=== PATIENT | female | born 1945 | race Caucasian/White ===

== ENCOUNTER 2020-01-16 15:31 | Outpatient (CLI) | payer MEDICARE, OTHER, SELFPAY ==
--- NOTE | ~2020-01-16 | CT_ITS ---
EXAMINATION: CT lung screening DATE: 01/16/2020 16:01 INDICATION: Personal history of tobacco dependence, current smoker with 30 pack year history TECHNIQUE: Computed tomography (CT) of the chest was performed without intravenous contrast. The dose -length product (DLP) was 85.81 mGy-cm. Automated exposure control and iterative reconstruction techn [employer] were employed. COMPARISON: 02/22/2019 FINDINGS: There is mild emphysema. There is a stable 2 mm nodule of the right upper lobe. No new or s uspicious pulmonary nodule is identified. The lungs are free of acute opacities. There is no pleural effusion or pneumothorax. Calcified pulmonary nodules and calcified mediastinal lymph nodes are consi stent with old granulomatous disease. Multinodular goiter of the thyroid is again noted. The heart si ze is normal. Punctate calcifications in an otherwise normal spleen likely represent healed granuloma tous disease. There is mild thoracic spondylosis. IMPRESSION: 1. Lung-RADS category 2: Benign appearance or behavior. Continue annual screening with noncontrast lo w-dose chest CT in 12 months. Reviewed, dictated and finalized at location A. IMPRESSION: 1. Lung-RADS category 2: Benign appearance or behavior. Continue annual screeni ng with noncontrast low-dose chest CT in 12 months.
== END 2020-01-16 15:32 | disposition home or self-care (01) ==
LOC: ANHIMG 15:40
PROVIDERS: PCP Internal Medicine; Visit Provider Nurse Practitioner Family
DX: Z12.2 Encounter for screening for malignant neoplasm of respiratory organs (principal); Z87.891 Personal history of nicotine dependence
CPT/HCPCS: G0297

== ENCOUNTER 2020-05-12 02:23 | Outpatient (CLI) | payer MEDICARE, OTHER, SELFPAY ==
[2020-05-12 19:46] LABS: SARS-CoV-2 RNA PCR Negative
== END 2020-05-12 02:24 | disposition home or self-care (01) ==
LOC: ANHCOVIDDT 02:24
PROVIDERS: PCP Internal Medicine; Visit Provider Internal Medicine Gastroenterology
DX: Z01.812 Encounter for preprocedural laboratory examination (principal); Z20.828 Contact with and (suspected) exposure to other viral communicable diseases
CPT/HCPCS: 87635; C9803; U0003

== ENCOUNTER 2020-05-15 04:44 | Day surgery (SDC) | payer MEDICARE, OTHER, SELFPAY ==
[2020-05-08 14:33] VITALS: BMI 30.3
[2020-05-15 10:07] VITALS: BP 149/73; PULSE 99; RESP 18; TEMP 36.7; O2SAT 92
[2020-05-15] MEDS: LACTATED RINGERS 1,000 ML 150 ML IV CONT (10:18)
--- NOTE | 2020-05-15 10:28 | WPDANESEPPF ---
Anes - Initial Pre Proc Eval Procedure: Operation Date: 05/15/20 11:00 Proposed Procedures p Colonoscopy - Tay Marmolejo MD Date/Time: 05/15/20 10:28 Surgeon: Tay Marmolejo MD Pre Op Diagnosis: Change In Bowel Habits Patient Data Age: 74 Gender: F Height: 5 ft Weight: 68.1 kg Last Vital Signs Temp 36.7 C 05/15/20 10:07 Pulse 99 05/15/20 10:07 Resp 18 05/15/20 10:07 BP 149/73 H 05/15/20 10:07 Pulse Ox 92 05/15/20 10:07 Allergies Allergy/AdvReac Type Severity Reaction Status Date / Time diphenhydramine Allergy Unknown Itching Verified 05/15/20 10:06 Home Medications Medication Instructions Recorded Confirmed Type aspirin 81 mg tablet,delayed 81 mg PO DAILY 06/05/19 05/15/20 History release cetirizine 5 mg-pseudoephedrine ER 1 tablet PO Q12H 06/05/19 05/15/20 History 120 mg tablet,extended release,12hr omega-3 fatty acids 1,000 mg 1,000 mg PO DAILY 06/05/19 05/15/20 History capsule budesonide-formoterol HFA 160 2 puff INHALATION Q12H #10.2 gm 06/07/19 05/15/20 Rx mcg-4.5 mcg/actuation aerosol inhaler losartan 50 mg tablet 50 mg PO DAILY #90 tablet 03/29/20 05/15/20 Rx albuterol sulfate 90 mcg/actuation 1 inh INHALATION Q4-6H PRN #8.5 gm 05/04/20 05/15/20 Rx aerosol inhaler Adults Multivitamin 1 tab-cap PO DAILY 05/08/20 05/15/20 History alprazolam 0.5 mg tablet 0.5 mg PO BID PRN #60 tablet 05/14/20 05/15/20 Rx Patient hx anesthesia problems: none Family hx anesthesia problems: none PMFSH Past Medical History Medical History Chronic respiratory failure, unspecified whether with hypoxia or hypercapnia COPD exacerbation Essential (primary) hypertension Nicotine dependence, other tobacco product, uncomplicated Thyroid nodule Wheezing Family History Family History Father Cerebrovascular accident Malignant neoplasm of prostate Patient's father is Sibling Diabetes mellitus Family history of malignant neoplasm of male breast Family history of malignant neoplasm of breast in first degree relative Mother Acute myocardial infarction Diabetes mellitus Other Family history of cardiovascular disease Social History Social History Smoking packs per day: 0.5 Smoking cigarettes per day: 10.0 Years smoked: 50 Smoking pack-years: 25.00 Smoking status: Current every day smoker Tobacco type: cigarettes Second hand tobacco smoke exposure: No Smoking end date: 06/26/16 Alcohol intake: never Substance use: unknown Living arrangements: with family Spiritual care concerns: No Anes - Eval Final PreProcedure Day of Procedure 05/15/20 10:28 Patient weight: overweight Heart: regular rate and rhythm Lungs: decreased breath sounds Airway: Mallampati scale class II Neurological: alert and oriented Last oral intake: >/= 8 hours ASA classification: III Emergent: no Anesthetic plan: proceed Anesthesia type and monitoring: general GIVS and standard monitoring Informed Consent: The patient's anesthetic plan and its attendant risks and benefits were discussed with the patient/family/POA. Questions were solicited and answers provided to the satisfaction of the patient/family/POA.
--- NOTE | 2020-05-15 10:42 | WPDGICN ---
Assessment and Plan Assessment and plan (1) Encounter for diagnostic colonoscopy due to change in bowel habits: Code(s): R19.4 - Change in bowel habit Status: Acute Assessment and Plan: colonoscopy will assess change in bowel habits as well as abdominal pain. Suggest MiraLax to be taken daily if necessary. Further recommendations will be given after colonoscopy. (2) Anxiety disorder, unspecified: Code(s): F41.9 - Anxiety disorder, unspecified Status: Acute GI Consult Note Consult date/time: 05/15/20 10:42 HPI: Mya Landry is a 74 year old female Seen in evaluation at the request of XIMENA Francis. Patient reports change in bowel habits with constipation. She has not taken any specific medications. In the past she has tried do Koul Fay but this causes cramps. She denies any bleeding or weight loss. Family history is noncontributory. She apparently has never had a colonoscopy. For this reason colonoscopy advised for screening as well to evaluate her pain. Review of Systems Review of Systems: All systems reviewed & are unremarkable except as noted in HPI and below PMFSH Past Medical History Medical History (Updated 05/15/20 @ 10:43 by Tay Marmolejo MD) Chronic respiratory failure, unspecified whether with hypoxia or hypercapnia COPD exacerbation Essential (primary) hypertension Nicotine dependence, other tobacco product, uncomplicated Thyroid nodule Wheezing Family History Family History Father Cerebrovascular accident Malignant neoplasm of prostate Patient's father is Sibling Diabetes mellitus Family history of malignant neoplasm of male breast Family history of malignant neoplasm of breast in first degree relative Mother Acute myocardial infarction Diabetes mellitus Other Family history of cardiovascular disease Social History Social History Smoking packs per day: 0.5 Smoking cigarettes per day: 10.0 Years smoked: 50 Smoking pack-years: 25.00 Smoking status: Current every day smoker Tobacco type: cigarettes Second hand tobacco smoke exposure: No Smoking end date: 06/26/16 Alcohol intake: never Substance use: unknown Living arrangements: with family Spiritual care concerns: No Meds Home Medications and Allergies Home Medications Medication Instructions Recorded Confirmed Type aspirin 81 mg tablet,delayed 81 mg PO DAILY 06/05/19 05/15/20 History release cetirizine 5 mg-pseudoephedrine ER 1 tablet PO Q12H 06/05/19 05/15/20 History 120 mg tablet,extended release,12hr omega-3 fatty acids 1,000 mg 1,000 mg PO DAILY 06/05/19 05/15/20 History capsule budesonide-formoterol HFA 160 2 puff INHALATION Q12H #10.2 gm 06/07/19 05/15/20 Rx mcg-4.5 mcg/actuation aerosol inhaler losartan 50 mg tablet 50 mg PO DAILY #90 tablet 03/29/20 05/15/20 Rx albuterol sulfate 90 mcg/actuation 1 inh INHALATION Q4-6H PRN #8.5 gm 05/04/20 05/15/20 Rx aerosol inhaler Adults Multivitamin 1 tab-cap PO DAILY 05/08/20 05/15/20 History alprazolam 0.5 mg tablet 0.5 mg PO BID PRN #60 tablet 05/14/20 05/15/20 Rx Allergies Allergy/AdvReac Type Severity Reaction Status Date / Time diphenhydramine Allergy Unknown Itching Verified 05/15/20 10:06 Vital Signs Vital Signs - 24 hr 05/15/20 10:07 Temperature 98.0 F Pulse Rate 99 Respiratory Rate 18 Blood Pressure 149/73 H Pulse Oximetry 92 Exam Narrative: Exam Narrative: Physical exam reveals patient to be alert. Vital signs stable. HEENT exam unremarkable. Lungs are clear to auscultation and percussion. Heart is without murmur or extra sounds. Abdominal exam bowel sounds are present soft nontender with no organomegaly. Digital external rectal exam normal per
[2020-05-15 11:06] VITALS: BP 112/51; PULSE 96; RESP 20; O2SAT 97
[2020-05-15 11:16] VITALS: BP 113/60; PULSE 92; RESP 18; O2SAT 98
[2020-05-15 11:26] VITALS: BP 126/77; PULSE 89; RESP 26; O2SAT 98
== END 2020-05-15 11:44 | disposition home or self-care (01) ==
PROVIDERS: PCP Internal Medicine; Visit Provider Internal Medicine Gastroenterology
PROC: 0DJD8ZZ Inspection of Lower Intestinal Tract, Via Natural or Artificial Opening Endoscopic (ICD-10-PCS; CPT 45378; principal; 2020-05-15 11:00)
DX: Z12.11 Encounter for screening for malignant neoplasm of colon (principal); K59.00 Constipation, unspecified; K64.8 Other hemorrhoids; K57.30 Diverticulosis of large intestine without perforation or abscess without bleeding; F41.9 Anxiety disorder, unspecified; J96.10 Chronic respiratory failure, unspecified whether with hypoxia or hypercapnia; J44.9 Chronic obstructive pulmonary disease, unspecified; I10 Essential (primary) hypertension; F17.210 Nicotine dependence, cigarettes, uncomplicated
CPT/HCPCS: G0121; J2704; J7120

== ENCOUNTER 2020-07-07 09:37 | Emergency (ER) | payer MEDICARE, OTHER, SELFPAY ==
[2020-07-07] VITALS (51 sets, daily range): BP systolic 106–206; BP diastolic 50–101; PULSE 65–89; RESP 14–20; TEMP 36.2; O2SAT 79–100
--- NOTE | ~2020-07-07 | XR_ITS ---
EXAMINATION: XR chest 1V portable INDICATION: Hypoxia TECHNIQUE: Portable AP chest at 1250 hours COMPARISON: 03/18/2016 FINDINGS: The lungs are free of acute opacities. There is no pleural effusion or pneumothorax. Calcif ied pulmonary nodules and calcified hilar lymph nodes are consistent with old granulomatous disease. IMPRESSION: 1. No acute cardiopulmonary abnormality. Reviewed, dictated and finalized at location A. ICE NURSE
--- NOTE | ~2020-07-07 | CT_ITS ---
EXAMINATION: CT abdomen pelvis wo con DATE: 07/07/2020 10:47 INDICATION: Left flank pain. TECHNIQUE: Computed tomography (CT) of the abdomen and pelvis was performed without intravenous contr ast. Automated exposure control and iterative reconstruction technique were employed. The dose-length product was 367.72 mGy-cm. COMPARISON: CT abdomen and pelvis 11/20/2015 FINDINGS: The visualized portions of the lung bases since or mild atelectasis. No pleural effusion. T he heart size is normal. No pericardial effusion. There is a small sliding hiatal hernia. Calcificati ons in the liver and spleen are consistent with old granulomatous disease. The gallbladder, pancreas, adrenal glands, and right kidney are normal. There are 6 mm and 5 mm stones in left kidney. There is mild left hydronephrosis and hydroureter. There is diverticulosis of the colon without evidence of d iverticulitis. There are no dilated loops of bowel. The appendix is not visualized. There are no path ologically enlarged lymph nodes. There is no free intraperitoneal fluid. There is moderate lumbar spo ndylosis. IMPRESSION: 1. Mild left hydronephrosis and hydroureter, which may be from a recently passed stone. 2. Nonobstructing left kidney stones. Reviewed, dictated and finalized at location A. UCTION ASSEMBLY OPERATOR IMPRESSION: 1. Mild left hydronephrosis and hydroureter, which may be from a recently passe d stone. 2. Nonobstructing left kidney stones.
[2020-07-07 09:59] LABS: Basophils Percent Auto 0.3 % (0.2-1.2); Eosinophils Absolute Auto 0.1 K/mm3 (0-0.3); Eosinophils Percent Auto 0.4 % (0-4.4); Hematocrit 45.5 % (37.0-47.0); Immature Granulocyte Absolute 0.03 K/mm3 (0.00-0.031); Immature Granulocyte Percent A 0.3 % (0-0.5); Lymphocytes Percent Auto 10.5 % (18.3-44.2); Mean Corpuscular Hemoglobin 31.8 pg (26-34); Mean Corpuscular Volume 96.4 fl (80-100); Mean Platelet Volume 10.6 fl (7.4-10.4); Monocytes Absolute Auto 0.6 K/mm3 (0.1-0.6); Monocytes Percent Auto 5.3 % (2.6-8.5); Neutrophils Absolute Auto 9.6 K/mm3 (1.3-6.7); Neutrophils Percent Auto 83.2 % (45.5-73.1); Platelet Count Result 350 k/mm3 (150-375); Red Blood Count 4.72 M/mm3 (4.2-5.4); Red Cell Distribution Width 12.9 % (11.5-14.5); White Blood Count 11.5 K/mm3 (4.5-10.0)
[2020-07-07] MEDS: HYDROmorphone HCL INJ (*CRX) 1 MG/ML SYR 0.5 MG IV PUSH (10:16)
[2020-07-07] MEDS: ONDANSETRON INJ 4 MG/2 ML VIAL IV PUSH (10:17)
--- NOTE | 2020-07-07 10:24 | ED.GENADULT ---
HPI - General Adult General Chief complaint: Back Pain/Injury Stated complaint: Abd & Back pain Time Seen by Provider: 07/07/20 09:47 Source: patient Mode of arrival: ambulatory Limitations: no limitations History of Present Illness HPI narrative: Patient presents with chief complaint of left sided back pain that began today at 6am that is sharp and crampy and accompanied by nausea and radiation into her left groin. She denies history of kidney stones or injury to her back. She states she has not noted blood in her urine but states she feels her urine volume may be decreased.She denies fever, chills, diarrhea, SOB, chest pain, cough abnormal from baseline or any other symptoms. Related Data Home Medications Medication Instructions Recorded Confirmed aspirin 81 mg tablet,delayed 81 mg PO DAILY 06/05/19 06/15/20 release cetirizine 5 mg-pseudoephedrine ER 1 tablet PO Q12H 06/05/19 06/15/20 120 mg tablet,extended release,12hr omega-3 fatty acids 1,000 mg 1,000 mg PO DAILY 06/05/19 06/15/20 capsule Adults Multivitamin 1 tab-cap PO DAILY 05/08/20 06/15/20 Allergies Allergy/AdvReac Type Severity Reaction Status Date / Time diphenhydramine Allergy Unknown Itching Verified 07/07/20 09:46 Review of Systems Review of Systems: Narrative: CONSTITUTIONAL: Denies fever, chills, or sweats. EYES: Denies visual changes, redness, or discharge. ENT: Denies rhinorrhea, congestion, sore throat, or otalgia. CARDIOVASCULAR: Denies chest pain, palpitations, or edema. RESPIRATORY: Denies cough or dyspnea. GASTROINTESTINAL: Reports nausea denies abdominal pain,vomiting, or diarrhea. GENITOURINARY: Reports feeling decreased urine output denies dysuria or hematuria. SKIN: Denies rash or itching. MUSCULOSKELETAL: Reports left-sided back pain, denies joint pain, or myalgia. NEUROLOGIC: Denies headache, numbness, dizziness, or weakness. PSYCHIATRIC: Denies anxiety or depression. [facility] Past Medical History Medical History (Updated 07/07/20 @ 17:26 by Anshu Harden PA-C) Chronic respiratory failure, unspecified whether with hypoxia or hypercapnia COPD exacerbation Essential (primary) hypertension Nicotine dependence, other tobacco product, uncomplicated Thyroid nodule Wheezing Family History Family History Father Cerebrovascular accident Malignant neoplasm of prostate Patient's father is Sibling Diabetes mellitus Family history of malignant neoplasm of male breast Family history of malignant neoplasm of breast in first degree relative Mother Acute myocardial infarction Diabetes mellitus Other Family history of cardiovascular disease Social History Social History Smoking packs per day: 0.5 Smoking cigarettes per day: 10.0 Years smoked: 50 Smoking pack-years: 25.00 Smoking status: Current every day smoker Tobacco type: cigarettes Second hand tobacco smoke exposure: No Smoking end date: 06/26/16 Alcohol intake: never Substance use: unknown Spiritual care concerns: No Exam Narrative: Exam Narrative: GENERAL: Well-appearing, well-nourished, appears uncomfortable HEAD: Normocephalic, atraumatic. EYES: PERRLA and EOMI. NECK: Supple. No adenopathy or masses. CHEST: Clear to auscultation. No respiratory distress. No wheezes rales or rhonchi HEART: Regular rate and rhythm. No murmur heard. Normal peripheral pulses. ABDOMEN: Left CVA tenderness. Soft, nontender, nondistended, normal active bowel sounds. BACK: Left CVA tenderness. No vertebral point tenderness. EXTREMITIES: Normal range of motion. No edema. SKIN: Warm, dry, no rash. NEURO: No focal deficits. Alert and oriented x3. PSYCH: Normal mood and affect. Course Course Emergency Course: Patient CT doesn't show acute stone or other concerning etiology. Patient renal function okay, giving Toradol as patient still has sig
[2020-07-07 10:27] LABS: Alanine Aminotransferase 31 U/L (4-35); Albumin Level 4.4 g/dL (3.5-5.1); Alkaline Phosphatase 127 U/L (38-126); Anion Gap 5 mmol/L (8-16); Aspartate Amino Transferase 36 U/L (14-36); Bilirubin,Total 0.7 mg/dL (0.2-1.3); Blood Urea Nitrogen 14 mg/dL (7-17); Calcium 9.2 mg/dL (8.4-10.2); Carbon Dioxide 28 mmol/L (22-30); Chloride 99 mmol/L (98-107); Estimated CRCL calculation 63 ml/min; Estimated Glomerular Filt Rate > 60; Glucose 128 mg/dL (65-105); Potassium 4.7 mmol/L (3.4-5.0); Sodium 132 mmol/L (137-145)
[2020-07-07] MEDS: ALBUTEROL SULFATE NEB 2.5 MG/0.5 ML INH 5 MG INHALATION (11:15)
[2020-07-07] MEDS: IPRATROPIUM BR 0.02% INH SOLN 0.5 MG/2.5 ML VIAL INHALATION (11:15)
[2020-07-07] MEDS: KETOROLAC 15 MG/ML VIAL (*BKC) IV PUSH (11:23)
--- NOTE | 2020-07-07 12:02 | PC.NURSE ---
1202 - Patient reports pain level of 0/10 at this time after administration of ordered Toradol IVP.
[2020-07-07] MEDS: methylPREDNISolone SOD SUCC 125 MG VIAL IV PUSH (13:27)
[2020-07-08 18:18] LABS: SARS-CoV-2 RNA PCR Negative
== END 2020-07-07 16:54 | disposition home or self-care (01) ==
PROVIDERS: Physician Assistant; Emergency Provider Emergency Medicine; PCP Internal Medicine
DX: J44.1 Chronic obstructive pulmonary disease with (acute) exacerbation (principal); J96.11 Chronic respiratory failure with hypoxia; R10.32 Left lower quadrant pain; Z20.822 Contact with and (suspected) exposure to COVID-19; I10 Essential (primary) hypertension; E04.1 Nontoxic single thyroid nodule; Z79.82 Long term (current) use of aspirin; F17.210 Nicotine dependence, cigarettes, uncomplicated; N13.2 Hydronephrosis with renal and ureteral calculous obstruction
CPT/HCPCS: 36415; 71045; 74176; 80053; 85025; 94640; 96374; 96375; 99284; C9803; J1170; J1885; J2405; J2930; U0003; U0005

== ENCOUNTER 2020-10-30 06:36 | Outpatient (CLI) | payer MEDICARE, OTHER, SELFPAY ==
--- NOTE | 2020-10-30 06:42 | ECHO_ITS ---
Patient Info Name: Mya Landry Age: 75 years : 1945 Gender: Female Ht: 60 in Wt: 145 lbs BSA: 1.69 m2 HR: 79 bpm BP: 160 / 79 mmHg Heart Rhythm: Sinus Rhythm Exam Date: 10/30/2020 7:02 AM Exam Location: [facility] Pulmonary Patient Status: Outpatient Admit Date: 10/30/2020 Staff Ordering Physician: Alex Francis PA-C Chief Procurement Officer: Shelly Ashford RDCS Attending Provider: Alex Francis PA-C Referring Physician: Penny VARNER; Exam Type: CA echo doppler color flow Study Info Indications R60.0 - Localized edema Complete two-dimensional, color flow and Doppler transthoracic echocardiogram is performed. Summary 1. Complete two-dimensional, color flow and Doppler transthoracic echocardiogram is performed. 2. Left ventricular chamber dimension is normal. 3. Left ventricular systolic function is normal, estimated at >70%. 4. There is mildly increased left ventricular wall thickness. 5. The left ventricular diastolic function is grade I diastolic dysfunction. 6. E/e' 26 is significantly elevated. 7. Left atrial chamber dimension is mildly enlarged. 8. The mitral valve has severely calcified posterior leaflets and mildly calcified annulus. 9. There is trace tricuspid valve regurgitation. 10. No pulmonary hypertension, estimated pulmonary arterial systolic pressure is 29 mmHg. Left Ventricle E/e' 26 is significantly elevated. Left ventricular chamber dimension is normal. Left ventricular systolic function is normal, estimated at >70%. There is mildly increased left ventricular wall thickness. The left ventricular diastolic function is grade I diastolic dysfunction. Right Ventricle Right ventricular chamber dimension is normal. Right ventricular systolic function is normal. Left Atria Left atrial chamber dimension is mildly enlarged. Right Atria Right atrial chamber dimension is normal. Aortic Valve The aortic valve is trileaflet. There is no aortic valve stenosis. There is no aortic valve regurgitation. Pulmonic Valve There is no pulmonic regurgitation. Mitral Valve The mitral valve has severely calcified posterior leaflets and mildly calcified annulus. There is no mitral valve stenosis. There is no mitral valve regurgitation. Tricuspid Valve There is trace tricuspid valve regurgitation. No pulmonary hypertension, estimated pulmonary arterial systolic pressure is 29 mmHg. Pericardium/Pleural There is no pericardial effusion. Inferior Vena Cava Normal inferior vena cava with >50% collapse upon inspiration consistent with normal right atrial pressure, 5 mmHg. Aorta The aortic root size at the sinus of Valsalva is normal. Left Ventricular Outflow Tract Name Value Normal LVOT 2D LVOT Diameter 1.8 cm LVOT Doppler LVOT Peak Gradient 7 mmHg LVOT Mean Gradient 3 mmHg LVOT VTI 32 cm LVOT VTI/AV VTI Ratio 0.8 LVOT Stroke Volume 76 ml LVOT CO 5.1 l/min LVOT CI
== END 2020-10-30 06:37 | disposition home or self-care (01) ==
PROVIDERS: PCP Internal Medicine; Visit Provider Physician Assistant
DX: R60.0 Localized edema (principal); R06.02 Shortness of breath; R93.1 Abnormal findings on diagnostic imaging of heart and coronary circulation
CPT/HCPCS: 93306

== ENCOUNTER 2020-12-30 15:54 | Outpatient (CLI) | payer MEDICARE, OTHER, SELFPAY ==
--- NOTE | ~2020-12-30 | CT_ITS ---
EXAMINATION: CT lung screening DATE: 12/30/2020 16:08 INDICATION: Personal history of tobacco dependence TECHNIQUE: Computed tomography (CT) of the chest was performed without intravenous contrast. The dose -length product was 78.49 mGy-cm. Automated exposure control and iterative reconstruction technique w ere employed. COMPARISON: CT dated 01/16/2020 FINDINGS: Heterogeneous appearance to the thyroid gland with coarse calcifications, without significa nt change, likely reflecting multinodular goiter. Stable mildly prominent mediastinal lymph nodes, li paula reactive. There are calcified mediastinal lymph nodes and splenic granulomas, consistent with ch ronic granulomatous disease. Heart size normal. No significant pleural or pericardial effusion. No pn eumothorax. There is emphysema. No endobronchial lesions. Stable 2 mm right upper lobe nodule. There are a few additional scattered pulmonary nodules measuring 2 mm or less. There are a few scattered ca lcified pulmonary nodules, also consistent with chronic granulomatous disease. Mild thoracic spondylo sis. There is chronic lingular atelectasis/scarring. IMPRESSION: 1. Lung-RADS category 2: Benign appearance or behavior. Continue annual screening with noncontrast lo w-dose chest CT in 12 months. Reviewed, dictated and finalized at location A. IMPRESSION: 1. Lung-RADS category 2: Benign appearance or behavior. Continue annual screeni ng with noncontrast low-dose chest CT in 12 months.
== END 2020-12-30 15:55 | disposition home or self-care (01) ==
LOC: ANHIMG 15:55
PROVIDERS: PCP Internal Medicine; Visit Provider Nurse Practitioner Family
DX: Z12.2 Encounter for screening for malignant neoplasm of respiratory organs (principal); Z87.891 Personal history of nicotine dependence
CPT/HCPCS: 71271

== ENCOUNTER 2021-10-13 12:57 | Inpatient (IN) | payer MEDICARE, OTHER, SELFPAY ==
[2021-10-13] VITALS (28 sets, daily range): BP systolic 100–171; BP diastolic 54–156; PULSE 70–127; RESP 15–33; TEMP 36.3–38; O2SAT 79–100; BMI 23.4
--- NOTE | ~2021-10-13 | XR_ITS ---
EXAMINATION: XR chest 1V portable DATE: 10/17/2021 05:38 INDICATION: COPD . Pneumonia. TECHNIQUE: frontal view of the chest was obtained. COMPARISON: Chest radiograph dated 10/13/2021 FINDINGS: There are few scattered bilateral calcified pulmonary nodules along with calcified hilar and mediasti nal lymph nodes consistent with old granulomatous disease. Decrease in the mild opacities in the bila teral lower lung zones. No new airspace opacities, pleural effusion or pneumothorax. The cardiomedias tinal silhouette is normal. Right rotator cuff arthropathy. IMPRESSION: 1. Decrease in now minimal opacities in bilateral lower lung zones consistent with improving atelecta sis or pneumonia. Reviewed, dictated and finalized at location A. IMPRESSION: 1. Decrease in now minimal opacities in bilateral lower lung zones consistent w ith improving atelectasis or pneumonia.
--- NOTE | ~2021-10-13 | XR_ITS ---
EXAMINATION: XR chest 2V EXAM DATE: 10/13/2021 13:26 INDICATION: cough fever HX COPD. TECHNIQUE: Frontal and lateral projections of the chest obtained and reviewed. Comparison is made to prior examination from 07/07/2020, 03/18/2016. FINDINGS: Scattered ill-defined bibasilar airspace disease, could be developing bronchopneumonia with out confluent consolidation. Follow-up can be obtained if symptoms persist. There is no pneumothorax suspected. There are no pleural effusions. Cardiomediastinal silhouette is normal. There are bony deg enerative changes. IMPRESSION: Ill-defined bibasilar opacities could indicate developing bronchopneumonia. Reviewed, dictated and finalized at location A. IMPRESSION: Ill-defined bibasilar opacities could indicate developing bronchopn eumonia.
--- NOTE | 2021-10-13 13:11 | ECG_ITS ---
Measurements Intervals [place] Rate: 103 P: 78 NH: 123 QRS: 86 QRSD: 93 T: 50 QT: 313 QTc: 410 Interpretive Statements SINUS TACHYCARDIA WITH OCCASIONAL SUPRAVENTRICULAR PREMATURE COMPLEXES BASELINE ARTIFACT BORDERLINE ECG NO PREVIOUS ECG AVAILABLE FOR COMPARISON Electronically Signed On 10-13-2021 18:10:58 CDT by Demetrius Villafana M.D.
--- NOTE | 2021-10-13 13:18 | ED.SOB ---
HPI - SOB/Dyspnea General Chief Complaint: Shortness of Breath/Dyspnea Stated Complaint: sob Time Seen by Provider: 10/13/21 13:07 Source: patient Mode of arrival: ambulatory Limitations: no limitations History of Present Illness HPI Narrative: 75 years old -[place] female came from home complaining of increased shortness of breath, productive cough of yellow sputum, cold feeling and nausea. History of COPD on chronic 2 L oxygen, history of hypertension, on baby aspirin once a day. Patient denies any chest pain. Related Data Home Medications Medication Instructions Recorded Confirmed aspirin 81 mg tablet,delayed 81 mg PO DAILY 06/05/19 10/11/21 release cetirizine 5 mg-pseudoephedrine ER 1 tablet PO Q12H 06/05/19 10/11/21 120 mg tablet,extended release,12hr omega-3 fatty acids 1,000 mg 1,000 mg PO DAILY 06/05/19 10/11/21 capsule Adults Multivitamin 1 tab-cap PO DAILY 05/08/20 10/11/21 Allergies Allergy/AdvReac Type Severity Reaction Status Date / Time diphenhydramine Allergy Unknown Itching Verified 10/13/21 13:10 Review of Systems Review of Systems: CONSTITUTIONAL: Denies fever, chills, or sweats. EYES: Denies visual changes, redness, or discharge. ENT: Denies rhinorrhea, congestion, sore throat, or otalgia. CARDIOVASCULAR: Denies chest pain, palpitations, or edema. RESPIRATORY: Denies cough or dyspnea. GASTROINTESTINAL: Denies abdominal pain, nausea, vomiting, or diarrhea. GENITOURINARY: Denies dysuria or hematuria. SKIN: Denies rash or itching. MUSCULOSKELETAL: Denies back pain, joint pain, or myalgia. NEUROLOGIC: Denies headache, numbness, or weakness. PSYCHIATRIC: Denies anxiety or depression. [facility] Past Medical History Medical History Chronic respiratory failure, unspecified whether with hypoxia or hypercapnia COPD exacerbation Essential (primary) hypertension History of calculus of gallbladder Nicotine dependence, other tobacco product, uncomplicated Thyroid nodule Wheezing Family History Family History Father Cerebrovascular accident Malignant neoplasm of prostate Patient's father is Sibling Diabetes mellitus Family history of malignant neoplasm of male breast Family history of malignant neoplasm of breast in first degree relative Mother Acute myocardial infarction Diabetes mellitus Other Family history of cardiovascular disease Social History Social History Social History: At least a 50 pack year smoking history. Smoking packs per day: 0.25 Smoking cigarettes per day: 5.0 Smoking status: Current every day smoker Tobacco type: cigarettes Second hand tobacco smoke exposure: No Alcohol intake: never Substance use: unknown Spiritual care concerns: No Exam Narrative: General appearance: Well-developed, well-nourished Skin: Normal color Head: Normocephalic, nontraumatic Eyes: Clear conjunctiva ENT: Oropharynx normal, ears normal, nose normal Neck: Supple, nontender Chest and respiratory: Marked diminishment of air entry bilaterally, few fine wheezing Heart: Regular rate/rhythm Abdomen: Soft, nontender, no organomegaly, quiet bowel sounds Vascular: Normal peripheral pulses, normal capillary refill. Musculoskeletal: Normal range of motion, nontender back Neurologic: Alert and oriented ?3, SOCIAL INSURANCE ADMINISTRATOR is normal as tested, no gross motor deficit Course Course Emergency Course: Stable Vital Signs Vital signs: Vital Signs Temperature 38.0 C H 10/13/21 13:02 Pulse Rate 113 H 10/13/21 13:02 Respiratory Rate
[2021-10-13 13:21] LABS: Basophils Absolute Auto 0.1 K/mm3 (0.0-0.1); Basophils Percent Auto 0.3 % (0.2-1.2); Eosinophils Absolute Auto 0.1 K/mm3 (0-0.3); Eosinophils Percent Auto 0.4 % (0-4.4); Hematocrit 47.9 % (37.0-47.0); Hemoglobin 15.3 g/dL (12.0-15.0); Immature Granulocyte Absolute 0.26 K/mm3 (0.00-0.031); Lymphocytes Absolute Auto 2.08 K/mm3 (0.9-3.2); Lymphocytes Percent Auto 7.7 % (18.3-44.2); Mean Corpuscular HGB Conc 31.9 g/dl (32-36); Mean Corpuscular Hemoglobin 31.8 pg (26-34); Mean Corpuscular Volume 99.6 fl (80-100); Mean Platelet Volume 10.6 fl (7.4-10.4); Monocytes Absolute Auto 2.8 K/mm3 (0.1-0.6); Monocytes Percent Auto 10.2 % (2.6-8.5); Neutrophils Absolute Auto 21.8 K/mm3 (1.3-6.7); Neutrophils Percent Auto 80.4 % (45.5-73.1); Platelet Count Result 314 k/mm3 (150-375); Red Blood Count 4.81 M/mm3 (4.2-5.4); Red Cell Distribution Width 13.5 % (11.5-14.5); White Blood Count 27.1 K/mm3 (4.5-10.0)
[2021-10-13 13:30] LABS: Alanine Aminotransferase 40 U/L (4-35); Albumin Level 4.3 g/dL (3.5-5.1); Alkaline Phosphatase 158 U/L (38-126); Anion Gap 7 mmol/L (8-16); Aspartate Amino Transferase 58 U/L (14-36); Bilirubin,Total 1.4 mg/dL (0.2-1.3); Blood Urea Nitrogen 14 mg/dL (7-17); Calcium 9.5 mg/dL (8.4-10.2); Carbon Dioxide 29 mmol/L (22-30); Chloride 98 mmol/L (98-107); Estimated CRCL calculation 68 ml/min; Estimated Glomerular Filt Rate > 60; Glucose 128 mg/dL (65-110); Potassium 4.2 mmol/L (3.4-5.0); Sodium 134 mmol/L (137-145)
[2021-10-13 13:31] LABS: Lactic Acid Reflex 1.4 mmol/L (0.7-2.1)
[2021-10-13] MEDS: ACETAMINOPHEN 325 MG TABLET 650 MG PO ×2 (13:57→19:22)
[2021-10-13] MEDS: ALBUTEROL SULFATE NEB 2.5 MG/0.5 ML INH 5 MG INHALATION ×2 (14:37→19:32)
[2021-10-13] MEDS: IPRATROPIUM BR 0.02% INH SOLN 0.5 MG/2.5 ML VIAL INHALATION ×2 (14:37→19:32)
--- NOTE | 2021-10-13 15:30 | PM.IMHP ---
H&P: HPI History of Present Illness Date/Time: 10/13/21 15:30 Chief Complaint: Cough and shortness of breath. Narrative: This is a 75-year-old female smoker with chronic respiratory failure on oxygen though on a Trilogy unit at nighttime, COPD, and hypertension who presented to the emergency department from home for evaluation of cough and shortness of breath. She had a routine appointment with her primary care provider on Monday and was feeling in her usual state of health at that time. Monday morning she awoke with a headache and cough productive of yellow sputum and she has felt increasingly short of breath since that time. Her appetite has also been poor with nausea and decreased oral intake. She has tried her p.r.n. nebulizers at home but is not gotten much relief and thus she came in today for evaluation. On arrival to triage her temperature was 100.4? an SpO2 was 79% although she presented without her home oxygen. Chest x-ray showed ill-defined bibasilar opacities suspicious for developing bronchopneumonia and she is being admitted in this setting. She tested negative for COVID and influenza A and B. Currently she is resting comfortably and she has no other complaints except as detailed above. She denies sick contacts, dysphagia, concerns for aspiration, sinus congestion, sore throat, vomiting, and diarrhea. Review of Systems Review of Systems: Twelve systems were reviewed and are negative except for as per HPI. [facility] Past Medical History Medical History (Updated 10/13/21 @ 21:58 by Sherri London PA-C) Chronic respiratory failure, unspecified whether with hypoxia or hypercapnia On home oxygen. Uses Trilogy unit at nighttime. Essential (primary) hypertension Kidney stones Multinodular goiter Nicotine dependence, other tobacco product, uncomplicated Seasonal allergies Tobacco dependence Surgical History Surgical History (Updated 10/13/21 @ 21:48 by Sherri London PA-C) History of colonoscopy with polypectomy History of hysterectomy for benign disease Status post excision of lipoma Right posterior neck. Family History Family History Father Cerebrovascular accident Malignant neoplasm of prostate Patient's father is Sibling Diabetes mellitus Family history of malignant neoplasm of male breast Family history of malignant neoplasm of breast in first degree relative Mother Acute myocardial infarction Diabetes mellitus Other Family history of cardiovascular disease Social History Social History (Updated 10/13/21 @ 21:50 by Sherri London PA-C) Social History: . Lives in her own home in [place]. Long-time smoker, at least a 50 pack-year smoking history. No alcohol or illicit substance abuse. Surrogate decision maker: Jake (son) or Francia (daughter) Marianela. Code status: Full code. Spiritual care concerns: No Meds Home Medications and Allergies Home Medications Medication Instructions Recorded Confirmed Type aspirin 81 mg tablet,delayed 81 mg PO DAILY 06/05/19 10/13/21 History release cetirizine 5 mg-pseudoephedrine ER 1 tablet PO Q12H 06/05/19 10/13/21 History 120 mg tablet,extended release,12hr omega-3 fatty acids 1,000 mg 1,000 mg PO DAILY 06/05/19 10/13/21 History capsule Adults Multivitamin 1 tab-cap PO DAILY 05/08/20 10/13/21 History budesonide-formoterol HFA 160 2 puff INHALATION Q12H #10.2 gm 10/02/20 10/13/21 Rx mcg-4.5 mcg/actuation aerosol inhaler albuterol sulfate 90 mcg/actuation 1 inh INHALATION Q4-6H PRN #8.5 gm 08/23/21 10/13/21 Rx aerosol inhaler alprazolam 0.5 mg tablet 0.5 mg PO BID PRN #60 tablet 09/15/21 10/13/21 Rx losartan 50 mg tablet 50 mg PO DAILY #90 tablet 09/19/21 10/13/21 Rx hydrocodone 5 mg-acetaminophen 325 1 tablet PO Q6H PRN #40 tablet 10/11/21 10/13/21 Rx mg tablet clotrimazole-betamethasone 1 applic TOPICAL PRN 10/13/21 10/13/21 History m
--- NOTE | 2021-10-13 15:41 | ADMGEN ---
This patient, Mya Landry, was admitted to Medical Room 241-. Patient/family oriented to hospital policies and general routines including ID bracelet, bed and alarms, visiting hours, pain management, procedures, bathroom and other care routines, personal items, smoking policy, room service/diet, and visiting hours. Information on how to activate the Rapid Response Team has been discussed. Patient/Family are encouraged to report perceived risks to care and to ask questions if they do not understand what they are told or what they should do.
[2021-10-13 15:42] LABS: Influenza A QL RT-PCR Negative (Negative); Influenza B QL RT-PCR Negative (Negative); SARS-CoV-2 RNA PCR Negative
[2021-10-13] MEDS: methylPREDNISolone SOD SUCC 125 MG VIAL 80 MG IV PUSH (19:55)
[2021-10-14] VITALS (17 sets, daily range): BP systolic 105–135; BP diastolic 50–72; PULSE 63–100; RESP 14–25; TEMP 36.1–37.1; O2SAT 90–98
[2021-10-14] MEDS: ALBUTEROL SULFATE NEB 2.5 MG/0.5 ML INH 5 MG INHALATION ×4 (02:00→20:38)
[2021-10-14] MEDS: IPRATROPIUM BR 0.02% INH SOLN 0.5 MG/2.5 ML VIAL INHALATION ×4 (02:23→20:39)
[2021-10-14 05:34] LABS: Hematocrit 43.4 % (37.0-47.0); Hemoglobin 13.6 g/dL (12.0-15.0); Mean Corpuscular HGB Conc 31.3 g/dl (32-36); Mean Corpuscular Hemoglobin 31.6 pg (26-34); Mean Corpuscular Volume 100.7 fl (80-100); Mean Platelet Volume 10.8 fl (7.4-10.4); Platelet Count Result 254 k/mm3 (150-375); Red Blood Count 4.31 M/mm3 (4.2-5.4); Red Cell Distribution Width 13.3 % (11.5-14.5); White Blood Count 20.2 K/mm3 (4.5-10.0)
[2021-10-14 05:53] LABS: Alanine Aminotransferase 43 U/L (4-35); Albumin Level 3.7 g/dL (3.5-5.1); Alkaline Phosphatase 140 U/L (38-126); Anion Gap 7 mmol/L (8-16); Aspartate Amino Transferase 47 U/L (14-36); Bilirubin,Total 0.6 mg/dL (0.2-1.3); Blood Urea Nitrogen 18 mg/dL (7-17); Calcium 8.8 mg/dL (8.4-10.2); Carbon Dioxide 29 mmol/L (22-30); Chloride 97 mmol/L (98-107); Estimated CRCL calculation 59 ml/min; Estimated Glomerular Filt Rate > 60; Glucose 198 mg/dL (65-110); Magnesium 2.2 mg/dL (1.6-2.3); Potassium 4.5 mmol/L (3.4-5.0); Sodium 133 mmol/L (137-145)
[2021-10-14 06:33] LABS: Hepatitis B Surface Antigen Negative (Negative)
[2021-10-14 06:39] LABS: HAV RESULT Negative (Negative); Hepatitis B Core IgM Result Negative (Negative)
[2021-10-14 06:50] LABS: Hepatitis C Virus Antibody Negative (Negative)
[2021-10-14] MEDS: LORATADINE 5 MG TABLET PO ×2 (08:27→20:15)
[2021-10-14] MEDS: ENOXAPARIN 40 MG/0.4 ML SYRINGE SUB-Q (08:27)
[2021-10-14] MEDS: LOSARTAN POTASSIUM 50 MG TABLET PO (08:27)
[2021-10-14] MEDS: MULTIVITAMINS THERAPEUTIC TAB (*BKC) 1 TABLET PO (08:28)
[2021-10-14] MEDS: ASPIRIN 81 MG ENTERIC TABLET PO (08:28)
[2021-10-14] MEDS: OMEGA 3 POLYUNSAT FATTY ACIDS 1 GM CAP PO (08:28)
[2021-10-14] MEDS: ALPRAZolam (*CRX) 0.5 MG TABLET PO (08:33)
[2021-10-14] MEDS: PSEUDOEPHEDRINE HCL 30 MG TABLET 120 MG PO ×2 (08:34→20:15)
[2021-10-14] MEDS: FLUTICASONE/SALMETEROL 115-21 MCG INHALER 1 PUFF 2 PUFF INHALATION ×2 (09:07→20:40)
--- NOTE | 2021-10-14 10:11 | PCCCNOTE ---
On 10/14/21, the student, [Jess Muñoz ], provided care and completed [facility] documentation on this patient. I have reviewed the student's documentation and agree with the findings.
--- NOTE | 2021-10-14 10:23 | PM.IMPN ---
Progress Note: A&P Assessment and Plan (1) Sepsis: Code(s): A41.9 - Sepsis, unspecified organism Status: Acute Assessment and Plan: -Supported by fever, tachycardia, tachypnea, and leukocytosis on arrival in the setting of pneumonia. -Bilirubin also elevated. -Lactic acid level is within normal limits. -Blood and sputum cultures are pending. -continue IV abx -vital signs improving (2) Community acquired pneumonia: Code(s): J18.9 - Pneumonia, unspecified organism Status: Acute Assessment and Plan: -She has been started on azithromycin and ceftriaxone. -Send sputum for culture. -Check Legionella and strep pneumonia antigens. (3) Chronic respiratory failure, unspecified whether with hypoxia or hypercapnia: Code(s): J96.10 - Chronic respiratory failure, unspecified whether with hypoxia or hypercapnia Status: Acute Assessment and Plan: -Currently at baseline oxygen requirement. -Patient may use trilogy unit from home if she brought it with her. If not we will order BiPAP for her to use at nighttime and with naps while hospitalized. (4) COPD exacerbation: Code(s): J44.1 - Chronic obstructive pulmonary disease with (acute) exacerbation Status: Acute Assessment and Plan: -She has significant wheezing on exam though given concomitant pneumonia I am hesitant to start her on scheduled steroids. -Gave one time dose of Solu-Medrol with some mild improvement -Continue home inhalers -Nebs q4hr prn (5) Transaminitis: Code(s): R74.01 - Elevation of levels of liver transaminase levels Status: Acute Assessment and Plan: -May be related to underlying infection and sepsis. -Abdominal exam is benign. -hepatitis panel negative -Repeat CMP tomorrow (6) Tobacco dependence: Code(s): F17.200 - Nicotine dependence, unspecified, uncomplicated Status: Acute Assessment and Plan: -Patient states she has not smoked in the last 3 days. -We discussed how imperative it is for her to quit smoking though I am not certain she is motivated 100%. -She declines the need for nicotine patch at this time. (7) Essential (primary) hypertension: Code(s): I10 - Essential (primary) hypertension Status: Acute Assessment and Plan: -Blood pressures were reviewed and they are reasonable. -Continue antihypertensives and monitor. Subjective Date/time seen: 10/14/21 10:23 Interval history: 75-year-old female smoker with chronic respiratory failure on oxygen though on a Trilogy unit at nighttime, COPD, and hypertension, admitted for COPD exacerbation and pneumonia. Pt states overall she is feeling a little better, however she continues to have persistent wheezing and cough. No cp but it is uncomfortable when she coughs. No fevers. No leg pain or swelling. Review of Systems Review of Systems: All systems reviewed & are unremarkable except as noted in HPI and below Exam Narrative: General: Well-developed elderly female sitting up in bed. Weight: 68 kg. BMI: 23.5. HEENT: Wearing glasses. PERRL, EOMI. Sclerae anicteric. Oral mucosa moist. Neck: Supple. Respiratory: Respirations are nonlabored. Lung sounds are significantly diminished throughout with increased expiratory phase and diffuse wheezing and occasional bibasilar crackles. Cardiovascular: Regular rate and rhythm with S1-S2. Gastrointestinal: Abdomen is soft, nontender, and nondistended with positive bowel sounds. Skin: Warm and dry. No rash or lesions on limited exam. Extremities: No edema. Radial and pedal pulses intact. Neurological: Alert. Cranial nerves 2-12 are grossly intact. No gross focal deficits to casual conversation. Psychiatric: Pleasant and cooperative. Appropriate mood. Objective Data Vital Signs Vital Signs: Vital Signs - 24 hr 10/13/21 13:02 10/13/21 13:16 10/13/21 13:1
[2021-10-14 13:52] LABS: Glucose Point of Care 270 mg/dl (65-105)
[2021-10-14 16:12] LABS: Glucose Point of Care 257 mg/dl (65-105)
[2021-10-14] MEDS: INSULIN ASPART (*BKC) 100 UNITS/ML SUB-Q (17:01)
[2021-10-14] MEDS: ACETAMINOPHEN 325 MG TABLET 650 MG PO (20:16)
[2021-10-14 21:52] LABS: Glucose Point of Care 126 mg/dl (65-105)
--- NOTE | 2021-10-14 22:31 | PCRCNOTE ---
Pt requested to be off NIV and back on 2L NC. Pt uses a Trilogy at home and states that our machine is not comfortable and makes too much noise. Pt was advised to have someone bring her home machine in as soon as possible so that she may continue to use it at night. Nurse was asked to encourage this as well.
[2021-10-15] VITALS (19 sets, daily range): BP systolic 100–123; BP diastolic 51–70; PULSE 53–99; RESP 14–26; TEMP 36–37.7; O2SAT 90–100
[2021-10-15] MEDS: IPRATROPIUM BR 0.02% INH SOLN 0.5 MG/2.5 ML VIAL INHALATION ×4 (02:22→20:18)
[2021-10-15] MEDS: ALBUTEROL SULFATE NEB 2.5 MG/0.5 ML INH 5 MG INHALATION ×4 (02:22→20:18)
[2021-10-15 05:50] LABS: Basophils Percent Auto 0.3 % (0.2-1.2); Eosinophils Absolute Auto 0.1 K/mm3 (0-0.3); Eosinophils Percent Auto 0.7 % (0-4.4); Hematocrit 39.9 % (37.0-47.0); Hemoglobin 13.1 g/dL (12.0-15.0); Immature Granulocyte Absolute 0.06 K/mm3 (0.00-0.031); Immature Granulocyte Percent A 0.5 % (0-0.5); Lymphocytes Absolute Auto 1.24 K/mm3 (0.9-3.2); Lymphocytes Percent Auto 10.8 % (18.3-44.2); Mean Corpuscular HGB Conc 32.8 g/dl (32-36); Mean Corpuscular Hemoglobin 31.7 pg (26-34); Mean Corpuscular Volume 96.6 fl (80-100); Mean Platelet Volume 10.5 fl (7.4-10.4); Monocytes Percent Auto 8.3 % (2.6-8.5); Neutrophils Absolute Auto 9.1 K/mm3 (1.3-6.7); Neutrophils Percent Auto 79.4 % (45.5-73.1); Platelet Count Result 274 k/mm3 (150-375); Red Blood Count 4.13 M/mm3 (4.2-5.4); Red Cell Distribution Width 13.2 % (11.5-14.5); White Blood Count 11.5 K/mm3 (4.5-10.0)
[2021-10-15 06:05] LABS: Alanine Aminotransferase 38 U/L (4-35); Albumin Level 3.5 g/dL (3.5-5.1); Alkaline Phosphatase 119 U/L (38-126); Anion Gap 5 mmol/L (8-16); Aspartate Amino Transferase 42 U/L (14-36); Bilirubin,Total 0.4 mg/dL (0.2-1.3); Blood Urea Nitrogen 19 mg/dL (7-17); Calcium 8.6 mg/dL (8.4-10.2); Carbon Dioxide 28 mmol/L (22-30); Chloride 97 mmol/L (98-107); Estimated CRCL calculation 80 ml/min; Estimated Glomerular Filt Rate > 60; Glucose 135 mg/dL (65-110); Sodium 130 mmol/L (137-145)
[2021-10-15] MEDS: ACETAMINOPHEN 325 MG TABLET 650 MG PO ×2 (06:19→20:47)
[2021-10-15 07:30] LABS: Glucose Point of Care 146 mg/dl (65-105)
[2021-10-15] MEDS: FLUTICASONE/SALMETEROL 115-21 MCG INHALER 1 PUFF 2 PUFF INHALATION ×2 (08:02→20:18)
[2021-10-15] MEDS: ENOXAPARIN 40 MG/0.4 ML SYRINGE SUB-Q (08:09)
[2021-10-15] MEDS: LOSARTAN POTASSIUM 50 MG TABLET PO (08:10)
[2021-10-15] MEDS: OMEGA 3 POLYUNSAT FATTY ACIDS 1 GM CAP PO (08:10)
[2021-10-15] MEDS: ASPIRIN 81 MG ENTERIC TABLET PO (08:10)
[2021-10-15] MEDS: MULTIVITAMINS THERAPEUTIC TAB (*BKC) 1 TABLET PO (08:10)
[2021-10-15] MEDS: LORATADINE 5 MG TABLET PO (08:13)
--- NOTE | 2021-10-15 09:02 | PM.IMPN ---
Progress Note: A&P Assessment and Plan (1) Sepsis: Code(s): A41.9 - Sepsis, unspecified organism Status: Acute Assessment and Plan: -Supported by fever, tachycardia, tachypnea, and leukocytosis on arrival in the setting of pneumonia. -Bilirubin also elevated. -Lactic acid level is within normal limits. -Blood and sputum cultures are pending. Initial sputum culture was contaminated so a repeat was ordered. -continue IV abx -vital signs improving (2) Community acquired pneumonia: Code(s): J18.9 - Pneumonia, unspecified organism Status: Acute Assessment and Plan: -She has been started on azithromycin and ceftriaxone. -Send sputum for culture. -Check Legionella and strep pneumonia antigens. (3) Chronic respiratory failure, unspecified whether with hypoxia or hypercapnia: Code(s): J96.10 - Chronic respiratory failure, unspecified whether with hypoxia or hypercapnia Status: Acute Assessment and Plan: -Currently at baseline oxygen requirement. -Patient may use trilogy unit from home if she brought it with her. If not we will order BiPAP for her to use at nighttime and with naps while hospitalized. (4) COPD exacerbation: Code(s): J44.1 - Chronic obstructive pulmonary disease with (acute) exacerbation Status: Acute Assessment and Plan: -She has significant wheezing on exam though given concomitant pneumonia I am hesitant to start her on scheduled steroids. -Gave one time dose of Solu-Medrol with some mild improvement, however we did see a spike in her blood sugar -Continue home inhalers -Nebs q4hr prn (5) Transaminitis: Code(s): R74.01 - Elevation of levels of liver transaminase levels Status: Acute Assessment and Plan: -May be related to underlying infection and sepsis. -Abdominal exam is benign. -hepatitis panel negative -Improving -Repeat CMP tomorrow (6) Tobacco dependence: Code(s): F17.200 - Nicotine dependence, unspecified, uncomplicated Status: Acute Assessment and Plan: -Patient states she has not smoked in the last 3 days. -We discussed how imperative it is for her to quit smoking though I am not certain she is motivated 100%. -She declines the need for nicotine patch at this time. (7) Essential (primary) hypertension: Code(s): I10 - Essential (primary) hypertension Status: Acute Assessment and Plan: -Blood pressures were reviewed and they are reasonable. -Continue antihypertensives and monitor. (8) Hyperglycemia: Code(s): R73.9 - Hyperglycemia, unspecified Status: Acute Assessment and Plan: -no prior hx of DM -BS yesterday was up to 193, could be secondary to one time dose of steroid -she was given 3 units of insulin based on low dose sliding scale -will continue to monitor, check hgb A1c Additional Plan *pt no longer taking her home [place] so this was stopped and I started her on cough syrup with codeine for her persistent cough Subjective Date/time seen: 10/15/21 09:02 Interval history: 75-year-old female smoker with chronic respiratory failure on oxygen though on a Trilogy unit at nighttime, COPD, and hypertension, admitted for COPD exacerbation and pneumonia. Pt is feeling not so great today. Didn't sleep well last night, never got the cough syrup that was ordered. Continues to have productive cough with yellow sputum. SOB with exertion. Still on the 2L home which is her home oxygen setting. Review of Systems Review of Systems: All systems reviewed & are unremarkable except as noted in HPI and below Exam Narrative: General: Well-developed elderly female sitting up in bed. Weight: 68 kg. BMI: 23.5. HEENT: Wearing glasses. PERRL, EOMI. Sclerae anicteric. Oral mucosa moist. Neck: Supple. Respiratory: Respirations are nonlabored. Lung sounds are significantly diminished througho
[2021-10-15] MEDS: LORATADINE/PSEUDOEPHEDRINE (*CRX) 10/240 MG TABLET ER 24 HR 1 TAB PO (09:09)
[2021-10-15] MEDS: guaiFENesin/CODEINE (*CRX) 200/20 MG 10 ML SYRUP PO ×2 (09:22→20:48)
[2021-10-15 11:32] LABS: Glucose Point of Care 155 mg/dl (65-105)
--- NOTE | 2021-10-15 12:48 | PCCCNOTE ---
On 10/15/21, the student, [Jess Muñoz], provided care and completed [facility] documentation on this patient. I have reviewed the student's documentation and agree with the findings.
[2021-10-15 16:09] LABS: Glucose Point of Care 153 mg/dl (65-105)
[2021-10-16] VITALS (15 sets, daily range): BP systolic 120–130; BP diastolic 57–70; PULSE 87–105; RESP 18–25; TEMP 36.2–36.8; O2SAT 90–98
[2021-10-16] MEDS: IPRATROPIUM BR 0.02% INH SOLN 0.5 MG/2.5 ML VIAL INHALATION ×4 (02:06→19:12)
[2021-10-16] MEDS: ALBUTEROL SULFATE NEB 2.5 MG/0.5 ML INH 5 MG INHALATION ×4 (02:06→19:11)
[2021-10-16] MEDS: guaiFENesin/CODEINE (*CRX) 200/20 MG 10 ML SYRUP PO ×3 (02:08→15:21)
[2021-10-16 06:25] LABS: Basophils Percent Auto 0.2 % (0.2-1.2); Eosinophils Absolute Auto 0.1 K/mm3 (0-0.3); Hemoglobin 12.7 g/dL (12.0-15.0); Immature Granulocyte Absolute 0.04 K/mm3 (0.00-0.031); Immature Granulocyte Percent A 0.5 % (0-0.5); Lymphocytes Absolute Auto 1.47 K/mm3 (0.9-3.2); Lymphocytes Percent Auto 17.8 % (18.3-44.2); Mean Corpuscular HGB Conc 32.6 g/dl (32-36); Mean Corpuscular Hemoglobin 31.7 pg (26-34); Mean Corpuscular Volume 97.3 fl (80-100); Mean Platelet Volume 9.9 fl (7.4-10.4); Monocytes Absolute Auto 0.9 K/mm3 (0.1-0.6); Monocytes Percent Auto 11.2 % (2.6-8.5); Neutrophils Absolute Auto 5.7 K/mm3 (1.3-6.7); Neutrophils Percent Auto 69.3 % (45.5-73.1); Platelet Count Result 322 k/mm3 (150-375); Red Blood Count 4.01 M/mm3 (4.2-5.4); Red Cell Distribution Width 13.2 % (11.5-14.5); White Blood Count 8.3 K/mm3 (4.5-10.0)
[2021-10-16 06:39] LABS: Hemoglobin A1C 5.5 % (<5.7)
[2021-10-16 07:29] LABS: Glucose Point of Care 108 mg/dl (65-105)
[2021-10-16 07:48] LABS: Alanine Aminotransferase 34 U/L (4-35); Albumin Level 3.5 g/dL (3.5-5.1); Alkaline Phosphatase 107 U/L (38-126); Anion Gap 0 mmol/L (8-16); Aspartate Amino Transferase 44 U/L (14-36); Bilirubin,Total 0.8 mg/dL (0.2-1.3); Blood Urea Nitrogen 18 mg/dL (7-17); Calcium 8.5 mg/dL (8.4-10.2); Carbon Dioxide 35 mmol/L (22-30); Chloride 95 mmol/L (98-107); Estimated CRCL calculation 68 ml/min; Estimated Glomerular Filt Rate > 60; Glucose 118 mg/dL (65-110); Potassium 4.8 mmol/L (3.4-5.0); Sodium 130 mmol/L (137-145)
[2021-10-16] MEDS: FLUTICASONE/SALMETEROL 115-21 MCG INHALER 1 PUFF 2 PUFF INHALATION ×2 (08:07→19:12)
[2021-10-16] MEDS: ENOXAPARIN 40 MG/0.4 ML SYRINGE SUB-Q (08:16)
[2021-10-16] MEDS: ASPIRIN 81 MG ENTERIC TABLET PO (08:16)
[2021-10-16] MEDS: OMEGA 3 POLYUNSAT FATTY ACIDS 1 GM CAP PO (08:17)
[2021-10-16] MEDS: MULTIVITAMINS THERAPEUTIC TAB (*BKC) 1 TABLET PO (08:17)
[2021-10-16] MEDS: LOSARTAN POTASSIUM 50 MG TABLET PO (08:17)
[2021-10-16] MEDS: LORATADINE/PSEUDOEPHEDRINE (*CRX) 10/240 MG TABLET ER 24 HR 1 TAB PO (08:26)
[2021-10-16] MEDS: ALPRAZolam (*CRX) 0.5 MG TABLET PO (08:30)
--- NOTE | 2021-10-16 10:00 | PM.IMPN ---
Progress Note: A&P Assessment and Plan (1) Sepsis: Code(s): A41.9 - Sepsis, unspecified organism Status: Acute Assessment and Plan: -Supported by fever, tachycardia, tachypnea, and leukocytosis on arrival in the setting of pneumonia. -Bilirubin also elevated. -Lactic acid level is within normal limits. -Blood cultures NGTD -Initial Sputum culture not performed due to oropharyngeal contamination -Repeat sputum culture order, not collected -IV abx- Azithromycin and Rocephin -vital signs improving (2) Community acquired pneumonia: Code(s): J18.9 - Pneumonia, unspecified organism Status: Acute Assessment and Plan: -She has been started on azithromycin and ceftriaxone. -Repeat sputum for culture ordered -Chest xray Ill-defined bibasilar opacities could indicate developing bronchopneumonia. -Check Legionella and strep pneumonia antigens- still pending -WBC trending down at 8.3 (3) Chronic respiratory failure, unspecified whether with hypoxia or hypercapnia: Code(s): J96.10 - Chronic respiratory failure, unspecified whether with hypoxia or hypercapnia Status: Acute Assessment and Plan: -Currently at baseline oxygen requirement of 2L -Currently using home trilogy -Trend SPO2 -titrate oxygen to maintain saturation >90% (4) COPD exacerbation: Code(s): J44.1 - Chronic obstructive pulmonary disease with (acute) exacerbation Status: Acute Assessment and Plan: -Reports increased sputum, shortness of breath, and wheezes -Chest xray: Ill-defined bibasilar opacities could indicate developing bronchopneumonia. -IV antibiotics started -Start steroids at 40mg PO daily x 5 days -Home inhalers continued, Advair -Nebs on board -Repeat chest xray in the am (5) Transaminitis: Code(s): R74.01 - Elevation of levels of liver transaminase levels Status: Acute Assessment and Plan: -AST/ALT 44/34 -May be related to underlying infection and sepsis. -Abdominal exam is benign -hepatitis panel negative -Improving -Repeat CMP tomorrow (6) Tobacco dependence: Code(s): F17.200 - Nicotine dependence, unspecified, uncomplicated Status: Acute Assessment and Plan: -Patient states she has not smoked in the last 3 days. -Discussed how imperative it is for her to quit smoking, motivation does not seem to be present -She declines the need for nicotine patch at this time. (7) Essential (primary) hypertension: Code(s): I10 - Essential (primary) hypertension Status: Acute Assessment and Plan: -Current BP is 120/60 -Blood pressures were reviewed and they are reasonable. -Continue antihypertensives losartan 50mg PO daily -Trend BP -Adjust therapy as indicated (8) Hyperglycemia: Code(s): R73.9 - Hyperglycemia, unspecified Status: Acute Assessment and Plan: -no prior hx of DM -BS yesterday was up to 193, could be secondary to one time dose of steroid -she was given 3 units of insulin based on low dose sliding scale -will continue to monitor -hgb A1c 5.5 Time Spent With Patient Time with patient: Greater than 35 minutes Subjective Date/time seen: 10/16/21 1000 Interval history: Date/Time: 10/13/21 15:30 Narrative: This is a 75-year-old female smoker with chronic respiratory failure on oxygen though on a Trilogy unit at nighttime, COPD, and hypertension who presented to the emergency department from home for evaluation of cough and shortness of breath. She had a routine appointment with her primary care provider on Monday and was feeling in her usual state of health at that time. Monday morning she awoke with a headache and cough productive of yellow sputum and she has felt increasingly short of breath since that time. Her appetite has also been poor with nausea and decreased oral intake. She has tried her p.r.n. nebulizers at home but is not
[2021-10-16 10:45] LABS: Creatinine Urine 112.8 mg/dL; Urea Random Urine 862 MG/DL
[2021-10-16 10:48] LABS: NT Pro B Type Natriuretic Pept 112 pg/mL (5-100)
[2021-10-16 11:10] LABS: Sodium Urine Random 12 meq/L
[2021-10-16 11:39] LABS: Glucose Point of Care 126 mg/dl (65-105)
[2021-10-16] MEDS: predniSONE 20 MG TABLET 40 MG PO (12:06)
[2021-10-16 16:27] LABS: Glucose Point of Care 162 mg/dl (65-105)
[2021-10-16 20:26] LABS: Glucose Point of Care 222 mg/dl (65-105)
[2021-10-16 21:07] LABS: Pneumococcal Antigen Urine Not Detected (Not Detected)
[2021-10-17] VITALS (7 sets, daily range): BP systolic 116–127; BP diastolic 49–61; PULSE 67–91; RESP 16–24; TEMP 36.5–37; O2SAT 90–100
--- NOTE | 2021-10-17 02:38 | PCRCNOTE ---
Patient requests not to be waken up for 0200 nebulizer treatment
[2021-10-17 06:27] LABS: Basophils Percent Auto 0.3 % (0.2-1.2); Eosinophils Percent Auto 0.4 % (0-4.4); Hematocrit 40.5 % (37.0-47.0); Hemoglobin 12.5 g/dL (12.0-15.0); Immature Granulocyte Absolute 0.06 K/mm3 (0.00-0.031); Immature Granulocyte Percent A 0.8 % (0-0.5); Lymphocytes Absolute Auto 1.17 K/mm3 (0.9-3.2); Mean Corpuscular HGB Conc 30.9 g/dl (32-36); Mean Corpuscular Volume 100.5 fl (80-100); Mean Platelet Volume 10.3 fl (7.4-10.4); Monocytes Absolute Auto 0.9 K/mm3 (0.1-0.6); Monocytes Percent Auto 11.8 % (2.6-8.5); Neutrophils Absolute Auto 5.6 K/mm3 (1.3-6.7); Neutrophils Percent Auto 71.7 % (45.5-73.1); Platelet Count Result 323 k/mm3 (150-375); Red Blood Count 4.03 M/mm3 (4.2-5.4); Red Cell Distribution Width 12.8 % (11.5-14.5); White Blood Count 7.8 K/mm3 (4.5-10.0)
[2021-10-17 06:36] LABS: Alanine Aminotransferase 30 U/L (4-35); Albumin Level 3.3 g/dL (3.5-5.1); Alkaline Phosphatase 93 U/L (38-126); Anion Gap 2 mmol/L (8-16); Aspartate Amino Transferase 32 U/L (14-36); Bilirubin,Total 0.4 mg/dL (0.2-1.3); Blood Urea Nitrogen 18 mg/dL (7-17); Calcium 8.5 mg/dL (8.4-10.2); Carbon Dioxide 31 mmol/L (22-30); Chloride 98 mmol/L (98-107); Estimated CRCL calculation 97 ml/min; Estimated Glomerular Filt Rate > 60; Glucose 123 mg/dL (65-110); Magnesium 2.2 mg/dL (1.6-2.3); Potassium 4.3 mmol/L (3.4-5.0); Sodium 131 mmol/L (137-145)
[2021-10-17 07:44] LABS: Glucose Point of Care 132 mg/dl (65-105)
--- NOTE | 2021-10-17 08:00 | PM.DS ---
DS: Admitting Diagnosis Discharge Date 10/17/21 0800 Admitting Diagnosis COPD/pneumonia DS: Discharge Diagnosis Discharge Diagnosis (1) Sepsis: Code(s): A41.9 - Sepsis, unspecified organism Status: Acute Assessment and Plan: -Supported by fever, tachycardia, tachypnea, and leukocytosis on arrival in the setting of pneumonia. -Bilirubin also elevated. -Lactic acid level is within normal limits. -Blood cultures NGTD -Initial Sputum culture not performed due to oropharyngeal contamination -Repeat sputum culture order, not collected -IV abx- Azithromycin and Rocephin -vital signs improving (2) Community acquired pneumonia: Code(s): J18.9 - Pneumonia, unspecified organism Status: Acute Assessment and Plan: -She has been started on azithromycin and ceftriaxone. -Repeat sputum for culture ordered -Chest xray Ill-defined bibasilar opacities could indicate developing bronchopneumonia. -Check Legionella and strep pneumonia antigens- still pending -WBC trending down at 8.3 (3) Chronic respiratory failure, unspecified whether with hypoxia or hypercapnia: Code(s): J96.10 - Chronic respiratory failure, unspecified whether with hypoxia or hypercapnia Status: Acute Assessment and Plan: -Currently at baseline oxygen requirement of 2L -Currently using home trilogy -Trend SPO2 -titrate oxygen to maintain saturation >90% (4) COPD exacerbation: Code(s): J44.1 - Chronic obstructive pulmonary disease with (acute) exacerbation Status: Acute Assessment and Plan: -Reports increased sputum, shortness of breath, and wheezes -Chest xray: Ill-defined bibasilar opacities could indicate developing bronchopneumonia. -IV antibiotics started -Start steroids at 40mg PO daily x 5 days -Home inhalers continued, Advair -Nebs on board -Repeat chest xray in the am (5) Transaminitis: Code(s): R74.01 - Elevation of levels of liver transaminase levels Status: Acute Assessment and Plan: -AST/ALT 44/34 -May be related to underlying infection and sepsis. -Abdominal exam is benign -hepatitis panel negative -Improving -Repeat CMP tomorrow (6) Tobacco dependence: Code(s): F17.200 - Nicotine dependence, unspecified, uncomplicated Status: Acute Assessment and Plan: -Patient states she has not smoked in the last 3 days. -Discussed how imperative it is for her to quit smoking, motivation does not seem to be present -She declines the need for nicotine patch at this time. (7) Essential (primary) hypertension: Code(s): I10 - Essential (primary) hypertension Status: Acute Assessment and Plan: -Current BP is 120/60 -Blood pressures were reviewed and they are reasonable. -Continue antihypertensives losartan 50mg PO daily -Trend BP -Adjust therapy as indicated (8) Hyperglycemia: Code(s): R73.9 - Hyperglycemia, unspecified Status: Acute Assessment and Plan: -no prior hx of DM -BS yesterday was up to 193, could be secondary to one time dose of steroid -she was given 3 units of insulin based on low dose sliding scale -will continue to monitor -hgb A1c 5.5 DS: Summary Hospital Course Hospital Course: Patient is a 75-year-old female with a past medical history of chronic respiratory failure on 2 L of oxygen and trilogy at night, COPD, hypertension who presented to the emergency room for evaluation of persistent cough and shortness of breath. Patient had an appoint with her primary care provider and was feeling normal. Patient then started to feel increasingly weak and short of breath and was instructed by her primary care provider to go to the emergency room. Upon arrival to the emergency room patient had a SpO2 of 79% and her chest x-ray showed bibasilar opacities suspicious for pneumonia. Patient was started on IV azithromycin and ceftriaxone. Sputum
[2021-10-17] MEDS: OMEGA 3 POLYUNSAT FATTY ACIDS 1 GM CAP PO (08:14)
[2021-10-17] MEDS: ASPIRIN 81 MG ENTERIC TABLET PO (08:14)
[2021-10-17] MEDS: MULTIVITAMINS THERAPEUTIC TAB (*BKC) 1 TABLET PO (08:14)
[2021-10-17] MEDS: LOSARTAN POTASSIUM 50 MG TABLET PO (08:14)
[2021-10-17] MEDS: ENOXAPARIN 40 MG/0.4 ML SYRINGE SUB-Q (08:15)
[2021-10-17] MEDS: predniSONE 20 MG TABLET 40 MG PO (08:15)
[2021-10-17] MEDS: IPRATROPIUM BR 0.02% INH SOLN 0.5 MG/2.5 ML VIAL INHALATION (08:19)
[2021-10-17] MEDS: ALPRAZolam (*CRX) 0.5 MG TABLET PO (08:19)
[2021-10-17] MEDS: ALBUTEROL SULFATE NEB 2.5 MG/0.5 ML INH 5 MG INHALATION (08:19)
[2021-10-17] MEDS: FLUTICASONE/SALMETEROL 115-21 MCG INHALER 1 PUFF 2 PUFF INHALATION (08:19)
[2021-10-17] MEDS: LORATADINE/PSEUDOEPHEDRINE (*CRX) 10/240 MG TABLET ER 24 HR 1 TAB PO (08:19)
[2021-10-17] MEDS: levoFLOXacin 750 MG TABLET PO (10:12)
[2021-10-17 11:22] LABS: Glucose Point of Care 153 mg/dl (65-105)
[2021-10-18 00:48] LABS: Legionella pneumophila Ag Ur Not Detected (Not Detected)
--- NOTE | 2021-10-19 09:04 | PC.NURSE ---
Sputum cx- growing normal oropharangeal melina. Urine legionella is negative.
[2021-10-20 11:31] LABS: Osmolality, Urine 468 mOsm/kg (50-1200)
== END 2021-10-17 13:10 | disposition home or self-care (01) | DRG 871 ==
LOC: ANHED 14:34 → ANH2MED 15:53
PROVIDERS: Physician Assistant; Admitting Provider Internal Medicine; Emergency Provider Emergency Medicine; PCP Internal Medicine; Visit Provider Nurse Practitioner
DX: A41.9 Sepsis, unspecified organism (principal); J18.9 Pneumonia, unspecified organism; J96.10 Chronic respiratory failure, unspecified whether with hypoxia or hypercapnia; J44.1 Chronic obstructive pulmonary disease with (acute) exacerbation; J44.0 Chronic obstructive pulmonary disease with (acute) lower respiratory infection; R74.01 Elevation of levels of liver transaminase levels; F17.200 Nicotine dependence, unspecified, uncomplicated; I10 Essential (primary) hypertension; Z20.822 Contact with and (suspected) exposure to COVID-19; R73.9 Hyperglycemia, unspecified; Z99.81 Dependence on supplemental oxygen; R00.0 Tachycardia, unspecified; Z83.3 Family history of diabetes mellitus; Z82.49 Family history of ischemic heart disease and other diseases of the circulatory system; Z80.3 Family history of malignant neoplasm of breast; Z79.82 Long term (current) use of aspirin; Z79.51 Long term (current) use of inhaled steroids
CPT/HCPCS: 36415; 71045; 71046; 80053; 80074; 82570; 82948; 83036; 83605; 83735; 83880; 83935; 84300; 84540; 85025; 85027; 87040; 87070; 87205; 87449; 87502; 87899; 93005; 94640; 94660; 96365; 96367; 96372; 96375; 99285; A9270; C9803; G0378; J0456; J0696; J1650; J1815; J2930; J7512; U0003; U0005

== ENCOUNTER 2022-01-03 08:06 | Outpatient (CLI) | payer MEDICARE, OTHER, SELFPAY ==
--- NOTE | ~2022-01-03 | CT_ITS ---
EXAMINATION: CT lung screening DATE: 01/03/2022 08:23 INDICATION: Current smoker. Personal history of tobacco dependence. TECHNIQUE: Computed tomography (CT) of the chest was performed without intravenous contrast. The dose -length product was 94.20 mGy-cm. Automated exposure control and iterative reconstruction technique w ere employed. COMPARISON: CT dated 12/30/2020 FINDINGS: There is a new perifissural 1.3 cm nodule in the lingula, image 71. Heart size normal. Ther e is mild mediastinal lymphadenopathy. Precarinal lymph node measures 9 mm short axis. There is ather osclerosis of the aorta and coronary arteries. There are calcified granulomas in the spleen. No signi ficant pleural or pericardial effusion. There is a calcified granuloma in the lingula. There is emphy sema. Mild thoracic spondylosis. 2 mm right upper lobe nodule stable. There no endobronchial lesions. There is a 6 mm pleural-based right lower lobe nodule, image 90. IMPRESSION: 1. Lung Rads category 4B: Recommend follow-up 1 month interval low dose CT chest or PET/CT scan. Give n the size and location of the nodules there are not amenable to percutaneous biopsy. Reviewed, dictated and finalized at location A. IMPRESSION: 1. Lung Rads category 4B: Recommend follow-up 1 month interval low dose CT ches t or PET/CT scan. Given the size and location of the nodules there are not amen able to percutaneous biopsy.
== END 2022-01-03 08:07 | disposition home or self-care (01) ==
PROVIDERS: PCP Internal Medicine; Visit Provider Physician Assistant
DX: Z12.2 Encounter for screening for malignant neoplasm of respiratory organs (principal); Z87.891 Personal history of nicotine dependence; R91.8 Other nonspecific abnormal finding of lung field
CPT/HCPCS: 71271

== ENCOUNTER 2022-01-07 04:53 | Observation (INO) | payer MEDICARE, OTHER, SELFPAY ==
[2022-01-07] VITALS (19 sets, daily range): BP systolic 116–158; BP diastolic 58–99; PULSE 69–92; RESP 12–26; TEMP 36.2–36.9; O2SAT 91–100; BMI 30.9
--- NOTE | ~2022-01-07 | NM_ITS ---
EXAMINATION: NM GI bleeding DATE: 01/07/2022 11:01 INDICATION: Blood in stool. TECHNIQUE: 22.1 mCi Tc 99m in vitro labeled red cells was administered intravenously. Scintigraphic images of the abdomen were obtained for one hour. COMPARISON: CT abdomen and pelvis 07/07/2020 FINDINGS: No pattern of abnormal activity is seen in the abdomen or pelvis to suggest gastrointestina l hemorrhage. IMPRESSION: 1. No evidence of active gastrointestinal hemorrhage. Reviewed, dictated and finalized at location A.
[2022-01-07 05:28] LABS: Basophils Percent Auto 0.6 % (0.2-1.2); Eosinophils Absolute Auto 0.5 K/mm3 (0-0.3); Eosinophils Percent Auto 7.4 % (0-4.4); Hematocrit 42.2 % (37.0-47.0); Hemoglobin 13.1 g/dL (12.0-15.0); Immature Granulocyte Absolute 0.02 K/mm3 (0.00-0.031); Immature Granulocyte Percent A 0.3 % (0-0.5); Lymphocytes Absolute Auto 1.31 K/mm3 (0.9-3.2); Lymphocytes Percent Auto 19.7 % (18.3-44.2); Mean Corpuscular Hemoglobin 30.5 pg (26-34); Mean Corpuscular Volume 98.1 fl (80-100); Mean Platelet Volume 9.9 fl (7.4-10.4); Monocytes Absolute Auto 0.6 K/mm3 (0.1-0.6); Monocytes Percent Auto 8.6 % (2.6-8.5); Neutrophils Absolute Auto 4.2 K/mm3 (1.3-6.7); Neutrophils Percent Auto 63.4 % (45.5-73.1); Platelet Count Result 276 k/mm3 (150-375); Red Cell Distribution Width 13.2 % (11.5-14.5); White Blood Count 6.6 K/mm3 (4.5-10.0)
--- NOTE | 2022-01-07 05:32 | ED.GIBLEED ---
HPI - GI Bleed General Chief complaint: GI Bleed Stated complaint: rectal bleeding Time Seen by Provider: 01/07/22 05:03 History of Present Illness HPI Narrative: Patient is a 76-year-old female who presents ER with rectal bleeding. Began yesterday morning when she woke up. She had 1 episode of bright red blood that passed by itself without stool. She is having no pain in her abdomen. She has had no recent constipation or straining. She has history of hemorrhoids in the past but has not noticed 1. She is not on any blood thinners. She woke up this morning and was again bleeding from her rectum and has had this occur couple times. Its bright red. Again it is painless. She has had no epigastric discomfort no heartburn. No dizziness or loss of consciousness. No history of diverticulosis that she is aware of. She has not had a colonoscopy recently. I have found a colonoscopy report from 2016 that showed that patient did have some internal hemorrhoids as well as extensive moderate size diverticula of the colon. Related Data Home Medications Medication Instructions Recorded Confirmed aspirin 81 mg tablet,delayed 81 mg PO DAILY 06/05/19 11/03/21 release cetirizine 5 mg-pseudoephedrine ER 1 tablet PO Q12H 06/05/19 11/03/21 120 mg tablet,extended release,12hr (Zyrtec-D) omega-3 fatty acids 1,000 mg 1,000 mg PO DAILY 06/05/19 11/03/21 capsule (Fish Oil Concentrate) clotrimazole-betamethasone 1 1 applic topical PRN 10/13/21 11/03/21 %-0.05 % topical cream meclizine 25 mg tablet 25 mg PO PRN PRN dizziness 10/13/21 11/03/21 Allergies Allergy/AdvReac Type Severity Reaction Status Date / Time diphenhydramine Allergy Unknown Itching Verified 11/03/21 13:02 Review of Systems Review of Systems: All systems reviewed & are unremarkable except as noted in HPI and below Cardiovascular: Cardiovascular: Denies chest pain and Denies rapid heart rate Respiratory: Respiratory: Denies cough and Denies dyspnea Gastrointestinal: Gastrointestinal: Denies abdominal pain, Denies constipation, Denies heartburn, Denies diarrhea, Denies nausea and Denies vomiting Comments: Rectal bleeding Genitourinary: Genitourinary: Denies nocturia and Denies dysuria PMFSH Past Medical History Medical History (Updated 01/07/22 @ 06:23 by Arthur Marquez MD) Chronic respiratory failure, unspecified whether with hypoxia or hypercapnia On home oxygen. Uses Trilogy unit at nighttime. Essential (primary) hypertension Kidney stones Multinodular goiter Nicotine dependence, other tobacco product, uncomplicated Pulmonary nodule Seasonal allergies Tobacco dependence Surgical History Surgical History History of colonoscopy with polypectomy History of hysterectomy for benign disease Status post excision of lipoma Right posterior neck. Family History Family History Father Cerebrovascular accident Malignant neoplasm of prostate Patient's father is Sibling Diabetes mellitus Family history of malignant neoplasm of male breast Family history of malignant neoplasm of breast in first degree relative Mother Acute myocardial infarction Diabetes mellitus Other Family history of cardiovascular disease Social History Social History Social History: . Lives in her own home in [place]. Long-time smoker, at least a 50 pack-year smoking history. No alcohol or illicit substance abuse. Surrogate decision maker: Jake (son) or Francia (daughter) Marianela. Code status: Full code. Smoking packs per day: 0.5 Smoking cigarettes per day: 10.0 Years smoked: 55 Smoking pack-years: 27.50 Smoking status: Former smoker Smoking end date: 10/19/21 Spiritual care concerns: No Exam Narrative: GENERAL: Well-appearing, well-nourished,
[2022-01-07 05:37] LABS: Alanine Aminotransferase 26 U/L (6-35); Albumin Level 3.9 g/dL (3.5-5.1); Alkaline Phosphatase 107 U/L (38-126); Anion Gap 1 mmol/L (8-16); Aspartate Amino Transferase 31 U/L (14-36); Bilirubin,Total 0.7 mg/dL (0.2-1.3); Blood Urea Nitrogen 15 mg/dL (7-17); Calcium 9.1 mg/dL (8.4-10.2); Carbon Dioxide 31 mmol/L (22-30); Chloride 105 mmol/L (98-107); Estimated CRCL calculation 59 ml/min; Estimated Glomerular Filt Rate > 60; Glucose 129 mg/dL (65-110); Potassium 4.5 mmol/L (3.4-5.0); Sodium 137 mmol/L (137-145)
[2022-01-07 05:38] LABS: Prothrombin Time 12.5 Seconds (11.1-14.7)
[2022-01-07 05:39] LABS: Partial Thromboplastin Time 35.4 SECONDS (22.3-36.8)
--- NOTE | 2022-01-07 09:19 | ADMGEN ---
This patient, Mya Landry, was admitted to [facility] Surg Room 326-01 at 0910. Patient/family oriented to hospital policies and general routines including ID bracelet, bed and alarms, visiting hours, pain management, procedures, bathroom and other care routines, personal items, smoking policy, room service/diet, and visiting hours. Information on how to activate the Rapid Response Team has been discussed. Patient/Family are encouraged to report perceived risks to care and to ask questions if they do not understand what they are told or what they should do.
--- NOTE | 2022-01-07 11:45 | PM.IMHP ---
H&P: HPI History of Present Illness Date/Time: 01/07/22 1145 Chief Complaint: GI bleed Narrative: patient is a 76 female with past history of COPD, chronic respiratory failure O2, hypertension, kidney stones, tobacco dependence who presented to the ED with complaints rectal bleeding. Patient stated that yesterday morning when she got up she had 1 episode of bright red blood that past without stool. She stated that it quit and then she went about her day and it think anything of it. She stated that this morning at 4:00 a.m. she was in bed and felt like something was coming out. So she got up and went to the bathroom and she was full of blood and stated that it was a lot of blood. This is when she decided to come to the ED. She denies any other symptoms such as abdominal pain, constipation, straining. Patient also denies any chest pain, shortness of breath, nausea, vomiting, constipation, weakness, headaches, dizziness, visual changes, hearing changes, dizziness. Patient does not appear to be on any blood thinners. H&H is currently 13.1/42.2. GI has been consulted. Colonoscopy from 04/2020 only had hemorrhoids. Patient is being admitted to the hospitalist service under observation Review of Systems Review of Systems: All systems reviewed & are unremarkable except as noted in HPI and below PMFSH Past Medical History Medical History Chronic low back pain Chronic respiratory failure, unspecified whether with hypoxia or hypercapnia On home oxygen. Uses Trilogy unit at nighttime. Community acquired pneumonia COPD (chronic obstructive pulmonary disease) Essential (primary) hypertension Kidney stones Multinodular goiter Nicotine dependence, other tobacco product, uncomplicated Pulmonary nodule Seasonal allergies Sepsis Transaminitis Surgical History Surgical History History of colonoscopy with polypectomy History of hysterectomy for benign disease Status post excision of lipoma Right posterior neck. Family History Family History Father Cerebrovascular accident Malignant neoplasm of prostate Patient's father is Sibling Diabetes mellitus Family history of malignant neoplasm of male breast Family history of malignant neoplasm of breast in first degree relative Mother Acute myocardial infarction Diabetes mellitus Other Family history of cardiovascular disease Social History Social History Social History: . Lives in her own home in [place]. Long-time smoker, at least a 50 pack-year smoking history. No alcohol or illicit substance abuse. Surrogate decision maker: Jake (son) or Francia (daughter) Marianela. Code status: Full code. Smoking packs per day: 0.5 Smoking cigarettes per day: 10.0 Years smoked: 57 Smoking pack-years: 28.50 Smoking status: Former smoker Tobacco type: cigarettes Second hand tobacco smoke exposure: No Alcohol intake: never Substance use: never Living arrangements: alone Occupation/Education: retired Gender identity (if verbalized by the patient): Female Sexual Orientation (if Verbalized by the Patient): Straight or Heterosexual Spiritual care concerns: No Agree to blood products: Yes Meds Home Medications and Allergies Home Medications Medication Instructions Recorded Confirmed Type aspirin 81 mg tablet,delayed 81 mg PO DAILY 06/05/19 01/07/22 History release cetirizine 5 mg-pseudoephedrine ER 1 tablet PO Q12H 06/05/19 01/07/22 History 120 mg tablet,extended release,12hr (Zyrtec-D) omega-3 fatty acids 1,000 mg 1,000 mg PO DAILY 06/05/19 01/07/22 History capsule (Fish Oil Concentrate) budesonide-formoterol HFA 160 2 puff inhalation Q12H #10.2 grams 10/02/20 01/07/22 Rx mcg-4.5 mcg
[2022-01-07 12:48] LABS: Hematocrit 37.6 % (37.0-47.0); Hemoglobin 11.7 g/dL (12.0-15.0)
[2022-01-07] MEDS: IPRATROPIUM BR 0.02% INH SOLN 0.5 MG/2.5 ML VIAL INHALATION (14:07)
--- NOTE | 2022-01-07 14:07 | WPDGICN ---
Assessment and Plan Assessment and plan (1) Acute lower GI bleeding: Code(s): K92.2 - Gastrointestinal hemorrhage, unspecified Status: Acute Assessment and Plan: Patient with acute lower GI bleeding appears to have begun last evening. She has had only a mild decline in her hemoglobin currently 11.7 compared to baseline 13. Colonoscopy within the last 2 years revealed diverticulosis and internal hemorrhoids suggesting these are the most likely etiologies for blood loss. Plan is for colonoscopy after preparation. Continue to monitor hemoglobin transfuse if necessary. Further recommendations will be given after endoscopy. GI Consult Note Consult date/time: 01/07/22 14:07 Reason for consult: Lower GI bleeding HPI: Mya Landry is a 76 year old female I am asked to see for blood in her stool by the emergency room. Patient reports that she was in usual state of health till yesterday Michael she began to have bright red blood per rectum. This subsequently stopped for most of yesterday. She had recurrent lower GI bleeding that began at 4:00 a.m. this morning and persisted until she went to the emergency room. Patient denies any abdominal pain. Her bowel habits have been normal. Colonoscopy performed 2 years ago revealed diverticulosis and internal hemorrhoids. Patient was admitted for further evaluation and therapy. Family history is noncontributory. Nuclear medicine bleeding scan performed in the emergency room after presentation revealed no evidence of active bleeding at that time. Review of Systems Review of Systems: Review of systems noncontributory. [facility] Past Medical History Medical History Chronic low back pain Chronic respiratory failure, unspecified whether with hypoxia or hypercapnia On home oxygen. Uses Trilogy unit at nighttime. Community acquired pneumonia COPD (chronic obstructive pulmonary disease) Essential (primary) hypertension Kidney stones Multinodular goiter Nicotine dependence, other tobacco product, uncomplicated Pulmonary nodule Seasonal allergies Sepsis Transaminitis Surgical History Surgical History History of colonoscopy with polypectomy History of hysterectomy for benign disease Status post excision of lipoma Right posterior neck. Family History Family History Father Cerebrovascular accident Malignant neoplasm of prostate Patient's father is Sibling Diabetes mellitus Family history of malignant neoplasm of male breast Family history of malignant neoplasm of breast in first degree relative Mother Acute myocardial infarction Diabetes mellitus Other Family history of cardiovascular disease Social History Social History Social History: . Lives in her own home in [place]. Long-time smoker, at least a 50 pack-year smoking history. No alcohol or illicit substance abuse. Surrogate decision maker: Jake (son) or Francia (daughter) Marianela. Code status: Full code. Smoking packs per day: 0.5 Smoking cigarettes per day: 10.0 Years smoked: 57 Smoking pack-years: 28.50 Smoking status: Former smoker Tobacco type: cigarettes Second hand tobacco smoke exposure: No Alcohol intake: never Substance use: never Living arrangements: alone Occupation/Education: retired Gender identity (if verbalized by the patient): Female Sexual Orientation (if Verbalized by the Patient): Straight or Heterosexual Spiritual care concerns: No Agree to blood products: Yes Meds Home Medications and Allergies Home Medications Medication Instructions Recorded Confirmed Type aspirin 81 mg tablet,delayed 81 mg PO DAILY 06/05/19 01/07/22 History release cetirizine 5 mg-pseudoephedrine ER 1 tablet PO
[2022-01-07] MEDS: PEG (High)/E-LYTE SOLN 4,000 ML BTL 4000 ML PO (14:28)
[2022-01-07 18:32] LABS: Hematocrit 38.6 % (37.0-47.0)
[2022-01-07] MEDS: FLUTICASONE/SALMETEROL 115-21 MCG INHALER 1 PUFF 2 PUFF INHALATION (19:57)
[2022-01-08 01:08] LABS: Hematocrit 33.3 % (37.0-47.0); Hemoglobin 10.6 g/dL (12.0-15.0)
--- NOTE | 2022-01-08 05:25 | PC.NURSE ---
Pt had 500 ml of GoLytely before midnight, states I can't drink anymore, it makes me feel sick Pt had multiple liquid bloody stools, no food particles, nor formed stool noticed.
[2022-01-08 05:31] VITALS: BP 134/67; PULSE 72; RESP 18; TEMP 36; O2SAT 100
--- NOTE | 2022-01-08 07:13 | PC.NURSE ---
Pt is off the floor for colonoscopy. No acute distress noted.
[2022-01-08] MEDS: LACTATED RINGERS 1,000 ML 150 ML IV CONT (07:20)
[2022-01-08 07:21] VITALS: BP 159/60; PULSE 71; RESP 16; TEMP 36.3; BMI 30.9
--- NOTE | 2022-01-08 07:24 | WPDANESEPPF ---
Anes - Initial Pre Proc Eval Procedure: Operation Date: 01/08/22 07:30 Proposed Procedures p Colonoscopy - Tay Marmolejo MD Date/Time: 01/08/22 07:24 Surgeon: Erlin Pascual MD Pre Op Diagnosis: GI bleeding Patient Data Age: 76 Gender: F Height: 1.52 m Weight: 72 kg Last Vital Signs Temp 36.0 C L 01/08/22 05:31 Pulse 72 01/08/22 05:31 Resp 18 01/08/22 05:31 BP 134/67 01/08/22 05:31 Pulse Ox 100 01/08/22 05:31 O2 Del Method Nasal Cannula 01/07/22 20:06 O2 Flow Rate 4 01/07/22 20:06 Allergies Allergy/AdvReac Type Severity Reaction Status Date / Time diphenhydramine Allergy Unknown Itching Verified 01/07/22 11:04 Home Medications Medication Instructions Recorded Confirmed Type aspirin 81 mg tablet,delayed 81 mg PO DAILY 06/05/19 01/07/22 History release cetirizine 5 mg-pseudoephedrine ER 1 tablet PO Q12H 06/05/19 01/07/22 History 120 mg tablet,extended release,12hr (Zyrtec-D) omega-3 fatty acids 1,000 mg 1,000 mg PO DAILY 06/05/19 01/07/22 History capsule (Fish Oil Concentrate) budesonide-formoterol HFA 160 2 puff inhalation Q12H #10.2 grams 10/02/20 01/07/22 Rx mcg-4.5 mcg/actuation aerosol inhaler (Symbicort) losartan 50 mg tablet 50 mg PO DAILY #90 tabs 09/19/21 01/07/22 Rx clotrimazole-betamethasone 1 1 applic topical PRN 10/13/21 01/07/22 History %-0.05 % topical cream meclizine 25 mg tablet 25 mg PO PRN PRN dizziness 10/13/21 01/07/22 History albuterol sulfate 2.5 mg/0.5 mL 5 mg inhalation Q6HRT PRN 10/17/21 01/07/22 Rx solution for nebulization shortness of breath or wheezing #30 ea albuterol sulfate 90 mcg/actuation 1 - 2 inh inhalation Q4-6H PRN 11/03/21 01/07/22 Rx aerosol inhaler (ProAir HFA) shortness of breath or wheezing #8.5 grams alprazolam 0.5 mg tablet 0.5 mg PO BID PRN anxiety #60 tabs 01/03/22 01/07/22 Rx hydrocodone 5 mg-acetaminophen 325 1 tablet PO Q6H PRN Moderate Pain 01/07/22 01/07/22 History mg tablet (Scale Score 5-6) Laboratory Tests 01/07/22 01/07/22 01/08/22 12:44 18:25 00:50 Hgb 11.7 g/dL L g/dL 12.0 g/dL g/dL 10.6 g/dL L g/dL (12.0-15.0) (12.0-15.0) (12.0-15.0) Hct 37.6 % % 38.6 % % 33.3 % L % (37.0-47.0) (37.0-47.0) (37.0-47.0) Patient hx anesthesia problems: none Family hx anesthesia problems: none Results Review: All pre-operative results and documents have been reviewed as part of the pre-operative evaluation. [facility] Past Medical History Medical History Chronic low back pain Chronic respiratory failure, unspecified whether with hypoxia or hypercapnia On home oxygen. Uses Trilogy unit at nighttime. Community acquired pneumonia COPD (chronic obstructive pulmonary disease) Essential (primary) hypertension Kidney stones Multinodular goiter Nicotine dependence, other tobacco product, uncomplicated Pulmonary nodule Seasonal allergies Sepsis Transaminitis Surgical History Surgical History History of colonoscopy with polypectomy History of hysterectomy for benign disease Status post excision of lipoma Right posterior neck. Family History Family History Father Cerebrovascular accident Malignant neoplasm of prostate Patient's father is Sibling Diabetes mellitus Family history of malignant neoplasm of male breast Family history of malignant neoplasm of breast in first degree relative Mother Acute myocardial infarction Diabetes mellitus Other Family history of cardiovascular disease Social History Social History Social History: . Lives in her own home in [place]. Long-time smoker, at least a 50 pack-year smoking history. No alcohol or illicit substance abuse. Surrogate decision maker: Nuno
[2022-01-08 07:28] LABS: Basophils Percent Auto 0.4 % (0.2-1.2); Eosinophils Absolute Auto 0.4 K/mm3 (0-0.3); Eosinophils Percent Auto 5.3 % (0-4.4); Hematocrit 34.2 % (37.0-47.0); Hemoglobin 10.6 g/dL (12.0-15.0); Immature Granulocyte Absolute 0.03 K/mm3 (0.00-0.031); Immature Granulocyte Percent A 0.4 % (0-0.5); Lymphocytes Absolute Auto 1.37 K/mm3 (0.9-3.2); Lymphocytes Percent Auto 18.1 % (18.3-44.2); Mean Corpuscular Hemoglobin 31.3 pg (26-34); Mean Corpuscular Volume 100.9 fl (80-100); Mean Platelet Volume 10.3 fl (7.4-10.4); Monocytes Absolute Auto 0.7 K/mm3 (0.1-0.6); Monocytes Percent Auto 8.7 % (2.6-8.5); Neutrophils Absolute Auto 5.1 K/mm3 (1.3-6.7); Neutrophils Percent Auto 67.1 % (45.5-73.1); Platelet Count Result 269 k/mm3 (150-375); Red Blood Count 3.39 M/mm3 (4.2-5.4); Red Cell Distribution Width 13.2 % (11.5-14.5); White Blood Count 7.6 K/mm3 (4.5-10.0)
[2022-01-08 07:46] LABS: Alanine Aminotransferase 21 U/L (6-35); Albumin Level 3.3 g/dL (3.5-5.1); Alkaline Phosphatase 79 U/L (38-126); Anion Gap 2 mmol/L (8-16); Aspartate Amino Transferase 25 U/L (14-36); Bilirubin,Total 0.7 mg/dL (0.2-1.3); Blood Urea Nitrogen 12 mg/dL (7-17); Calcium 8.2 mg/dL (8.4-10.2); Carbon Dioxide 33 mmol/L (22-30); Chloride 101 mmol/L (98-107); Estimated CRCL calculation 61 ml/min; Estimated Glomerular Filt Rate > 60; Glucose 115 mg/dL (65-110); Magnesium 1.8 mg/dL (1.6-2.3); Potassium 4.2 mmol/L (3.4-5.0); Sodium 136 mmol/L (137-145)
[2022-01-08 08:05] VITALS: BP 99/40; PULSE 65; RESP 18; TEMP 36.2; O2SAT 100
[2022-01-08 08:15] VITALS: BP 111/37; PULSE 61; RESP 24; O2SAT 100
[2022-01-08 08:25] VITALS: BP 111/37; PULSE 63; RESP 21; O2SAT 100
[2022-01-08 10:00] VITALS: O2SAT 100
[2022-01-08] MEDS: LOSARTAN POTASSIUM 50 MG TABLET PO (10:00)
[2022-01-08] MEDS: ALPRAZolam (*CRX) 0.5 MG TABLET PO (10:00)
--- NOTE | 2022-01-08 10:15 | P.DS_ITS ---
DS: Admitting Diagnosis Discharge Date 01/08/22 1015 Admitting Diagnosis GI BLEED DS: Discharge Diagnosis Discharge Diagnosis (1) Acute GI bleeding: Code(s): K92.2 - Gastrointestinal hemorrhage, unspecified Status: Acute Assessment and Plan: * Reports Bright red blood x 1 episode * Trend H/H Q6H * Current H/H 10.6/34.2 * Tag red blood scan showed no GI bleeding * Appears to be stable at this time * Transfuse as indicated * GI consulted * Colonoscopy found hemmorroids, diverticulosis without bleeding * Clear liquid diet, advance diet as tolerated to regular with high fiber (2) Chronic respiratory failure, unspecified whether with hypoxia or hypercapnia: Code(s): J96.10 - Chronic respiratory failure, unspecified whether with hypoxia or hypercapnia Status: Acute Assessment and Plan: * On O2 at home at 2L at night and prn * Trilogy at night * Continue home trilogy per home settings * Trend SPO2 * Supplemental oxygen, wean to maintain saturation >90% * Follows with [facility] * No acute issues at this time (3) Chronic obstructive pulmonary disease: Code(s): J44.9 - Chronic obstructive pulmonary disease, unspecified Status: Acute Assessment and Plan: * Continue home inhalers * Neb treatments * Continue Symbicort * Continue Tessalon pearls from home * No acute exacerbation * Trend Respiratory status * Appears ti have completed a course of prednisone early November (4) Essential (primary) hypertension: Code(s): I10 - Essential (primary) hypertension Status: Acute Assessment and Plan: * BP 111/37 * Continue losartan 50mg PO Daily * Trend BP * Adjust therapy as indicated (5) Pulmonary nodule: Code(s): R91.1 - Solitary pulmonary nodule Status: Acute Assessment and Plan: * Appears to be followed by pulm * Last CT shows a new 1.3cm nodule in the lingula and enlarged lymph nodes * Will need to follow up outpatient * Looks like she will need a follow up CT in one month or pet scan * PET scan scheduled on 01/18/22 (6) Anxiety disorder, unspecified: Code(s): F41.9 - Anxiety disorder, unspecified Status: Acute Assessment and Plan: * Continue home Xanax 0.5 PO BID PRN * Trend mood * Adjust as indicated (7) Tobacco dependence: Code(s): F17.200 - Nicotine dependence, unspecified, uncomplicated Status: Acute Assessment and Plan: * Appears she quit smoking on 10/19/21 * Assess tobacco needs DS: Summary Hospital Course Hospital Course: patient is a 76 female with past history of COPD, chronic respiratory failure O2, hypertension, kidney stones, tobacco dependence who presented to the ED with complaints rectal bleeding.? Patient stated that she got out of bed and it was bright red blood coming out. She stated that it happened the day before that as well. H/H was stable upon admission, and GI has been consulted. Colonoscopy was performed and showed no bleeding at this time. Diet advanced as tolerated. Patient is stable per DC as labs and vital signs are stable. Status at Discharge Functional status at discharge: independent ambulation Overall status at discharge: patient is progressing back to baseline Time Spent with Patient Time attestation: Total time spent providing and/or coordina
--- NOTE | 2022-01-08 10:15 | PM.DS ---
DS: Admitting Diagnosis Discharge Date 01/08/22 1015 Admitting Diagnosis GI BLEED DS: Discharge Diagnosis Discharge Diagnosis (1) Acute GI bleeding: Code(s): K92.2 - Gastrointestinal hemorrhage, unspecified Status: Acute Assessment and Plan: Reports Bright red blood x 1 episode Trend H/H Q6H Current H/H 10.6/34.2 Tag red blood scan showed no GI bleeding Appears to be stable at this time Transfuse as indicated GI consulted Colonoscopy found hemmorroids, diverticulosis without bleeding Clear liquid diet, advance diet as tolerated to regular with high fiber (2) Chronic respiratory failure, unspecified whether with hypoxia or hypercapnia: Code(s): J96.10 - Chronic respiratory failure, unspecified whether with hypoxia or hypercapnia Status: Acute Assessment and Plan: On O2 at home at 2L at night and prn Trilogy at night Continue home trilogy per home settings Trend SPO2 Supplemental oxygen, wean to maintain saturation >90% Follows with [facility] No acute issues at this time (3) Chronic obstructive pulmonary disease: Code(s): J44.9 - Chronic obstructive pulmonary disease, unspecified Status: Acute Assessment and Plan: Continue home inhalers Neb treatments Continue Symbicort Continue Tessalon pearls from home No acute exacerbation Trend Respiratory status Appears ti have completed a course of prednisone early November (4) Essential (primary) hypertension: Code(s): I10 - Essential (primary) hypertension Status: Acute Assessment and Plan: BP 111/37 Continue losartan 50mg PO Daily Trend BP Adjust therapy as indicated (5) Pulmonary nodule: Code(s): R91.1 - Solitary pulmonary nodule Status: Acute Assessment and Plan: Appears to be followed by pulm Last CT shows a new 1.3cm nodule in the lingula and enlarged lymph nodes Will need to follow up outpatient Looks like she will need a follow up CT in one month or pet scan PET scan scheduled on 01/18/22 (6) Anxiety disorder, unspecified: Code(s): F41.9 - Anxiety disorder, unspecified Status: Acute Assessment and Plan: Continue home Xanax 0.5 PO BID PRN Trend mood Adjust as indicated (7) Tobacco dependence: Code(s): F17.200 - Nicotine dependence, unspecified, uncomplicated Status: Acute Assessment and Plan: Appears she quit smoking on 10/19/21 Assess tobacco needs DS: Summary Hospital Course Hospital Course: patient is a 76 female with past history of COPD, chronic respiratory failure O2, hypertension, kidney stones, tobacco dependence who presented to the ED with complaints rectal bleeding.? Patient stated that she got out of bed and it was bright red blood coming out. She stated that it happened the day before that as well. H/H was stable upon admission, and GI has been consulted. Colonoscopy was performed and showed no bleeding at this time. Diet advanced as tolerated. Patient is stable per DC as labs and vital signs are stable. Status at Discharge Functional status at discharge: independent ambulation Overall status at discharge: patient is progressing back to baseline Time Spent with Patient Time attestation: Total time spent providing and/or coordinating discharge services: 38 minutes Time spent: Greater than 30 minutes Specific discharge activities: Diagnostic testing, chart review, developing a treatment plan, education, care coordination documentation, physical exam, result review Exam Const: General: cooperative, healthy appearing, no acute distress, well developed, alert and awake Nutritional Appearance: well nourished Orientation/consciousness: oriented to person, oriented to place, oriented to time and patient oriented x3 Limitations: no limitations HENMT: Head: normal to inspection Ears: h
== END 2022-01-08 13:50 | disposition home or self-care (01) ==
LOC: ANHED 06:23 → ANH3MEDSUR 13:11
PROVIDERS: Internal Medicine Gastroenterology; Admitting Provider Internal Medicine; Emergency Provider Emergency Medicine; PCP Internal Medicine; Visit Provider Nurse Practitioner
PROC: 0DJD8ZZ Inspection of Lower Intestinal Tract, Via Natural or Artificial Opening Endoscopic (ICD-10-PCS; CPT 45378; principal; 2022-01-08 07:30)
DX: K92.2 Gastrointestinal hemorrhage, unspecified (principal); J96.10 Chronic respiratory failure, unspecified whether with hypoxia or hypercapnia; J44.9 Chronic obstructive pulmonary disease, unspecified; K64.9 Unspecified hemorrhoids; I10 Essential (primary) hypertension; R91.1 Solitary pulmonary nodule; K64.8 Other hemorrhoids; F41.9 Anxiety disorder, unspecified; Z99.81 Dependence on supplemental oxygen; Z80.9 Family history of malignant neoplasm, unspecified; Z80.8 Family history of malignant neoplasm of other organs or systems; Z87.442 Personal history of urinary calculi; Z90.710 Acquired absence of both cervix and uterus; Z87.891 Personal history of nicotine dependence; Z79.82 Long term (current) use of aspirin; Z79.899 Other long term (current) drug therapy; Z79.891 Long term (current) use of opiate analgesic
CPT/HCPCS: 45378; 36415; 78278; 80053; 83735; 85014; 85018; 85025; 85610; 85730; 86850; 86900; 86901; 94640; 99285; A9270; A9560; G0378; J2370; J2704; J7120

== ENCOUNTER 2022-01-18 08:42 | Outpatient (CLI) | payer MEDICARE, OTHER, SELFPAY ==
--- NOTE | ~2022-01-18 | PE_ITS ---
EXAMINATION: PET skull to mid thigh DATE: 01/18/2022 10:56 INDICATION: Pulmonary nodule TECHNIQUE: Blood glucose level was 118 mg/dL. 11.882 mCi of 18-fluorodeoxyglucose (18-FDG) was admini stered i.v. Low dose computed tomography (CT) images were acquired from the base of the brain to the proximal thighs for attenuation correction and anatomic localization. Positron emission tomography (P ET) images were acquired in the same distribution beginning 55 minutes after injection. The dose-tatianna th product (DLP) was 663.43 mGy-cm. COMPARISON: 01/03/2022, 12/30/2020, 01/16/2020 FINDINGS: Head/neck: No abnormal FDG uptake is identified. FDG activity in the oral cavity without suspicious C T correlate is likely physiologic. There are no pathologically enlarged cervical lymph nodes. Chest: No abnormal FDG uptake is identified. There is an approximately 10 mm lingular nodule correspo nding to the abnormality described on recent chest CT without abnormal FDG uptake, consistent with at electasis. In addition, a nodule questioned in the posterior medial right lung base also does not dem onstrate abnormal FDG uptake. There is mild emphysema. No pleural effusion or pneumothorax. No pathol ogically enlarged thoracic lymph nodes are identified. The heart size is normal. Calcified coronary a rtery atherosclerosis is noted. Abdomen/pelvis/proximal thighs: No abnormal FDG uptake is identified. Physiologic FDG activity is pre sent in the bowel and urinary tract. Punctate calcifications in otherwise normal appearing liver and spleen likely represent healed granulomatous disease. The pancreas, gallbladder, and adrenal glands a re normal. There is a 1.2 cm nonobstructing stone of the left kidney. No pathologically enlarged abdo reji or pelvic lymph nodes are identified. There is no free intraperitoneal gas or evidence of bowel obstruction. Colonic diverticulosis is present without evidence of diverticulitis. There is a fat-co ntaining right inguinal hernia. Musculoskeletal: No abnormal FDG uptake is identified. There is mild cervical and lumbar spondylosis. IMPRESSION: 1. Lingular nodule without associated FDG uptake, consistent with atelectasis. 2. Nonobstructing left nephrolithiasis. Reviewed, dictated and finalized at location B.
[2022-01-18 09:23] LABS: Glucose Point of Care 118 mg/dl (65-105)
== END 2022-01-18 08:43 | disposition home or self-care (01) ==
PROVIDERS: PCP Internal Medicine; Visit Provider Physician Assistant
DX: R91.1 Solitary pulmonary nodule (principal); R91.8 Other nonspecific abnormal finding of lung field; N20.0 Calculus of kidney
CPT/HCPCS: 78815; A9552

== ENCOUNTER 2022-04-21 09:59 | Outpatient (CLI) | payer MEDICARE, OTHER, SELFPAY ==
--- NOTE | ~2022-04-21 | CT_ITS ---
EXAMINATION: CT diagnostic chest wo con DATE: 04/21/2022 10:25 INDICATION: Pulmonary nodules TECHNIQUE: Computed tomography (CT) of the chest was performed without intravenous contrast. Automate d exposure control and iterative reconstruction technique were employed. Exam dose: 211.85 mGy-cm to echo exam DLP. COMPARISON: 01/03/2022 CT lung screening examinations 01/18/2022 PET/CT scan FINDINGS: Stable 2 mm right upper lobe nodule. Diminished prominence of the opacity in the lower aspe ct of the lingula since 01/03/2022. Stable or diminished prominence of focal pleural pulmonary opacities in the posteromedial right lung base. Moderate moderate emphysematous changes of the lungs. No pulmonary infiltrate or consolidation or sig nificant new or developing mass lesion. Normal heart size. No hilar or mediastinal mass lesion or lymphadenopathy. Calcified is spinal and left hilar nodes cons istent with old granulomatous disease.. There is thoracic aortic and great vessel calcification. No thoracic aortic aneurysm. No adrenal mass lesion. Multiple splenic and hepatic calcified granulomas. No suspicious osteolytic or osteoblastic lesions. IMPRESSION: No suspicious lung mass or significant new or developing lung mass since 01/03/2022 Emphysema Reviewed, dictated and finalized at Location [facility]. Reviewed, dictated and finalized at location A.
== END 2022-04-21 10:00 | disposition home or self-care (01) ==
PROVIDERS: PCP Internal Medicine; Visit Provider Physician Assistant
DX: R91.1 Solitary pulmonary nodule (principal); J43.9 Emphysema, unspecified
CPT/HCPCS: 71250

== ENCOUNTER 2022-05-22 10:21 | Inpatient (IN) | payer MEDICARE, OTHER, SELFPAY ==
[2022-05-22] VITALS (21 sets, daily range): BP systolic 102–134; BP diastolic 60–85; PULSE 74–100; RESP 17–24; TEMP 35.7–36.7; O2SAT 95–100; BMI 32.5
--- NOTE | ~2022-05-22 | XR_ITS ---
XR chest 2V DATE: 05/22/2022 10:52 INDICATION: Chest pain TECHNIQUE: PA and lateral views COMPARISON: 04/21/2019 CT chest 10/17/2021 portable AP chest FINDINGS: Moderate bilateral hyperinflation. There is old pulmonary granulomatous disease. Borderline heart size. There is pulmonary vascular redistribution which may indicate mild pulmonary venous hype rtension. No pulmonary infiltrate or consolidation, pleural effusion or pulmonary vascular congestion or pneumothorax is detected. Osteopenia. Rotator cuff atrophy, especially on the right. IMPRESSION: Moderate hyperinflation Borderline heart size Pulmonary vascular redistribution, which may indicate mild pulmonary venous hypertension Osteopenia Rotator cuff atrophy, especially on the right Reviewed, dictated and finalized at location A. CIPAL LIBRARIAN IMPRESSION: Moderate hyperinflation Borderline heart size Pulmonary vascular redistribution, which may indicate mild pulmonary venous hyp ertension Osteopenia Rotator cuff atrophy, especially on the right
--- NOTE | 2022-05-22 10:23 | ECG_ITS ---
Measurements Intervals [place] Rate: 99 P: 71 DC: 140 QRS: 235 QRSD: 92 T: 57 QT: 338 QTc: 435 Interpretive Statements SINUS RHYTHM WITH SINUS ARRHYTHMIA BORDERLINE R WAVE PROGRESSION, ANTERIOR LEADS SUBTLE ANTEROLATERAL ST ELEVATION- CONSIDER ACUTE INFARCT SUBTLE HIGH LATERAL ELEVATION- CONSIDER ACUTE INFARCT BASELINE ARTIFACT- I, II, III, AVR, AVL, AVF, V4 ABNORMAL ECG COMPARED TO ECG 05/22/2022 10:27:38 SINUS RHYTHM NOW PRESENT SINUS ARRHYTHMIA NOW PRESENT Electronically Signed On 05-22-2022 16:20:13 PLANT CYTOLOGIST by Wayne Campbell D.O.
--- NOTE | 2022-05-22 10:40 | ED.CHESTPAIN ---
HPI - Chest Pain General Chief Complaint: Chest Pain Stated Complaint: chest pain Time Seen by Provider: 05/22/22 10:40 History of Present Illness HPI narrative: Patient is a 77-year-old female who presents ER with chest pain. Began last night. She was having an episode of feeling hot and having shortness of breath. Family reports this has been happening to her for quite a while and is related to her need for oxygen related to her COPD that she does not wear. Patient also had nausea last night with the functioning that is typical for her. Occurs with exertion at times. After patient had this hot/flushed episode however she then developed chest pain. It radiates around the left side of her chest. Its worse with a deep breath. Associated with coughing. Patient has no history of coronary disease. She denies exertional chest discomfort at this time. The pain is 5/10 and that is causing her distress causing her to be tearful. She did not come in last night because she felt like she might be a burden to her family but opted to seek care today. She was found no alleviating factors. Related Data Home Medications Medication Instructions Recorded Confirmed aspirin 81 mg tablet,delayed 81 mg PO DAILY 06/05/19 05/22/22 release cetirizine 5 mg-pseudoephedrine ER 1 tablet PO DAILY 06/05/19 05/22/22 120 mg tablet,extended release,12hr (Zyrtec-D) meclizine 25 mg tablet 25 mg PO PRN PRN dizziness 10/13/21 05/22/22 omega-3 fatty acids-fish oil 300 1 cap PO DAILY 05/22/22 05/22/22 mg-1,000 mg capsule Allergies Allergy/AdvReac Type Severity Reaction Status Date / Time diphenhydramine Allergy Unknown Itching Verified 05/22/22 15:42 Review of Systems Review of Systems: All systems reviewed & are unremarkable except as noted in HPI and below Constitutional: Constitutional: Denies chills, Denies fatigue and Denies fever(s) ENT: Denies nasal congestion and Denies sore throat Cardiovascular: Cardiovascular: Reports chest pain, Denies rapid heart rate and Reports radiating jaw, neck or arm pain Respiratory: Respiratory: Denies cough, Reports dyspnea and Denies wheezing Gastrointestinal: Gastrointestinal: Denies abdominal pain, Reports nausea and Denies vomiting Musculoskeletal: Musculoskeletal: Denies back pain and Denies myalgias Neurologic: Denies syncope, Denies focal weakness and Denies numbness [facility] Past Medical History Medical History (Updated 05/22/22 @ 18:47 by Arthur Marquez MD) Acute GI bleeding Acute lower GI bleeding Chronic low back pain Chronic respiratory failure, unspecified whether with hypoxia or hypercapnia On home oxygen. Uses Trilogy unit at nighttime. Community acquired pneumonia COPD (chronic obstructive pulmonary disease) Depression Diverticulitis Essential (primary) hypertension Kidney stones Multinodular goiter Nicotine dependence, other tobacco product, uncomplicated Pulmonary nodule Seasonal allergies Sepsis Transaminitis Surgical History Surgical History (Updated 05/22/22 @ 14:31 by Danna Macias NP) History of appendectomy History of colonoscopy with polypectomy History of hysterectomy for benign disease History of removal of pigmented skin lesion Nose skin cancer Status post excision of lipoma Right posterior neck. Family History Family History Father Cerebrovascular accident Malignant neoplasm of prostate Patient's father is Sibling Diabetes mellitus Family history of malignant neoplasm of male breast Family history of malignant neoplasm of breast in first degree relative Mother Acute myocardial infarction Diabetes mellitus Other Family history of cardiovascular disease Social History Social History (Updated 05/22/22 @ 14:32 by Danna Macias NP) Social History: . Lives in her own home in [place]. Former Long-time smoker, at least a 50 pack-year smoking hi
[2022-05-22 10:57] LABS: Basophils Percent Auto 0.3 % (0.2-1.2); Eosinophils Absolute Auto 0.2 K/mm3 (0-0.3); Eosinophils Percent Auto 1.8 % (0-4.4); Hematocrit 42.2 % (37.0-47.0); Immature Granulocyte Absolute 0.06 K/mm3 (0.00-0.031); Immature Granulocyte Percent A 0.5 % (0-0.5); Lymphocytes Absolute Auto 1.36 K/mm3 (0.9-3.2); Lymphocytes Percent Auto 11.9 % (18.3-44.2); Mean Corpuscular HGB Conc 30.8 g/dl (32-36); Mean Corpuscular Hemoglobin 28.8 pg (26-34); Mean Corpuscular Volume 93.6 fl (80-100); Monocytes Absolute Auto 0.8 K/mm3 (0.1-0.6); Monocytes Percent Auto 6.7 % (2.6-8.5); Neutrophils Percent Auto 78.8 % (45.5-73.1); Platelet Count Result 381 k/mm3 (150-375); Red Blood Count 4.51 M/mm3 (4.2-5.4); Red Cell Distribution Width 15.9 % (11.5-14.5); White Blood Count 11.4 K/mm3 (4.5-10.0)
--- NOTE | 2022-05-22 11:02 | PC.NURSE ---
1st SL nitro tab given at 1102, pain rated a 5/10 EDP at bedside gave VORB for 2nd tab at appropriate time
[2022-05-22] MEDS: NITROGLYCERIN SL 0.4 MG TABLET SUBLINGUAL (11:05)
[2022-05-22 11:09] LABS: Prothrombin Time 12.7 Seconds (11.1-14.7)
[2022-05-22 11:10] LABS: Partial Thromboplastin Time 32.7 SECONDS (22.3-36.8); Potassium 4.1 mmol/L (3.4-5.0)
[2022-05-22 11:11] LABS: Alanine Aminotransferase 30 U/L (6-35); Albumin Level 4.2 g/dL (3.5-5.1); Alkaline Phosphatase 116 U/L (38-126); Anion Gap 11 mmol/L (8-16); Aspartate Amino Transferase 47 U/L (14-36); Bilirubin,Total 0.7 mg/dL (0.2-1.3); Blood Urea Nitrogen 14 mg/dL (7-17); Carbon Dioxide 25 mmol/L (22-30); Chloride 99 mmol/L (98-107); Estimated CRCL calculation 59 ml/min; Estimated Glomerular Filt Rate > 60; Glucose 234 mg/dL (65-110); Lipase 46 U/L (23-300); Sodium 135 mmol/L (137-145)
--- NOTE | 2022-05-22 11:21 | ECG_ITS ---
Measurements Intervals [place] Rate: 100 P: 70 GA: 139 QRS: 214 QRSD: 94 T: 49 QT: 347 QTc: 449 Interpretive Statements SINUS TACHYCARDIA BORDERLINE R WAVE PROGRESSION, ANTERIOR LEADS SUBTLE ANTEROLATERAL ST ELEVATION- CONSIDER ACUTE INFARCT SUBTLE HIGH LATERAL ST ELEVATION- CONSIDER ACUTE INFARCT BASELINE ARTIFACT- I, II AVR ABNORMAL ECG COMPARED TO ECG 05/22/2022 10:56:57 SINUS TACHYCARDIA NOW PRESENT Electronically Signed On 05-22-2022 16:21:54 FLAP CURER by Wayne Campbell D.O.
[2022-05-22] MEDS: MORPHINE SULFATE (*CRX) 2 MG/ML INJ IV PUSH (11:23)
--- NOTE | 2022-05-22 11:27 | ECG_ITS ---
Measurements Intervals [place] Rate: 101 P: 74 MA: 136 QRS: 218 QRSD: 90 T: 43 QT: 339 QTc: 441 Interpretive Statements SINUS TACHYCARDIA BORDERLINE R WAVE PROGRESSION, ANTERIOR LEADS SUBTLE ANTEROLATERAL ST ELEVATION- CONSIDER ACUTE INFARCT SUBTLE HIGH LATERAL ST ELEVATION- CONSIDER ACUTE INFARCT ABNORMAL ECG COMPARED TO ECG 10/13/2021 13:08:54 MYOCARDIAL INFARCT FINDING NOW PRESENT Electronically Signed On 05-22-2022 16:17:46 LAPPING MACHINE OPERATOR by Wayne Campbell D.O.
[2022-05-22] MEDS: HEPARIN SODIUM 5,000 UNITS/ML VIAL 3500 UNITS IV PUSH (11:34)
[2022-05-22] MEDS: HEPARIN SOD/D5W 100 UNITS/ML 25,000 UNITS/250 ML BAG 7 UNITS IV CONT (11:35)
--- NOTE | 2022-05-22 11:46 | PC.NURSE ---
[employer] Dr Ortiz at bedside at this time.
[2022-05-22] MEDS: ASPIRIN 81 MG CHEWABLE TABLET 324 MG PO (11:49)
[2022-05-22] MEDS: CLOPIDOGREL BISULFATE 300 MG TABLET 600 MG PO (11:49)
[2022-05-22 12:03] LABS: INR 1.1; Prothrombin Time 13.4 Seconds (11.1-14.7)
[2022-05-22] MEDS: NITROGLYCERIN OINTMENT 1 INCH DOSE 0.5 INCH TRANSDERM (12:13)
--- NOTE | 2022-05-22 12:13 | PM.CNCAR ---
Assessment and Plan Assessment and plan (1) NSTEMI (non-ST elevated myocardial infarction): Code(s): I21.4 - Non-ST elevation (NSTEMI) myocardial infarction Status: Acute Plan Continue with Heparin drip. Loaded with ASA 324mg and Plavix 600mg in the ED. Continue with ASA 81mg QD and Plavix 75mg QD. Will start high-intensity statin. Will start beta-diane. Recommend NTG paste. Continue to trend troponins until peak. Echo ordered. Will plan for cardiac cath 05/23. Patient to be NPO at midnight. History of Present Illness History of Present Illness Consult date/time: 05/22/22 12:13 Requesting physician: Arthur Marquez MD Consult reason: chest pain Reason For Visit: chest pain Narrative: We are being consulted for chest pain. This is a 77-year-old female with a history of COPD and hypertension who presented with chest pain. Had anterior chest pain that began yesterday evening when driving in the car, and persisted overnight and this morning. Pain radiated to her back. [place] hot and short of breath when it initially started. Given NTG in the ED which improved chest pain. EKGs obtained which show sinus rhythm with old high lateral infarct, however no STEMI. Repeat EKG the same. Initial troponin elevated at 2.920. CXR without acute findings. At the time of my evaluation, patient reports 3/10 chest pain. Is hemodynamically stable. No shortness of breath, palpitations, lightheadedness/dizziness. Review of Systems Review of Systems: 12-point ROS obtained. Negative, unless stated in HPI. [facility] Past Medical History Medical History Chronic low back pain Chronic respiratory failure, unspecified whether with hypoxia or hypercapnia On home oxygen. Uses Trilogy unit at nighttime. Community acquired pneumonia COPD (chronic obstructive pulmonary disease) Essential (primary) hypertension Kidney stones Multinodular goiter Nicotine dependence, other tobacco product, uncomplicated Pulmonary nodule Seasonal allergies Sepsis Transaminitis Surgical History Surgical History History of colonoscopy with polypectomy History of hysterectomy for benign disease Status post excision of lipoma Right posterior neck. Family History Family History Father Cerebrovascular accident Malignant neoplasm of prostate Patient's father is Sibling Diabetes mellitus Family history of malignant neoplasm of male breast Family history of malignant neoplasm of breast in first degree relative Mother Acute myocardial infarction Diabetes mellitus Other Family history of cardiovascular disease Social History Social History Social History: . Lives in her own home in [place]. Long-time smoker, at least a 50 pack-year smoking history. No alcohol or illicit substance abuse. Surrogate decision maker: Jake (son) or Francia (daughter) Marianela. Code status: Full code. Smoking packs per day: 0.5 Smoking cigarettes per day: 10.0 Years smoked: 57 Smoking pack-years: 28.50 Smoking status: Former smoker Tobacco type: cigarettes Second hand tobacco smoke exposure: No Alcohol intake: never Substance use: never Lack of Transportation: No Lack of Food: Never True Current Housing: Decline to Answer Concerned About Future Housing: No Difficulty Paying Gas/Electric Bills: No Difficulty Paying for Meds: No Currently Unemployed: No Education: Grade School Difficulty w/ Childcare or Family Care: No Gender identity (if verbalized by the patient): Female Sexual Orientation (if Verbalized by the Patient): Straight or Heterosexual Spiritual care concerns: No Agree to blood products: Yes Meds Home Medications and Allergies Home Medications Medication Instructions Recorded Con
--- NOTE | 2022-05-22 12:20 | PM.IMHP ---
H&P: HPI History of Present Illness Date/Time: 05/22/22 12:20 Chief Complaint: Chest pain Narrative: This is a 77-year-old female patient who does have a history of COPD. She does have oxygen at home but mostly wears it at night. She also wears it p.r.n.. The patient was driving in her car last night when she developed some chest pain and shortness of breath. The patient pulled her car over and put her oxygen on and stated that she felt well enough to drive home. The patient continued to have chest pain all through the night. She stated that she still was feeling short of breath through the night. Her chest pain was to the left chest and radiated to her back and somewhat to her neck and left shoulder. She felt somewhat nauseated but did not vomit. She has had no previous history of any coronary artery disease or had a cardiac catheterization in the past. Patient stated that her chest pain was worse when she took deep breath. She did not want to call the ambulance in the [facility] night toe harm her neighbors and she did not want to bother her son during the night. She was given aspirin, Plavix Toprol and Lipitor in the emergency room she was also started on a heparin drip as well and given morphine for the discomfort. Her baseline troponin was 2.920 and the 3 hour troponin was 3.270. Nitro paste was applied as well. In the patient stated that her chest pain is starting to fade. Cardiology has seen the patient and discussed cardiac catheterization in the a.m. she stated that she is an anxious person will probably need something for her anxiety prior to the proceed. Oxygen was applied at 2 L per nasal cannula. Chest x-ray was read as moderate hyperinflation, borderline heart size, pulmonary vascular redistribution, which may indicate mild pulmonary versus hypertension. Osteopenia. Rotator cuff atrophy, specially on the right. Her blood glucose was 234. The patient was negative for influenza A/B and COVID. The patient is being admitted to observation status on the date of service of 05/22/2022. Review of Systems Review of Systems: See HPI All systems reviewed & are unremarkable except as noted in HPI and below Constitutional: Constitutional: Reports as per HPI and Reports no additional constitutional complaints Eyes: Eyes: Reports as per HPI and Reports no additional eye complaints ENT: Reports system reviewed and no additional complaints, except as documented and Reports Normal hearing present Cardiovascular: Cardiovascular: Reports no additional cardiovascular complaints Respiratory: Respiratory: Reports no additional respiratory complaints and Reports no additional respiratory complaints Gastrointestinal: Gastrointestinal: Reports as per HPI and Reports no additional gastrointestinal complaints Musculoskeletal: Musculoskeletal: Reports no additional musculoskeletal complaints Integumentary/Breasts: Skin/Breast: Reports system reviewed and no additional complaints, except as docu and Reports as per HPI Neurologic: Reports system reviewed and no additional complaints, except as documented, Reports as per HPI and Reports Normal hearing present Psychiatric: Psychiatric: Reports no additional psychiatric complaints and Reports as per HPI Endocrine: Endocrine: Reports no additional endocrine complaints Hematologic/Lymphatic: Hematologic/Lymphatic: Reports no additional hematologic/lymphatic complaints Allergic/Immunologic: Allergic/Immunologic: Reports no additional allergic/immunologic complaints [facility] Past Medical History Medical History (Updated 05/22/22 @ 15:58 by Danna Macias NP) Acute GI bleeding Acute lower GI bleeding Chronic low back pain Chronic respiratory failure, unspecified whether with hypoxia or hypercapnia On home oxygen. Uses Trilogy unit at nighttime. Community acquired pneumonia COPD (chronic obstructive pulmonary disease) Depression Diverticulitis Essential (primary) hypertension Kidney stones M
[2022-05-22 12:21] LABS: Influenza A QL RT-PCR Negative (Negative); Influenza B QL RT-PCR Negative (Negative); SARS-CoV-2 RNA PCR Negative
[2022-05-22] MEDS: METOPROLOL SUCCINATE EXT REL 25 MG TABCR PO (12:25)
[2022-05-22] MEDS: ATORVASTATIN 40 MG TABLET 80 MG PO (12:25)
[2022-05-22 13:20] LABS: Partial Thromboplastin Time > 200.0 SECONDS (22.3-36.8)
--- NOTE | 2022-05-22 14:20 | PC.NURSE ---
called dietary and ordered lunch tray for pt at this time
--- NOTE | 2022-05-22 15:26 | ADMGEN ---
This patient, Mya Landry, was admitted to IMU Room 214-01. Patient/family oriented to hospital policies and general routines including ID bracelet, bed and alarms, visiting hours, pain management, procedures, bathroom and other care routines, personal items, smoking policy, room service/diet, and visiting hours. Information on how to activate the Rapid Response Team has been discussed. Patient/Family are encouraged to report perceived risks to care and to ask questions if they do not understand what they are told or what they should do.
[2022-05-22 18:44] LABS: Partial Thromboplastin Time 123.3 SECONDS (22.3-36.8)
[2022-05-22] MEDS: HYDROcodone/acetaminophen (*CRX) 5-325 MG TABLET 1 TAB PO (20:55)
[2022-05-22] MEDS: ALBUTEROL SULFATE NEB 2.5 MG/0.5 ML INH 5 MG INHALATION (21:17)
[2022-05-23] VITALS (36 sets, daily range): BP systolic 92–128; BP diastolic 47–67; PULSE 67–104; RESP 16–28; TEMP 35.8–36.8; O2SAT 92–100
--- NOTE | 2022-05-23 | ECHO_ITS ---
Patient Info Name: Mya Landry Age: 77 years : 10/25/1944 Gender: Female Ht: 60 in Wt: 154 lbs BSA: 1.75 m2 HR: 96 bpm BP: 108 / 58 mmHg Heart Rhythm: Sinus Rhythm Technical Quality: Fair Exam Date: 05/23/2022 12:34 PM Exam Location: [facility] Card Pulmonary Patient Status: Inpatient Admit Date: 05/22/2022 Staff Ordering Physician: Sanket Ortiz MD (pantera/gin) Fire Equipment Inspector Helper: Allison Tracy RDCS Attending Provider: Juliano Mcintyre MD Referring Physician: Angel RAMESH; Exam Type: CA echo doppler color flow Study Info Indications - nstemi Complete two-dimensional, color flow and Doppler transthoracic echocardiogram is performed. Summary 1. Complete two-dimensional, color flow and Doppler transthoracic echocardiogram is performed. 2. Left ventricular systolic function is mildly reduced, estimated at 40-45%. 3. Regional wall motion abnormalities consistent with either an LAD infarction or Takotsubo cardiomyopathy. 4. The left ventricular diastolic function is grade I diastolic dysfunction. 5. Right ventricular systolic function is normal. 6. No significant valvular disease. Left Ventricle Regional wall motion abnormalities consistent with either an LAD infarction or Takotsubo cardiomyopathy. Left ventricular chamber dimension is normal. Left ventricular systolic function is mildly reduced, estimated at 40-45%. There is no increased left ventricular wall thickness. The left ventricular diastolic function is grade I diastolic dysfunction. Right Ventricle Right ventricular chamber dimension is normal. Right ventricular systolic function is normal. Left Atria Left atrial chamber dimension is normal. Right Atria Right atrial chamber dimension is normal. Atrial Septum Intact interatrial septum visualized by color flow imaging. Aortic Valve The aortic valve is not well visualized. There is no aortic valve stenosis. There is no aortic valve regurgitation. Pulmonic Valve The pulmonic valve is not well visualized. Mitral Valve There is no mitral valve stenosis. There is no mitral valve regurgitation. There is mild mitral valve calcification. Tricuspid Valve There is no significant tricuspid valve stenosis. There is trace tricuspid valve regurgitation. Pericardium/Pleural There is no pericardial effusion. Inferior Vena Cava Normal inferior vena cava with >50% collapse upon inspiration consistent with normal right atrial pressure. Aorta The aortic root size at the sinus of Valsalva is normal. Left Ventricular Outflow Tract Name Value Normal LVOT 2D LVOT Diameter 2.0 cm LVOT Doppler LVOT Peak Gradient 8 mmHg LVOT Mean Gradient 4 mmHg LVOT VTI 27 cm LVOT VTI/AV VTI Ratio 0.8 LVOT Stroke Volume 81 ml LVOT CO 6.9 l/min LVOT CI 3.9 l/min/m2 Pulmonic Valve Name
[2022-05-23] MEDS: MORPHINE SULFATE (*CRX) 4 MG/ML INJ IV PUSH ×2 (00:26→07:45)
[2022-05-23 01:32] LABS: Basophils Absolute Auto 0.1 K/mm3 (0.0-0.1); Basophils Percent Auto 0.4 % (0.2-1.2); Eosinophils Absolute Auto 0.4 K/mm3 (0-0.3); Eosinophils Percent Auto 2.8 % (0-4.4); Hematocrit 37.4 % (37.0-47.0); Hemoglobin 11.9 g/dL (12.0-15.0); Immature Granulocyte Absolute 0.05 K/mm3 (0.00-0.031); Immature Granulocyte Percent A 0.4 % (0-0.5); Lymphocytes Absolute Auto 1.73 K/mm3 (0.9-3.2); Lymphocytes Percent Auto 13.4 % (18.3-44.2); Mean Corpuscular HGB Conc 31.8 g/dl (32-36); Mean Corpuscular Volume 91.2 fl (80-100); Mean Platelet Volume 10.4 fl (7.4-10.4); Monocytes Absolute Auto 1.3 K/mm3 (0.1-0.6); Monocytes Percent Auto 9.7 % (2.6-8.5); Neutrophils Absolute Auto 9.5 K/mm3 (1.3-6.7); Neutrophils Percent Auto 73.3 % (45.5-73.1); Platelet Count Result 331 k/mm3 (150-375); White Blood Count 12.9 K/mm3 (4.5-10.0)
[2022-05-23 01:38] LABS: Partial Thromboplastin Time 55.3 SECONDS (22.3-36.8)
[2022-05-23 02:12] LABS: Alanine Aminotransferase 28 U/L (6-35); Albumin Level 3.7 g/dL (3.5-5.1); Alkaline Phosphatase 118 U/L (38-126); Anion Gap 6 mmol/L (8-16); Aspartate Amino Transferase 48 U/L (14-36); Bilirubin,Total 0.8 mg/dL (0.2-1.3); Blood Urea Nitrogen 19 mg/dL (7-17); Carbon Dioxide 27 mmol/L (22-30); Chloride 101 mmol/L (98-107); Estimated CRCL calculation 54 ml/min; Estimated Glomerular Filt Rate > 60; Glucose 148 mg/dL (65-110); Potassium 3.8 mmol/L (3.4-5.0); Sodium 134 mmol/L (137-145)
[2022-05-23] MEDS: HEPARIN SODIUM 5,000 UNITS/ML VIAL 2000 UNITS IV PUSH (02:22)
[2022-05-23 02:29] LABS: Magnesium 1.6 mg/dL (1.6-2.3)
--- NOTE | 2022-05-23 02:35 | PC.NURSE ---
Called for update on PTT draw at 0100 that was due at 0000. infectious waste technician was sending sample down now. PTT draw resulted around 0145 and heparin drip titrated according to protocol.
[2022-05-23 03:09] LABS: Thyroid Stimulating Hormone Reflex 0.666 uIU/mL (0.465-4.68)
[2022-05-23 05:43] LABS: Magnesium 1.7 mg/dL (1.6-2.3)
[2022-05-23] MEDS: ONDANSETRON INJ 4 MG/2 ML VIAL IV PUSH ×3 (08:14→16:47)
[2022-05-23] MEDS: CLOPIDOGREL BISULFATE 75 MG TABLET PO (08:17)
[2022-05-23] MEDS: OMEGA 3 POLYUNSAT FATTY ACIDS 1 GM CAP PO (08:17)
[2022-05-23] MEDS: ASPIRIN 81 MG ENTERIC TABLET PO (08:17)
[2022-05-23] MEDS: ATORVASTATIN 40 MG TABLET 80 MG PO (08:17)
[2022-05-23] MEDS: LOSARTAN POTASSIUM 50 MG TABLET PO (08:17)
[2022-05-23] MEDS: METOPROLOL SUCCINATE EXT REL 25 MG TABCR PO (08:17)
--- NOTE | 2022-05-23 09:33 | WPDMODSED ---
Moderate Sedation Note-Pt Data Patient Data Diagnosis: NSTEMI Present Complaint: Chest pain, NSTEMI Procedure to be performed/Plan: Coronary angiography, C Allergies Allergy/AdvReac Type Severity Reaction Status Date / Time diphenhydramine Allergy Unknown Itching Verified 05/22/22 15:42 Home Medications Medication Instructions Recorded Confirmed Type aspirin 81 mg tablet,delayed 81 mg PO DAILY 06/05/19 05/22/22 History release cetirizine 5 mg-pseudoephedrine ER 1 tablet PO DAILY 06/05/19 05/22/22 History 120 mg tablet,extended release,12hr (Zyrtec-D) meclizine 25 mg tablet 25 mg PO PRN PRN dizziness 10/13/21 05/22/22 History albuterol sulfate 2.5 mg/0.5 mL 5 mg inhalation Q6HRT PRN 10/17/21 05/22/22 Rx solution for nebulization shortness of breath or wheezing #30 ea hydrocodone 5 mg-acetaminophen 325 1 tablet PO Q6H PRN pain #40 tabs 03/01/22 05/22/22 Rx mg tablet losartan 50 mg tablet 50 mg PO DAILY #90 tabs 03/30/22 05/22/22 Rx alprazolam 0.5 mg tablet 0.5 mg PO BID PRN anxiety #60 tabs 05/20/22 05/22/22 Rx omega-3 fatty acids-fish oil 300 1 cap PO DAILY 05/22/22 05/22/22 History mg-1,000 mg capsule Current Medications: Active Medications Acetaminophen (Acetaminophen 325 Mg Tablet) 650 mg PO Q4H PRN PRN Reason: Mild Pain (1-3) or Fever Hydrocodone Bitart/Acetaminophen (Hydrocodone/Acetaminophen (*Crx) 5-325 Mg Tablet) 1 tab PO Q4H PRN PRN Reason: Pain Rated 4-6 Last Admin: 05/22/22 20:55 Dose: 1 tab Albuterol (Albuterol Sulfate Neb 2.5 Mg/0.5 Ml Inh) 5 mg INHALATION Q6HRT PRN PRN Reason: shortness of breath or wheezing Last Admin: 05/22/22 21:17 Dose: 5 mg Alprazolam (Alprazolam (*Crx) 0.5 Mg Tablet) 0.5 mg PO BID PRN PRN Reason: anxiety Aspirin (Aspirin 81 Mg Enteric Tablet) 81 mg PO [facility] Last Admin: 05/23/22 08:17 Dose: 81 mg Atorvastatin Calcium (Atorvastatin 40 Mg Tablet) 80 mg PO DAILY [facility] Last Admin: 05/23/22 08:17 Dose: 80 mg Clopidogrel Bisulfate (Clopidogrel Bisulfate 75 Mg Tablet) 75 mg PO [facility] Last Admin: 05/23/22 08:17 Dose: 75 mg Fish Oil ([place] 3 Polyunsat Fatty Acids 1 Gm Cap) 1 gm PO DAILY [facility] Last Admin: 05/23/22 08:17 Dose: 1 gm Heparin Sodium (Porcine) (Heparin Sodium 5,000 Units/Ml Vial) 4,000 units IV PUSH PRN PRN PRN Reason: aPTT less than 55 seconds Heparin Sodium (Porcine) (Heparin Sodium 5,000 Units/Ml Vial) 2,000 units IV PUSH PRN PRN PRN Reason: aPTT 55 - 70 seconds Last Admin: 05/23/22 02:22 Dose: 2,000 units Heparin Sodium/Dextrose (Heparin Sodium/D5w 100 Units/Ml) 25,000 units in 250 mls @ 7 mls/hr IV CONT .Q24H [facility]; Protocol Last Titration: 05/23/22 02:25 Dose: 700 units/hr, 7 mls/hr Sodium Chloride (Normal Saline Iv) 1,000 mls @ 125 mls/hr IV CONT .Q8H ONE Stop: 05/23/22 17:30 Losartan Potassium (Losartan Potassium 50 Mg Tablet) 50 mg PO DAILY [facility] Last Admin: 05/23/22 08:17 Dose: 50 mg Meclizine HCl (Meclizine Hcl 25 Mg Tablet) 25 mg PO PRN PRN PRN Reason: dizziness Metoprolol Succinate (Metoprolol Succinate Ext Rel 25 Mg Tabcr) 25 mg PO [facility] Last Admin: 05/23/22 08:17 Dose: 25 mg Morphine Sulfate (Morphine Sulfate (*Crx) 4 Mg/Ml Inj) 4 mg IV PUSH Q2H PRN PRN Reason: Pain Rated 7-10 Last Admin: 05/23/22 07:45 Dose: 4 mg Ondansetron HCl (Ondansetron Inj 4 Mg/2 Ml Vial) 4 mg IV PUSH Q4H PRN PRN Reason: Nausea Last Admin: 05/23/22 08:14 Dose: 4 mg Perflutren Lipid Microsphere (Perflutren Lipid Microspheres 1.5 Ml Vial Diluted To 10 Ml Total Volume) 0 ml IV PUSH ONCE PRN; Protocol PRN Reason: adequate visualization Stop: 05/24/22 12:19 Sedation/Anesthesia: No previous sedation/anesthesia problems (including family history). [facility] Past Medical History Medical History Acute GI bleeding Acute lower GI bleeding Chronic low back pain Chronic respiratory failure, unspecified whether with hypoxia or hypercapnia On
--- NOTE | 2022-05-23 09:36 | WPDCARDPROC ---
Cardiac Cath Procedure Note Date of procedure:: 05/23/22 Performing physician:: CATHETERIZATION LABORATORY REPORT Procedure Date: 05/23/2022 Acupuncture Physician: Sanket Ortiz M.D., [facility]? Referring Physician: Sanket Ortiz M.D. ? Anesthesia: Versed and Fentanyl were ordered and given in my presence at 08:50, procedure ended at 09:15. Supervision of nurse monitored moderate sedation with Versed and Fentanyl was provided for 25 minutes. Total of Versed 2mg and Fentanyl 25mcg were administered by the Admitting Counselor RN Haleigh Franco. Pre-op Diagnosis: NSTEMI Post-op Diagnosis: Non-obstructive coronary artery disease Left ventricular end-diastolic pressure of 19mmHg Left ventricular angiogram shows moderately reduced LVEF, wall motion is consistent with Takotsubo Cardiomyopathy. Procedure(s): Left heart catheterization with coronary angiography Left ventricular angiogram Access Site: Right radial artery Brief History and Clinical Indications: Patient is a 77-year-old female who presented with angina and was found to have an NSTEMI; therefore, patient referred for cardiac catheterization. All risks, benefits and alternatives to left heart catheterization with or without percutaneous coronary intervention was discussed at length with the patient. Risk of complications including but not limited to bleeding, infection, arrhythmia, stroke, worsening kidney function, blood loss, groin hematoma, limb loss, emergency coronary artery bypass grafting, and even were discussed with the patient and all questions were answered. The patient understood and wished to proceed. Time out called, patient name, date of , medical record number, allergies, procedure performed, identify Acupuncture Physician, patient and staff member concurred with accurate data, procedure carried on. Findings: LEFT HEART CATHETERIZATION FINDINGS: 1. Left main: Large caliber vessel. The left main coronary artery is widely patent without any significant obstructive disease. 2. Left anterior descending: Large caliber vessel. The LAD and the diagonal branches have mild luminal irregularities without any significant obstructive angiographic disease. 3. Left circumflex: Large caliber vessel. The left circumflex has mild 20% disease in its mid portion, rest of the left circumflex has mild luminal irregularities. OM-1 vessel is a large caliber vessel with moderate 50-60% ostial stenosis. Rest of the vessel has mild luminal irregularities. The OM-2 vessel is a large caliber vessel with mild luminal irregularities. 4. Right coronary artery: Large caliber vessel. The RCA has mild luminal irregularities without any significant obstructive angiographic disease. The RCA is the dominant vessel. 5. Left ventricle: A. End-diastolic pressure 19mmHg. B. LV gram: Left ventricular angiogram shows moderately reduced LVEF, wall motion is consistent with Takotsubo Cardiomyopathy. C. No significant gradient across aortic valve on catheter pullback. Description of Procedure: Informed consent signed and placed in the chart. Patient transferred to concrete plant laborer room. Prepped and draped in usual sterile fashion. 2% lidocaine injected subcutaneously in right wrist area. 22-gauge venipuncture catheter used to access the right radial artery with the Seldinger technique. 6-FR slender sheath placed in right radial artery. Nitroglycerine and Verapamil were given intraarterial through the sheath. Versacore wire advanced under fluoroscopy 5F Tig 4 diagnostic catheter engaged Left Main Coronary Artery. 5F Tig 4 diagnostic catheter engaged Right Coronary Artery Multiple orthogonal angiogram obtained and reviewed 5F Pigtail diagnostic catheter crossed aortic valve to obtain LVEDP, LV angiogram obtained. Hemostasis was achieved by application of TR band. ? Assessment: Non-obstructive coronary artery disease Left ventricular end-diastolic pressure of 19mmHg Left ventricular angiogram shows moderately reduce
--- NOTE | 2022-05-23 09:38 | SUR.PHASEII ---
Pt resting comfortably in bed, pt sleeping, awakens easily to verbal and converses appropriately. Denies pain, shortness of breath or other complaints. 2LNC, VSS, NAD noted, TR band in place, side rails up x 2, call light within reach.
--- NOTE | 2022-05-23 09:51 | PM.PNCARD ---
Progress Note: A&P Assessment and Plan (1) ACS (acute coronary syndrome): Code(s): I24.9 - Acute ischemic heart disease, unspecified Status: Acute (2) NSTEMI (non-ST elevated myocardial infarction): Code(s): I21.4 - Non-ST elevation (NSTEMI) myocardial infarction Status: Acute (3) Takotsubo cardiomyopathy: Code(s): I51.81 - Takotsubo syndrome Status: Acute Plan Cardiac cath done this AM which showed nonobstructive coronary artery disease. LVEDP 19mmHg. LV angiogram shows reduced LVEF and wall motion is consistent with Takotsubo cardiomyopathy. Unclear etiology for Takotsubo as patient denies any recent stressors or illnesses. Will stop Heparin drip and Plavix. Increase Metoprolol as tolerated. Will stop Losartan and start Entresto. TTE is pending, will follow on the results. Subjective Date/time seen: 05/23/22 09:51 Interval history: Reason for visit: NSTEMI HPI: This is a 77-year-old female with a history of COPD and hypertension who presented with chest pain. Had anterior chest pain that began yesterday evening when driving in the car, and persisted overnight and this morning. Pain radiated to her back. Advance hot and short of breath when it initially started. Given NTG in the ED which improved chest pain. EKGs obtained which show sinus rhythm with old high lateral infarct, however no STEMI. Repeat EKG the same. Initial troponin elevated at 2.920. CXR without acute findings. At the time of my evaluation, patient reports 3/10 chest pain. Is hemodynamically stable. No shortness of breath, palpitations, lightheadedness/dizziness. Date of service 05/23/2022: No acute events overnight. Patient with intermittent chest pain overnight. Having some nausea this morning. [facility] planned for this AM. Review of Systems Review of Systems: 8-point ROS obtained. Negative, unless stated in HPI. Exam Const: General: comfortable and no acute distress HENMT: Mouth: Yes moist mucous membranes Eyes: General: appearance normal, both eyes and all related structures Sclera: sclerae normal Neck: Neck: supple Resp: Effort & Inspection: normal respiratory effort Auscultation: clear to auscultation bilaterally Cardio: Rate: regular rate Rhythm: regular rhythm Heart sounds: no murmurs GI: GI Palp: Yes Soft to palpation and No Tenderness to palpation present (GI) Skin: General skin exam: normal color Neuro: Speech: normal speech Motor exam (neuro): 5/5 motor strength present throughout Extrem: General: normal to inspection Psych: Mental Status: mental status grossly normal Affect: normal affect Objective Data Vital Signs Vital Signs: Vital Signs - 24 hr 05/22/22 10:56 05/22/22 10:57 05/22/22 11:04 Temperature 36.7 C Pulse Rate 100 94 Pulse Rate [Right Radial] Respiratory Rate 23 H Blood Pressure 128/67 Pulse Oximetry 99 98 Oxygen Delivery Nasal Cannula Nasal Cannula Oxygen Flow Rate 2 2 05/22/22 11:07 05/22/22 11:23 05/22/22 11:44 Temperature Pulse Rate 99 97 Pulse Rate [Right Radial] Respiratory Rate 17 17 Blood Pressure 102/67 112/67 114/70 Pulse Oximetry 98 100 Oxygen Delivery Oxygen Flow Rate 05/22/22 12:14 05/22/22 12:25 05/22/22 13:08 Temperature Pulse Rate 91 93 84 Pulse Rate [Right Radial] Respiratory Rate 20 20 Blood Pressure 134/74 120/75 Pulse Oximetry 100 100 Oxygen Delivery Oxygen Flow Rate 05/22/22 14:12 05/22/22 14:51 05/22/22 15:44 Temperature Pulse Rate 78 82 Pulse Rate [Right Radial] Respiratory Rate 22 H 23 H Blood Pressure 131/81 128/85 Pulse Oximetry 100 95 97 Oxygen Delivery Nasal Cannula Oxygen Flow Rate 2 05/22/22 15:47 05/22/22 16:00 05/22/22 18:00 Temperature 35.7 C L Pulse Rate 81 79 75 Pulse Rate [Right Radial] Respiratory Rate 18 Blood Pressure 102/62 Pulse Oximetry 97 Oxygen Delivery Oxygen Flow Rate 05/22/22 16:00 05/22/22 19:48 05/22
--- NOTE | 2022-05-23 09:53 | ECG_ITS ---
Measurements Intervals [place] Rate: 85 P: 76 ME: 144 QRS: 269 QRSD: 90 T: 129 QT: 384 QTc: 457 Interpretive Statements SINUS RHYTHM ANTEROLATERAL ST ELEVATION- PROBABLY RECENT INJURY HIGH LATERAL ST ELEVATION- PROBABY RECENT INJURY BASELINE ARTIFACT- I, II, AVR, AVL, V2-V3, V5-V6 ABNORMAL ECG COMPARED TO ECG 05/22/2022 11:24:24 SINUS RHYTHM NOW PRESENT Electronically Signed On 05-23-2022 17:46:51 [employer]TRASOUND TECHNOLOGIST SONOGRAPHER by Wayne Campbell D.O.
--- NOTE | 2022-05-23 10:32 | SUR.PHASEII ---
Pt reports nausea after taking a sip of clear soda. Given cold compresses for forehead and back of neck, reports nausea decreasing. Son at bedside, VSS, NAD noted, continue to monitor.
--- NOTE | 2022-05-23 11:09 | SUR.PHASEII ---
Pt vomited small amount, cold compress to back of neck and forehead. Report called to Nikki CORREA, awaiting Dr. Ortiz to talk to pt's son before transfer to room
[2022-05-23] MEDS: SODIUM CHLORIDE 0.9% IV 1,000 ML 125 ML IV CONT (12:00)
--- NOTE | 2022-05-23 17:54 | PM.IMPN ---
Progress Note: A&P Assessment and Plan (1) NSTEMI (non-ST elevated myocardial infarction): Code(s): I21.4 - Non-ST elevation (NSTEMI) myocardial infarction Status: Acute Assessment and Plan: - baseline troponin 2.920 and 3 hour is 3.270. -the patient had a nitro patch and morphine in the emergency room. -cardiology has been consulted and the plan was for cardiac catheterization in the a.m.. -an echo has been ordered -continue with aspirin, Plavix Lipitor, morphine and metoprolol -she is currently on a heparin drip. 05/23/2022 interval history: 77 y/o with history of COPD, chronic respiratory failure on home oxygen presented with chest pain and SOB, was found to have NSTEMI and seen by hard rock miner blasting and had cardiac cath, did not show any ACS and has Takotsubo cardiomyopathy, patient has just returned from the cath, she stats worries lot about her son and grand children, patient remains clinically stable, has no complaints and patient will be seen by hard rock miner blasting and further recommendation to follow. remains clinically stable will discharge tomorrow. (2) Essential (primary) hypertension: Code(s): I10 - Essential (primary) hypertension Status: Acute Assessment and Plan: Patient has had multiple medications in the emergency room. Her blood pressure is soft at this time. Hold blood pressure medicine if a map is less than 65. (3) Chronic respiratory failure, unspecified whether with hypoxia or hypercapnia: Code(s): J96.10 - Chronic respiratory failure, unspecified whether with hypoxia or hypercapnia Status: Acute Assessment and Plan: -patient wears p.r.n. oxygen at home and then wears a trelogy at night (4) Anxiety disorder, unspecified: Code(s): F41.9 - Anxiety disorder, unspecified Status: Acute Assessment and Plan: -the patient takes alprazolam at home (5) Chronic obstructive pulmonary disease: Code(s): J44.9 - Chronic obstructive pulmonary disease, unspecified Status: Acute Assessment and Plan: -continue with inhalers (6) Chronic pain: Code(s): G89.29 - Other chronic pain Status: Acute Assessment and Plan: -the patient takes [place] at home. Hold if her map is less than 65. (7) Pulmonary nodule: Code(s): R91.1 - Solitary pulmonary nodule Status: Acute Assessment and Plan: This is being monitored outpatient with CT scans. Subjective Date/time seen: 05/23/22 17:54 Chief Complaint: Chest pain HPI-Narrative: This is a 77-year-old female patient who does have a history of COPD.? She does have oxygen at home but mostly wears it at night.? She also wears it p.r.n..? The patient was driving in her car last night when she developed some chest pain and shortness of breath.? The patient pulled her car over and put her oxygen on and stated that she felt well enough to drive home.? The patient continued to have chest pain all through the night.? She stated that she still was feeling short of breath through the night.? Her chest pain was to the left chest and radiated to her back and somewhat to her neck and left shoulder.? She felt somewhat nauseated but did not vomit.? She has had no previous history of any coronary artery disease or had a cardiac catheterization in the past.? Patient stated that her chest pain was worse when she took deep breath.? She did not want to call the ambulance in the [facility] night toe harm her neighbors and she did not want to bother her son during the night.? She was given aspirin, Plavix Toprol and Lipitor in the emergency room she was also started on a heparin drip as well and given morphine for the discomfort.? Her baseline troponin was 2.920 and the 3 hour troponin was 3.270.? Nitro paste was applied as well.? In the patient stated that her chest pain is starting to fade.? Cardiology has seen the patient and discussed cardiac catheterization in the a.m. she stated that she is an anxious person kayla
[2022-05-23] MEDS: SACUBITRIL/VALSARTAN 24-26 MG TABLET 1 TAB PO (20:41)
[2022-05-23] MEDS: ALPRAZolam (*CRX) 0.5 MG TABLET PO (20:43)
[2022-05-23] MEDS: HYDROcodone/acetaminophen (*CRX) 5-325 MG TABLET 1 TAB PO (20:45)
--- NOTE | 2022-05-23 20:49 | PC.NURSE ---
Maintenance in to check trilogy machine. Says ok to use from their standpoint.
[2022-05-23] MEDS: ALBUTEROL SULFATE NEB 2.5 MG/3 ML INH 5 MG (21:25)
[2022-05-24] VITALS (8 sets, daily range): BP systolic 102–127; BP diastolic 43–63; PULSE 65–104; RESP 12–22; TEMP 36.4–36.6; O2SAT 97–99
[2022-05-24] MEDS: ATORVASTATIN 40 MG TABLET 80 MG PO (08:58)
[2022-05-24] MEDS: SACUBITRIL/VALSARTAN 24-26 MG TABLET 1 TAB PO (08:59)
[2022-05-24] MEDS: METOPROLOL SUCCINATE EXT REL 50 MG TABCR PO (08:59)
[2022-05-24] MEDS: OMEGA 3 POLYUNSAT FATTY ACIDS 1 GM CAP PO (08:59)
[2022-05-24] MEDS: ASPIRIN 81 MG ENTERIC TABLET PO (08:59)
--- NOTE | 2022-05-24 09:23 | PM.PNCARD ---
Progress Note: A&P Assessment and Plan (1) ACS (acute coronary syndrome): Code(s): I24.9 - Acute ischemic heart disease, unspecified Status: Acute (2) NSTEMI (non-ST elevated myocardial infarction): Code(s): I21.4 - Non-ST elevation (NSTEMI) myocardial infarction Status: Acute (3) Takotsubo cardiomyopathy: Code(s): I51.81 - Takotsubo syndrome Status: Acute Plan Cardiac cath done 05/24/2022 which showed nonobstructive coronary artery disease. LVEDP 19mmHg. LV angiogram shows reduced LVEF and wall motion is consistent with Takotsubo cardiomyopathy. Unclear etiology for Takotsubo as patient denies any recent stressors or illnesses. Continue ASA and statin. Continue Toprol 50mg QD. Continue Entresto 24/26mg BID TTE is pending, will follow on the results. Patient to follow-up with us in clinic after discharge. Subjective Date/time seen: 05/24/22 09:23 Interval history: Reason for visit: NSTEMI, Takotsubo cardiomyopathy HPI: This is a 77-year-old female with a history of COPD and hypertension who presented with chest pain. Had anterior chest pain that began yesterday evening when driving in the car, and persisted overnight and this morning. Pain radiated to her back. [employer] hot and short of breath when it initially started. Given NTG in the ED which improved chest pain. EKGs obtained which show sinus rhythm with old high lateral infarct, however no STEMI. Repeat EKG the same. Initial troponin elevated at 2.920. CXR without acute findings. At the time of my evaluation, patient reports 3/10 chest pain. Is hemodynamically stable. No shortness of breath, palpitations, lightheadedness/dizziness. Date of service 05/23/2022: No acute events overnight. Patient with intermittent chest pain overnight. Having some nausea this morning. [facility] planned for this AM. Date of service 05/24/2022: No acute events overnight. Tolerating Entresto. Patient feels much better this AM. No longer having nausea. No chest pain or shortness of breath. Eating and drinking without issue. Review of Systems Review of Systems: 8-point ROS obtained. Negative, unless stated in HPI. Exam Const: General: comfortable and no acute distress HENMT: Mouth: Yes moist mucous membranes Eyes: General: appearance normal, both eyes and all related structures Sclera: sclerae normal Neck: Neck: supple Resp: Effort & Inspection: normal respiratory effort Auscultation: clear to auscultation bilaterally Cardio: Rate: regular rate Rhythm: regular rhythm Heart sounds: no murmurs GI: GI Palp: Yes Soft to palpation and No Tenderness to palpation present (GI) Skin: General skin exam: normal color Neuro: Speech: normal speech Motor exam (neuro): 5/5 motor strength present throughout Extrem: General: normal to inspection Psych: Mental Status: mental status grossly normal Affect: normal affect Objective Data Vital Signs Vital Signs: Vital Signs - 24 hr 05/23/22 09:30 05/23/22 09:30 05/23/22 09:45 Temperature 36.3 C L Pulse Rate 87 86 Pulse Rate [Right Radial] 87 Respiratory Rate 20 20 Blood Pressure 120/58 L 107/59 L Pulse Oximetry 94 94 Oxygen Delivery Nasal Cannula Nasal Cannula Oxygen Flow Rate 2 2 05/23/22 09:48 05/23/22 10:00 05/23/22 10:03 Temperature Pulse Rate 87 Pulse Rate [Right Radial] 86 85 Respiratory Rate 18 Blood Pressure 107/59 L Pulse Oximetry 94 Oxygen Delivery Nasal Cannula Oxygen Flow Rate 2 05/23/22 10:15 05/23/22 10:15 05/23/22 10:29 Temperature Pulse Rate 83 84 Pulse Rate [Right Radial] 83 Respiratory Rate 22 H 16 Blood Pressure 103/60 99/58 L Pulse Oximetry 95 95 Oxygen Delivery Nasal Cannula Nasal Cannula Oxygen Flow Rate 2 2 05/23/22 10:29 05/23/22 10:45 05/23/22 10:45 Temperature Pulse Rate 81 Pulse Rate [Right Radial] 84 83 Respiratory Rate 18 Blood Pressure 108/54 L Pulse Oximetry 95 Oxygen Delivery Nasal Cannula
--- NOTE | 2022-05-24 13:15 | PM.DS ---
DS: Admitting Diagnosis Discharge Date 05/24/22 Admitting Diagnosis chest pain DS: Discharge Diagnosis Discharge Diagnosis (1) Takotsubo cardiomyopathy: Code(s): I51.81 - Takotsubo syndrome Status: Acute DS: Summary Hospital Course Hospital Course: patient was admitted with chest pain. Cardiology was consulted. Patient underwent cardiac catheterization. Cardiac cath done 05/24/2022 which showed nonobstructive coronary artery disease. LVEDP 19mmHg. LV angiogram shows reduced LVEF and wall motion is consistent with Takotsubo cardiomyopathy. Continue ASA and statin. Continue Toprol 50mg QD. Continue Entresto 24/26mg BID. echo done: ?1. Complete two-dimensional, color flow and Doppler transthoracic echocardiogram is performed. ? 2. Left ventricular systolic function is mildly reduced, estimated at 40-45%. ? 3. Regional wall motion abnormalities consistent with either an LAD infarction or Takotsubo cardiomyopathy. ? 4. The left ventricular diastolic function is grade I diastolic dysfunction. ? 5. Right ventricular systolic function is normal. ? 6. No significant valvular disease. patient is clinically stable and is being discharged home. Time Spent with Patient Time attestation: Total time spent providing and/or coordinating discharge services: Discharge Plan Discharge Consulting providers: Sanket Ortiz Discharging Clinician: Pieter Chavarria Anticipated Discharge Date/Time: 05/24/22 13:13 Patient Disposition: Home, Self-Care Activity: may shower Diet: heart healthy Patient Instructions: Antibiotic Form, Heparin (By injection), Chest Pain (DC), Pain Management (DC), Heart Catheterization (DC), High Troponin Levels (GEN) Stand Alone Forms: General Discharge Information Follow-up/Referrals: John Sexton DO [Primary Care Provider] - Sanket Ortiz MD [Physician] - Discharge Medications: New Entresto 24-26 mg Tablet 1 tab PO Q12HR Qty: 60 0RF metoprolol succinate 50 mg Tablet Extended Release 24 Hr 50 mg PO QAM Qty: 30 0RF Continued aspirin 81 mg tablet,delayed release (DR/EC) 81 mg PO DAILY cetirizine-pseudoephedrine [Zyrtec-D] 5-120 mg tablet extended release 12 hr 1 tablet PO DAILY meclizine 25 mg tablet 25 mg PO PRN PRN (Reason: dizziness) albuterol sulfate 2.5 mg/0.5 mL Solution For Nebulization 5 mg inhalation Q6HRT PRN (Reason: shortness of breath or wheezing) Qty: 30 0RF omega-3 fatty acids-fish oil 300-1,000 mg Capsule 1 cap PO DAILY hydrocodone-acetaminophen 5-325 mg tablet 1 tablet PO Q6H PRN (Reason: pain) Qty: 40 0RF alprazolam 0.5 mg tablet 0.5 mg PO BID PRN (Reason: anxiety) Qty: 60 0RF Rx Instructions: must last 30 days- Discontinued losartan 50 mg tablet 50 mg PO DAILY Qty: 90 1RF Date of admission: 05/22/22 15:00 Primary Care Provider: John Sexton Admitting Provider: Juliano Mcintyre Attending physician on admission: Pieter Chavarria Condition: Serious
[2022-05-24] MEDS: HYDROcodone/acetaminophen (*CRX) 5-325 MG TABLET 1 TAB PO (14:39)
== END 2022-05-24 15:15 | disposition home or self-care (01) | DRG 287 ==
LOC: ANHED 11:27 → ANHIMU 15:00
PROVIDERS: Internal Medicine; Nurse Practitioner; Admitting Provider Internal Medicine; Emergency Provider Emergency Medicine; PCP Internal Medicine; Visit Provider Hospitalist
PROC: 4A023N7 Measurement of Cardiac Sampling and Pressure, Left Heart, Percutaneous Approach (ICD-10-PCS; CPT 93452; principal; 2022-05-23 08:30)
DX: I51.81 Takotsubo syndrome (principal); J96.10 Chronic respiratory failure, unspecified whether with hypoxia or hypercapnia; I25.10 Atherosclerotic heart disease of native coronary artery without angina pectoris; J44.9 Chronic obstructive pulmonary disease, unspecified; R91.1 Solitary pulmonary nodule; Z20.822 Contact with and (suspected) exposure to COVID-19; G89.29 Other chronic pain; F41.9 Anxiety disorder, unspecified; Z79.82 Long term (current) use of aspirin; Z99.81 Dependence on supplemental oxygen; Z90.49 Acquired absence of other specified parts of digestive tract; Z90.710 Acquired absence of both cervix and uterus; Z85.828 Personal history of other malignant neoplasm of skin; Z87.891 Personal history of nicotine dependence; E66.9 Obesity, unspecified; Z68.32 Body mass index [BMI] 32.0-32.9, adult
CPT/HCPCS: 36415; 71046; 80053; 83690; 83735; 84443; 84484; 85025; 85610; 85730; 87636; 93005; 93306; 93458; 94640; 94660; 96365; 96366; 96375; 99285; A9270; C1769; C1887; C1894; G0378; J1644; J2250; J2270; J2405; J3010; J7030; J7040

== ENCOUNTER 2022-09-08 09:45 | Outpatient (RCR) | payer MEDICARE, OTHER, SELFPAY ==
[2022-08-05 15:18] VITALS: PULSE 71
== END 2022-10-03 10:19 | disposition home or self-care (01) ==
LOC: ANHCPREHAB 09:45
PROVIDERS: PCP Internal Medicine; Visit Provider Internal Medicine
DX: I25.2 Old myocardial infarction (principal)
CPT/HCPCS: 93798

== ENCOUNTER 2022-10-07 09:33 | Outpatient (CLI) | payer MEDICARE, OTHER, SELFPAY ==
[2022-10-07 09:50] VITALS: PULSE 65; O2SAT 83
[2022-10-07 09:55] VITALS: PULSE 66; O2SAT 86
[2022-10-07 10:00] VITALS: PULSE 64; O2SAT 91
[2022-10-07 10:05] VITALS: PULSE 85; O2SAT 88
[2022-10-07 10:10] VITALS: PULSE 86; O2SAT 91
[2022-10-07 10:25] VITALS: PULSE 65; O2SAT 91
--- NOTE | 2022-10-07 10:27 | HOMEO2EVAL ---
Evaluation was performed at [facility] Home Oxygen Evaluation RC: Home Oxygen (O2) Evaluation Start: 10/07/22 10:23 Freq: Status: Active Protocol: RPE Activity Type Activity Date Activity User E-sign Co-sign Detail Recorded Client Recorded Date Recorded By Document 10/07/22 09:50 DJO [email or web address] 10/07/22 10:27 DJO Document 10/07/22 09:55 [email or web address] [email or web address] 10/07/22 10:27 DJO Document 10/07/22 10:00 [email or web address] [email or web address] 10/07/22 10:27 DJO Document 10/07/22 10:05 [email or web address] [email or web address] 10/07/22 10:27 DJO Document 10/07/22 10:10 [email or web address] [email or web address] 10/07/22 10:27 DJO Document 10/07/22 10:25 [email or web address] [email or web address] 10/07/22 10:27 DJO 10/07/22 10/07/22 10/07/22 09:50 09:55 10:00 Home O2 Evaluation [Oxygen] -Test Phase Resting Resting Resting -Oxygen Delivery Room Air Nasal Cannula Nasal Cannula -Oxygen Flow Rate (L/min) 1 2 [Pulse Oximetry] -Pulse Oximetry (90-100 %) 83 L 86 L 91 [Pulse Rate] -Pulse Rate (60-100 beats/min) 65 66 64 [Evaluation] -Activity Tolerance [Exercise] -Ambulation Distance (feet) -Ambulation Distance (meters) [Charges] -Treatment Charges O2 Evaluation - Outpatient 10/07/22 10/07/22 10/07/22 10:05 10:10 10:25 Home O2 Evaluation [Oxygen] -Test Phase Exercise Exercise Resting -Oxygen Delivery Nasal Cannula Nasal Cannula Nasal Cannula -Oxygen Flow Rate (L/min) 2 3 2 [Pulse Oximetry] -Pulse Oximetry (90-100 %) 88 L 91 91 [Pulse Rate] -Pulse Rate (60-100 beats/min) 85 86 65 [Evaluation] -Activity Tolerance Good [Exercise] -Ambulation Distance (feet) 400 -Ambulation Distance (meters) 121.91 [Charges] -Treatment Charges
--- NOTE | 2022-10-09 11:38 | WPDPFTINT ---
PFT Procedure Performed PFT Procedure Performed Spirometry with Pre/Post Bronchodilator Plethysmography (Lung Vol) Diffusing Cap (DLCO) Flow Vol Loop PFT Interpretation DOS: 10/07/2012 REQUESTING: Katie Arora PA-c REASON FOR TESTING: COPD PULMONARY FUNCTION TESTS Results are reliable and reproducible. Spirometry: pre bronchodilator FEV1 0.49 L, 28% predicted extremely low. Pre bronchodilator FVC 1.38 L, 62%, moderately decreased. FEV1/ FVC ratio 35%, extremely low consistent with airflow obstruction. After bronchodilator, there is a 17% increase in FEV1, 0.57 L, less than 200 mL. After bronchodilator there is a 27% increase in the FVC, 1.76 L, greater than 200 mL. This is a significant response. Lung volumes: Total lung capacity 5.59 L, 130%, mild hyperinflation. Residual volume 4.07 L, 199%, severe air trapping. RV/TLC 73%, severe air trapping. Airway resistance 8.60plB03/L/sec, 434% predicted. Diffusion: DLCO is 5.2, 29%, severely reduced. DLCO/VA is 3.27, 74%, normal. Flow volume loop: Severe coving of the expiratory limb consistent with airflow obstruction IMPRESSION: This study shows severe obstructive ventilatory impairment with good response to bronchodilator, mild hyperinflation, severe air trapping, severe diffusion impairment which corrects for alveolar volume. Compared to prior study on 02/20/2018 there has been a greater than anticipated decline in the FEV1, previously was 0.66 L, 41% and now is 28% predicted. Total lung capacity has increased, 4.59 L previously now 5.59 L, 115% compared to 130%. Same air trapping. Worsening diffusion impairment, previously DLCO was 55% and now is 29%. There was no acute bronchodilator response. Gale Linton MD
== END 2022-10-07 09:34 | disposition home or self-care (01) ==
LOC: ANHPFT 09:34
PROVIDERS: PCP Internal Medicine; Visit Provider Physician Assistant
DX: J44.9 Chronic obstructive pulmonary disease, unspecified (principal); J96.10 Chronic respiratory failure, unspecified whether with hypoxia or hypercapnia; R94.2 Abnormal results of pulmonary function studies
CPT/HCPCS: 94060; 94618; 94726; 94729

== ENCOUNTER 2022-12-08 10:19 | Emergency (ER) | payer MEDICARE, OTHER, SELFPAY ==
[2022-12-08] VITALS (9 sets, daily range): BP systolic 143–172; BP diastolic 58–86; PULSE 58–68; RESP 18; TEMP 36.7; O2SAT 89–100
--- NOTE | ~2022-12-08 | US_ITS ---
EXAMINATION: US venous doppler [facility] DATE: 12/08/2022 12:33 INDICATION: Left calf pain. TECHNIQUE: Grayscale ultrasound images without and with compression and Doppler ultrasound images of the left lower extremity veins were obtained. COMPARISON: None. FINDINGS: The visualized portions of left common femoral vein, profunda (deep) femoral vein, femoral vein, popl iteal vein, peroneal veins, posterior tibial veins, and greater saphenous vein outflow are patent. IMPRESSION: 1. No deep venous thrombosis. Reviewed, dictated and finalized at location A.
--- NOTE | 2022-12-08 13:21 | ED.EXTPRO ---
HPI - Extremity Problem General Chief complaint: Extremity Problem,Nontraumatic Stated complaint: Left leg pain Time Seen by Provider: 12/08/22 11:02 Source: patient Mode of arrival: ambulatory Limitations: no limitations History of Present Illness HPI Narrative: Patient is a 77-year-old female who presents to the ED with report of left posterior leg pain. Patient reports the pain has been intermittent for the last 3 days. She reports pain to her left posterior lateral thigh, extending down behind her left knee. She is able to ambulate but has some pain with this. No other significant aggravating factors. She has been taking Tylenol for the pain without much relief. She denies any recent injury. Denies hip or back pain. Denies any swelling of her lower extremities. Denies any chest pain or shortness of breath. Denies numbness or tingling. Denies weakness. Denies redness, wounds. Patient does chronically wear 2.5 L nasal cannula. She has not had to increase her oxygen recently. Denies history of blood clots. She is not on any blood thinners. Related Data Home Medications Medication Instructions Recorded Confirmed aspirin 81 mg tablet,delayed 81 mg PO DAILY 06/05/19 11/23/22 release cetirizine 5 mg-pseudoephedrine ER 1 tablet PO DAILY 06/05/19 11/23/22 120 mg tablet,extended release,12hr (Zyrtec-D) meclizine 25 mg tablet 25 mg PO PRN PRN dizziness 10/13/21 11/23/22 omega-3 fatty acids-fish oil 300 1 cap PO DAILY 05/22/22 11/23/22 mg-1,000 mg capsule Allergies Allergy/AdvReac Type Severity Reaction Status Date / Time diphenhydramine Allergy Unknown Itching Verified 12/08/22 10:20 Review of Systems Review of Systems: CONSTITUTIONAL: Denies fever, chills, or sweats. CARDIOVASCULAR: Denies chest pain, palpitations, or edema. RESPIRATORY: See HPI. MUSCULOSKELETAL: See HPI. NEUROLOGIC: Denies tingling, numbness, or weakness. All systems reviewed & are unremarkable except as noted in HPI and below PMFSH Past Medical History Medical History Acute GI bleeding Acute lower GI bleeding Chronic low back pain Chronic respiratory failure, unspecified whether with hypoxia or hypercapnia On home oxygen. Uses Trilogy unit at nighttime. Community acquired pneumonia COPD (chronic obstructive pulmonary disease) Depression Diverticulitis Essential (primary) hypertension Kidney stones Multinodular goiter Nicotine dependence, other tobacco product, uncomplicated Pulmonary nodule Seasonal allergies Sepsis Transaminitis Surgical History Surgical History History of appendectomy History of colonoscopy with polypectomy History of hysterectomy for benign disease History of removal of pigmented skin lesion Nose skin cancer Status post excision of lipoma Right posterior neck. Family History Family History Father Malignant neoplasm of prostate Patient's father is Cerebrovascular accident Sibling Family history of malignant neoplasm of male breast Diabetes mellitus Family history of malignant neoplasm of breast in first degree relative Pulmonary disease Mother Diabetes mellitus Acute myocardial infarction Other Family history of cardiovascular disease Social History Social History Social History: . Lives in her own home in [place]. Former Long-time smoker, at least a 50 pack-year smoking history. No alcohol or illicit substance abuse. Surrogate decision maker: Jake (son) or Francia (daughter n law) Marianela. 2 sons Code status: Full code. Smoking packs per day: 0.5 Smoking cigarettes per day: 10.0 Years smoked: 52 Smoking pack-years: 26.00 Smoking status: Former smoker Tobacco type: cigarettes Second hand tobacco smoke
[2022-12-08] MEDS: ACETAMINOPHEN 500 MG TABLET 1000 MG PO (13:42)
== END 2022-12-08 14:15 | disposition home or self-care (01) ==
PROVIDERS: Emergency Provider Physician Assistant; PCP Internal Medicine
DX: M79.652 Pain in left thigh (principal); J96.10 Chronic respiratory failure, unspecified whether with hypoxia or hypercapnia; J44.9 Chronic obstructive pulmonary disease, unspecified; I10 Essential (primary) hypertension; F32.A Depression, unspecified; Z99.81 Dependence on supplemental oxygen; Z85.828 Personal history of other malignant neoplasm of skin; Z87.442 Personal history of urinary calculi; Z87.891 Personal history of nicotine dependence; Z90.710 Acquired absence of both cervix and uterus; Z79.82 Long term (current) use of aspirin
CPT/HCPCS: 93971; 99284; A9270

== ENCOUNTER 2023-04-06 13:36 | Outpatient (CLI) | payer MEDICARE, OTHER, SELFPAY ==
--- NOTE | ~2023-04-06 | CT_ITS ---
EXAMINATION: CT diagnostic chest wo con DATE: 04/06/2023 13:54 INDICATION: Solitary pulmonary nodule TECHNIQUE: Computed tomography (CT) of the chest was performed without intravenous contrast. The dose -length product (DLP) was 109.72 mGy-cm. Automated exposure control and iterative reconstruction tech LOOKCAST were employed. COMPARISON: 04/21/2022 FINDINGS: There is moderate emphysema. A stable 2 mm nodule is present in the right upper lobe. There is mild atelectasis in the lingula and right middle lobe. Calcified pulmonary nodules and calcified left hilar and mediastinal lymph nodes are consistent with old granulomatous disease. No pathological ly enlarged thoracic lymph nodes are identified. The heart size is normal. Calcified coronary artery atherosclerosis is noted. Punctate calcifications in an otherwise normal spleen likely represent heal ed granulomatous disease. There is mild thoracic spondylosis. IMPRESSION: 1. Moderate emphysema. 2. Old granulomatous disease. Reviewed, dictated and finalized at location L.
== END 2023-04-06 13:37 | disposition home or self-care (01) ==
PROVIDERS: PCP Internal Medicine; Visit Provider Physician Assistant
DX: R91.1 Solitary pulmonary nodule (principal); J43.9 Emphysema, unspecified
CPT/HCPCS: 71250

== ENCOUNTER 2023-06-16 11:47 | Observation (INO) | payer MEDICARE, OTHER, SELFPAY ==
[2023-06-16] VITALS (19 sets, daily range): BP systolic 140–188; BP diastolic 51–102; PULSE 52–68; RESP 15–25; TEMP 36.4–37.2; O2SAT 93–100; BMI 36.7
--- NOTE | ~2023-06-16 | XR_ITS ---
EXAMINATION: XR chest 1V portable INDICATION: Chest pain TECHNIQUE: Portable AP chest at 1214 hours COMPARISON: 05/22/2022 FINDINGS: There are minimal airspace opacities of the right lung base. No pleural effusion or pneumot horax. Calcified pulmonary nodules and calcified bilateral hilar and mediastinal lymph nodes are cons istent with old granulomatous disease. The heart size is normal. IMPRESSION: 1. Minimal right basilar airspace opacity, consistent with atelectasis versus pneumonia. Reviewed, dictated and finalized at location B. [employer] ASSOCIATE IMPRESSION: 1. Minimal right basilar airspace opacity, consistent with atelectasis versus p neumonia.
--- NOTE | ~2023-06-16 | CT_ITS ---
EXAMINATION: CTA chest PE protocol DATE: 06/16/2023 13:54 INDICATION: Chest pain TECHNIQUE: Computed tomography angiography (CTA) of the chest was performed with 100 mL Omnipaque-350 intravenous contrast timed to evaluate the pulmonary arteries. Coronal maximum intensity projection 3D-reconstructions were created by the technologist. The dose-length product (DLP) was 449.56 mGy-cm. Automated exposure control and iterative reconstruction technique were employed. COMPARISON: 04/06/2023 FINDINGS: The pulmonary arteries are well-opacified. No pulmonary embolism is identified. There is mo derate emphysema. Mild dependent atelectasis is noted. There is also mild atelectasis of the lingula. No pleural effusion or pneumothorax. No pathologically enlarged thoracic lymph nodes are identified. The heart size is normal. Calcified pulmonary nodules and calcified left hilar and mediastinal lymph nodes are consistent with old granulomatous disease. Punctate calcifications in otherwise normal teresa earing liver and spleen likely represent healed granulomatous disease. There is mild thoracic spondyl osis. IMPRESSION: 1. No pulmonary embolism or acute cardiopulmonary abnormality. 2. Moderate emphysema. Reviewed, dictated and finalized at location B. [employer]ESS TRADES WORKER
--- NOTE | 2023-06-16 11:49 | ECG_ITS ---
Measurements Intervals [place] Rate: 61 P: 65 ME: 145 QRS: 58 QRSD: 90 T: 61 QT: 383 QTc: 387 Interpretive Statements SINUS RHYTHM NONSPECIFIC T-WAVE ABNORMALITY ABNORMAL ECG COMPARED TO ECG 05/23/2022 15:27:51 CHANGES OF ANTERIOR ISCHEMIA/INJURY ARE RESOLVED Electronically Signed On 06-16-2023 15:19:27 [place] JUDGE by Sanjay Gama M.D.
[2023-06-16 12:01] LABS: Basophils Percent Auto 0.2 % (0.2-1.2); Eosinophils Absolute Auto 0.1 K/mm3 (0-0.3); Eosinophils Percent Auto 1.4 % (0-4.4); Hematocrit 40.8 % (37.0-47.0); Hemoglobin 12.4 g/dL (12.0-15.0); Immature Granulocyte Absolute 0.03 K/mm3 (0.00-0.031); Immature Granulocyte Percent A 0.3 % (0-0.5); Lymphocytes Absolute Auto 1.15 K/mm3 (0.9-3.2); Lymphocytes Percent Auto 12.1 % (18.3-44.2); Mean Corpuscular HGB Conc 30.4 g/dl (32-36); Mean Corpuscular Volume 98.6 fl (80-100); Mean Platelet Volume 10.3 fl (7.4-10.4); Monocytes Absolute Auto 0.7 K/mm3 (0.1-0.6); Monocytes Percent Auto 7.5 % (2.6-8.5); Neutrophils Absolute Auto 7.5 K/mm3 (1.3-6.7); Neutrophils Percent Auto 78.5 % (45.5-73.1); Platelet Count Result 295 k/mm3 (150-375); Red Blood Count 4.14 M/mm3 (4.2-5.4); Red Cell Distribution Width 13.1 % (11.5-14.5); White Blood Count 9.5 K/mm3 (4.5-10.0)
[2023-06-16 12:11] LABS: INR 0.9; Prothrombin Time 12.8 Seconds (11.1-14.7)
[2023-06-16 12:12] LABS: Alanine Aminotransferase 24 U/L (6-35); Albumin Level 4.1 g/dL (3.5-5.1); Alkaline Phosphatase 118 U/L (38-126); Anion Gap 6 mmol/L (8-16); Aspartate Amino Transferase 42 U/L (14-36); Bilirubin,Total 0.6 mg/dL (0.2-1.3); Blood Urea Nitrogen 16 mg/dL (7-17); Carbon Dioxide 31 mmol/L (22-30); Chloride 103 mmol/L (98-107); Estimated CRCL calculation 75 ml/min; Estimated Glomerular Filt Rate > 60; Glucose 104 mg/dL (65-110); Lipase 109 U/L (23-300); Partial Thromboplastin Time 33.6 SECONDS (22.3-36.8); Potassium 4.3 mmol/L (3.4-5.0); Sodium 140 mmol/L (137-145)
--- NOTE | 2023-06-16 12:16 | ED.CHESTPAIN ---
HPI - Chest Pain General Chief Complaint: Chest Pain Stated Complaint: cp Time Seen by Provider: 06/16/23 12:13 Source: patient, family and EMS Limitations: no limitations History of Present Illness HPI narrative: 77 years old female came to the ED with her family because of sudden onset of sharp stabbing pain left chest below left breast 03/05, denies aggravating or relieving factors, currently 0/10. History of hypertension COPD nasal cannula 3 L oxygen, baby aspirin once a day, her mother sister and brother had history of coronary artery disease. Patient does not smoke or drink or use drugs Related Data Home Medications Medication Instructions Recorded Confirmed aspirin 81 mg tablet,delayed 81 mg PO DAILY 06/05/19 03/16/23 release cetirizine 5 mg-pseudoephedrine ER 1 tablet PO DAILY 06/05/19 03/16/23 120 mg tablet,extended release,12hr (Zyrtec-D) meclizine 25 mg tablet 25 mg PO PRN PRN dizziness 10/13/21 03/16/23 omega-3 fatty acids-fish oil 300 1 cap PO DAILY 05/22/22 03/16/23 mg-1,000 mg capsule Allergies Allergy/AdvReac Type Severity Reaction Status Date / Time diphenhydramine Allergy Unknown Itching Verified 03/16/23 13:43 Review of Systems Review of Systems: All systems reviewed & are unremarkable except as noted in HPI and below PMFSH Past Medical History Medical History Acute GI bleeding Acute lower GI bleeding Chronic low back pain Chronic respiratory failure, unspecified whether with hypoxia or hypercapnia On home oxygen. Uses Trilogy unit at nighttime. Community acquired pneumonia COPD (chronic obstructive pulmonary disease) Depression Diverticulitis Essential (primary) hypertension Kidney stones Multinodular goiter Nicotine dependence, other tobacco product, uncomplicated Pulmonary nodule Seasonal allergies Sepsis Transaminitis Surgical History Surgical History History of appendectomy History of colonoscopy with polypectomy History of hysterectomy for benign disease History of removal of pigmented skin lesion Nose skin cancer Status post excision of lipoma Right posterior neck. Family History Family History Father Malignant neoplasm of prostate Patient's father is Cerebrovascular accident Sibling Family history of malignant neoplasm of male breast Diabetes mellitus Family history of malignant neoplasm of breast in first degree relative Pulmonary disease Mother Diabetes mellitus Acute myocardial infarction Other Family history of cardiovascular disease Social History Social History Social History: . Lives in her own home in [place]. Former Long-time smoker, at least a 50 pack-year smoking history. No alcohol or illicit substance abuse. Surrogate decision maker: Jake (son) or Francia (daughter n law) Marianela. 2 sons Code status: Full code. Smoking packs per day: 0.5 Smoking cigarettes per day: 10.0 Years smoked: 52 Smoking pack-years: 26.00 Smoking status: Former smoker Tobacco type: cigarettes Second hand tobacco smoke exposure: No Alcohol intake: never Substance use: never Lack of Transportation: No Lack of Food: Never True Current Housing: I Have Housing Concerned About Future Housing: No Difficulty Paying Gas/Electric Bills: No Difficulty Paying for Meds: No Currently Unemployed: No Education: Grade School Difficulty w/ Childcare or Family Care: No Living arrangements: alone Occupation/Education: retired Gender identity (if verbalized by the patient): Female Sexual Orientation (if Verbalized by the Patient): Straight or Heterosexual Spiritual care concerns: No Agree to blood products: Yes Exam Narrative: General appearance: Well-developed, wel
[2023-06-16 12:24] LABS: Troponin I < 0.012 ng/mL (0.000-0.034)
--- NOTE | 2023-06-16 14:50 | ECG_ITS ---
Measurements Intervals [place] Rate: 36 P: 66 ID: 140 QRS: 60 QRSD: 94 T: 59 QT: 403 QTc: 316 Interpretive Statements SINUS BRADYCARDIA NONSPECIFIC T-WAVE ABNORMALITY ABNORMAL ECG COMPARED TO ECG 06/16/2023 11:56:48 NO SIGNIFICANT DIFFERENCE Electronically Signed On 06-16-2023 15:30:39 NURSE ORTHOPEDIC by Sanjay Gama M.D.
[2023-06-16 15:16] LABS: Troponin I < 0.012 ng/mL (0.000-0.034)
--- NOTE | 2023-06-16 18:47 | ADMGEN ---
This patient, Mya Landry, was admitted to IMU Room 231-01. Patient/family oriented to hospital policies and general routines including ID bracelet, bed and alarms, visiting hours, pain management, procedures, bathroom and other care routines, personal items, smoking policy, room service/diet, and visiting hours. Information on how to activate the Rapid Response Team has been discussed. Patient/Family are encouraged to report perceived risks to care and to ask questions if they do not understand what they are told or what they should do.
[2023-06-16 18:54] LABS: Troponin I < 0.012 ng/mL (0.000-0.034)
--- NOTE | 2023-06-16 19:59 | PM.IMHP ---
H&P: HPI History of Present Illness Date/Time: 06/16/23 19:59 Chief Complaint: Chest Pain Narrative: 77 y/o F presents here with chest pain with PMH of CAD, takotsubo cardiomyopathy, NSTEMI, COPD, chronic respiratory failure requiring home O2 and trilogy unit at night, and HTN. Patient presented here after experiencing acute onset of left-sided chest pain around 11:30 AM. Patient was sitting when chest pain occurred. Experienced associated weakness primarily in her lower extremities and nausea. Pain was described as sharp, radiating into her left shoulder, and constant. No alleviating or aggravating factors identified by patient. Denies any associated diaphoresis, vomiting, shortness of breath. No recent illnesses, vomiting, or diarrhea. While awaiting EMS, was instructed to take for 81 ASA. Had not taken any medications for the pain before this. Patient reports the aspirin did not resolve her chest pain. After EMS arrival, chest pain spontaneously resolved. Episode had lasted 30-45 minutes. ED workup revealed unremarkable labs, troponin negative x3, CTA of chest showed no PE or acute cardiopulmonary abnormality, CXR showed minimal right basilar opacity (atelectasis v pna), normal WBC. EKG showed nonspecific T-wave abnormality and when compared to prior changes of anterior ischemia/injury are now resolved. Review of Systems Review of Systems: All systems reviewed & are unremarkable except as noted in HPI and below PMFSH Past Medical History Medical History Acute GI bleeding Acute lower GI bleeding Chronic low back pain Chronic respiratory failure, unspecified whether with hypoxia or hypercapnia On home oxygen. Uses Trilogy unit at nighttime. Community acquired pneumonia COPD (chronic obstructive pulmonary disease) Depression Diverticulitis Essential (primary) hypertension Kidney stones Multinodular goiter Nicotine dependence, other tobacco product, uncomplicated Pulmonary nodule Seasonal allergies Sepsis Transaminitis Surgical History Surgical History History of appendectomy History of colonoscopy with polypectomy History of hysterectomy for benign disease History of removal of pigmented skin lesion Nose skin cancer Status post excision of lipoma Right posterior neck. Family History Family History Father Malignant neoplasm of prostate Patient's father is Cerebrovascular accident Sibling Family history of malignant neoplasm of male breast Diabetes mellitus Family history of malignant neoplasm of breast in first degree relative Pulmonary disease Mother Diabetes mellitus Acute myocardial infarction Other Family history of cardiovascular disease Social History Social History Social History: . Lives in her own home in [place]. Former Long-time smoker, at least a 50 pack-year smoking history. No alcohol or illicit substance abuse. Surrogate decision maker: Jake (son) or Francia (daughter n law) Marianela. 2 sons Code status: Full code. Smoking packs per day: 0.5 Smoking cigarettes per day: 10.0 Years smoked: 52 Smoking pack-years: 26.00 Smoking status: Former smoker Second hand tobacco smoke exposure: No Alcohol intake: never Substance use: never Do You Feel Safe in your Home?: Yes Lack of Transportation: No Lack of Food: Never True Current Housing: I Have Housing Concerned About Future Housing: No Difficulty Paying Gas/Electric Bills: No Difficulty Paying for Meds: No Currently Unemployed: No Education: Grade School Difficulty w/ Childcare or Family Care: No Living arrangements: alone Occupation/Education: retired Gender identity (if verbalized by the patient): Female Sexual Orientation (if Verbalized
[2023-06-17] VITALS (12 sets, daily range): BP systolic 164–184; BP diastolic 61–70; PULSE 50–58; RESP 16–24; TEMP 36.2–36.6; O2SAT 94–100
[2023-06-17 05:02] LABS: Hematocrit 36.6 % (37.0-47.0); Hemoglobin 11.3 g/dL (12.0-15.0); Mean Corpuscular HGB Conc 30.9 g/dl (32-36); Mean Corpuscular Hemoglobin 30.3 pg (26-34); Mean Corpuscular Volume 98.1 fl (80-100); Mean Platelet Volume 10.3 fl (7.4-10.4); Platelet Count Result 250 k/mm3 (150-375); Red Blood Count 3.73 M/mm3 (4.2-5.4); Red Cell Distribution Width 12.9 % (11.5-14.5); White Blood Count 7.1 K/mm3 (4.5-10.0)
[2023-06-17 05:29] LABS: Alanine Aminotransferase 20 U/L (6-35); Albumin Level 3.5 g/dL (3.5-5.1); Alkaline Phosphatase 101 U/L (38-126); Anion Gap 4 mmol/L (8-16); Aspartate Amino Transferase 29 U/L (14-36); Bilirubin,Total 0.7 mg/dL (0.2-1.3); Blood Urea Nitrogen 14 mg/dL (7-17); Calcium 8.8 mg/dL (8.4-10.2); Carbon Dioxide 34 mmol/L (22-30); Chloride 100 mmol/L (98-107); Cholesterol 202 mg/dL (0-200); Estimated CRCL calculation 66 ml/min; Estimated Glomerular Filt Rate > 60; Glucose 114 mg/dL (65-110); HDL Direct 63 mg/dL; Potassium 4.4 mmol/L (3.4-5.0); Sodium 138 mmol/L (137-145); Triglycerides 76 mg/dL (<150)
[2023-06-17 05:39] LABS: LDL Cholesterol Direct 103 mg/dL
[2023-06-17] MEDS: FLUTICASONE/UMECLIDIN/VILANTER 100-62.5-25 MCG ELLIPTA 1 PUFF INHALATION (08:42)
[2023-06-17] MEDS: ASPIRIN 81 MG ENTERIC TABLET PO (09:16)
[2023-06-17] MEDS: METOPROLOL SUCCINATE EXT REL 50 MG TABCR PO (09:17)
[2023-06-17] MEDS: OMEGA 3 POLYUNSAT FATTY ACIDS 1 GM CAP PO (09:17)
[2023-06-17] MEDS: ALPRAZolam (*CRX) 0.5 MG TABLET PO (09:23)
--- NOTE | 2023-06-17 10:30 | PM.CNCAR ---
Assessment and Plan Assessment and plan (1) Chest pain: Code(s): R07.9 - Chest pain, unspecified Status: Acute Assessment and Plan: Patient was admitted with sharp pleuritic chest pain. Troponins and EKG are unremarkable. No rub to suggest pericarditis. The CP appears noncardiac. Nothing to suggest pleurisy or pneumonia. Perhaps musculoskeletal or GI. (Looks like she had a large gas bubble in her left colon on review of her CT and CXR.) The pain has resolved. --okay for discharge from my point of view. (2) History of cardiomyopathy: Code(s): Z86.79 - Personal history of other diseases of the circulatory system Status: Acute Assessment and Plan: History of takotsubo cardiomyopathy in April 2022 with normalization of left ventricular function. --follow-up with Dr. Ortiz as scheduled (3) Essential (primary) hypertension: Code(s): I10 - Essential (primary) hypertension Status: Acute Assessment and Plan: Blood pressure was a little elevated when she saw Dr. Ortiz in the office, and is certainly elevated here. Mildly bradycardic on metoprolol, but asymptomatic. --add amlodipine 2.5 mg daily History of Present Illness History of Present Illness Consult date/time: 06/17/23 10:30 Reason For Visit: Chest Pain Narrative: Mya Landry is a 77-year-old female whom we are asked to see at the request of Dr. Tolbert for advice and opinion regarding her chest pain in consultation. She has a history of takotsubo cardiomyopathy in April 2022, and COPD on intermittent home O2 as well as hypertension. She has been followed by Dr. Ortiz in our group for her history of non-STEMI in 2021. Cardiac catheterization showed nonobstructive coronary disease in left ventricular function was consistent with a takotsubo cardiomyopathy, EF 40-45%.. She has been doing well as an outpatient was last seen in February,. Her echo in July 2022 showed normalization of LV function with ejection fraction of 72%, LVH, diastolic dysfunction. Ms. Landry has been in her normal state of health and felt good yesterday morning, made a pie, and was anticipating her son's arrival. While sitting at the kitchen table she had sudden onset of intense sharp discomfort under the left breast. This was pleuritic and aggravated by movement. There is some associated nausea and leg weakness. No shortness of breath or diaphoresis. She came to the emergency room, but at that point the discomfort had dissipated (lasted about 45 min) and she has been doing well with no further problems. Troponins: Negative x3 Cholesterol 202 with an LDL of 103 06/16/2023 EKG at 11:56 a.m.: NSR, nonspecific T-wave changes 06/16/2022 EKG at 2:55 p.m.: NSR, nonspecific T-wave changes Both EKGs personally reviewed Chest x-ray:Minimal right basilar airspace opacity, consistent with atelectasis versus pneumonia. Chest CTA: No PE or acute cardiopulmonary abnormality, moderate COPD. Personally revvied both Review of Systems Constitutional: Constitutional: Denies fever(s) Eyes: Eyes: Reports no additional eye complaints ENT: Denies nasal congestion and Denies nasal discharge Cardiovascular: Cardiovascular: Reports chest pain, Denies pedal edema, Denies lightheadedness and Denies dyspnea Respiratory: Respiratory: Denies chest congestion, Denies cough and Reports dyspnea on exertion Comments: Some chronic WALLS related to her COPD, on intermittent home O2 also uses CPAP. Gastrointestinal: Gastrointestinal: Denies abdominal pain and Reports hematochezia Comments: Patient has a history of rectal bleeding thought to be secondary to hemorrhoids and diverticular bleeding. Genitourinary: Genitourinary: Reports vaginal discharge Comments: Patient states that she thinks she has had some vaginal bleeding as well as rectal bleeding. History of hysterectomy. Painless. Recommended follow-up with her primary care
[2023-06-17] MEDS: amLODIPine BESYLATE 2.5 MG TABLET PO (12:32)
--- NOTE | 2023-06-17 15:39 | PM.DS ---
DS: Admitting Diagnosis Discharge Date 06/17/2023: Admitting Diagnosis Chest pain Uncontrolled hypertension DS: Discharge Diagnosis Discharge Diagnosis (1) History of cardiomyopathy: Code(s): Z86.79 - Personal history of other diseases of the circulatory system Status: Acute (2) Chest pain: Code(s): R07.9 - Chest pain, unspecified Status: Acute (3) Takotsubo cardiomyopathy: Code(s): I51.81 - Takotsubo syndrome Status: Acute (4) Depression: Code(s): F32.A - Depression, unspecified Status: Acute (5) Chronic pain: Code(s): G89.29 - Other chronic pain Status: Acute (6) Tobacco dependence: Code(s): F17.200 - Nicotine dependence, unspecified, uncomplicated Status: Acute (7) Chronic respiratory failure, unspecified whether with hypoxia or hypercapnia: Qualifiers: Respiratory failure complication: unspecified whether with hypoxia or hypercapnia Qualified Code(s): J96.10 - Chronic respiratory failure, unspecified whether with hypoxia or hypercapnia Code(s): J96.10 - Chronic respiratory failure, unspecified whether with hypoxia or hypercapnia Status: Acute (8) Anxiety disorder, unspecified: Code(s): F41.9 - Anxiety disorder, unspecified Status: Acute (9) Chronic obstructive pulmonary disease: Qualifiers: COPD type: unspecified COPD Qualified Code(s): J44.9 - Chronic obstructive pulmonary disease, unspecified Code(s): J44.9 - Chronic obstructive pulmonary disease, unspecified Status: Acute (10) Uncontrolled hypertension: Code(s): I10 - Essential (primary) hypertension Status: Acute DS: Summary Hospital Course Reason for hospitalization: Patient admitted with chest pain and uncontrolled hypertension. Hospital Course: H&P: HPI History of Present Illness Date/Time: 06/16/23? 19:59 Chief Complaint: Chest Pain Narrative: 77 y/o F presents here with chest pain with PMH of CAD, takotsubo cardiomyopathy, NSTEMI, COPD, chronic respiratory failure requiring home O2 and trilogy unit at night, and HTN. Patient presented here after experiencing acute onset of left-sided chest pain around 11:30 AM.? Patient was sitting when chest pain occurred.? Experienced associated weakness primarily in her lower extremities and nausea.? Pain was described as sharp, radiating into her left shoulder, and constant.? No alleviating or aggravating factors identified by patient.? Denies any associated diaphoresis, vomiting, shortness of breath.? No recent illnesses, vomiting, or diarrhea.? While awaiting EMS, was instructed to take for 81 ASA.? Had not taken any medications for the pain before this.? Patient reports the aspirin did not resolve her chest pain.? After EMS arrival, chest pain spontaneously resolved.? Episode had lasted 30-45 minutes.? ED workup revealed unremarkable labs, troponin negative x3, CTA of chest showed no PE or acute cardiopulmonary abnormality, CXR showed minimal right basilar opacity (atelectasis v pna), normal WBC. EKG showed nonspecific T-wave abnormality and when compared to prior changes of anterior ischemia/injury are now resolved. HOSPITAL COURSE ... Date of Admission - 06/17/2023: Patient is feeling better today. Her chest pain has resolved. Her cardiac enzymes are negative x3. Cardiology evaluated patient and added amlodipine 2.5 mg daily for better control of blood pressure. She is cleared by Cardiology for discharge with instructions to monitor her BP closely and follow-up with PCP and Cardiology closely as an outpatient. I will prescribe per sublingual nitroglycerin pills to be taken as needed for chest pain and call PCP/Cardiology for follow-up. Dependence on nicotine from cigarettes: Tobacco abuse counseling: Patient smokes cigarettes on a chronic basis. Strictly advised patient to cut down on or quit smoking. Nicotine patch ordered. ~5 minutes spent on tobacco cess
== END 2023-06-17 17:00 | disposition home or self-care (01) ==
LOC: ANHED 14:59 → ANHIMU 16:02
PROVIDERS: Student in an Organized Health Care Education/Training Program; Admitting Provider Hospitalist; Emergency Provider Emergency Medicine; PCP Internal Medicine; Visit Provider Family Medicine
DX: R07.9 Chest pain, unspecified (principal); I51.81 Takotsubo syndrome; I10 Essential (primary) hypertension; J44.9 Chronic obstructive pulmonary disease, unspecified; G89.29 Other chronic pain; M54.50 Low back pain, unspecified; R42 Dizziness and giddiness; J96.10 Chronic respiratory failure, unspecified whether with hypoxia or hypercapnia; Z99.81 Dependence on supplemental oxygen; I25.2 Old myocardial infarction; F32.A Depression, unspecified; R94.31 Abnormal electrocardiogram [ECG] [EKG]; I25.10 Atherosclerotic heart disease of native coronary artery without angina pectoris; J43.9 Emphysema, unspecified; J30.2 Other seasonal allergic rhinitis; Z87.891 Personal history of nicotine dependence; Z86.79 Personal history of other diseases of the circulatory system; Z79.82 Long term (current) use of aspirin; Z79.51 Long term (current) use of inhaled steroids; Z79.899 Other long term (current) drug therapy; Z82.49 Family history of ischemic heart disease and other diseases of the circulatory system
CPT/HCPCS: 36415; 71045; 71275; 80053; 80061; 83690; 84484; 85025; 85027; 85610; 85730; 93005; 99285; A9270; G0378; Q9967

== ENCOUNTER 2023-11-21 14:26 | Outpatient (CLI) | payer MEDICARE, OTHER, SELFPAY ==
[2023-11-21 14:45] VITALS: PULSE 72; O2SAT 87
[2023-11-21 14:46] VITALS: O2SAT 87; O2SAT 92
[2023-11-21 14:48] VITALS: PULSE 99; O2SAT 87
[2023-11-21 14:49] VITALS: O2SAT 90
[2023-11-21 15:00] VITALS: PULSE 80; O2SAT 92
--- NOTE | 2023-11-21 15:19 | HOMEO2EVAL ---
Evaluation was performed at [facility] Home Oxygen Evaluation RC: Home Oxygen (O2) Evaluation Start: 11/21/23 15:15 Freq: Status: Active Protocol: RPE Activity Type Activity Date Activity User E-sign Co-sign Detail Recorded Client Recorded Date Recorded By Document 11/21/23 14:45 BHARATH [email or web address] 11/21/23 15:16 BHARATH Document 11/21/23 14:46 BHARATH [email or web address] 11/21/23 15:19 BHARATH Document 11/21/23 14:46 BHARATH [email or web address] 11/21/23 15:19 BHARATH Document 11/21/23 14:48 BHARATH [email or web address] 11/21/23 15:19 BHARATH Document 11/21/23 14:49 BHARATH [email or web address] 11/21/23 15:19 BHARATH Document 11/21/23 15:00 BHARATH [email or web address] 11/21/23 15:19 BHARATH 11/21/23 11/21/23 11/21/23 14:45 14:46 14:46 Home O2 Evaluation [Oxygen] -Test Phase Resting Resting Resting -Oxygen Delivery Room Air Nasal Cannula Nasal Cannula -Oxygen Flow Rate (L/min) 1 2 [Pulse Oximetry] -Pulse Oximetry (90-100 %) 87 L 87 L 92 [Pulse Rate] -Pulse Rate (60-100 beats/min) 72 [Exercise] -Ambulation Distance (feet) -Ambulation Distance (meters) [Comments] -Home Oxygen Evaluation Comments [Charges] -Evaluation Charges O2 Evaluation by Pulmonary 11/21/23 11/21/23 11/21/23 14:48 14:49 15:00 Home O2 Evaluation [Oxygen] -Test Phase Exercise Exercise Resting -Oxygen Delivery Nasal Cannula Nasal Cannula Nasal Cannula -Oxygen Flow Rate (L/min) 2 3 2 [Pulse Oximetry] -Pulse Oximetry (90-100 %) 87 L 90 92 [Pulse Rate] -Pulse Rate (60-100 beats/min) 99 80 [Exercise] -Ambulation Distance (feet) 300 -Ambulation Distance (meters) 91.43 [Comments] -Home Oxygen Evaluation Comments PATIENT REQUIRES 2 L HOME O2 RESTING AND 3 L WITH EXERTION [Charges] -Evaluation Charges
--- NOTE | 2023-11-21 15:20 | PCRCNOTE ---
FAXED HOME O2 EVAL TO OFFICE. PT HAD JUST COMPLETED FULL PFT WITH [facility] AT [facility] 1 WEEK AGO, October. REQUESTED THAT SHE DOESNT REPEAT IT IS VERY DIFFICULT TEST FOR HER TO DO. I REVIEWED THE FULL PFT REPORT, SHE HAS A COPY WITH HER WHICH INCLUDES GRAPHS. I ASKED HER TO BE SURE TO BRING IN THAT REPORT TO HER FOLLOW UP APPT WITH OUR PULMONARY OFFICE FOR LAURYN TO REVIEW.
== END 2023-11-21 14:27 | disposition home or self-care (01) ==
LOC: ANHPFT 14:28
PROVIDERS: PCP Internal Medicine; Visit Provider Physician Assistant
DX: J96.10 Chronic respiratory failure, unspecified whether with hypoxia or hypercapnia (principal); J44.9 Chronic obstructive pulmonary disease, unspecified
CPT/HCPCS: 94618

== ENCOUNTER 2023-12-18 12:30 | Outpatient (RCR) | payer MEDICARE, OTHER, SELFPAY | END 2023-12-27 12:49 | disposition home or self-care (01) | LOC: ANHCPREHAB 12:30 | PROVIDERS: PCP Internal Medicine; Visit Provider Internal Medicine Critical Care Medicine | DX: J44.9 Chronic obstructive pulmonary disease, unspecified (principal) | CPT/HCPCS: 94625 ==

== ENCOUNTER 2024-07-08 15:27 | Emergency (ER) | payer MEDICARE, OTHER, SELFPAY ==
--- NOTE | ~2024-07-08 | CT_ITS ---
EXAMINATION: CTA chest PE protocol DATE: 07/08/2024 21:22 PARADI OPERATOR INDICATION: Shortness of breath with elevated d-dimer TECHNIQUE: Computed tomographic angiography (CTA) of the chest was performed with 100 mL Omnipaque-35 0 intravenous contrast. The dose-length product was 528.29 mGy-cm. Maximum intensity projection 3D-re constructions of the aorta and other arteries were constructed by the technologist on a separate work station. COMPARISON: 06/16/2023. FINDINGS: No filling defects within the main or proximal pulmonary arteries. Multiple calcified lymph nodes within the mediastinum, suggesting prior granulomatous disease. The thoracic aorta is nonaneurysmal. Trace atelectasis within the lingula. The lungs are otherwise clear. The heart is of normal size, without pericardial effusion. Within the upper abdomen: Punctate calcifications identified within the splenic parenchyma, suggesting prior granulomatous dise ase. Punctate calcifications identified within the hepatic parenchyma, suggesting prior granulomatous dise ase. The gallbladder is only minimally distended, and otherwise unremarkable. IMPRESSION: No pulmonary embolus. No aortic dissection Findings suggesting prior granulomatous disease. Trace lingular atelectasis. The lungs are otherwise clear. Reviewed, dictated and finalized at location A. DI OPERATOR
--- NOTE | ~2024-07-08 | XR_ITS ---
CHEST RADIOGRAPH, PA AND LATERAL CLINICAL HISTORY: CP . COMPARISON: 06/16/2023 TECHNIQUE: PA and lateral views of the chest. FINDINGS Redemonstration of multiple calcified lymph nodes within the mediastinum, consistent with prior granu lomatous disease. The remainder of the cardiomediastinal silhouette is otherwise unremarkable. The lungs are clear. IMPRESSION: No focal infiltrate or effusion. Reviewed, dictated and finalized at location A. RESSIVE DIE MAKER
--- NOTE | 2024-07-08 15:28 | ECG_ITS ---
Test Date: 2024-07-08 15:44:46 Measurements Intervals [place] Rate: 67 P: 63 PA: 147 QRS: 47 QRSD: 89 T: 57 QT: 368 QTc: 390 Interpretive Statements SINUS RHYTHM No previous ECG available for comparison Electronically Signed On 07-08-2024 21:45:50 [employer] CONTAINER STRAIGHTENER by Kristine Leon M.D.
--- NOTE | 2024-07-08 15:40 | ED.CHESTPAIN ---
HPI - Chest Pain General Chief Complaint: Chest Pain <LEVAR Boles Last Filed: 07/08/24 15:56> Stated Complaint: CP <LEVAR Boles Last Filed: 07/08/24 15:56> Time Seen by Provider: 07/08/24 15:40 <LEVAR Boles Last Filed: 07/08/24 15:56> Focused HPI: Patient is a 78 y/o female, with PMH of HTN, COPD, cardiomyopathy (broken heart syndrome 3 years ago), chronic hypoxic resp failure on 3L NC, who presents to the ED with c/o CP. Patient reports over the last 3 nights, she has been having episodes of midsternal chest pain. Pain radiates through to her right scapular region /upper back. Occurred mostly at night. Worse with deep breathing and with exertion. She has been feeling increasingly short of breath. Denies fevers, cough, congestion, BLE pain or swelling GENERAL: Elderly but well-appearing, well-nourished, and in no acute distress. HEAD: Normocephalic, atraumatic. CHEST: Clear to auscultation. ?No respiratory distress. HEART: Regular rate and rhythm.? MSK: No chest wall tenderness to palpation. No peripheral edema. NEURO: ?Alert and oriented x3. Patient screened in triage and initial orders placed.? ?Additional care and disposition to be based upon?diagnostic testing and treatment. <LEVAR Boles Last Filed: 07/08/24 15:56> Focused HPI: Patient is a 78 y/o female, with PMH of HTN, COPD, cardiomyopathy (broken heart syndrome 3 years ago), chronic hypoxic resp failure on 3L NC, who presents to the ED with c/o CP. Patient reports over the last 3 nights, she has been having episodes of midsternal chest pain. Pain radiates through to her right scapular region /upper back. Occurred mostly at night. Worse with deep breathing and with exertion. She has been feeling increasingly short of breath. Denies fevers, cough, congestion, BLE pain or swelling GENERAL: Elderly but well-appearing, well-nourished, and in no acute distress. HEAD: Normocephalic, atraumatic. CHEST: Clear to auscultation. ?No respiratory distress. HEART: Regular rate and rhythm.? MSK: No chest wall tenderness to palpation. No peripheral edema. NEURO: ?Alert and oriented x3. Patient screened in triage and initial orders placed.? ?Additional care and disposition to be based upon?diagnostic testing and treatment. Agree with triage assessment. Patient states that symptoms have been ongoing for approximately 1 week. Patient currently denies any active chest pain. <Forest Cage MD - Last Filed: 07/08/24 22:36> Source: patient <Carmen Betancur PA-C - Last Filed: 07/08/24 15:56> Mode of arrival: ambulatory <Carmen Betancur PA-C - Last Filed: 07/08/24 15:56> Limitations: no limitations <LEVAR Boles Last Filed: 07/08/24 15:56> Related Data Home Medications: Home Medications ?Medication ?Instructions ?Recorded ?Confirmed ?Last Taken ?Type aspirin 81 mg tablet,delayed 81 mg PO DAILY 06/05/19 03/26/24 05/22/22 History release cetirizine 5 mg-pseudoephedrine ER 1 tablet PO DAILY 06/05/19 03/26/24 05/22/22 History 120 mg tablet,extended release,12hr (Zyrtec-D) omega-3 fatty acids-fish oil 300 1 cap PO DAILY 05/22/22 03/26/24 05/22/22 History mg-1,000 mg capsule <Carmen Betancur PA-C - Last Filed: 07/08/24 15:56> Allergies/Adverse Reactions: Allergies Allergy/AdvReac Type Severity Reaction Status Date / Time diphenhydramine Allergy Unknown Itching Verified 07/08/24 18:25 <Carmen Betancur PA-C - Last Filed: 07/08/24 15:56> Review of Systems Review of Systems: All systems are reviewed and are negative unless stated otherwise in the HPI. <Forest Cage MD - Last Filed: 07/08/24 22:36> PMFSH Past Medical History Medical History: Medical History Uncontrolled hypertension History of cardiomyopathy Depression Diverticulitis Acute lower GI bleeding COPD (chronic obstructive pulmonary disease) Acute GI bleeding Pulmonary nodule Sepsis Transaminitis Community acquired pneumonia Kidney stones Multinodular goiter Seasonal allergies Chronic low back pain Chronic respiratory failure, unspecified whether with hypoxia or hypercapnia On home oxygen. Uses Trilogy unit at nighttime. Essential (primary) hypertension Nicotine dependence, other tobacco product, uncomplicated <Carmen Betancur PA-C - Last Filed: 07/08/24 15:56> Surgical History Surgical History: Surgical History History of removal of pigmented skin lesion Nose skin cancer History of appendectomy History of colonoscopy with polypectomy History of hysterectomy for benign disease Status post excision of lipoma Right posterior neck. <Carmen Betancur PA-C - Last Filed: 07/08/24 15:56> Family History Family History: Family History Father Malignant neoplasm of prostate Patient's father is Cerebrovascular accident Sibling Family history of malignant neoplasm of male breast Diabetes mellitus Family history of malignant neoplasm of breast in first degree relative Pulmonary disease Mother Diabetes mellitus Acute myocardial infarction Other Family history of cardiovascular disease <Carmen Betancur PA-C - Last Filed: 07/08/24 15:56> Social History Social History: Social History Social History: . Lives in her own home in [place]. Former Long-time smoker, at least a 50 pack-year smoking history. No alcohol or illicit substance abuse. Surrogate decision maker: Jake (son) or Francia (daughter n law) Marianela. 2 sons Code status: Full code. Smoking packs per day: 0.5 Smoking cigarettes per day: 10.0 Years smoked: 58 Smoking pack-years: 29.00 Smoking status: Former smoker Tobacco type: cigarettes Second hand tobacco smoke exposure: No Smoking end date: 06/26/21 Additional smoking assessment comments: quit 2 years ago Alcohol intake: never Substance use: never Do You Feel Safe in your Home?: Yes Lack of Transportation: No Lack of Food: Never True Current Housing: I Have Housing Concerned About Future Housing: No Difficulty Paying Gas/Electric Bills: No Difficulty Paying for Meds: No Currently Unemployed: No Education: Grade School Difficulty w/ Childcare or Family Care: No Living arrangements: alone Occupation/Education: retired Gender identity (if verbalized by the patient): Female Sexual Orientation (if Verbalized by the Patient): Straight or Heterosexual Spiritual care concerns: No Agree to blood products: Yes <Carmen Betancur PA-C - Last Filed: 07/08/24 15:56> Exam Narrative: General: Alert, awake, afebrile, in no acute distress. HEENT: PERRL, no rhinorrhea, no post nasal drip, oropharynx clear. Neck: Trachea midline, no JVD, no lymphadenopathy. Cardiovascular: Regular rate and rhythm, no murmurs, rubs or gallops, no peripheral edema. Respiratory: Decreased air movement bilaterally with faint expiratory wheeze, no tachypnea, no respiratory distress. Abdomen: Soft, nontender, nondistended, no rebound, no guarding, no peritoneal signs. Musculoskeletal: No joint swelling or deformity, normal muscle tone. Skin: No rashes or petechia, no signs of infection. Psychiatric: Alert and oriented, normal behavior and judgment for situation. Neurological: Alert and oriented to person, place, and time. Follows all commands. No focal deficits, speech is clear and fluent. <Forest Cage MD - Last Filed: 07/08/24 22:36> Course Vital Signs Vital signs: Vital Signs Temperature 97.6 F 07/08/24 15:50 Pulse Rate 73 07/08/24 15:50 Respiratory Rate 18 07/08/24 15:50 Blood Pressure 145/57 H 07/08/24 15:50 Pulse Oximetry 96 07/08/24 15:50 Oxygen Delivery Nasal Cannula 07/08/24 15:50 Oxygen Flow Rate 3 07/08/24 15:50 Temperature 97.6 F 07/08/24 15:50 Pulse Rate 56 L 07/08/24 20:58 Respiratory Rate 21 H 07/08/24 20:58 Blood Pressure 183/81 H 07/08/24 20:58 Pulse Oximetry 98 07/08/24 20:59 Oxygen Delivery Nasal Cannula 07/08/24 20:59 Oxygen Flow Rate 3 07/08/24 20:59 <Carmen Betancur PA-C - Last Filed: 07/08/24 15:56> Vital Signs Temperature 97.6 F 07/08/24 15:50 Pulse Rate 73 07/08/24 15:50 Respiratory Rate 18 07/08/24 15:50 Blood Pressure 145/57 H 07/08/24 15:50 Pulse Oximetry 96 07/08/24 15:50 Oxygen Delivery Nasal Cannula 07/08/24 15:50 Oxygen Flow Rate 3 07/08/24 15:50 Temperature 97.6 F 07/08/24 15:50 Pulse Rate 56 L 07/08/24 20:58 Respiratory Rate 21 H 07/08/24 20:58 Blood Pressure 183/81 H 07/08/24 20:58 Pulse Oximetry 98 07/08/24 20:59 Oxygen Delivery Nasal Cannula 07/08/24 20:59 Oxygen Flow Rate 3 07/08/24 20:59 <Forest Cage MD - Last Filed: 07/08/24 22:36> MDM - Chest Pain MDM Narrative Medical decision making narrative: MSE by ELISABETH in triage. <Carmen Betancur PA-C - Last Filed: 07/08/24 15:56> MSE by ELISABETH in triage. The patient was evaluated by myself in the emergency department. History is obtained from patient who is an independent historian and physical exam was performed. External medical records were reviewed at this time. IV was established and pertinent tests were ordered. Patient was administered a DuoNeb breathing treatment and 125 mg of IV Solu-Medrol. EKG was obtained which revealed sinus bradycardia rate of 53 beats per Min. No ST changes, T wave inversions or evidence of acute ischemia. EKG was independently interpreted by me and is currently pending official cardiology read. Laboratory results obtained revealing mild D-dimer elevation of 0.86 otherwise unremarkable. Imaging studies obtained included CXR which was independently interpreted by me revealing no acute cardiopulmonary process, which is pending final radiology interpretation. CT angiogram PE protocol was also obtained at this time and bili interpreted by me revealing no evidence of PE. Differential diagnosis considerations include COPD exacerbation, pneumonia, pulmonary emboli, acute coronary syndrome. Comorbidities impacting this visit include history of COPD. I have evaluated and discussed social determinants of health with the patient that could potentially impact subsequent diagnosis and treatment plans. On repeat assessment of the patient, reevaluation revealed that the patient is doing well and is in no acute distress. Patient symptoms have improved since she arrived to our emergency department. Repeat vital signs were all reviewed and noted to be stable. Differential diagnosis and treatment plan were discussed with the patient at bedside. Patient agrees with discussion and after shared medical decision making agrees with discharge. All questions were answered to the patient's satisfaction. Patient will follow up with her PCP in 3-5 days. Patient was informed that she will be sent home on a short course of steroids to take for her COPD exacerbation and she was agreeable with this plan. Patient was provided with strict return precautions and instructed to return to the emergency department if any new or worsening symptoms develop. The patient was discharged in stable condition. <Forest Cage MD - Last Filed: 07/08/24 22:36> Lab Data Result diagrams: 07/08/24 18:19 07/08/24 18:19 <Carmen Betancur PA-C - Last Filed: 07/08/24 15:56> Labs: Lab Results 07/08/24 07/08/24 07/08/24 Range/Units 18:19 18:19 21:23 WBC 10.1 H (4.5-10.0) K/mm3 RBC 3.75 L (4.2-5.4) M/mm3 Hgb 11.5 L (12.0-15.0) g/dL Hct 36.2 L (37.0-47.0) % MCV 96.5 (80-100) fl MCH 30.7 (26-34) pg MCHC 31.8 L (32-36) g/dl RDW 12.8 (11.5-14.5) % Plt Count 293 (150-375) k/mm3 MPV 10.3 (7.4-10.4) fl Immature Gran % (Auto) 0.4 (0-0.5) % Neut % (Auto) 79.8 H (45.5-73.1) % Lymph % (Auto) 11.0 L (18.3-44.2) % [place] % (Auto) 7.5 (2.6-8.5) % Eos % (Auto) 1.0 (0-4.4) % Baso % (Auto) 0.3 (0.2-1.2) % Lymph # (Auto) 1.11 (0.9-3.2) K/mm3 [place] # (Auto) 0.8 H (0.1-0.6) K/mm3 Eos # (Auto) 0.1 (0-0.3) K/mm3 Baso # (Auto) 0.0 (0.0-0.1) K/mm3 Abs Immat Gran (auto) 0.04 H (0.00-0.031) K/mm3 Absolute Neuts (auto) 8.1 H (1.3-6.7) K/mm3 Absolute Nucleated RBC 0.000 (0.0-0.012) K/mm3 Nucleated RBC % 0.0 (0.0-0.2) % PT 13.0 (11.1-14.7) Seconds INR 0.9 APTT 36.9 H (22.3-36.8) Seconds D-Dimer 0.86 H Cancelled (<0.48) ug/mL Sodium 139 (137-145) mmol/L Potassium 4.2 (3.4-5.0) mmol/L Chloride 104 (98-107) mmol/L Carbon Dioxide 33 H (22-30) mmol/L Anion Gap 2 L (4-12) mmol/L BUN 18 H (7-17) mg/dL Creatinine 0.51 L (0.7-1.0) mg/dL Estim Creat Clear Calc 73 ml/min Estimated GFR > 60 (59 - ) Glucose 126 H (65-110) mg/dL Calcium 9.0 (8.4-10.2) mg/dL Total Bilirubin 0.4 (0.2-1.3) mg/dL AST 31 (14-36) U/L ALT 24 (6-35) U/L Alkaline Phosphatase 160 H (38-126) U/L Troponin I < 0.012 < 0.012 (0.000-0.034) ng/mL Total Protein 8.0 (6.3-8.2) g/dL Albumin 4.0 (3.5-5.1) g/dL Lipase 77 (23-300) U/L <Carmen N. Gaudreault, PA-C - Last Filed: 07/08/24 15:56> Lab Results 07/08/24 07/08/24 07/08/24 Range/Units 18:19 18:19 21:23 WBC 10.1 H (4.5-10.0) K/mm3 RBC 3.75 L (4.2-5.4) M/mm3 Hgb 11.5 L (12.0-15.0) g/dL Hct 36.2 L (37.0-47.0) % MCV 96.5 (80-100) fl MCH 30.7 (26-34) pg MCHC 31.8 L (32-36) g/dl RDW 12.8 (11.5-14.5) % Plt Count 293 (150-375) k/mm3 MPV 10.3 (7.4-10.4) fl Immature Gran % (Auto) 0.4 (0-0.5) % Neut % (Auto) 79.8 H (45.5-73.1) % Lymph % (Auto) 11.0 L (18.3-44.2) % [place] % (Auto) 7.5 (2.6-8.5) % Eos % (Auto) 1.0 (0-4.4) % Baso % (Auto) 0.3 (0.2-1.2) % Lymph # (Auto) 1.11 (0.9-3.2) K/mm3 [place] # (Auto) 0.8 H (0.1-0.6) K/mm3 Eos # (Auto) 0.1 (0-0.3) K/mm3 Baso # (Auto) 0.0 (0.0-0.1) K/mm3 Abs Immat Gran (auto) 0.04 H (0.00-0.031) K/mm3 Absolute Neuts (auto) 8.1 H (1.3-6.7) K/mm3 Absolute Nucleated RBC 0.000 (0.0-0.012) K/mm3 Nucleated RBC % 0.0 (0.0-0.2) % PT 13.0 (11.1-14.7) Seconds INR 0.9 APTT 36.9 H (22.3-36.8) Seconds D-Dimer 0.86 H Cancelled (<0.48) ug/mL Sodium 139 (137-145) mmol/L Potassium 4.2 (3.4-5.0) mmol/L Chloride 104 (98-107) mmol/L Carbon Dioxide 33 H (22-30) mmol/L Anion Gap 2 L (4-12) mmol/L BUN 18 H (7-17) mg/dL Creatinine 0.51 L (0.7-1.0) mg/dL Estim Creat Clear Calc 73 ml/min Estimated GFR > 60 (59 - ) Glucose 126 H (65-110) mg/dL Calcium 9.0 (8.4-10.2) mg/dL Total Bilirubin 0.4 (0.2-1.3) mg/dL AST 31 (14-36) U/L ALT 24 (6-35) U/L Alkaline Phosphatase 160 H (38-126) U/L Troponin I < 0.012 < 0.012 (0.000-0.034) ng/mL Total Protein 8.0 (6.3-8.2) g/dL Albumin 4.0 (3.5-5.1) g/dL Lipase 77 (23-300) U/L <Forest Cage MD - Last Filed: 07/08/24 22:36> Discharge Plan Discharge Clinical Impression: Chest pain, COPD exacerbation <Carmen Betancur PA-C - Last Filed: 07/08/24 15:56> Patient Disposition: Home, Self-Care <Carmen Betancur PA-C - Last Filed: 07/08/24 15:56> Condition: Improved <LEVAR Boles Last Filed: 07/08/24 15:56> Instructions: Antibiotic Form, Chest Pain (ED), COPD (Chronic Obstructive Pulmonary Disease) (DC) <Carmen Betancur PA-C - Last Filed: 07/08/24 15:56> Additional Instructions: Please follow-up with your family doctor within the next 3-5 days. Return to the emergency department if any new or worsening symptoms develop. Take the prescribed steroids as instructed for you COPD exacerbation. <Carmen Betancur PA-C - Last Filed: 07/08/24 15:56> Patient Language: Icelandic <Carmen Betancur PA-C - Last Filed: 07/08/24 15:56> Prescriptions: New methylprednisolone [Medrol (Renzo)] 4 mg tablets,dose pack See Rx Instructions .ROUTE .COMPLEX Qty: 21 0RF Rx Instructions: for 6 days No Action aspirin 81 mg tablet,delayed release (DR/EC) 81 mg PO DAILY cetirizine-pseudoephedrine [Zyrtec-D] 5-120 mg tablet extended release 12 hr 1 tablet PO DAILY Breztri Aerosphere 160-9-4.8 mcg/actuation HFA aerosol inhaler 2 inh inhalation BID Qty: 10.7 11RF Rx Instructions: Rinse and spit albuterol sulfate 2.5 mg/0.5 mL Solution For Nebulization 5 mg inhalation Q6HRT PRN (Reason: shortness of breath or wheezing) Qty: 30 0RF omega-3 fatty acids-fish oil 300-1,000 mg Capsule 1 cap PO DAILY nitroglycerin 0.4 mg tablet, sublingual 0.4 mg sublingual Q5M PRN (Reason: chest pain) Qty: 25 0RF Rx Instructions: do not exceed 3 doses per episode metoprolol succinate 50 mg tablet extended release 24 hr 50 mg PO QAM Qty: 90 1RF hydrocodone-acetaminophen 5-325 mg tablet 1 tablet PO BID PRN (Reason: pain) Qty: 40 0RF amlodipine 5 mg tablet 5 mg PO DAILY Qty: 90 2RF albuterol sulfate 90 mcg/actuation HFA aerosol inhaler See Rx Instructions .ROUTE .COMPLEX Qty: 42.5 1RF Dose Instruction: INHALE 1 TO 2 PUFFS BY MOUTH EVERY 4 TO 6 HOURS NEEDED FOR SHORTNESS OF BREATH OR WHEEZING Rx Instructions: INHALE 1 TO 2 PUFFS BY MOUTH EVERY 4 TO 6 HOURS NEEDED FOR SHORTNESS OF BREATH OR WHEEZING meclizine 25 mg tablet 25 mg PO PRN PRN (Reason: dizziness) Qty: 30 0RF alprazolam 0.5 mg tablet 0.5 mg PO BID PRN (Reason: anxiety) Qty: 60 1RF Rx Instructions: must last 30 days- <Carmen Betancur PA-C - Last Filed: 07/08/24 15:56> Follow-up/Referrals: Carlie,John Pretty DO [Primary Care Provider] - 3 Days <Carmen Betancur PA-C - Last Filed: 07/08/24 15:56> Time of Disposition: 22:28 <Carmen Betancur PA-C - Last Filed: 07/08/24 15:56> 22:28 <Forest Cage MD - Last Filed: 07/08/24 22:36>
[2024-07-08 15:50] VITALS: BP 145/57; PULSE 73; RESP 18; TEMP 36.4; O2SAT 96
[2024-07-08] MEDS: ASPIRIN 81 MG CHEWABLE TABLET 324 MG PO (18:17)
[2024-07-08 18:34] LABS: Basophils Percent Auto 0.3 % (0.2-1.2); Eosinophils Absolute Auto 0.1 K/mm3 (0-0.3); Hematocrit 36.2 % (37.0-47.0); Hemoglobin 11.5 g/dL (12.0-15.0); Immature Granulocyte Absolute 0.04 K/mm3 (0.00-0.031); Immature Granulocyte Percent A 0.4 % (0-0.5); Lymphocytes Absolute Auto 1.11 K/mm3 (0.9-3.2); Mean Corpuscular HGB Conc 31.8 g/dl (32-36); Mean Corpuscular Hemoglobin 30.7 pg (26-34); Mean Corpuscular Volume 96.5 fl (80-100); Mean Platelet Volume 10.3 fl (7.4-10.4); Monocytes Absolute Auto 0.8 K/mm3 (0.1-0.6); Monocytes Percent Auto 7.5 % (2.6-8.5); Neutrophils Absolute Auto 8.1 K/mm3 (1.3-6.7); Neutrophils Percent Auto 79.8 % (45.5-73.1); Platelet Count Result 293 k/mm3 (150-375); Red Blood Count 3.75 M/mm3 (4.2-5.4); Red Cell Distribution Width 12.8 % (11.5-14.5); White Blood Count 10.1 K/mm3 (4.5-10.0)
[2024-07-08 18:48] LABS: INR 0.9
[2024-07-08 18:49] LABS: Partial Thromboplastin Time 36.9 Seconds (22.3-36.8)
[2024-07-08 18:51] LABS: Alanine Aminotransferase 24 U/L (6-35); Alkaline Phosphatase 160 U/L (38-126); Anion Gap 2 mmol/L (4-12); Aspartate Amino Transferase 31 U/L (14-36); Bilirubin,Total 0.4 mg/dL (0.2-1.3); Blood Urea Nitrogen 18 mg/dL (7-17); Carbon Dioxide 33 mmol/L (22-30); Chloride 104 mmol/L (98-107); Estimated CRCL calculation 73 ml/min; Estimated Glomerular Filt Rate > 60; Glucose 126 mg/dL (65-110); Lipase 77 U/L (23-300); Potassium 4.2 mmol/L (3.4-5.0); Sodium 139 mmol/L (137-145)
[2024-07-08 18:55] LABS: D Dimer 0.86 ug/mL (<0.48)
[2024-07-08 19:03] LABS: Troponin I < 0.012 ng/mL (0.000-0.034)
--- NOTE | 2024-07-08 19:44 | ECG_ITS ---
Test Date: 2024-07-08 21:34:24 Measurements Intervals [place] Rate: 53 P: 124 ID: [id number] QRS: 89 QRSD: 89 T: 90 QT: 421 QTc: 395 Interpretive Statements ECTOPIC ATRIAL BRADYCARDIA SEPTAL MYOCARDIAL INFARCTION , OF INDETERMINATE AGE [40+ ms Q WAVE IN V1/V2] LATERAL MYOCARDIAL INFARCTION , OF INDETERMINATE AGE [40+ ms Q WAVE AND/OR ST/T ABNORMALITY IN I/aVL/V5/V6] Compared to ECG 07/08/2024 15:44:46 Bradycardia, nonsinus now present Myocardial infarct finding now present Sinus rhythm no longer present Electronically Signed On 07-08-2024 21:36:28 [employer]SE C[employer] by Kristine Leon M.D.
[2024-07-08 20:58] VITALS: BP 183/81; PULSE 56; RESP 21; O2SAT 98
[2024-07-08 20:59] VITALS: O2SAT 98
[2024-07-08 21:57] LABS: Troponin I < 0.012 ng/mL (0.000-0.034)
[2024-07-08 22:34] VITALS: PULSE 53; RESP 14
[2024-07-08] MEDS: IPRATROPIUM 0.5 MG/ALBUTEROL SULFATE 2.5 MG AMPUL.NEB 3 ML INHALATION (22:34)
[2024-07-08 22:54] VITALS: BP 159/59; PULSE 55; RESP 20; TEMP 36.5; O2SAT 100
== END 2024-07-08 22:57 | disposition home or self-care (01) ==
PROVIDERS: Student in an Organized Health Care Education/Training Program; Emergency Provider Emergency Medicine; PCP Internal Medicine
DX: J44.1 Chronic obstructive pulmonary disease with (acute) exacerbation (principal); R07.9 Chest pain, unspecified; I10 Essential (primary) hypertension; J96.10 Chronic respiratory failure, unspecified whether with hypoxia or hypercapnia; Z99.81 Dependence on supplemental oxygen; Z87.891 Personal history of nicotine dependence
CPT/HCPCS: 36415; 71046; 71275; 80053; 83690; 84484; 85025; 85380; 85610; 85730; 93005; 94640; 96374; 99284; A9270; Q9967

== ENCOUNTER 2024-11-05 12:04 | Emergency (ER) | payer MEDICARE, OTHER, SELFPAY ==
[2024-11-05 12:13] VITALS: BP 145/52; PULSE 94; RESP 20; TEMP 36.7; O2SAT 95
--- NOTE | 2024-11-05 12:39 | ED.SKABFB ---
HPI - Skin/Abscess/Foreign Bdy General Chief complaint: Skin/Abscess/Foreign Body Stated complaint: skin irritation Time Seen by Provider: 11/05/24 12:56 Source: patient Mode of arrival: ambulatory Limitations: no limitations History of Present Illness HPI narrative: 79 y/o female with hx DM and COPD presented for c/o rash for 2 weeks. Red round dry spots are reported to the lower legs, umbilicus, buttock, and abdomen. Pt says lesions start small and spread. Pt denies itching, pain, or drainage to the lesions. No treatment. pt has a healthcare applications analyst. Denies lip, tongue, or throat swelling, shortness of breath or wheezing. Denies changes to soap, detergent, lotion, or any other exposures. No one else in the house or any contacts with similar symptoms. Related Data Home Medications ?Medication ?Instructions ?Recorded ?Confirmed ?Last Taken ?Type aspirin 81 mg tablet,delayed 81 mg PO DAILY 06/05/19 09/16/24 05/22/22 History release cetirizine 5 mg-pseudoephedrine ER 1 tablet PO DAILY 06/05/19 09/16/24 05/22/22 History 120 mg tablet,extended release,12hr (Zyrtec-D) omega-3 fatty acids-fish oil 300 1 cap PO DAILY 05/22/22 09/16/24 05/22/22 History mg-1,000 mg capsule Allergies Allergy/AdvReac Type Severity Reaction Status Date / Time diphenhydramine Allergy Unknown Itching Verified 11/05/24 12:34 Review of Systems Review of Systems: CONSTITUTIONAL: Denies body aches, fever, chills, or sweats. EYES: Denies visual changes, redness, or discharge. ENT: Denies rhinorrhea, congestion CARDIOVASCULAR: Denies chest pain, palpitations, or edema. RESPIRATORY: Denies cough or dyspnea. GASTROINTESTINAL: Denies abdominal pain, nausea, vomiting, or diarrhea. SKIN: per HPI MUSCULOSKELETAL: Denies back pain, joint pain, or myalgia. NEUROLOGIC: Denies headache, numbness, tingling, or weakness. [facility] Past Medical History Medical History Uncontrolled hypertension History of cardiomyopathy Depression Diverticulitis Acute lower GI bleeding COPD (chronic obstructive pulmonary disease) Acute GI bleeding Pulmonary nodule Sepsis Transaminitis Community acquired pneumonia Kidney stones Multinodular goiter Seasonal allergies Chronic low back pain Chronic respiratory failure, unspecified whether with hypoxia or hypercapnia On home oxygen. Uses Trilogy unit at nighttime. Essential (primary) hypertension Nicotine dependence, other tobacco product, uncomplicated Surgical History Surgical History History of removal of pigmented skin lesion Nose skin cancer History of appendectomy History of colonoscopy with polypectomy History of hysterectomy for benign disease Status post excision of lipoma Right posterior neck. Family History Family History Father Malignant neoplasm of prostate Patient's father is Cerebrovascular accident Sibling Family history of malignant neoplasm of male breast Diabetes mellitus Family history of malignant neoplasm of breast in first degree relative Pulmonary disease Mother Diabetes mellitus Acute myocardial infarction Other Family history of cardiovascular disease Social History Social History Social History: . Lives in her own home in [place]. Former Long-time smoker, at least a 50 pack-year smoking history. No alcohol or illicit substance abuse. Surrogate decision maker: Jake (son) or Francia (daughter n law) Marianela. 2 sons Code status: Full code. Smoking packs per day: 0.5 Smoking cigarettes per day: 10.0 Years smoked: 58 Smoking pack-years: 29.00 Smoking status: Former smoker Tobacco type: cigarettes Second hand tobacco smoke exposure: No Smoking end date: 06/26/21 Additional smoking assessment comments: quit 2 years ago Alcohol intake: never Substance use: never Do You Feel Safe in your Home?: Yes Lack of Transportation: No Lack of Food: Never True Current Housing: I Have Housing Concerned About Future Housing: No Difficulty Paying Gas/Electric Bills: No Difficulty Paying for Meds: No Currently Unemployed: No Education: Grade School Difficulty w/ Childcare or Family Care: No Living arrangements: alone Occupation/Education: retired Gender identity (if verbalized by the patient): Female Sexual Orientation (if Verbalized by the Patient): Straight or Heterosexual Spiritual care concerns: No Agree to blood products: Yes Comments At time of signature, I have reviewed and agree with nursing past medical, surgical, social and family history unless otherwise noted. Please see nursing chart for further information. There is no relevant family history pertinent to the presenting complaint Exam Narrative: GENERAL: Well-appearing ENT: Mucous membranes moist. Oropharynx without edema, erythema or lesions. NECK: Supple. No lymphadenopathy CHEST: Lung sounds diminished, O2 per NC in place. HEART: Regular rate and rhythm. SKIN: Warm, dry. Scattered erythematous dry scaly patches to lower legs, approx 1cm diameter, lesion to umbilicus approx 2.5cm diameter, and gluteal cleft extending across the proximal aspect bilaterally approx 4cm, irregular. Lesions are nontender, no fluctuance or drainage. NEURO: Alert and oriented x3. Course Course Emergency Course: Patient is aware of diagnosis, understands and agrees to treatment plan. Anticipatory guidance given. Patient agrees to follow-up as directed and is aware of reasons to seek care at the emergency department. Portions of this record may have been created with voice recognition software Level of Care: Express Care Visit Vital Signs Vital signs: Vital Signs Temperature 98.0 F 11/05/24 12:13 Pulse Rate 94 11/05/24 12:13 Respiratory Rate 20 11/05/24 12:13 Blood Pressure 145/52 H 11/05/24 12:13 Pulse Oximetry 95 11/05/24 12:13 Oxygen Delivery Nasal Cannula 11/05/24 12:13 Oxygen Flow Rate 3 11/05/24 12:13 Temperature 98.0 F 11/05/24 12:13 Pulse Rate 94 11/05/24 12:13 Respiratory Rate 20 11/05/24 12:13 Blood Pressure 145/52 H 11/05/24 12:13 Pulse Oximetry 95 11/05/24 12:13 Oxygen Delivery Nasal Cannula 11/05/24 12:13 Oxygen Flow Rate 3 11/05/24 12:13 Reviewed MDM - Skin/Abscess/Foreign Bdy MDM Narrative Medical decision making narrative: Discussed physical exam findings and rx, will send systemic steroid as lesions are widespread. Pt has a healthcare applications analyst, advised to f/u today. Advised supportive measures and signs/symptoms to go to the ER. Pt is appropriate for outpt treatment and f/u. Differential Diagnosis Differential diagnosis: Likely abscess of skin or subcutaneous tissue, viral exanthem, dermatophytosis, urticaria, herpes zoster, cellulitis, eczema, insect bites, impetigo, contact dermatitis and other (lichen planus) Discharge Plan Discharge Clinical Impression: Dermatitis Patient Disposition: Home Condition: Stable Instructions: Antibiotic Form, Acute Rash (ED) Additional Instructions: Wash with gentle soap and water only. Avoid scents, dyes, and perfumed products. Take medication as directed Avoid scratching when possible to prevent worsening of the condition and disruption of the skin that could lead to bacterial infection To relieve itching, place a cool washcloth or some ice over the area that itches, rather than scratching Follow up with healthcare applications analyst, call today to schedule an appointment. ER if rash worsens or you have chest pain, trouble breathing, become hoarse, or start wheezing, develop belly cramps, vomiting or feel dizzy. Patient Language: Mongolian Prescriptions: New prednisone 20 mg tablet 40 mg PO DAILY 5 Days Qty: 10 0RF No Action aspirin 81 mg tablet,delayed release (DR/EC) 81 mg PO DAILY cetirizine-pseudoephedrine [Zyrtec-D] 5-120 mg tablet extended release 12 hr 1 tablet PO DAILY Ohtuvayre 3 mg/2.5 mL suspension for nebulization 2.5 ml inhalation BID Qty: 150 11RF Breztri Aerosphere 160-9-4.8 mcg/actuation HFA aerosol inhaler 2 inh inhalation BID Qty: 10.7 11RF Rx Instructions: Rinse and spit lidocaine 5 % adhesive patch,medicated 1 patch topical DAILY Qty: 15 0RF Rx Instructions: leave on most painful area for up to 12 hrs albuterol sulfate 2.5 mg/0.5 mL Solution For Nebulization 5 mg inhalation Q6HRT PRN (Reason: shortness of breath or wheezing) Qty: 30 0RF omega-3 fatty acids-fish oil 300-1,000 mg Capsule 1 cap PO DAILY meclizine 25 mg tablet 25 mg PO PRN PRN (Reason: dizziness) Qty: 30 0RF albuterol sulfate 90 mcg/actuation HFA aerosol inhaler See Rx Instructions .ROUTE .COMPLEX Qty: 42.5 1RF Dose Instruction: INHALE 1 TO 2 PUFFS BY MOUTH EVERY 4 TO 6 HOURS NEEDED FOR SHORTNESS OF BREATH OR WHEEZING Rx Instructions: INHALE 1 TO 2 PUFFS BY MOUTH EVERY 4 TO 6 HOURS NEEDED FOR SHORTNESS OF BREATH OR WHEEZING metoprolol succinate 50 mg tablet extended release 24 hr 50 mg PO QAM Qty: 90 1RF amlodipine 5 mg tablet 5 mg PO DAILY Qty: 90 2RF benzonatate 200 mg capsule 200 mg PO TID PRN (Reason: cough) Qty: 30 0RF metformin 500 mg tablet 500 mg PO DAILY Qty: 90 2RF Rx Instructions: Take with a meal. atorvastatin [Lipitor] 20 mg tablet 20 mg PO DAILY Qty: 90 2RF alprazolam 0.5 mg tablet 0.5 mg PO BID PRN (Reason: anxiety) Qty: 60 1RF Rx Instructions: must last 30 days- Follow-up/Referrals: Sidney Nesbitt DO [Primary Care Provider] - Time of Disposition: 13:15
== END 2024-11-05 13:20 | disposition home or self-care (01) ==
PROVIDERS: Emergency Provider Nurse Practitioner Family; PCP Internal Medicine
DX: L30.9 Dermatitis, unspecified (principal); I10 Essential (primary) hypertension; J44.9 Chronic obstructive pulmonary disease, unspecified; J96.10 Chronic respiratory failure, unspecified whether with hypoxia or hypercapnia; Z99.81 Dependence on supplemental oxygen; Z85.828 Personal history of other malignant neoplasm of skin; Z87.891 Personal history of nicotine dependence; Z79.82 Long term (current) use of aspirin
CPT/HCPCS: 99213; G0463

== ENCOUNTER 2024-11-19 10:45 | Outpatient (CLI) | payer MEDICARE, OTHER, SELFPAY ==
--- NOTE | ~2024-11-19 | CT_ITS ---
CT Scan of the Chest without Contrast: Clinical Indication: Lung cancer screening, nicotine dependence Technique: Contiguous sections were acquired throughout the chest without intravenous contrast. Dose reduction technique was used on this scan by utilizing automated exposure control and iterative recon struction technique. The dose-length product (DLP) was 103.03 mGy-cm. COMPARISON: 07/08/2024 Findings: There is no evidence of any significant mediastinal, hilar or axillary lymphadenopathy. Calcified med iastinal lymph nodes are present.. There is no evidence of pleural or pericardial effusion. Calcified lingular granuloma present. There is focal atelectatic change or scarring lingula. A few ti ny scattered peripheral pulmonary nodules are present, with overall benign appearance. Images through the upper abdomen reveal no abnormalities. Impression: Lung RADS 2: Benign appearance. 12 month follow-up screening CT advised. Reviewed, dictated and finalized at [facility]. Impression: Lung RADS 2: Benign appearance. 12 month follow-up screening CT advised.
--- OUTSIDE RECORDS SUMMARY | 2024-11-19 10:51 | XMS_ITS | Clinical Summary ---
Author Organization [facility] [place] [address] Address [address] [place] [address] Care Team Providers Care [employer] Principal Name Role Phone John Sexton MD Primary Care Provider [phone] Gale Linton MD Unavailable [phone] Allergies No known active allergies Medications ALPRAZolam (XANAX) 0.5 mg tablet Take by mouth 2 (two) times a day as needed 2 Active albuterol HFA (PROVENTIL HFA,VENTOLIN HFA,PROAIR HFA) 90 mcg/actuation inhaler INHALE 2 PUFFS BY MOUTH EVERY 4 TO 6 HOURS NEEDED FOR SHORTNESS OF BREATH OR WHEEZING 2 Active aspirin 81 mg enteric coated tablet Take 1 tablet (81 mg total) by mouth daily Active omega 1-tqy-eel-fish oil 350 mg-235 mg- 90 mg-597 mg capsule,delayed release(DR/EC) Take by mouth A ctive vitamin B complex capsule Take 1 capsule by mouth daily Active UNABLE TO FIND OTC allergy medication - patient did not give name. Active metoprolol XL (TOPROL-XL) 50 mg extended release tabletIndications: Dilated cardiomyopathy (HCC) TAKE 1 TABLET(50 MG) BY MOUTH EVERY MORNING 90 tablet 4 Active Active Problems Patient Care Coordination No te Formatting of this note migh t be different from the original. This is a 78 year old female presenting to us at the request of ANNEMARIE Randall for an evaluation of COPD. She has a medical history significant for takotsubo cardiomyopathy and hypertension. She is a former smoker who quit in 2021. The patient follows with a local cream buyer and was last seen on 09/20/2023. She finished cardiopulmonary rehab in 2022. She was hospitalized in May of 2023 for chest pains. Workup revealed unremarkable labs. CT of the chest as detailed below. The patient complains of progressive dyspnea on exertion without chest pains. She is maintained on Breztri 2 puffs b.i.d. and albuterol. She uses 2 L of oxygen to bleeding on her trilogy with sleep every night. She has used trilogy since 2016. She underwent an echo on 08/23/2022 that showed an EF of 65-70%, grade 2 diastolic dysfunction. Improvement in LV function since last echo. Her last PFT was performed on 10/07/2022. This study showed severe obstructive ventilatory impairment with good response to bronchodilator, mild hyperinflation, severe air trapping, severe diffusion impairment which corrects for alveolar volume. Her FEV1 was 20% of predicted, TLC 115% and DLCO 29%. She underwent a CTA of the chest on 06/16/2023. The pulmonary arteries are well opacified. No pulmonary embolism identified. There is moderate emphysema. Mild dependent atelectasis is noted. There is also mild atelectasis of the lingula. No pleural effusion or pneumothorax. No pathologically enlarged thoracic lymph nodes are identified. The heart size is normal. Calcified pulmonary nodules and calcified left hilar and mediastinal nodes are consistent with old granulomatous disease. Punctuate calcifications and otherwise normal-appearing liver and spleen likely represent healed granulomatous disease. There is mild thoracic spondylosis. She was interested in having a lung transplant. Her chart was reviewed here. She has not a candidate for a lung transplant due to advanced age, obesity and the fact that the patient is currently on [place]. We will arrange for her to have updated PFTs and a chest CT. She is here for further surgical evaluation and discussion. 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 Gender Identity Not on file Sexual Orientation Not on file Obstetrics History Last Filed Vital Signs Vital Sign Reading Time Taken Comments Blood Pressure 155/83 11/14/2023 9:44 AM CDT Pulse 58 11/14/2023 9:44 AM CDT Temperature 36.4 C (97.6 F) 11/14/2023 9:44 AM CDT Respiratory Rate 17 11/14/2023 9:44 AM CDT Oxygen Saturation 92% 11/14/2023 9:44 AM CDT Inhaled Oxygen Concentration - - Weight 80.4 kg (177 lb 3.2 oz) 11/14/2023 9:44 A M CDT Height 152.4 cm (5') 11/14/2023 9:44 AM CDT Body Mass Index 34.61 11/14/2023 9:44 AM CDT Plan of Treatment Health Maintenance Due Date Last Done Comments Depression Screening 1945 Fall Risk Assessment 1945 Hepatitis C Screening 1945 Osteoporosis Screening-Bone Density Scan 1945 DTaP/Tdap/Td Vaccine (1 - Tdap) 1957 Hepatitis B Screening 1964 Pneumococcal vaccine 65+ (1 of 2 - PCV) 1965 Zoster Vaccine (1 of 2) 1996 Well Visit 65+ 10/26/2011 Covid-19 Vaccine (2 - 2023-2 5 season) 2024 02/25/2021 Influenza Vaccine (Season Ended) 2025 04/27/2022, 04/08/2021, 03/14/2020, Additional history exists Insurance MEDICARE RAILTempered Mind [employer] [place] MEDICARE [employer]ROAD [place] [employer] [place] MEDICARE RAILROAD [employer] [facility] Care Teams [employer] Principal Relationship Specialty Start Date End Date Jhon Sexton MD [address] [place] [address] PCP - General 11/24/14 Gale Linton MD [address] [place] [address] Consulting Physician Critical Care Med 11/14/23
--- OUTSIDE RECORDS SUMMARY | 2024-11-19 10:51 | XMS_ITS ---
Author Organization [facility] [place] [address] Address [address] [place] [address] Care Team Providers Care Wood Mechanist Name Role Phone John Sexton MD Primary Care Provider [phone] Gale Linton MD Unavailable [phone] Transplant Episode Lung Candidate [facility] ([place], [place]) - [facility] Referred on 10/04/2023 Marked as Active on 10/04/2023 Lung CoordinatorMarlee Kent RN Fax: N/A Email: N/A Care Team Name Role Phone Fax Email Marlee Kent RN Lung Coordinator [phone] N/A N/A Marlee Kent RN Pre Coordinator [phone] N/A N/A Iggy Randall NP Referring Physician [phone] N/A Events Pre-Transplant Referred: 10/04/2023
--- OUTSIDE RECORDS SUMMARY | 2024-11-19 10:51 | XMS_ITS | Referral Summary ---
Author Organization [facility] [place] [address] Address [address] [place] [address] Care Team Providers Care Auto Machinist Name Role Phone John Sexton MD Primary Care Provider [phone] Gale Linton MD Unavailable [phone] Allergies No known active allergies Medications ALPRAZolam [...] mg total) by mouth daily Active omega 3-jid-nuo-fish oil 350 mg-235 mg- 90 mg-597 mg [...] 2021. The patient follows with a local superintendent colliery and was last seen on 09/20/2023. She [...] fact that the patient is currently on [place]. 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 Gender Identity Not on file Sexual Orientation Not on file Last Filed Vital Signs Vital Sign Reading [...] 11/14/2023 9:44 AM CDT Plan of Treatment Not on file Insurance MEDICARE [facility]ROAD [facility] MEDICARE RAILROAD [place] [employer] [place] MEDICARE RAILROAD [facility] [place] [id number] Care Teams Auto Machinist Relationship Specialty Start Date End Date John Sexton MD [address] [place] [address] PCP - General 11/24/14 Gale Linton MD [address] [place] [address] Consulting Physician Critical Care Med 11/14/23
== END 2024-11-19 10:46 | disposition home or self-care (01) ==
PROVIDERS: PCP Internal Medicine; Visit Provider Nurse Practitioner Family
DX: Z12.2 Encounter for screening for malignant neoplasm of respiratory organs (principal); Z87.891 Personal history of nicotine dependence
CPT/HCPCS: 71271

== ENCOUNTER 2025-04-25 07:28 | Outpatient (CLI) | payer MEDICARE, OTHER, SELFPAY ==
--- NOTE | ~2025-04-25 | US_ITS ---
US abdomen limited Indication: R79.89 - Other specified abnormal findings of blood chemi... Comparison: None Technique: Jordan-scale and color Doppler images were obtained. Findings: LIVER: Unremarkable, liver contours intact, no lesions. Normal echogenicity. . GALLBLADDER/BILIARY: Multiple probable polyps are noted the largest measuring 1.5 x 1 cm, no cholelithiasis or wall thickening, no pericholecystic fluid. CBD 3.4 mm. [place] sign negative. PANCREAS: Pancreas limited by bowel gas. Right Kidney: Right kidney was not imaged. Impression: Gallbladder polyps Reviewed, dictated and finalized at location P. Impression: Gallbladder polyps
--- OUTSIDE RECORDS SUMMARY | 2025-04-25 07:32 | XMS_ITS | Clinical Summary ---
Author Organization [facility] Address [address] [place] [address] Care Team Providers Care Chief Engineer Research Name Role Phone Unavailable Primary Care Provider Unavailabl e Immunizations Immunization Administration Dates Next Due Covid-19, Mrna, Lnp-s, Pf, 30 Mcg/0.3 Ml Dose (P jovanizer) 02/25/2021 Social History Tobacco Use Types Packs/Day Years Used Date Smoking Tobacco: Never Assessed Comments Unknown Sex and Gender Information Value Date Recorded Sex Assigned at Not on file Legal Sex Female 10:15 AM CDT Gender Identity Not on file Sexual Orientation Not on file Plan of Treatment Health Maintenance Due Date Last Done Comments Hepatitis C Virus (HCV) Screening 1944 TdaP Immunization 1944 Pneumococcal Immunization (5 0+ years) (1 of 1 - PCV) 10/26/1995 Zoster Immunization (1 of 2) 10/26/1995 Respiratory Syncytial Virus (RSV) Immunization (Adult) (1 - 1-dose 75+ series) 2020 Influenza Immunization (#1) 2025 SARS-COV-2 Immunization ( season) 2025 02/25/2021, 09/03/2020, 07/31/2020 Hepatitis B Immunization Aged Out No longer eligible based on patient's age to complete this topic Human Papillomavirus (HPV) Immunization Aged Out No longer eligible b ased on patient's age to complete this topic Meningococcal Immunization (ACWY) Aged Out No longer eligible b ased on patient's age to complete this topic Rotavirus Immunization Aged Out No lo nger eligible based on patient's age to complete this topic
== END 2025-04-25 07:29 | disposition home or self-care (01) ==
LOC: ANHIMG 07:30
PROVIDERS: PCP Internal Medicine; Visit Provider Internal Medicine
DX: R79.89 Other specified abnormal findings of blood chemistry (principal)
CPT/HCPCS: 76705

== ENCOUNTER 2025-06-08 06:57 | Inpatient (IN) | payer MEDICARE, OTHER, SELFPAY ==
[2025-06-08] VITALS (18 sets, daily range): BP systolic 123–187; BP diastolic 53–84; PULSE 60–91; RESP 12–22; TEMP 36.2–36.9; O2SAT 94–100; BMI 30.1
--- NOTE | ~2025-06-08 | US_ITS ---
EXAMINATION: US carotid duplex BI DATE: 06/10/2025 08:49 INDICATION: Cerebral infarction TECHNIQUE: Grayscale, color Doppler, and pulsed Doppler images of the cervical carotid arteries were obtained. The degree of vessel stenosis is placed in one of the following categories: normal, <50%, 50-69%, >=70% but less than near- occlusion, near-occlusion, or total occlusion. Note that percent stenosis relative to normal distal artery lumen diameter is indirectly measured from velocity measurements as described by Akshat, et al. Radiology 2003; 229:340-346. COMPARISON: None. FINDINGS: RIGHT: The right common carotid artery (CCA) peak systolic velocity (PSV) is 102 cm/s. The right internal carotid artery (ICA) PSV is 75 cm/s. The right ICA end- diastolic velocity (EDV) is 24 cm/s. The right ICA/CCA PSV ratio is 0.7. Grayscale and color Doppler images yield an estimate of <50% diameter reduction from plaque in the ICA. The external carotid artery (ECA) PSV is 144 cm/s. There is antegrade flow in the right vertebral artery. LEFT: The left CCA PSV is 108 cm/s. The left ICA PSV is 74 cm/s. The left ICA EDV is 18 cm/s. The left ICA/CCA PSV ratio is 0.9. Grayscale and color Doppler images yield an estimate of <50% diameter reduction from plaque in the ICA. The ECA PSV is 108 cm/s. There is antegrade flow in the left vertebral artery. IMPRESSION: 1. <50% stenosis from minimal plaque in the right internal carotid artery. 2. <50% stenosis from minimal plaque in the left internal carotid artery. Reviewed, dictated and finalized at location A. NT SERVICE SUPERVISOR
--- NOTE | ~2025-06-08 | MR_ITS ---
EXAMINATION: MR brain/brain stem wo/w con COMPARISON: None HISTORY: Vertigo ?brain lesion and stroke TECHNIQUE: Multiplanar multisequence images obtained of the brain without and with intravenous contrast, Prohance 17cc injected IV. FINDINGS: The cerebellar tonsils are in normal location. There is no abnormal signal within the clivus of the cervical spine. Pituitary does not appear enlarged No acute infarct or hemorrhage is identified There are remote bilateral basal ganglial lacunar infarcts with remote right frontal subcortical infarct There are scattered areas of abnormal signal within the subcortical white matter probably representing areas of chronic periventricular ischemic change There is no hydrocephalus or midline shift. Appropriate flow voids are maintained. There are no extra-axial fluid collections. The mastoid air cells, sinuses and orbits appear unremarkable There is no abnormal enhancement identified Nonspecific abnormal signal noted within the subcutaneous tissues anteriorly possibly posttraumatic, correlate clinically. IMPRESSION: No etiology to explain the patient's symptoms. Reviewed, dictated and finalized at location P. LAINT COORDINATOR
--- NOTE | ~2025-06-08 | CT_ITS ---
CT HEAD NON-CONTRAST CT C-SPINE Clinical History: fall Comparison: None Technique: Unenhanced axial images skull base to vertex. Coronal, sagittal reformats. Axial images thoracic inlet to skull base. Sagittal and coronal reformats. CT images acquired with automatic exposure control for dose reduction DLP: 681 mGy-cm Findings: Head: White matter changes, typically chronic microvascular ischemic disease. Sulci, ventricles: Unremarkable. No intracerebral hemorrhage. No evidence acute territorial infarct. No mass effect, midline shift, intra-/extra-axial fluid collection. Partially empty sella. Bony calvarium intact. Visualized paranasal sinuses: Clear. Mastoid air cells: Clear. Left frontal forehead contusion and hematoma. C-spine: No acute fracture. Grade 1 anterolisthesis of C3 on 4. Vertebral bodies normal height and alignment. Moderate degenerative changes. Disc spaces maintained. Prevertebral soft tissues within normal limits. Visualized lung apices: Emphysema. Visualized thyroid: Unremarkable. No enlarged cervical nodes. IMPRESSION: HEAD: 1. No acute intracranial findings. C-SPINE: 1. No acute fracture. Reviewed, dictated and finalized at location R. AZZO WORKER HELPER IMPRESSION: HEAD: 1. No acute intracranial findings. C-SPINE: 1. No acute fracture.
--- NOTE | ~2025-06-08 | XR_ITS ---
EXAMINATION: XR chest 1V portable DATE: 06/14/2025 16:21 INDICATION: Shortness of breath. TECHNIQUE: A single frontal view of the chest was obtained. COMPARISON: Chest x-ray 07/08/2024 FINDINGS: Cardiomegaly. Emphysematous lungs with pulmonary hypertension. Calcified nodes of the mediastinum. Severe arthritis of both shoulders due to chronic rotator cuff tear. IMPRESSION: 1. No acute findings. Other findings as described above. Reviewed, dictated and finalized at location T. ING INSTRUCTOR
--- NOTE | 2025-06-08 06:51 | ECG_ITS ---
Test Date: 2025-06-08 06:59:56 Measurements Intervals [place] Rate: 77 P: 49 MD: 133 QRS: 39 QRSD: 88 T: 41 QT: 368 QTc: 418 Interpretive Statements SINUS RHYTHM EARLY PRECORDIAL R/S TRANSITION BASELINE ARTIFACT- I, II, III, AVR, AVL, AVF, V1-V6 BORDERLINE ECG Compared to ECG 07/08/2024 21:34:24 ECTOPIC ATRIAL BRADYCARDIA NO LONGER PRESENT Electronically Signed On 06-08-2025 09:25:21 BRAND SALES MANAGER by Wayne Campbell D.O.
--- NOTE | 2025-06-08 07:30 | PC.NURSE ---
Pt to CT scan via stretcher at this time.
[2025-06-08] MEDS: SODIUM CHLORIDE 0.9% IV 1,000 ML 150 ML IV CONT (07:49)
--- NOTE | 2025-06-08 08:24 | PC.NURSE ---
c collar removed by EDP following imaging results
[2025-06-08] MEDS: MECLIZINE HCL 25 MG TABLET PO (08:27)
[2025-06-08 08:33] LABS: Hematocrit 35.4 % (37.0-47.0); Hemoglobin 11.0 g/dL (12.0-15.0); Immature Granulocyte Percent A 0.6 % (0-0.5); Lymphocytes Absolute Auto 1.19 K/mm3 (0.9-3.2); Mean Corpuscular HGB Conc 31.1 g/dl (32-36); Mean Corpuscular Hemoglobin 30.4 pg (26-34); Mean Corpuscular Volume 97.8 fl (80-100); Nucleated Red Blood Cells Absolute Auto 0.000 K/mm3 (0.0-0.012); Nucleated Red Blood Cells Perc 0.0 % (0.0-0.2); Platelet Count Result 341 k/mm3 (150-375); Red Blood Count 3.62 M/mm3 (4.2-5.4); White Blood Count 11.4 K/mm3 (4.5-10.0)
[2025-06-08 08:56] LABS: Alanine Aminotransferase 43 U/L (6-35); Albumin Level 4.0 g/dL (3.5-5.1); Alkaline Phosphatase 171 U/L (38-126); Anion Gap 4 mmol/L (4-12); Aspartate Amino Transferase 47 U/L (14-36); Bilirubin,Total 0.7 mg/dL (0.2-1.3); Blood Urea Nitrogen 18 mg/dL (7-17); Calcium 9.2 mg/dL (8.4-10.2); Carbon Dioxide 29 mmol/L (22-30); Chloride 105 mmol/L (98-107); Estimated CRCL calculation 53 ml/min; Estimated Glomerular Filt Rate > 60; Glucose 140 mg/dL (65-110); Potassium 4.3 mmol/L (3.4-5.0); Sodium 138 mmol/L (137-145); Total Protein 7.7 g/dL (6.3-8.2)
--- NOTE | 2025-06-08 10:27 | ED.FALL ---
HPI - Fall General Chief Complaint: Fall Stated Complaint: FALL Source: patient Mode of arrival: EMS Limitations: no limitations History of Present Illness HPI Narrative: 71 with a history of COPD hypertension with blood a complains fall. Patient states that she gets episodes pauses vertigo when she up was spinning lost balance and the face forward. She denies any LOC. Denies chest pain shortness of breath the son who is at bedside states that she been getting these episodes for quite some time. complaint: fall Fall from: standing Fall witnessed: yes, by family Place fall occurred: home Loss of consciousness: none Prolonged down time: no Symptoms prior to fall: dizziness Location of injury: head, face and neck Related Data Home Medications ?Medication ?Instructions ?Recorded ?Confirmed ?Last Taken ?Type aspirin 81 mg tablet,delayed 81 mg PO DAILY 06/05/19 03/24/25 05/22/22 History release cetirizine 5 mg-pseudoephedrine ER 1 tablet PO DAILY 06/05/19 03/24/25 05/22/22 History 120 mg tablet,extended release,12hr (Zyrtec-D) omega-3 fatty acids-fish oil 300 1 cap PO DAILY 05/22/22 03/24/25 05/22/22 History mg-1,000 mg capsule Allergies Allergy/AdvReac Type Severity Reaction Status Date / Time diphenhydramine Allergy Unknown Itching Verified 03/24/25 11:12 Review of Systems Review of Systems: All systems reviewed & are unremarkable except as noted in HPI and below Constitutional: Constitutional: Reports no additional constitutional complaints Eyes: Eyes: Reports no additional eye complaints ENT: Reports system reviewed and no additional complaints, except as documented Cardiovascular: Cardiovascular: Reports no additional cardiovascular complaints Respiratory: Respiratory: Reports no additional respiratory complaints Gastrointestinal: Gastrointestinal: Reports no additional gastrointestinal complaints Musculoskeletal: Musculoskeletal: Reports no additional musculoskeletal complaints Neurologic: Reports as per HPI [facility] Past Medical History Medical History (Updated 06/08/25 @ 10:29 by Desean Valverde MD) Tobacco abuse Tinea pedis of left foot Subcutaneous mass Skin neoplasm Skin lesions Rectal bleeding Other fatigue Osteoporosis without current pathological fracture Localized swelling, mass or lump of neck Hypercalcemia Epidermal inclusion cyst Elevated blood-pressure reading, without diagnosis of hypertension Dietary counseling and surveillance (06/10/15) Current smoker Cramps of lower extremity Colon polyp Body mass index [BMI] 28.0-28.9, adult (09/26/18) Body mass index [BMI] 27.0-27.9, adult (06/06/17) RICHARD positive Uncontrolled hypertension History of cardiomyopathy Depression Diverticulitis Acute lower GI bleeding COPD (chronic obstructive pulmonary disease) Acute GI bleeding Pulmonary nodule Sepsis Transaminitis Community acquired pneumonia Kidney stones Multinodular goiter Seasonal allergies Chronic low back pain Chronic respiratory failure, unspecified whether with hypoxia or hypercapnia On home oxygen. Uses Trilogy unit at nighttime. Essential (primary) hypertension Nicotine dependence, other tobacco product, uncomplicated Surgical History Surgical History History of removal of pigmented skin lesion Nose skin cancer History of appendectomy History of colonoscopy with polypectomy History of hysterectomy for benign disease Status post excision of lipoma Right posterior neck. Family History Family History Father Malignant neoplasm of prostate Patient's father is Cerebrovascular accident Sibling Family history of malignant neoplasm of male breast Diabetes mellitus Family history of malignant neoplasm of breast in first degree relative Pulmonary disease Mother Diabetes mellitus Acute myocardial infarction Other Family history of cardiovascular disease Social History Social History Social History: . Lives in her own home in [place]. Former Long-time smoker, at least a 50 pack-year smoking history. No alcohol or illicit substance abuse. Surrogate decision maker: Jake (son) or Francia (daughter n law) Marianela. 2 sons Code status: Full code. Smoking packs per day: 0.5 Smoking cigarettes per day: 10.0 Years smoked: 58 Smoking pack-years: 29.00 Smoking status: Former smoker Tobacco type: cigarettes Second hand tobacco smoke exposure: No Smoking end date: 06/26/21 Additional smoking assessment comments: quit 2 years ago Alcohol intake: never Substance use: never Lack of Transportation: No Lack of Food: Never True Current Housing: I Have Housing Concerned About Future Housing: No Difficulty Paying Gas/Electric Bills: No Difficulty Paying for Meds: No Currently Unemployed: No Education: Grade School Difficulty w/ Childcare or Family Care: No Living arrangements: alone Occupation/Education: retired Gender identity (if verbalized by the patient): Female Sexual Orientation (if Verbalized by the Patient): Straight or Heterosexual Spiritual care concerns: No Agree to blood products: Yes Exam Narrative: GENERAL: Well-appearing, well-nourished, and in no acute distress. HEAD: Normocephalic, atraumatic. EYES: PERRLA and EOMI. ENT: Nares clear, no rhinorrhea or epistaxis. Mucous membranes moist. a small hematoma on the left side of the forehead NECK: Supple. C collar in place CHEST: Clear to auscultation. No respiratory distress. HEART: Regular rate and rhythm. No murmur heard. Normal peripheral pulses. ABDOMEN: Soft, nontender, nondistended, normal active bowel sounds. EXTREMITIES: Normal range of motion. No edema. SKIN: Warm, dry, no rash. NEURO: No focal deficits. Alert and oriented x3. PSYCH: Normal mood and affect. Course Course Emergency Course: Ct of the head and C spine were obtained , once neg C collar was removed , she continue to be dizzy despite giving hewr fluids and Meclazine , she lives by her self and was uncomfortble going home.Discussed with Hospitalist agreed ro admit Vital Signs Vital signs: Vital Signs Temperature 36.9 C 06/08/25 06:53 Pulse Rate 86 06/08/25 06:53 Respiratory Rate 22 H 06/08/25 06:53 Blood Pressure 187/84 H 06/08/25 06:53 Pulse Oximetry 96 06/08/25 06:53 Oxygen Delivery Nasal Cannula 06/08/25 06:53 Oxygen Flow Rate 3 06/08/25 06:53 Temperature 36.9 C 06/08/25 06:53 Pulse Rate 69 06/08/25 10:22 Respiratory Rate 20 06/08/25 10:22 Blood Pressure 157/61 H 06/08/25 10:22 Pulse Oximetry 100 06/08/25 10:22 Oxygen Delivery Nasal Cannula 06/08/25 07:23 Oxygen Flow Rate 3 06/08/25 07:23 [facility] Narrative Medical decision making narrative: 80-year-old with a history of benign positional vertigo fell dizzy this morning will obtain a CT of the head and C-spine as she was complaining of neck pain along with lab work and EKG . Differential Diagnosis Differential Diagnosis: Orthostatic hypertension, CVA, BPV Medical Records I have reviewed the following patient records and this information was taken into consideration when formulating the assessment and plan.: previous labs and previous ER visits Lab Data MDM Lab Attestation statement: I personally reviewed the patient's lab results. 06/08/25 08:21 06/08/25 08:21 Labs: Lab Results 06/08/25 Range/Units 08:21 WBC 11.4 H (4.5-10.0) K/mm3 RBC 3.62 L (4.2-5.4) M/mm3 Hgb 11.0 L (12.0-15.0) g/dL Hct 35.4 L (37.0-47.0) % MCV 97.8 (80-100) fl MCH 30.4 (26-34) pg MCHC 31.1 L (32-36) g/dl RDW 14.5 (11.5-14.5) % Plt Count 341 (150-375) k/mm3 MPV 11.0 H (7.4-10.4) fl Immature Gran % (Auto) 0.6 H (0-0.5) % Neut % (Auto) 80.1 H (45.5-73.1) % Lymph % (Auto) 10.5 L (18.3-44.2) % [place] % (Auto) 7.3 (2.6-8.5) % Eos % (Auto) 1.1 (0-4.4) % Baso % (Auto) 0.4 (0.2-1.2) % Lymph # (Auto) 1.19 (0.9-3.2) K/mm3 [place] # (Auto) 0.8 H (0.1-0.6) K/mm3 Eos # (Auto) 0.1 (0-0.3) K/mm3 Baso # (Auto) 0.1 (0.0-0.1) K/mm3 Abs Immat Gran (auto) 0.07 H (0.00-0.031) K/mm3 Absolute Neuts (auto) 9.1 H (1.3-6.7) K/mm3 Absolute Nucleated RBC 0.000 (0.0-0.012) K/mm3 Nucleated RBC % 0.0 (0.0-0.2) % Sodium 138 (137-145) mmol/L Potassium 4.3 (3.4-5.0) mmol/L Chloride 105 (98-107) mmol/L Carbon Dioxide 29 (22-30) mmol/L Anion Gap 4 (4-12) mmol/L BUN 18 H (7-17) mg/dL Creatinine 0.64 L (0.7-1.0) mg/dL Estim Creat Clear Calc 53 ml/min Estimated GFR > 60 (59 - ) Glucose 140 H (65-110) mg/dL Calcium 9.2 (8.4-10.2) mg/dL Total Bilirubin 0.7 (0.2-1.3) mg/dL AST 47 H (14-36) U/L ALT 43 H (6-35) U/L Alkaline Phosphatase 171 H (38-126) U/L Total Protein 7.7 (6.3-8.2) g/dL Albumin 4.0 (3.5-5.1) g/dL Imaging Data Radiologist's impression: ITS Impressions Cervical Spine CT 06/08/25 07:52 IMPRESSION: HEAD: 1. No acute intracranial findings. C-SPINE: 1. No acute fracture. Head CT 06/08/25 07:52 IMPRESSION: HEAD: 1. No acute intracranial findings. C-SPINE: 1. No acute fracture. ECG Data EKG #1: ECG completion date: 06/08/25 ECG completion time: 06:59 normal rate (77), sinus rhythm, no ectopy, normal QT and NL axis Discharge Plan Discharge Clinical Impression: Dizziness, Minor head injury Patient Disposition: Still a Patient Condition: Stable Time of Disposition: 10:29
[2025-06-08] MEDS: ACETAMINOPHEN 325 MG TABLET 650 MG PO (11:00)
--- NOTE | 2025-06-08 11:02 | PC.NURSE ---
Pt declined lunch tray at this time, ordered coffee w/ dietary as requested.
--- NOTE | 2025-06-08 11:11 | WPCEDHO ---
ED Hand Off Checklist All vitals saved:YES IV Site documented:YES All med administrations documented:YES Triage Note Triage Note via ems from home with c-collar 06/08/25 06:[address] pt got dizzy getting out the bed, fell face first onto a carpeted floor. left forehead trauma with large hematoma noted. pt unsure of LOC. son reported he in unsure how long pt was on the floor when he found her. pt only c/o is headache from trauma. baseline 3Lnc at all times Allergies diphenhydramine Allergy (Unknown, Verified 03/24/25 11:12) Itching BENADRYL Family History (Last Reviewed 11/05/24 @ 13:18 by Ksenia Cortez, PROGRESSIVE DIE MAKER) Father Malignant neoplasm of prostate Patient's father is Cerebrovascular accident Sibling Family history of malignant neoplasm of male breast Diabetes mellitus Family history of malignant neoplasm of breast in first degree relative Pulmonary disease Mother Diabetes mellitus Acute myocardial infarction Other Family history of cardiovascular disease Active Medications including assessments/comments Acetaminophen (Acetaminophen 325 Mg Tablet) 650 mg PO Q4H PRN PRN Reason: Mild Pain (1-3) or Fever Last Admin: 06/08/25 11:00 Dose: 650 mg Documented By: EWA MAR Pain Assessment Document 06/08/25 11:00 EWA (Rec: 06/08/25 11:00 EWA [id number]) Pain Evaluation Pain Evaluation Assessment Pain Scale Pain Scale Used Numeric (1 - 10) Self Report Pain Assessment Reported Pain Level 8 Pain Score Pain Score 8: Self Report Sodium Chloride (Normal Saline Iv) 1,000 mls @ 150 mls/hr IV CONT .[id number] STA Stop: 06/08/25 13:58 Last Admin: 06/08/25 07:49 Dose: 150 mls/hr Documented By: EWA Infusion/Titration Document 06/08/25 07:49 EWA (Rec: 06/08/25 07:49 EWA [id number]) Intake IV Site Peripheral Access Left Antecubital Container Volume 1,000 Waste Amount 0 Dosing Infusion Rate 150 Cumulative Dose Not Applicable Increase/Decrease Started Elapsed Time Elapsed Time ( 0m minutes) Administered/Completed Medications Discontinued Medications Meclizine HCl (Meclizine Hcl 25 Mg Tablet) 25 mg PO ONCE ONE Stop: 06/08/25 08:24 Last Admin: 06/08/25 08:27 Dose: 25 mg Documented By: EWA Notes 06/08/25 11:02 Nurse Note by Anna Etienne Pt declined lunch tray at this time, ordered coffee w/ dietary as requested. Initialized on 06/08/25 11:02 - END OF NOTE 06/08/25 08:24 Nurse Note by Anna Etienne c collar removed by EDP following imaging results Initialized on 06/08/25 08:24 - END OF NOTE 06/08/25 07:30 Nurse Note by Anna Etienne Pt to CT scan via stretcher at this time. Initialized on 06/08/25 07:30 - END OF NOTE Interventions/Assessments IV Line Assessment Start: 06/08/25 06:41 Freq: Status: Active Protocol: Document 06/08/25 07:19 EWA (Rec: 06/08/25 07:19 EWA [id number]) IV Assessment Peripheral Access Left Antecubital IV Catheter Access Initiated IV Insertion Date 06/08/25 IV Insertion Time 07:19 Catheter Gauge 18 IV Site Assessment WNL IV Care and WNL Maintenance PA: Neurological Assessment Start: 06/08/25 06:41 Freq: Status: Active Protocol: Document 06/08/25 09:21 EWA (Rec: 06/08/25 09:21 [facility] [id number]) Neurological Assessment Level of Alert,Awake Consciousness Arousable to Verbal Orientation Oriented to Person,Oriented to Place,Oriented to Time Neurological Dizziness,History of Loss of Consciousness,Weakness, Symptoms General Behavior Appropriate,Cooperative Patient Able to Comprehend Comprehension Memory Description Intact Last Vital Signs Temperature 98.4 F 06/08/25 06:53 Pulse Rate 68 06/08/25 11:00 Respiratory Rate 20 06/08/25 11:00 Pulse Oximetry 100 06/08/25 11:00 Blood Pressure 157/61 H 06/08/25 11:00 Blood Pressure Mean 93 06/08/25 11:00 Blood Pressure Position Sitting 06/08/25 11:00 Oxygen Delivery Nasal Cannula 06/08/25 07:23 Oxygen Flow Rate 3 06/08/25 07:23 Weight 70 kg 06/08/25 06:53 Last Result - Abnormals Only WBC 11.4 K/mm3 (4.5-10.0) H 06/08/25 08:21 RBC 3.62 M/mm3 (4.2-5.4) L 06/08/25 08:21 Hgb 11.0 g/dL (12.0-15.0) L 06/08/25 08:21 Hct 35.4 % (37.0-47.0) L 06/08/25 08:21 MCHC 31.1 g/dl (32-36) L 06/08/25 08:21 MPV 11.0 fl (7.4-10.4) H 06/08/25 08:21 Immature Gran % (Auto) 0.6 % (0-0.5) H 06/08/25 08:21 Neut % (Auto) 80.1 % (45.5-73.1) H 06/08/25 08:21 Lymph % (Auto) 10.5 % (18.3-44.2) L 06/08/25 08:21 [place] # (Auto) 0.8 K/mm3 (0.1-0.6) H 06/08/25 08:21 Abs Immat Gran (auto) 0.07 K/mm3 (0.00-0.031) H 06/08/25 08:21 Absolute Neuts (auto) 9.1 K/mm3 (1.3-6.7) H 06/08/25 08:21 BUN 18 mg/dL (7-17) H 06/08/25 08:21 Creatinine 0.64 mg/dL (0.7-1.0) L 06/08/25 08:21 Glucose 140 mg/dL (65-110) H 06/08/25 08:21 AST 47 U/L (14-36) H 06/08/25 08:21 ALT 43 U/L (6-35) H 06/08/25 08:21 Alkaline Phosphatase 171 U/L (38-126) H 06/08/25 08:21 Most Recent Suicide Severity Rating Suicide Severity Rating NO RISK INDICATED 06/08/25 06:53
--- NOTE | 2025-06-08 11:34 | ADMGEN ---
This patient, Mya Landry, was admitted to Medical Room 247-. Patient/family oriented to hospital policies and general routines including ID bracelet, bed and alarms, visiting hours, pain management, procedures, bathroom and other care routines, personal items, smoking policy, room service/diet, and visiting hours. Information on how to activate the Rapid Response Team has been discussed. Patient/Family are encouraged to report perceived risks to care and to ask questions if they do not understand what they are told or what they should do.
[2025-06-08] MEDS: ONDANSETRON INJ 4 MG/2 ML VIAL IV PUSH (11:45)
--- NOTE | 2025-06-08 12:10 | P.HP_ITS ---
H&P: HPI History of Present Illness Date/Time: 06/08/25 12:10 Chief Complaint: Dizziness Narrative: 80 F with PMH of DM2, HTN, COPD on 3 liters at baseline who presented to the ER on account of Dizziness. Noted she was in her usual state of health until 430 am this morning when she started having dizziness which she described as the room spinning. Noted it was worse with head movement, fell with head trauama but denies any loss of consciousness. No chest pain, Vomiting, diarrhea, abd pain, chest pain and focal symptoms. Er eval notable for BP 157/61 Labs notable for AST/ALT 47/43 CT head and cervical spine negative Admitted for further eval and care Review of Systems Review of Systems: All other systems were reviewed and negative except as noted in the HPI above [facility] Past Medical History Medical History (Updated 06/08/25 @ 10:29 by Desean Valverde MD) Tobacco abuse Tinea pedis of left foot Subcutaneous mass Skin neoplasm Skin lesions Rectal bleeding Other fatigue Osteoporosis without current pathological fracture Localized swelling, mass or lump of neck Hypercalcemia Epidermal inclusion cyst Elevated blood-pressure reading, without diagnosis of hypertension Dietary counseling and surveillance (06/10/15) Current smoker Cramps of lower extremity Colon polyp Body mass index [BMI] 28.0-28.9, adult (09/26/18) Body mass index [BMI] 27.0-27.9, adult (06/06/17) RICHARD positive Uncontrolled hypertension History of cardiomyopathy Depression Diverticulitis Acute lower GI bleeding COPD (chronic obstructive pulmonary disease) Acute GI bleeding Pulmonary nodule Sepsis Transaminitis Community acquired pneumonia Kidney stones Multinodular goiter Seasonal allergies Chronic low back pain Chronic respiratory failure, unspecified whether with hypoxia or hypercapnia On home oxygen. Uses Trilogy unit at nighttime. Essential (primary) hypertension Nicotine dependence, other tobacco product, uncomplicated Surgical History Surgical History History of removal of pigmented skin lesion Nose skin cancer History of appendectomy History of colonoscopy with polypectomy History of hysterectomy for benign disease Status post excision of lipoma Right posterior neck. Family History Family History Father Malignant neoplasm of prostate Patient's father is Cerebrovascular accident Sibling Family history of malignant neoplasm of male breast Diabetes mellitus Family history of malignant neoplasm of breast in first degree relative Pulmonary disease Mother Diabetes mellitus Acute myocardial infarction Other Family history of cardiovascular disease Social History Social History Social History: . Lives in her own home in [place]. Former Long-time smoker, at least a 50 pack-year smoking history. No alcohol or illicit substance abuse. Surrogate decision maker: Jake (son) or Francia (daughter n law) Marianela. 2 sons Code status: Full code. Smoking packs per day: 0.5 Smoking cigarettes per day: 10.0 Years smoked: 58 Smoking pack-years: 29.00 Smoking status: Former smoker Second hand tobacco smoke exposure: No Additional smoking assessment comments: quit 2 years ago Alcohol intake: never Substance use: never Lack of Transportation: No Lack of Food: Never True Current Housing: I Have Housing Concerned About Future Housing: No Difficulty Paying Gas/Electric Bills: No Difficulty Paying for Meds: No Currently Unemployed: No Education: Grade School Difficulty w/ Childcare or Family Care: No Living arrangements: alone Occupation/Education: retired Gender identity (if verbalized by the patient): Female Sexual Orientation (if Verbalized by the Patient): Straight or Heterosexual Spiritual care concerns: No Agree to blood products: Yes Meds Home Medications and Allergies Home Medications ?Medication ?Instructions ?Recorded ?Confirmed ?Type aspirin 81 mg tablet,delayed 81 mg PO DAILY 06/05/19 0 03/24/25 History release cetirizine 5 mg-pseudoephedrine ER 1 tablet PO DAILY 1 08/06/18 03/24/25 History 120 mg tablet,extended release,12hr (Zyrtec-D) omega-3 fatty acids-fish oil 300 1 cap PO DAILY 03/24/25 History mg-1,000 mg capsule meclizine 25 mg tablet 25 mg PO PRN PRN dizziness # 30 tabs 05/29/24 03/24/25 Rx Breztri Aerosphere 160 2 inh inhalation BID #10.7 g gabe 09/09/24 03/24/25 Rx mcg-9mcg-4.8mcg/actuation HFA aerosol inhaler (evbzdbcprv-utgkgzsd-zqyevnrnzr) amlodipine 5 mg tablet 5 mg PO DAILY #90 tabs 09/2303/24/25 Rx atorvastatin 20 mg tablet (Lipitor) 20 mg PO DAILY #90 tabs 10/18/24 03/24/25 Rx albuterol sulfate 90 mcg/actuation See Rx Instructions .Route 02/25/25 03/24/25 Rx aerosol inhaler .COMPLEX #25.5 grams metoprolol succinate 50 mg 50 mg PO QAM #90 tabs 03/0303/24/25 Rx tablet,extended release 24 hr metformin 500 mg tablet 500 mg PO BIDWMEAL #180 tabs 04/09/25 Rx alprazolam 0.5 mg tablet 0.5 mg PO BID PRN anxiety #6 0 tabs 05/15/25 Rx Allergies Allergy/AdvReac Type Severity Reaction Status Date / Time diphenhydramine Allergy Unknown Itching Verified 06/08/25 11:59 Vital Signs Vital Signs - 24 hr 06/08/25 06:53 06/08/25 07:22 06/08/25 07:23 Temperature 98.4 F Pulse Rate 86 75 Respiratory Rate 22 H 20 Blood Pressure 187/84 H 150/66 H Pulse Oximetry 96 95 95 Oxygen Delivery Nasal Cannula Nasal Cannula Oxygen Flow Rate 3 3 06/08/25 09:18 06/08/25 10:22 06/08/25 11:00 Temperature Pulse Rate 61 69 68 Respiratory Rate 19 20 20 Blood Pressure 177/63 H 157/61 H 157/61 H Pulse Oximetry 100 100 100 Oxygen Delivery Oxygen Flow Rate 06/08/25 11:18 Temperature Pulse Rate 74 Respiratory Rate 20 Blood Pressure Pulse Oximetry 97 Oxygen Delivery Oxygen Flow Rate Exam Narrative: General: alert and comfortable Eyes: EOMI, PERRLA, no nystagmus ENNT External ears normal, Neck is supple, no masses, Respiratory systems: Clear to auscultation Cardiovascular S1, S2, normal rhythm, no murmur, rub, or gallop; no thrill or palpable murmurs on palpation. Gastrointestinal: soft, non-tender, and non-distended abdomen with no masses; BS present Skin: no rash, lesions, ulcerations, subcutaneous nodules or induration Musculoskeletal: left frontal bruise from fall Neurologic: Alert and oriented x3, non focal Mental Status Exam: normal affect Results Labs Labs: Short CBC 06/08/25 Range/Units 08:21 WBC 11.4 H (4.5-10.0) K/mm3 Hgb 11.0 L (12.0-15.0) g/dL Hct 35.4 L (37.0-47.0) % Plt Count 341 (150-375) k/mm3 BMP 06/08/25 08:21 Sodium 138 Potassium 4.3 Chloride 105 Carbon Dioxide 29 BUN 18 H Creatinine 0.64 L Glucose 140 H Calcium 9.2 Liver Function 06/08/25 Range/Units 08:21 Total Bilirubin 0.7 (0.2-1.3) mg/dL AST 47 H (14-36) U/L ALT 43 H (6-35) U/L Alkaline Phosphatase 171 H (38-126) U/L Albumin 4.0 (3.5-5.1) g/dL Assessment and Plan Assessment and plan (1) Dizziness: Code(s): R42 - Dizziness and giddiness Status: Acute Plan Vertigo ?BPPV r/o brain lesion and Stroke Ct head and cervical spine no acute changes MRI brain ordered PT/OT for vestibular therapy Neurology consulted DM2 on SSI with accucheks, adjust with clinical course HTN continue home meds COPD on chronic respiratory failure On 3 liters oxygen which is her baseline continue home bronchodilator DVT prophylaxis on Sq lovenox Full code SDM: [facility] Hospitalist MIPS Advance Care Plan I have confirmed that the patient's Advanced Care Plan is present, code status is documented, or surrogate decision maker is listed in patient medical record.: Yes Medication Reconciliation I have utilized all available resources to obtain, update and review the patients current medications (includes all prescriptions, OTC, herbals, cannabis, and nutritional supplements).: Yes
[2025-06-08] MEDS: MECLIZINE HCL 12.5 MG TABLET PO ×3 (12:22→20:41)
[2025-06-08] MEDS: ALPRAZolam (*CRX) 0.5 MG TABLET PO ×2 (13:37→18:27)
[2025-06-08] MEDS: IPRATROPIUM 0.5 MG/ALBUTEROL SULFATE 2.5 MG (BASE) AMPUL.NEB 3 ML INHALATION ×2 (15:15→20:13)
[2025-06-09] VITALS (18 sets, daily range): BP systolic 119–153; BP diastolic 51–63; PULSE 55–90; RESP 16–21; TEMP 36.2–37.3; O2SAT 94–100; BMI 30.1
[2025-06-09] MEDS: IPRATROPIUM 0.5 MG/ALBUTEROL SULFATE 2.5 MG (BASE) AMPUL.NEB 3 ML INHALATION ×4 (02:40→19:21)
[2025-06-09] MEDS: ACETAMINOPHEN 325 MG TABLET 650 MG PO ×3 (05:46→20:47)
[2025-06-09 05:53] LABS: Anion Gap 3 mmol/L (4-12); Blood Urea Nitrogen 13 mg/dL (7-17); Calcium 8.5 mg/dL (8.4-10.2); Carbon Dioxide 29 mmol/L (22-30); Chloride 102 mmol/L (98-107); Estimated CRCL calculation 50 ml/min; Estimated Glomerular Filt Rate > 60; Glucose 115 mg/dL (65-110); Potassium 4.0 mmol/L (3.4-5.0); Sodium 134 mmol/L (137-145)
[2025-06-09] MEDS: ALPRAZolam (*CRX) 0.5 MG TABLET PO ×2 (06:54→20:47)
[2025-06-09] MEDS: ENOXAPARIN 40 MG/0.4 ML SYRINGE SUB-Q (08:01)
[2025-06-09] MEDS: METOPROLOL SUCCINATE EXT REL 50 MG TABCR PO (08:01)
[2025-06-09] MEDS: MECLIZINE HCL 12.5 MG TABLET PO ×4 (08:01→20:47)
[2025-06-09] MEDS: OMEGA 3 POLYUNSAT FATTY ACIDS 1 GM CAP PO (08:01)
--- NOTE | 2025-06-09 11:05 | P.PNIM_ITS ---
Assessment and Plan Assessment and Plan (1) Dizziness: Code(s): R42 - Dizziness and giddiness Status: Acute Plan Vertigo Likely BPPV, worse with head movement Ct head and cervical spine no acute changes MRI brain no pathological changes PT/OT for vestibular therapy Neurology consulted DM2 on SSI with accucheks, adjust with clinical course HTN continue home meds COPD on chronic respiratory failure On 3 liters oxygen which is her baseline continue home bronchodilator DVT prophylaxis on Sq lovenox Full code SDM: Jesus Joseph Auster Subjective Date/time seen: 06/09/25 11:05 Interval history: Comfortable at bedside, still complained vertigo. MRI no acute changes Awaiting PT vestibular eval and therapy, neuro eval Review of Systems Review of Systems: All other systems were reviewed and negative except as noted in the HPI above Exam Narrative: General: alert and comfortable Eyes: EOMI, PERRLA, no nystagmus ENNT External ears normal, Neck is supple, no masses, Respiratory systems: Clear to auscultation Cardiovascular S1, S2, normal rhythm, no murmur, rub, or gallop; no thrill or palpable murmurs on palpation. Gastrointestinal: soft, non-tender, and non-distended abdomen with no masses; BS present Skin: no rash, lesions, ulcerations, subcutaneous nodules or induration Musculoskeletal: left frontal bruise from fall Neurologic: Alert and oriented x3, non focal Mental Status Exam: normal affect Objective Data Vital Signs Vital Signs: Vital Signs - 24 hr 06/08/25 11:18 06/08/25 14:00 06/08/25 15:04 Temperature 98.1 F Pulse Rate 74 74 82 Respiratory Rate 20 12 Blood Pressure 145/56 H Pulse Oximetry 97 100 98 Oxygen Delivery Nasal Cannula Oxygen Flow Rate 3 06/08/25 15:30 06/08/25 15:53 06/08/25 17:58 Temperature Pulse Rate 82 86 Respiratory Rate 20 20 Blood Pressure Pulse Oximetry 97 Oxygen Delivery Nasal Cannula Oxygen Flow Rate 3 06/08/25 20:00 06/08/25 20:00 06/08/25 20:16 Temperature Pulse Rate 60 Respiratory Rate Blood Pressure Pulse Oximetry 99 98 Oxygen Delivery Nasal Cannula Nasal Cannula Oxygen Flow Rate 3 3 06/08/25 20:17 06/08/25 20:22 06/08/25 22:00 Temperature 97.2 F L Pulse Rate 68 70 91 Respiratory Rate 18 18 16 Blood Pressure 123/53 L Pulse Oximetry 100 Oxygen Delivery Oxygen Flow Rate 06/08/25 23:40 06/09/25 00:00 06/09/25 02:40 Temperature Pulse Rate 75 67 89 Respiratory Rate 20 19 Blood Pressure Pulse Oximetry 94 Oxygen Delivery Autopap Oxygen Flow Rate 06/09/25 02:40 06/09/25 02:45 06/09/25 04:00 Temperature Pulse Rate 89 85 84 Respiratory Rate 19 19 Blood Pressure Pulse Oximetry 94 Oxygen Delivery Autopap Oxygen Flow Rate 06/09/25 06:00 06/09/25 07:47 06/09/25 07:53 Temperature 98.2 F Pulse Rate 89 77 Respiratory Rate 16 16 Blood Pressure 119/51 L 144/59 H Pulse Oximetry 98 100 98 Oxygen Delivery Nasal Cannula Oxygen Flow Rate 3 06/09/25 07:53 06/09/25 08:01 06/09/25 08:01 Temperature Pulse Rate 75 72 77 Respiratory Rate 18 18 Blood Pressure Pulse Oximetry Oxygen Delivery Oxygen Flow Rate 06/09/25 08:01 06/09/25 08:01 Temperature Pulse Rate 77 86 Respiratory Rate 18 Blood Pressure Pulse Oximetry 98 Oxygen Delivery Nasal Cannula Oxygen Flow Rate 3 Intake/Output Intake/Output: Intake & Output 06/06/25 06/07/25 06/08/25 06/09/25 23:59 23:59 23:59 23:59 Intake Total 720 300 Balance 720 300 Meds/Results Medications: Active Medications Generic Name Dose Route Start Last Admin Trade Name Freq PRN Reason Stop Dose Admin Acetaminophen 650 mg 06/08/25 10:30 06/09/25 05:46 Acetaminophen 325 Mg Tablet PO 650 mg Q4H PRN Administration Mild Pain (1-3) or Fever Albuterol 0 puff 06/08/25 12:35 Albuterol Sulfate (*Sp) Aerosol 1 Puff INHALATION Q4-6H PRN SOB/WHEEZING Albuterol/Ipratropium 3 ml 06/08/25 14:00 06/09/25 07:53 Ipratropium 0.5 Mg/Albuterol Sulfate 2.5 Mg (Base) Ampul.Neb 3 Ml INHALATION 3 ml Q6HRT GEE Administration Alprazolam 0.5 mg 06/08/25 12:33 06/09/25 06:54 Alprazolam (*Crx) 0.5 Mg Tablet PO 0.5 mg BID PRN Administration Anxiety Dextrose 12.5 gm 06/08/25 12:12 Dextrose 50% 25 Gm/50 Ml Syringe IV PUSH PRN PRN Hypoglycemia Protocol Enoxaparin Sodium 40 mg 06/09/25 09:00 06/09/25 08:01 Enoxaparin 40 Mg/0.4 Ml Syringe SUB-Q 40 mg DAILY GEE Administration Fish Oil 1 gm 06/09/25 09:00 06/09/25 08:01 [place] 3 Polyunsat Fatty Acids 1 Gm Cap PO 1 gm DAILY GEE Administration Glucagon 1 mg 06/08/25 12:12 Glucagon For Inj 1 Mg Vial IM PRN PRN Hypoglycemia Protocol Glucose 15 gm 06/08/25 12:12 Glucose Oral Gel 15 Gm Of Glucse In 37.5 Gm Tube PO PRN PRN Hypoglycemia Protocol Hydralazine HCl 10 mg 06/08/25 12:32 Hydralazine Hcl 20 Mg/Ml Vial IV PUSH Q8H PRN SYSTOLIC BP >150 Dextrose 1,000 mls @ 100 mls/hr 06/08/25 12:12 Dextrose 5% 1,000 Ml IVPB PRN PRN Hypoglycemia Protocol Insulin Aspart 4 - 8 units 06/08/25 17:00 06/09/25 08:07 Insulin Aspart (*Bkc) 100 Units/Ml SUB-Q Not Given TIDWM [facility] Protocol Insulin Aspart 2 - 4 units 06/08/25 21:00 06/08/25 21:00 Insulin Aspart (*Bkc) 100 Units/Ml SUB-Q Not Given HS [facility] Protocol Lisinopril 5 mg 06/08/25 12:40 06/09/25 08:01 Lisinopril 5 Mg Tablet PO 5 mg QAM GEE Administration Meclizine HCl 12.5 mg 06/08/25 13:00 06/09/25 08:01 Meclizine Hcl 12.5 Mg Tablet PO 12.5 mg QID GEE Administration Metoprolol Succinate 50 mg 06/09/25 09:00 06/09/25 08:01 Metoprolol Succinate Ext Rel 50 Mg Tabcr PO 50 mg QAM GEE Administration Ondansetron HCl 4 mg 06/08/25 10:30 06/08/25 11:45 Ondansetron Inj 4 Mg/2 Ml Vial IV PUSH 4 mg Q4H PRN Administration Nausea Radiology Results: ITS Impressions Cervical Spine CT 06/08/25 07:52 IMPRESSION: HEAD: 1. No acute intracranial findings. C-SPINE: 1. No acute fracture. Head CT 06/08/25 07:52 IMPRESSION: HEAD: 1. No acute intracranial findings. C-SPINE: 1. No acute fracture. Brain MRI 06/08/25 17:29 IMPRESSION: No etiology to explain the patient's symptoms. Labs Labs: Laboratory Results - last 24 hr 06/08/25 06/08/25 06/08/25 12:05 17:07 21:50 Sodium Potassium Chloride Carbon Dioxide Anion Gap BUN Creatinine Estim Creat Clear Calc Estimated GFR Glucose POC Capillary Glucose 107 H 120 H 97 Calcium 06/09/25 06/09/25 04:26 07:58 Sodium 134 L Potassium 4.0 Chloride 102 Carbon Dioxide 29 Anion Gap 3 L BUN 13 D Creatinine 0.68 L Estim Creat Clear Calc 50 Estimated GFR > 60 Glucose 115 H POC Capillary Glucose 112 H Calcium 8.5
[2025-06-09] MEDS: ONDANSETRON INJ 4 MG/2 ML VIAL IV PUSH (11:54)
--- NOTE | 2025-06-09 18:04 | WPDNEURCNPN ---
Assessment and Plan Assessment and plan (1) Benign paroxysmal vertigo: Code(s): H81.10 - Benign paroxysmal vertigo, unspecified ear Status: Acute (2) Essential (primary) hypertension: Code(s): I10 - Essential (primary) hypertension Status: Acute (3) History of cardiomyopathy: Code(s): Z86.79 - Personal history of other diseases of the circulatory system Status: Acute (4) Type II diabetes mellitus: Code(s): E11.9 - Type 2 diabetes mellitus without complications Status: Acute Plan Apart from the fact that she has multiple injuries due to the fall no other focal deficits were noted. MRI of the brain was performed yesterday which shows mild to moderate white matter changes. No acute infarction or changes were seen. No lesions are noted in the brainstem area. I reviewed the films and agree with the findings. Lab data show hemoglobin slightly low at 11.0. LDL was slightly high. Since he has white matter changes noted MRI scan of the brain even though they do not appear with the direct cause for her symptoms also order carotid Doppler study. She is on Antivert or meclizine 12.5 mg 4 times a day. She may require vestibular therapy. She denies any hearing loss or tinnitus. You may consider ENT consultation. Since the patient lives by herself pre precautions will be important for discharge. Consult date: 06/09/25 HPI: Mya Landry is a 80 year old female with complaints of dizziness and fall. She admits that she has had vertigo on and off in the past but it was never this severe or prolonged. She lives by herself. When she woke up in the morning when she sat on the edge of the bed she started to have vertigo and a despite her best attempts she fell to the floor. She has difficulty getting to her phone but after some time she was able to get courage to reach out for the phone and call her son who came and helped her. The patient still continues to be it symptomatic. I noted that a CT scan of brain and MRI of the brain were performed which did not show any significant abnormality. Patient's 2 sons. They are supportive. She also has history of diabetes mellitus and COPD. She has multiple bruises on her head due to the fall. At this time she denies any diplopia or difficulty speech or swallowing. No weakness in upper lower limbs. Review of Systems Review of Systems: All systems reviewed & are unremarkable except as noted in HPI and below [facility] Past Medical History Medical History (Updated 06/09/25 @ 18:09 by Shilo Gaspar MD) Benign paroxysmal vertigo Tobacco abuse Tinea pedis of left foot Subcutaneous mass Skin neoplasm Skin lesions Rectal bleeding Other fatigue Osteoporosis without current pathological fracture Localized swelling, mass or lump of neck Hypercalcemia Epidermal inclusion cyst Elevated blood-pressure reading, without diagnosis of hypertension Dietary counseling and surveillance (06/10/15) Current smoker Cramps of lower extremity Colon polyp Body mass index [BMI] 28.0-28.9, adult (09/26/18) Body mass index [BMI] 27.0-27.9, adult (06/06/17) RICHARD positive Uncontrolled hypertension History of cardiomyopathy Depression Diverticulitis Acute lower GI bleeding COPD (chronic obstructive pulmonary disease) Acute GI bleeding Pulmonary nodule Sepsis Transaminitis Community acquired pneumonia Kidney stones Multinodular goiter Seasonal allergies Chronic low back pain Chronic respiratory failure, unspecified whether with hypoxia or hypercapnia On home oxygen. Uses Trilogy unit at nighttime. Essential (primary) hypertension Nicotine dependence, other tobacco product, uncomplicated Surgical History Surgical History History of removal of pigmented skin lesion Nose skin cancer History of appendectomy History of colonoscopy with polypectomy History of hysterectomy for benign disease Status post excision of lipoma Right posterior neck. Family History Family History Father Malignant neoplasm of prostate Patient's father is Cerebrovascular accident Sibling Family history of malignant neoplasm of male breast Diabetes mellitus Family history of malignant neoplasm of breast in first degree relative Pulmonary disease Mother Diabetes mellitus Acute myocardial infarction Other Family history of cardiovascular disease Social History Social History Social History: . Lives in her own home in [place]. Former Long-time smoker, at least a 50 pack-year smoking history. No alcohol or illicit substance abuse. Surrogate decision maker: Jake (son) or Francia (daughter n law) Marianela. 2 sons Code status: Full code. Smoking packs per day: 0.5 Smoking cigarettes per day: 10.0 Years smoked: 58 Smoking pack-years: 29.00 Smoking status: Former smoker Second hand tobacco smoke exposure: No Additional smoking assessment comments: quit 2 years ago Alcohol intake: never Substance use: never Lack of Transportation: No Lack of Food: Never True Current Housing: I Have Housing Concerned About Future Housing: No Difficulty Paying Gas/Electric Bills: No Difficulty Paying for Meds: No Currently Unemployed: No Education: Grade School Difficulty w/ Childcare or Family Care: No Living arrangements: alone Occupation/Education: retired Gender identity (if verbalized by the patient): Female Sexual Orientation (if Verbalized by the Patient): Straight or Heterosexual Spiritual care concerns: No Agree to blood products: Yes Meds Home Medications and Allergies Home Medications ?Medication ?Instructions ?Recorded ?Confirmed ?Type aspirin 81 mg tablet,delayed 81 mg PO DAILY 06/05/19 06/08/25 History release cetirizine 5 mg-pseudoephedrine ER 1 tablet PO DAILY 06/05/19 06/08/25 History 120 mg tablet,extended release,12hr (Zyrtec-D) omega-3 fatty acids-fish oil 300 1 cap PO DAILY 05/22/22 06/08/25 History mg-1,000 mg capsule meclizine 25 mg tablet 25 mg PO PRN PRN dizziness #30 tabs 05/29/24 06/08/25 Rx Breztri Aerosphere 160 2 inh inhalation BID #10.7 grams 09/09/24 06/08/25 Rx mcg-9mcg-4.8mcg/actuation HFA aerosol inhaler ([id number]) amlodipine 5 mg tablet 5 mg PO DAILY #90 tabs 09/23/24 06/08/25 Rx atorvastatin 20 mg tablet (Lipitor) 20 mg PO DAILY #90 tabs 10/18/24 06/08/25 Rx albuterol sulfate 90 mcg/actuation See Rx Instructions .Route 02/25/25 06/08/25 Rx aerosol inhaler .COMPLEX #25.5 grams metoprolol succinate 50 mg 50 mg PO QAM #90 tabs 03/03/25 06/08/25 Rx tablet,extended release 24 hr metformin 500 mg tablet 500 mg PO BIDWMEAL #180 tabs 04/09/25 06/08/25 Rx alprazolam 0.5 mg tablet 0.5 mg PO BID PRN anxiety #60 tabs 05/15/25 06/08/25 Rx Allergies Allergy/AdvReac Type Severity Reaction Status Date / Time diphenhydramine Allergy Unknown Itching Verified 06/08/25 11:59 Vital Signs Vital Signs - 24 hr 06/08/25 20:00 06/08/25 20:00 06/08/25 20:16 Temperature Pulse Rate 60 Respiratory Rate Blood Pressure Pulse Oximetry 99 98 Oxygen Delivery Nasal Cannula Nasal Cannula Oxygen Flow Rate 3 3 06/08/25 20:17 06/08/25 20:22 06/08/25 22:00 Temperature 97.2 F L Pulse Rate 68 70 91 Respiratory Rate 18 18 16 Blood Pressure 123/53 L Pulse Oximetry 100 Oxygen Delivery Oxygen Flow Rate 06/08/25 23:40 06/09/25 00:00 06/09/25 02:40 Temperature Pulse Rate 75 67 89 Respiratory Rate 20 19 Blood Pressure Pulse Oximetry 94 Oxygen Delivery Autopap Oxygen Flow Rate 06/09/25 02:40 06/09/25 02:45 06/09/25 04:00 Temperature Pulse Rate 89 85 84 Respiratory Rate 19 19 Blood Pressure Pulse Oximetry 94 Oxygen Delivery Autopap Oxygen Flow Rate 06/09/25 06:00 06/09/25 07:47 06/09/25 07:53 Temperature 98.2 F Pulse Rate 89 77 Respiratory Rate 16 16 Blood Pressure 119/51 L 144/59 H Pulse Oximetry 98 100 98 Oxygen Delivery Nasal Cannula Oxygen Flow Rate 3 06/09/25 07:53 06/09/25 08:01 06/09/25 08:01 Temperature Pulse Rate 75 72 77 Respiratory Rate 18 18 Blood Pressure Pulse Oximetry Oxygen Delivery Oxygen Flow Rate 06/09/25 08:01 06/09/25 08:01 06/09/25 11:25 Temperature Pulse Rate 77 86 Respiratory Rate 18 Blood Pressure Pulse Oximetry 98 Oxygen Delivery Nasal Cannula Nasal Cannula Oxygen Flow Rate 3 3 06/09/25 12:00 06/09/25 13:26 06/09/25 13:34 Temperature Pulse Rate 61 58 L 55 L Respiratory Rate 18 18 Blood Pressure Pulse Oximetry Oxygen Delivery Oxygen Flow Rate 06/09/25 13:42 06/09/25 16:00 Temperature 97.1 F L Pulse Rate 57 L 56 L Respiratory Rate 16 Blood Pressure 134/51 L Pulse Oximetry 97 Oxygen Delivery Oxygen Flow Rate Exam Const: General: cooperative and comfortable HENMT: Mouth: Yes oropharynx normal Other: Significant bruising around her head and also eyes was noted. No active bleeding a lacerations were noted at this time. Eyes: Alignment and Position: alignment normal and position normal Pupils: Equal, round and reactive pupils present EOM: EOMs intact bilaterally Other: No nystagmus or intention tremors were seen. Neck: Neck: normal visual inspection and supple Resp: Effort & Inspection: normal respiratory effort Cardio: Heart sounds: S1 normal heart sound present and S2 normal heart sound present Skin: General skin exam: normal color Neuro: Cranial nerves: Yes CN's II-XII intact bilaterally, Yes facial symmetry and Yes Midline tongue present Cognition (Neuro): normal cognition Speech: normal speech Sensory Exam: normal sensation Coordination: [id number] test normal and Normal rapid alternating movements of the distal upper extremity present (Neuro) Extrem: General: normal to inspection Psych: Appearance: well kempt Mental Status: mental status grossly normal Speech and movement: Normal speech and movement present Affect: normal affect Thought process: Normal thought process present Thought content: Yes Normal thought content present Insight: Good insight present (Psych) Judgement: Good judgement present (Psych) Results Labs 06/08/25 08:21 06/09/25 04:26 Labs: BMP 06/09/25 04:26 Sodium 134 L Potassium 4.0 Chloride 102 Carbon Dioxide 29 BUN 13 D Creatinine 0.68 L Glucose 115 H Calcium 8.5
[2025-06-09 19:14] LABS: Hemoglobin A1C 6.2 % (<5.7)
[2025-06-10] VITALS (21 sets, daily range): BP systolic 126–152; BP diastolic 44–71; PULSE 61–87; RESP 15–23; TEMP 36.3–37.6; O2SAT 94–100
[2025-06-10] MEDS: IPRATROPIUM 0.5 MG/ALBUTEROL SULFATE 2.5 MG (BASE) AMPUL.NEB 3 ML INHALATION ×4 (01:14→20:00)
[2025-06-10] MEDS: ACETAMINOPHEN 325 MG TABLET 650 MG PO ×2 (06:20→16:49)
[2025-06-10] MEDS: METOPROLOL SUCCINATE EXT REL 50 MG TABCR PO (08:58)
[2025-06-10] MEDS: OMEGA 3 POLYUNSAT FATTY ACIDS 1 GM CAP PO (08:58)
[2025-06-10] MEDS: MECLIZINE HCL 12.5 MG TABLET PO ×4 (08:58→20:50)
[2025-06-10] MEDS: ENOXAPARIN 40 MG/0.4 ML SYRINGE SUB-Q (08:59)
[2025-06-10] MEDS: INSULIN ASPART (*BKC) 100 UNITS/ML SUB-Q ×2 (11:49→20:49)
--- NOTE | 2025-06-10 12:11 | P.PNIM_ITS ---
Assessment and Plan Assessment and Plan (1) Dizziness: Code(s): R42 - Dizziness and giddiness Status: Acute Plan Vertigo Likely BPPV, worse with head movement Ct head and cervical spine no acute changes MRI brain no pathological changes PT/OT for vestibular therapy Neurology consulted DM2 on SSI with accucheks, adjust with clinical course HTN continue home meds COPD on chronic respiratory failure On 3 liters oxygen which is her baseline continue home bronchodilator DVT prophylaxis on Sq lovenox Full code SDM: Jesus Joseph Auster Subjective Date/time seen: 06/10/25 12:11 Interval history: Patient still complains of nausea. Continue vestibular therapy Review of Systems Review of Systems: All other systems were reviewed and negative except as noted in the HPI above Exam Narrative: General: alert and comfortable Eyes: EOMI, PERRLA, no nystagmus ENNT External ears normal, Neck is supple, no masses, Respiratory systems: Clear to auscultation Cardiovascular S1, S2, normal rhythm, no murmur, rub, or gallop; no thrill or palpable murmurs on palpation. Gastrointestinal: soft, non-tender, and non-distended abdomen with no masses; BS present Skin: no rash, lesions, ulcerations, subcutaneous nodules or induration Musculoskeletal: left frontal bruise from fall Neurologic: Alert and oriented x3, non focal Mental Status Exam: normal affect Objective Data Vital Signs Vital Signs: Vital Signs - 24 hr 06/09/25 13:26 06/09/25 13:34 06/09/25 13:42 Temperature 97.1 F L Pulse Rate 58 L 55 L 57 L Respiratory Rate 18 18 16 Blood Pressure 134/51 L Pulse Oximetry 97 Oxygen Delivery Oxygen Flow Rate 06/09/25 16:00 06/09/25 19:22 06/09/25 19:25 Temperature Pulse Rate 56 L 67 90 Respiratory Rate 20 21 H Blood Pressure Pulse Oximetry 95 Oxygen Delivery Autopap Oxygen Flow Rate 06/09/25 19:30 06/09/25 19:53 06/09/25 20:00 Temperature 99.1 F Pulse Rate 67 66 Respiratory Rate 20 17 Blood Pressure 153/63 H Pulse Oximetry 95 98 Oxygen Delivery Nasal Cannula Oxygen Flow Rate 3 06/09/25 20:00 06/10/25 00:00 06/10/25 01:15 Temperature Pulse Rate 71 62 64 Respiratory Rate 15 Blood Pressure Pulse Oximetry Oxygen Delivery Autopap Oxygen Flow Rate 06/10/25 01:16 06/10/25 01:29 06/10/25 03:59 Temperature Pulse Rate 64 65 79 Respiratory Rate 15 16 15 Blood Pressure Pulse Oximetry Oxygen Delivery Autopap Oxygen Flow Rate 06/10/25 04:00 06/10/25 04:24 06/10/25 08:58 Temperature 99.7 F H Pulse Rate 76 87 74 Respiratory Rate 17 Blood Pressure 152/71 H Pulse Oximetry 94 Oxygen Delivery Oxygen Flow Rate 06/10/25 08:58 06/10/25 08:58 06/10/25 09:11 Temperature Pulse Rate 73 73 72 Respiratory Rate 16 Blood Pressure Pulse Oximetry 97 Oxygen Delivery Nasal Cannula Oxygen Flow Rate 3 06/10/25 09:16 Temperature Pulse Rate 73 Respiratory Rate 16 Blood Pressure Pulse Oximetry Oxygen Delivery Oxygen Flow Rate Intake/Output Intake/Output: Intake & Output 06/07/25 06/08/25 06/09/25 06/10/25 23:59 23:59 23:59 23:59 Intake Total 720 1570 580 Balance 720 1570 580 Meds/Results Medications: Active Medications Generic Name Dose Route Start Last Admin Trade Name Freq PRN Reason Stop Dose Admin Acetaminophen 650 mg 06/08/25 10:30 06/10/25 06:20 Acetaminophen 325 Mg Tablet PO 650 mg Q4H PRN Administration Mild Pain (1-3) or Fever Albuterol 0 puff 06/08/25 12:35 Albuterol Sulfate (*Sp) Aerosol 1 Puff INHALATION Q4-6H PRN SOB/WHEEZING Albuterol/Ipratropium 3 ml 06/08/25 14:00 06/10/25 09:05 Ipratropium 0.5 Mg/Albuterol Sulfate 2.5 Mg (Base) Ampul.Neb 3 Ml INHALATION 3 ml Q6HRT GEE Administration Alprazolam 0.5 mg 06/08/25 12:33 06/09/25 20:47 Alprazolam (*Crx) 0.5 Mg Tablet PO 0.5 mg BID PRN Administration Anxiety Dextrose 12.5 gm 06/08/25 12:12 Dextrose 50% 25 Gm/50 Ml Syringe IV PUSH PRN PRN Hypoglycemia Protocol Enoxaparin Sodium 40 mg 06/09/25 09:00 06/10/25 08:59 Enoxaparin 40 Mg/0.4 Ml Syringe SUB-Q 40 mg DAILY GEE Administration Fish Oil 1 gm 06/09/25 09:00 06/10/25 08:58 [place] 3 Polyunsat Fatty Acids 1 Gm Cap PO 1 gm DAILY GEE Administration Glucagon 1 mg 06/08/25 12:12 Glucagon For Inj 1 Mg Vial IM PRN PRN Hypoglycemia Protocol Glucose 15 gm 06/08/25 12:12 Glucose Oral Gel 15 Gm Of Glucse In 37.5 Gm Tube PO PRN PRN Hypoglycemia Protocol Hydralazine HCl 10 mg 06/08/25 12:32 Hydralazine Hcl 20 Mg/Ml Vial IV PUSH Q8H PRN SYSTOLIC BP >150 Dextrose 1,000 mls @ 100 mls/hr 06/08/25 12:12 Dextrose 5% 1,000 Ml IVPB PRN PRN Hypoglycemia Protocol Insulin Aspart 4 - 8 units 06/08/25 17:00 06/10/25 11:49 Insulin Aspart (*Bkc) 100 Units/Ml SUB-Q 4 units TIDWM GEE Administration Protocol Insulin Aspart 2 - 4 units 06/08/25 21:00 06/09/25 20:48 Insulin Aspart (*Bkc) 100 Units/Ml SUB-Q Not Given HS GEE Protocol Lisinopril 5 mg 06/08/25 12:40 06/10/25 08:58 Lisinopril 5 Mg Tablet PO 5 mg QAM GEE Administration Meclizine HCl 12.5 mg 06/08/25 13:00 06/10/25 12:00 Meclizine Hcl 12.5 Mg Tablet PO 12.5 mg QID GEE Administration Metoprolol Succinate 50 mg 06/09/25 09:00 06/10/25 08:58 Metoprolol Succinate Ext Rel 50 Mg Tabcr PO 50 mg QAM GEE Administration Ondansetron HCl 4 mg 06/08/25 10:30 06/09/25 11:54 Ondansetron Inj 4 Mg/2 Ml Vial IV PUSH 4 mg Q4H PRN Administration Nausea Radiology Results: ITS Impressions Cervical Spine CT 06/08/25 07:52 IMPRESSION: HEAD: 1. No acute intracranial findings. C-SPINE: 1. No acute fracture. Head CT 06/08/25 07:52 IMPRESSION: HEAD: 1. No acute intracranial findings. C-SPINE: 1. No acute fracture. Brain MRI 06/08/25 17:29 IMPRESSION: No etiology to explain the patient's symptoms. Carotid Doppler Study 06/10/25 08:50 IMPRESSION: 1. <50% stenosis from minimal plaque in the right internal carotid artery. 2. <50% stenosis from minimal plaque in the left internal carotid artery. Labs Labs: Laboratory Results - last 24 hr 06/09/25 06/09/25 06/09/25 08:20 17:39 19:51 POC Capillary Glucose 101 155 H Hemoglobin A1c 6.2 H 06/10/25 06/10/25 07:34 10:48 POC Capillary Glucose 117 H 205 H Hemoglobin A1c Hospitalist MIPS Advance Care Plan I have confirmed that the patient's Advanced Care Plan is present, code status is documented, or surrogate decision maker is listed in patient medical record.: Yes Medication Reconciliation I have utilized all available resources to obtain, update and review the patients current medications (includes all prescriptions, OTC, herbals, cannabis, and nutritional supplements).: Yes
--- NOTE | 2025-06-10 14:58 | PCPTNOTE ---
The patient treatment was not able to be completed at this time due to patient receiving breathing treatment. Will plan to continue treatment per plan of care.
[2025-06-10] MEDS: ALPRAZolam (*CRX) 0.5 MG TABLET PO (18:36)
[2025-06-11] VITALS (22 sets, daily range): BP systolic 119–146; BP diastolic 39–54; PULSE 61–87; RESP 16–22; TEMP 36.4–36.5; O2SAT 93–99
[2025-06-11] MEDS: IPRATROPIUM 0.5 MG/ALBUTEROL SULFATE 2.5 MG (BASE) AMPUL.NEB 3 ML INHALATION ×4 (02:39→20:15)
[2025-06-11] MEDS: MECLIZINE HCL 12.5 MG TABLET PO ×4 (08:20→20:42)
[2025-06-11] MEDS: OMEGA 3 POLYUNSAT FATTY ACIDS 1 GM CAP PO (08:20)
[2025-06-11] MEDS: METOPROLOL SUCCINATE EXT REL 50 MG TABCR PO (08:21)
[2025-06-11] MEDS: ALPRAZolam (*CRX) 0.5 MG TABLET PO ×2 (08:22→18:33)
[2025-06-11 10:50] LABS: Hematocrit 32.8 % (37.0-47.0); Hemoglobin 10.2 g/dL (12.0-15.0); Mean Corpuscular HGB Conc 31.1 g/dl (32-36); Mean Corpuscular Hemoglobin 30.7 pg (26-34); Mean Corpuscular Volume 98.8 fl (80-100); Platelet Count Result 248 k/mm3 (150-375); Red Blood Count 3.32 M/mm3 (4.2-5.4); White Blood Count 11.7 K/mm3 (4.5-10.0)
[2025-06-11 11:12] LABS: Alanine Aminotransferase 123 U/L (6-35); Albumin Level 3.4 g/dL (3.5-5.1); Alkaline Phosphatase 203 U/L (38-126); Anion Gap 3 mmol/L (4-12); Aspartate Amino Transferase 158 U/L (14-36); Bilirubin,Total 0.4 mg/dL (0.2-1.3); Blood Urea Nitrogen 18 mg/dL (7-17); Calcium 9.0 mg/dL (8.4-10.2); Carbon Dioxide 34 mmol/L (22-30); Chloride 101 mmol/L (98-107); Estimated CRCL calculation 47 ml/min; Estimated Glomerular Filt Rate > 60; Glucose 222 mg/dL (65-110); Potassium 4.1 mmol/L (3.4-5.0); Sodium 138 mmol/L (137-145); Total Protein 6.8 g/dL (6.3-8.2)
[2025-06-11] MEDS: INSULIN ASPART (*BKC) 100 UNITS/ML SUB-Q ×2 (12:22→20:42)
[2025-06-11] MEDS: ENOXAPARIN 40 MG/0.4 ML SYRINGE SUB-Q (12:22)
--- NOTE | 2025-06-11 14:55 | PM.IMPN2 ---
Assessment and Plan Assessment and Plan (1) Dizziness: Code(s): R42 - Dizziness and giddiness Status: Acute Plan Vertigo Likely BPPV, worse with head movement Ct head and cervical spine no acute changes MRI brain no pathological changes PT/OT for vestibular therapy Neurology consulted DM2 on SSI with accucheks, adjust with clinical course HTN continue home meds COPD on chronic respiratory failure On 3 liters oxygen which is her baseline continue home bronchodilator DVT prophylaxis on Sq lovenox Full code SDM: Jesus Joseph Auster Subjective Date/time seen: 06/11/25 14:55 Interval history: Patient reports she is feeling better but still experiencing vertigo. As per PT patient is improving. Review of Systems Review of Systems: All other systems were reviewed and negative except as noted in the HPI above Exam Narrative: General: alert and comfortable Eyes: EOMI, PERRLA, no nystagmus ENNT External ears normal, Neck is supple, no masses, Respiratory systems: Clear to auscultation Cardiovascular S1, S2, normal rhythm, no murmur, rub, or gallop; no thrill or palpable murmurs on palpation. Gastrointestinal: soft, non-tender, and non-distended abdomen with no masses; BS present Skin: no rash, lesions, ulcerations, subcutaneous nodules or induration Musculoskeletal: left frontal bruise from fall Neurologic: Alert and oriented x3, non focal Mental Status Exam: normal affect Objective Data Vital Signs Vital Signs: Vital Signs - 24 hr 06/10/25 16:00 06/10/25 19:39 06/10/25 20:00 Temperature 97.4 F L Pulse Rate 72 65 62 Respiratory Rate 16 Blood Pressure 126/44 L Pulse Oximetry 97 Oxygen Delivery Oxygen Flow Rate 06/10/25 20:01 06/10/25 20:02 06/10/25 20:02 Temperature Pulse Rate 61 61 Respiratory Rate 23 H 23 H Blood Pressure Pulse Oximetry 98 98 Oxygen Delivery Nasal Cannula Autopap Oxygen Flow Rate 3 06/10/25 20:08 06/10/25 20:42 06/10/25 23:49 Temperature Pulse Rate 62 64 Respiratory Rate 23 H 23 H 19 Blood Pressure Pulse Oximetry 98 Oxygen Delivery Autopap Autopap Oxygen Flow Rate 06/11/25 00:00 06/11/25 02:39 06/11/25 02:39 Temperature Pulse Rate 64 79 79 Respiratory Rate 20 20 Blood Pressure Pulse Oximetry 93 Oxygen Delivery Autopap Oxygen Flow Rate 06/11/25 02:44 06/11/25 04:00 06/11/25 04:33 Temperature 97.7 F Pulse Rate 70 70 71 Respiratory Rate 22 H 16 Blood Pressure 146/54 H Pulse Oximetry 93 Oxygen Delivery Oxygen Flow Rate 06/11/25 08:00 06/11/25 08:00 06/11/25 08:21 Temperature Pulse Rate 87 76 87 Respiratory Rate 16 Blood Pressure Pulse Oximetry 93 Oxygen Delivery Nasal Cannula Oxygen Flow Rate 3 06/11/25 08:40 06/11/25 08:40 06/11/25 08:50 Temperature Pulse Rate 85 85 86 Respiratory Rate 18 18 18 Blood Pressure Pulse Oximetry 96 Oxygen Delivery Nasal Cannula Oxygen Flow Rate 3 06/11/25 12:00 06/11/25 13:34 06/11/25 13:34 Temperature Pulse Rate 69 81 81 Respiratory Rate 20 20 Blood Pressure Pulse Oximetry 97 Oxygen Delivery Nasal Cannula Oxygen Flow Rate 3 06/11/25 13:45 06/11/25 13:50 Temperature Pulse Rate 81 85 Respiratory Rate 22 H 20 Blood Pressure Pulse Oximetry 97 Oxygen Delivery Autopap Oxygen Flow Rate Intake/Output Intake/Output: Intake & Output 06/08/25 06/09/25 06/10/25 06/11/25 23:59 23:59 23:59 23:59 Intake Total 720 1570 1540 750 Balance 720 1570 1540 750 Meds/Results Medications: Active Medications Generic Name Dose Route Start Last Admin Trade Name Freq PRN Reason Stop Dose Admin Acetaminophen 650 mg 06/08/25 10:30 06/10/25 16:49 Acetaminophen 325 Mg Tablet PO 650 mg Q4H PRN Administration Mild Pain (1-3) or Fever Albuterol 0 puff 06/08/25 12:35 Albuterol Sulfate (*Sp) Aerosol 1 Puff INHALATION Q4-6H PRN SOB/WHEEZING Albuterol/Ipratropium 3 ml 06/08/25 14:00 06/11/25 13:34 Ipratropium 0.5 Mg/Albuterol Sulfate 2.5 Mg (Base) Ampul.Neb 3 Ml INHALATION 3 ml Q6HRT GEE Administration Alprazolam 0.5 mg 06/08/25 12:33 06/11/25 08:22 Alprazolam (*Crx) 0.5 Mg Tablet PO 0.5 mg BID PRN Administration Anxiety Dextrose 12.5 gm 06/08/25 12:12 Dextrose 50% 25 Gm/50 Ml Syringe IV PUSH PRN PRN Hypoglycemia Protocol Enoxaparin Sodium 40 mg 06/09/25 09:00 06/11/25 12:22 Enoxaparin 40 Mg/0.4 Ml Syringe SUB-Q 40 mg DAILY GEE Administration Fish Oil 1 gm 06/09/25 09:00 06/11/25 08:20 [place] 3 Polyunsat Fatty Acids 1 Gm Cap PO 1 gm DAILY GEE Administration Glucagon 1 mg 06/08/25 12:12 Glucagon For Inj 1 Mg Vial IM PRN PRN Hypoglycemia Protocol Glucose 15 gm 06/08/25 12:12 Glucose Oral Gel 15 Gm Of Glucse In 37.5 Gm Tube PO PRN PRN Hypoglycemia Protocol Hydralazine HCl 10 mg 06/08/25 12:32 Hydralazine Hcl 20 Mg/Ml Vial IV PUSH Q8H PRN SYSTOLIC BP >150 Dextrose 1,000 mls @ 100 mls/hr 06/08/25 12:12 Dextrose 5% 1,000 Ml IVPB PRN PRN Hypoglycemia Protocol Insulin Aspart 4 - 8 units 06/08/25 17:00 06/11/25 12:22 Insulin Aspart (*Bkc) 100 Units/Ml SUB-Q 4 units TIDWM GEE Administration Protocol Insulin Aspart 2 - 4 units 06/08/25 21:00 06/10/25 20:49 Insulin Aspart (*Bkc) 100 Units/Ml SUB-Q 2 units HS GEE Administration Protocol Lisinopril 5 mg 06/08/25 12:40 06/11/25 08:20 Lisinopril 5 Mg Tablet PO 5 mg QAM GEE Administration Meclizine HCl 12.5 mg 06/08/25 13:00 06/11/25 12:22 Meclizine Hcl 12.5 Mg Tablet PO 12.5 mg QID GEE Administration Metoprolol Succinate 50 mg 06/09/25 09:00 06/11/25 08:21 Metoprolol Succinate Ext Rel 50 Mg Tabcr PO 50 mg QAM GEE Administration Ondansetron HCl 4 mg 06/08/25 10:30 06/09/25 11:54 Ondansetron Inj 4 Mg/2 Ml Vial IV PUSH 4 mg Q4H PRN Administration Nausea Radiology Results: ITS Impressions Cervical Spine CT 06/08/25 07:52 IMPRESSION: HEAD: 1. No acute intracranial findings. C-SPINE: 1. No acute fracture. Head CT 06/08/25 07:52 IMPRESSION: HEAD: 1. No acute intracranial findings. C-SPINE: 1. No acute fracture. Brain MRI 06/08/25 17:29 IMPRESSION: No etiology to explain the patient's symptoms. Carotid Doppler Study 06/10/25 08:50 IMPRESSION: 1. <50% stenosis from minimal plaque in the right internal carotid artery. 2. <50% stenosis from minimal plaque in the left internal carotid artery. Labs Labs: Laboratory Results - last 24 hr 06/10/25 06/10/25 06/11/25 16:26 19:36 07:36 WBC RBC Hgb Hct MCV MCH MCHC RDW Plt Count MPV Sodium Potassium Chloride Carbon Dioxide Anion Gap BUN Creatinine Estim Creat Clear Calc Estimated GFR Glucose POC Capillary Glucose 134 H 243 H 149 H Calcium Total Bilirubin AST ALT Alkaline Phosphatase Total Protein Albumin 06/11/25 06/11/25 10:46 11:32 WBC 11.7 H RBC 3.32 L Hgb 10.2 L Hct 32.8 L MCV 98.8 MCH 30.7 MCHC 31.1 L RDW 14.2 Plt Count 248 MPV 10.1 Sodium 138 Potassium 4.1 Chloride 101 Carbon Dioxide 34 H Anion Gap 3 L BUN 18 H Creatinine 0.74 Estim Creat Clear Calc 47 Estimated GFR > 60 Glucose 222 H POC Capillary Glucose 248 H Calcium 9.0 Total Bilirubin 0.4 AST 158 H ALT 123 H Alkaline Phosphatase 203 H Total Protein 6.8 Albumin 3.4 L Hospitalist MIPS Advance Care Plan I have confirmed that the patient's Advanced Care Plan is present, code status is documented, or surrogate decision maker is listed in patient medical record.: Yes Medication Reconciliation I have utilized all available resources to obtain, update and review the patients current medications (includes all prescriptions, OTC, herbals, cannabis, and nutritional supplements).: Yes
[2025-06-11] MEDS: ACETAMINOPHEN 325 MG TABLET 650 MG PO (18:33)
[2025-06-12] VITALS (21 sets, daily range): BP systolic 112–156; BP diastolic 50–63; PULSE 58–91; RESP 18–22; TEMP 36.4–37.2; O2SAT 97–100
[2025-06-12] MEDS: IPRATROPIUM 0.5 MG/ALBUTEROL SULFATE 2.5 MG (BASE) AMPUL.NEB 3 ML INHALATION ×4 (01:15→19:56)
[2025-06-12 05:46] LABS: Platelet Count Result 235 k/mm3 (150-375)
[2025-06-12] MEDS: MECLIZINE HCL 12.5 MG TABLET PO ×4 (08:31→20:21)
[2025-06-12] MEDS: ENOXAPARIN 40 MG/0.4 ML SYRINGE SUB-Q (08:32)
[2025-06-12] MEDS: OMEGA 3 POLYUNSAT FATTY ACIDS 1 GM CAP PO (08:32)
[2025-06-12] MEDS: METOPROLOL SUCCINATE EXT REL 50 MG TABCR PO (08:32)
[2025-06-12] MEDS: ALPRAZolam (*CRX) 0.5 MG TABLET PO ×2 (08:43→20:21)
[2025-06-12 08:54] LABS: Hematocrit 32.9 % (37.0-47.0); Hemoglobin 10.0 g/dL (12.0-15.0); Mean Corpuscular HGB Conc 30.4 g/dl (32-36); Mean Corpuscular Hemoglobin 30.7 pg (26-34); Mean Corpuscular Volume 100.9 fl (80-100); Red Blood Count 3.26 M/mm3 (4.2-5.4); White Blood Count 9.4 K/mm3 (4.5-10.0)
[2025-06-12 09:07] LABS: Alanine Aminotransferase 131 U/L (6-35); Albumin Level 3.4 g/dL (3.5-5.1); Alkaline Phosphatase 211 U/L (38-126); Anion Gap 2 mmol/L (4-12); Aspartate Amino Transferase 159 U/L (14-36); Bilirubin,Total 0.6 mg/dL (0.2-1.3); Blood Urea Nitrogen 19 mg/dL (7-17); Calcium 9.0 mg/dL (8.4-10.2); Carbon Dioxide 33 mmol/L (22-30); Chloride 102 mmol/L (98-107); Estimated CRCL calculation 58 ml/min; Estimated Glomerular Filt Rate > 60; Glucose 121 mg/dL (65-110); Potassium 4.2 mmol/L (3.4-5.0); Sodium 137 mmol/L (137-145); Total Protein 6.7 g/dL (6.3-8.2)
--- NOTE | 2025-06-12 13:47 | P.PNIM_ITS ---
Assessment and Plan Assessment and Plan (1) Dizziness: Code(s): R42 - Dizziness and giddiness Status: Acute Plan Vertigo Likely BPPV, worse with head movement Ct head and cervical spine no acute changes MRI brain no pathological changes PT/OT for vestibular therapy Neurology consulted DM2 on SSI with accucheks, adjust with clinical course HTN continue home meds COPD on chronic respiratory failure On 3 liters oxygen which is her baseline continue home bronchodilator DVT prophylaxis on Sq lovenox Full code SDM: Jesus Bean Subjective Date/time seen: 06/12/25 13:47 Interval history: HPI: Mya Landry is a 80 year old female with complaints of dizziness and fall. She admits that she has had vertigo on and off in the past but it was never this severe or prolonged. She lives by herself. When she woke up in the morning when she sat on the edge of the bed she started to have vertigo and a despite her best attempts she fell to the floor. She has difficulty getting to her phone but after some time she was able to get courage to reach out for the phone and call her son who came and helped her. The patient still continues to be it symptomatic. I noted that a CT scan of brain and MRI of the brain were performed which did not show any significant abnormality. Patient's 2 sons. They are supportive. She also has history of diabetes mellitus and COPD. She has multiple bruises on her head due to the fall. At this time she denies any diplopia or difficulty speech or swallowing. No weakness in upper lower limbs. 06/12: Patient is getting better with the physical therapy but still feels nauseous. is helping with settings in [employer].Patient requested her family member to bring the machine Review of Systems Review of Systems: All other systems were reviewed and negative except as noted in the HPI above Exam Narrative: General: alert and comfortable Eyes: EOMI, PERRLA, no nystagmus ENNT External ears normal, Neck is supple, no masses, Respiratory systems: Clear to auscultation Cardiovascular S1, S2, normal rhythm, no murmur, rub, or gallop; no thrill or palpable murmurs on palpation. Gastrointestinal: soft, non-tender, and non-distended abdomen with no masses; BS present Skin: no rash, lesions, ulcerations, subcutaneous nodules or induration Musculoskeletal: left frontal bruise from fall Neurologic: Alert and oriented x3, non focal Mental Status Exam: normal affect Objective Data Vital Signs Vital Signs: Vital Signs - 24 hr 06/11/25 13:50 06/11/25 14:00 06/11/25 16:00 Temperature 97.5 F L Pulse Rate 85 84 73 Respiratory Rate 20 20 Blood Pressure 130/39 L Pulse Oximetry 97 Oxygen Delivery Oxygen Flow Rate 06/11/25 20:00 06/11/25 20:16 06/11/25 20:17 Temperature Pulse Rate 75 77 Respiratory Rate 18 Blood Pressure Pulse Oximetry 98 Oxygen Delivery Nasal Cannula Oxygen Flow Rate 3 06/11/25 20:23 06/11/25 20:30 06/11/25 21:56 Temperature 97.6 F Pulse Rate 79 68 Respiratory Rate 18 20 Blood Pressure 119/54 L Pulse Oximetry 99 99 Oxygen Delivery Nasal Cannula Oxygen Flow Rate 3 06/11/25 22:25 06/12/25 00:00 06/12/25 01:16 Temperature Pulse Rate 61 61 62 Respiratory Rate 20 22 H Blood Pressure Pulse Oximetry 99 Oxygen Delivery Autopap Oxygen Flow Rate 06/12/25 01:19 06/12/25 01:23 06/12/25 04:00 Temperature Pulse Rate 62 58 L 63 Respiratory Rate 22 H 22 H Blood Pressure Pulse Oximetry 97 Oxygen Delivery Autopap Oxygen Flow Rate 06/12/25 05:26 06/12/25 08:00 06/12/25 08:00 Temperature 97.9 F Pulse Rate 69 80 Respiratory Rate 20 Blood Pressure 156/60 H Pulse Oximetry 97 99 Oxygen Delivery Nasal Cannula Oxygen Flow Rate 3 06/12/25 08:32 06/12/25 08:45 06/12/25 08:49 Temperature Pulse Rate 91 85 Respiratory Rate 19 Blood Pressure Pulse Oximetry 99 Oxygen Delivery Nasal Cannula Oxygen Flow Rate 3 06/12/25 08:50 06/12/25 13:21 06/12/25 13:28 Temperature Pulse Rate 83 89 87 Respiratory Rate 19 20 19 Blood Pressure Pulse Oximetry Oxygen Delivery Oxygen Flow Rate Intake/Output Intake/Output: Intake & Output 06/09/25 06/10/25 06/11/25 06/12/25 23:59 23:59 23:59 23:59 Intake Total 1570 1540 990 630 Balance 1570 1540 990 630 Meds/Results Medications: Active Medications Generic Name Dose Route Start Last Admin Trade Name Freq PRN Reason Stop Dose Admin Acetaminophen 650 mg 06/08/25 10:30 06/11/25 18:33 Acetaminophen 325 Mg Tablet PO 650 mg Q4H PRN Administration Mild Pain (1-3) or Fever Albuterol 0 puff 06/08/25 12:35 Albuterol Sulfate (*Sp) Aerosol 1 Puff INHALATION Q4-6H PRN SOB/WHEEZING Albuterol/Ipratropium 3 ml 06/08/25 14:00 06/12/25 13:20 Ipratropium 0.5 Mg/Albuterol Sulfate 2.5 Mg (Base) Ampul.Neb 3 Ml INHALATION 3 ml Q6HRT GEE Administration Alprazolam 0.5 mg 06/08/25 12:33 06/12/25 08:43 Alprazolam (*Crx) 0.5 Mg Tablet PO 0.5 mg BID PRN Administration Anxiety Dextrose 12.5 gm 06/08/25 12:12 Dextrose 50% 25 Gm/50 Ml Syringe IV PUSH PRN PRN Hypoglycemia Protocol Enoxaparin Sodium 40 mg 06/09/25 09:00 06/12/25 08:32 Enoxaparin 40 Mg/0.4 Ml Syringe SUB-Q 40 mg DAILY GEE Administration Fish Oil 1 gm 06/09/25 09:00 06/12/25 08:32 [place] 3 Polyunsat Fatty Acids 1 Gm Cap PO 1 gm DAILY GEE Administration Glucagon 1 mg 06/08/25 12:12 Glucagon For Inj 1 Mg Vial IM PRN PRN Hypoglycemia Protocol Glucose 15 gm 06/08/25 12:12 Glucose Oral Gel 15 Gm Of Glucse In 37.5 Gm Tube PO PRN PRN Hypoglycemia Protocol Hydralazine HCl 10 mg 06/08/25 12:32 Hydralazine Hcl 20 Mg/Ml Vial IV PUSH Q8H PRN SYSTOLIC BP >150 Dextrose 1,000 mls @ 100 mls/hr 06/08/25 12:12 Dextrose 5% 1,000 Ml IVPB PRN PRN Hypoglycemia Protocol Insulin Aspart 4 - 8 units 06/08/25 17:00 06/12/25 12:00 Insulin Aspart (*Bkc) 100 Units/Ml SUB-Q Not Given TIDWM GEE Protocol Insulin Aspart 2 - 4 units 06/08/25 21:00 06/11/25 20:42 Insulin Aspart (*Bkc) 100 Units/Ml SUB-Q 2 units HS GEE Administration Protocol Lisinopril 5 mg 06/08/25 12:40 06/12/25 08:31 Lisinopril 5 Mg Tablet PO 5 mg QAM GEE Administration Meclizine HCl 12.5 mg 06/08/25 13:00 06/12/25 13:35 Meclizine Hcl 12.5 Mg Tablet PO 12.5 mg QID GEE Administration Metoprolol Succinate 50 mg 06/09/25 09:00 06/12/25 08:32 Metoprolol Succinate Ext Rel 50 Mg Tabcr PO 50 mg QAM GEE Administration Ondansetron HCl 4 mg 06/08/25 10:30 06/09/25 11:54 Ondansetron Inj 4 Mg/2 Ml Vial IV PUSH 4 mg Q4H PRN Administration Nausea Radiology Results: ITS Impressions Cervical Spine CT 06/08/25 07:52 IMPRESSION: HEAD: 1. No acute intracranial findings. C-SPINE: 1. No acute fracture. Head CT 06/08/25 07:52 IMPRESSION: HEAD: 1. No acute intracranial findings. C-SPINE: 1. No acute fracture. Brain MRI 06/08/25 17:29 IMPRESSION: No etiology to explain the patient's symptoms. Carotid Doppler Study 06/10/25 08:50 IMPRESSION: 1. <50% stenosis from minimal plaque in the right internal carotid artery. 2. <50% stenosis from minimal plaque in the left internal carotid artery. Labs Labs: Laboratory Results - last 24 hr 06/11/25 06/11/25 06/12/25 16:42 20:39 04:45 WBC RBC Hgb Hct MCV MCH MCHC RDW Plt Count MPV Sodium 137 Potassium 4.2 Chloride 102 Carbon Dioxide 33 H Anion Gap 2 L BUN 19 H Creatinine 0.58 L Estim Creat Clear Calc 58 Estimated GFR > 60 Glucose 121 H POC Capillary Glucose 134 H 220 H Calcium 9.0 Total Bilirubin 0.6 AST 159 H ALT 131 H Alkaline Phosphatase 211 H Total Protein 6.7 Albumin 3.4 L 06/12/25 06/12/25 04:55 07:39 WBC 9.4 RBC 3.26 L Hgb 10.0 L Hct 32.9 L MCV 100.9 H MCH 30.7 MCHC 30.4 L RDW 14.2 Plt Count 235 MPV 10.8 H Sodium Potassium Chloride Carbon Dioxide Anion Gap BUN Creatinine Estim Creat Clear Calc Estimated GFR Glucose POC Capillary Glucose 154 H Calcium Total Bilirubin AST ALT Alkaline Phosphatase Total Protein Albumin Hospitalist MIPS Advance Care Plan I have confirmed that the patient's Advanced Care Plan is present, code status is documented, or surrogate decision maker is listed in patient medical record.: Yes Medication Reconciliation I have utilized all available resources to obtain, update and review the patients current medications (includes all prescriptions, OTC, herbals, cannabis, and nutritional supplements).: Yes
[2025-06-12 14:27] LABS: Alveolar/Arterial O2 Gradient 116.6 mmHg; Fractional Inspired Oxygen 32 %; HCO3 ABG 29.8 mEq/l (22.0-26.0); Oxygen Content ABG 14.8 %vol (16.0-22.0); Oxygen Saturation ABG 91.8 % (95.0-100.0); PCO2 ABG 44.3 mmHg (35.0-45.0); PO2 ABG 59.7 mmHg (80.0-100.0); PO2 FiO2 Ratio Arterial Blood 1.87 %
[2025-06-12 14:29] LABS: Modified Allen's Test Pass; Site Drawn LEFT RADIAL
[2025-06-12 14:30] LABS: Liters per Minute 3.0 LPM
[2025-06-12] MEDS: ACETAMINOPHEN 325 MG TABLET 650 MG PO (17:23)
[2025-06-12] MEDS: INSULIN ASPART (*BKC) 100 UNITS/ML SUB-Q (17:24)
[2025-06-13] VITALS (19 sets, daily range): BP systolic 122–145; BP diastolic 53–64; PULSE 61–83; RESP 18–24; TEMP 36.4–37.1; O2SAT 97–99
[2025-06-13] MEDS: IPRATROPIUM 0.5 MG/ALBUTEROL SULFATE 2.5 MG (BASE) AMPUL.NEB 3 ML INHALATION ×4 (02:26→19:47)
[2025-06-13 05:42] LABS: Hematocrit 32.3 % (37.0-47.0); Hemoglobin 9.9 g/dL (12.0-15.0); Mean Corpuscular HGB Conc 30.7 g/dl (32-36); Mean Corpuscular Hemoglobin 30.9 pg (26-34); Mean Corpuscular Volume 100.9 fl (80-100); Platelet Count Result 199 k/mm3 (150-375); Red Blood Count 3.20 M/mm3 (4.2-5.4); White Blood Count 8.9 K/mm3 (4.5-10.0)
[2025-06-13 06:10] LABS: Alanine Aminotransferase 119 U/L (6-35); Albumin Level 3.2 g/dL (3.5-5.1); Alkaline Phosphatase 216 U/L (38-126); Anion Gap 3 mmol/L (4-12); Aspartate Amino Transferase 98 U/L (14-36); Bilirubin,Total 0.8 mg/dL (0.2-1.3); Blood Urea Nitrogen 15 mg/dL (7-17); Calcium 9.0 mg/dL (8.4-10.2); Carbon Dioxide 32 mmol/L (22-30); Chloride 102 mmol/L (98-107); Estimated CRCL calculation 65 ml/min; Estimated Glomerular Filt Rate > 60; Glucose 133 mg/dL (65-110); Potassium 4.5 mmol/L (3.4-5.0); Sodium 137 mmol/L (137-145); Total Protein 6.0 g/dL (6.3-8.2)
--- NOTE | 2025-06-13 07:26 | P.PNIM_ITS ---
Assessment and Plan Assessment and Plan (1) Dizziness: Code(s): R42 - Dizziness and giddiness Status: Acute Plan Vertigo Likely BPPV, worse with head movement Ct head and cervical spine no acute changes MRI brain no pathological changes PT/OT for vestibular therapy Neurology consulted DM2 on SSI with accucheks, adjust with clinical course HTN continue home meds COPD on chronic respiratory failure On 3 liters oxygen which is her baseline continue home bronchodilator DVT prophylaxis on Sq lovenox Full code SDM: Jesus Bean Subjective Date/time seen: 06/13/25 07:26 Interval history: HPI: Mya Landry is a 80 year old female with complaints of dizziness and fall. She admits that she has had vertigo on and off in the past but it was never this severe or prolonged. She lives by herself. When she woke up in the morning when she sat on the edge of the bed she started to have vertigo and a despite her best attempts she fell to the floor. She has difficulty getting to her phone but after some time she was able to get courage to reach out for the phone and call her son who came and helped her. The patient still continues to be it symptomatic. I noted that a CT scan of brain and MRI of the brain were performed which did not show any significant abnormality. Patient's 2 sons. They are supportive. She also has history of diabetes mellitus and COPD. She has multiple bruises on her head due to the fall. At this time she denies any diplopia or difficulty speech or swallowing. No weakness in upper lower limbs. 06/12: Patient is getting better with the physical therapy but still feels nauseous. is helping with settings in Trilogy machine.Patient requested her family member to bring the machine. 06/13:Today is the first day reports she feeling better. Will continue physical therapy. Patient head CT, brain MRI, carotid Doppler negative for any abnormal findings. Review of Systems Review of Systems: All other systems were reviewed and negative except as noted in the HPI above Exam Narrative: General: alert and comfortable Eyes: EOMI, PERRLA, no nystagmus ENNT External ears normal, Neck is supple, no masses, Respiratory systems: Clear to auscultation Cardiovascular S1, S2, normal rhythm, no murmur, rub, or gallop; no thrill or palpable murmurs on palpation. Gastrointestinal: soft, non-tender, and non-distended abdomen with no masses; BS present Skin: no rash, lesions, ulcerations, subcutaneous nodules or induration Musculoskeletal: left frontal bruise from fall Neurologic: Alert and oriented x3, non focal Mental Status Exam: normal affect Objective Data Vital Signs Vital Signs: Vital Signs - 24 hr 06/12/25 08:00 06/12/25 08:00 06/12/25 08:32 Temperature Pulse Rate 80 91 Respiratory Rate Blood Pressure Pulse Oximetry 99 Oxygen Delivery Nasal Cannula Oxygen Flow Rate 3 06/12/25 08:45 06/12/25 08:49 06/12/25 08:50 Temperature Pulse Rate 85 83 Respiratory Rate 19 19 Blood Pressure Pulse Oximetry 99 Oxygen Delivery Nasal Cannula Oxygen Flow Rate 3 06/12/25 12:00 06/12/25 13:21 06/12/25 13:28 Temperature Pulse Rate 80 89 87 Respiratory Rate 20 19 Blood Pressure Pulse Oximetry Oxygen Delivery Oxygen Flow Rate 06/12/25 14:00 06/12/25 16:00 06/12/25 19:57 Temperature 98.9 F Pulse Rate 87 85 66 Respiratory Rate 18 20 Blood Pressure 150/63 H Pulse Oximetry 98 Oxygen Delivery Oxygen Flow Rate 06/12/25 19:59 06/12/25 19:59 06/12/25 20:00 Temperature Pulse Rate 66 66 Respiratory Rate Blood Pressure Pulse Oximetry 99 99 Oxygen Delivery Nasal Cannula CPAP Oxygen Flow Rate 3 06/12/25 20:03 06/12/25 20:55 06/13/25 00:00 Temperature 97.5 F L Pulse Rate 69 63 61 Respiratory Rate 20 20 Blood Pressure 112/50 L Pulse Oximetry 100 Oxygen Delivery Oxygen Flow Rate 06/13/25 02:14 06/13/25 02:26 06/13/25 02:35 Temperature Pulse Rate 64 64 66 Respiratory Rate 19 19 20 Blood Pressure Pulse Oximetry 99 Oxygen Delivery CPAP Oxygen Flow Rate 06/13/25 04:00 06/13/25 04:57 Temperature 97.6 F Pulse Rate 62 65 Respiratory Rate 20 Blood Pressure 145/64 H Pulse Oximetry 99 Oxygen Delivery Oxygen Flow Rate Intake/Output Intake/Output: Intake & Output 06/10/25 06/11/25 06/12/25 06/13/25 23:59 23:59 23:59 23:59 Intake Total 7145 965 7572 250 Balance 5122 664 5293 250 Meds/Results Medications: Active Medications Generic Name Dose Route Start Last Admin Trade Name Freq PRN Reason Stop Dose Admin Acetaminophen 650 mg 06/08/25 10:30 06/12/25 17:23 Acetaminophen 325 Mg Tablet PO 650 mg Q4H PRN Administration Mild Pain (1-3) or Fever Albuterol 0 puff 06/08/25 12:35 Albuterol Sulfate (*Sp) Aerosol 1 Puff INHALATION Q4-6H PRN SOB/WHEEZING Albuterol/Ipratropium 3 ml 06/08/25 14:00 06/13/25 02:26 Ipratropium 0.5 Mg/Albuterol Sulfate 2.5 Mg (Base) Ampul.Neb 3 Ml INHALATION 3 ml Q6HRT GEE Administration Alprazolam 0.5 mg 06/08/25 12:33 06/12/25 20:21 Alprazolam (*Crx) 0.5 Mg Tablet PO 0.5 mg BID PRN Administration Anxiety Dextrose 12.5 gm 06/08/25 12:12 Dextrose 50% 25 Gm/50 Ml Syringe IV PUSH PRN PRN Hypoglycemia Protocol Enoxaparin Sodium 40 mg 06/09/25 09:00 06/12/25 08:32 Enoxaparin 40 Mg/0.4 Ml Syringe SUB-Q 40 mg DAILY GEE Administration Fish Oil 1 gm 06/09/25 09:00 06/12/25 08:32 [place] 3 Polyunsat Fatty Acids 1 Gm Cap PO 1 gm DAILY GEE Administration Glucagon 1 mg 06/08/25 12:12 Glucagon For Inj 1 Mg Vial IM PRN PRN Hypoglycemia Protocol Glucose 15 gm 06/08/25 12:12 Glucose Oral Gel 15 Gm Of Glucse In 37.5 Gm Tube PO PRN PRN Hypoglycemia Protocol Hydralazine HCl 10 mg 06/08/25 12:32 Hydralazine Hcl 20 Mg/Ml Vial IV PUSH Q8H PRN SYSTOLIC BP >150 Dextrose 1,000 mls @ 100 mls/hr 06/08/25 12:12 Dextrose 5% 1,000 Ml IVPB PRN PRN Hypoglycemia Protocol Insulin Aspart 4 - 8 units 06/08/25 17:00 06/12/25 17:24 Insulin Aspart (*Bkc) 100 Units/Ml SUB-Q 4 units TIDWM GEE Administration Protocol Insulin Aspart 2 - 4 units 06/08/25 21:00 06/12/25 20:20 Insulin Aspart (*Bkc) 100 Units/Ml SUB-Q Not Given HS GEE Protocol Lisinopril 5 mg 06/08/25 12:40 06/12/25 08:31 Lisinopril 5 Mg Tablet PO 5 mg QAM GEE Administration Meclizine HCl 12.5 mg 06/08/25 13:00 06/12/25 20:21 Meclizine Hcl 12.5 Mg Tablet PO 12.5 mg QID GEE Administration Metoprolol Succinate 50 mg 06/09/25 09:00 06/12/25 08:32 Metoprolol Succinate Ext Rel 50 Mg Tabcr PO 50 mg QAM GEE Administration Ondansetron HCl 4 mg 06/08/25 10:30 06/09/25 11:54 Ondansetron Inj 4 Mg/2 Ml Vial IV PUSH 4 mg Q4H PRN Administration Nausea Radiology Results: ITS Impressions Cervical Spine CT 06/08/25 07:52 IMPRESSION: HEAD: 1. No acute intracranial findings. C-SPINE: 1. No acute fracture. Head CT 06/08/25 07:52 IMPRESSION: HEAD: 1. No acute intracranial findings. C-SPINE: 1. No acute fracture. Brain MRI 06/08/25 17:29 IMPRESSION: No etiology to explain the patient's symptoms. Carotid Doppler Study 06/10/25 08:50 IMPRESSION: 1. <50% stenosis from minimal plaque in the right internal carotid artery. 2. <50% stenosis from minimal plaque in the left internal carotid artery. Labs Labs: Laboratory Results - last 24 hr 06/12/25 06/12/25 06/12/25 04:45 04:55 07:39 WBC 9.4 RBC 3.26 L Hgb 10.0 L Hct 32.9 L MCV 100.9 H MCH 30.7 MCHC 30.4 L RDW 14.2 Plt Count 235 MPV 10.8 H Puncture Site ABG pH ABG pCO2 ABG pO2 ABG PO2/FiO2 Ratio ABG HCO3 ABG O2 Saturation ABG O2 Content ABG Base Excess A-a Gradient Oxyhemoglobin Total Hemoglobin O2 Delivery Device O2 Liters/Min FiO2 Sodium 137 Potassium 4.2 Chloride 102 Carbon Dioxide 33 H Anion Gap 2 L BUN 19 H Creatinine 0.58 L Estim Creat Clear Calc 58 Estimated GFR > 60 Glucose 121 H POC Capillary Glucose 154 H Calcium 9.0 Total Bilirubin 0.6 AST 159 H ALT 131 H Alkaline Phosphatase 211 H Total Protein 6.7 Albumin 3.4 L 06/12/25 06/12/25 06/12/25 11:39 14:20 17:19 WBC RBC Hgb Hct MCV MCH MCHC RDW Plt Count MPV Puncture Site Left radial ABG pH 7.446 ABG pCO2 44.3 ABG pO2 59.7 L ABG PO2/FiO2 Ratio 1.87 ABG HCO3 29.8 H ABG O2 Saturation 91.8 L ABG O2 Content 14.8 L ABG Base Excess 5.1 A-a Gradient 116.6 Oxyhemoglobin 91.2 Total Hemoglobin 11.5 L O2 Delivery Device Cpap O2 Liters/Min 3.0 FiO2 32 Sodium Potassium Chloride Carbon Dioxide Anion Gap BUN Creatinine Estim Creat Clear Calc Estimated GFR Glucose POC Capillary Glucose 200 H 222 H Calcium Total Bilirubin AST ALT Alkaline Phosphatase Total Protein Albumin 06/12/25 06/13/25 20:20 05:01 WBC 8.9 RBC 3.20 L Hgb 9.9 L Hct 32.3 L MCV 100.9 H MCH 30.9 MCHC 30.7 L RDW 14.3 Plt Count 199 MPV 11.8 H Puncture Site ABG pH ABG pCO2 ABG pO2 ABG PO2/FiO2 Ratio ABG HCO3 ABG O2 Saturation ABG O2 Content ABG Base Excess A-a Gradient Oxyhemoglobin Total Hemoglobin O2 Delivery Device O2 Liters/Min FiO2 Sodium 137 Potassium 4.5 Chloride 102 Carbon Dioxide 32 H Anion Gap 3 L BUN 15 Creatinine 0.51 L Estim Creat Clear Calc 65 Estimated GFR > 60 Glucose 133 H POC Capillary Glucose 116 H Calcium 9.0 Total Bilirubin 0.8 AST 98 H ALT 119 H Alkaline Phosphatase 216 H Total Protein 6.0 L Albumin 3.2 L Hospitalist MIPS Advance Care Plan I have confirmed that the patient's Advanced Care Plan is present, code status is documented, or surrogate decision maker is listed in patient medical record.: Yes Medication Reconciliation I have utilized all available resources to obtain, update and review the patients current medications (includes all prescriptions, OTC, herbals, cannabis, and nutritional supplements).: Yes
[2025-06-13] MEDS: METOPROLOL SUCCINATE EXT REL 50 MG TABCR PO (08:38)
[2025-06-13] MEDS: MECLIZINE HCL 12.5 MG TABLET PO ×4 (08:38→20:26)
[2025-06-13] MEDS: ENOXAPARIN 40 MG/0.4 ML SYRINGE SUB-Q (08:38)
[2025-06-13] MEDS: OMEGA 3 POLYUNSAT FATTY ACIDS 1 GM CAP PO (08:38)
[2025-06-13] MEDS: ALPRAZolam (*CRX) 0.5 MG TABLET PO ×2 (08:38→20:26)
--- NOTE | 2025-06-13 11:46 | PCNFU ---
Nutrition Follow-Up Complete: Inadequate oral intake related to loss of appetite as evidenced by intakes 0-50% Goal: Intakes >50% Patient is meeting goal. No new goal. Pt current nutrition is DBCC with Glucerna shakes BID. Last recorded weight is 70 kg, no new weight to report. Bowel Motility: Last reported BM 06/11 Labs Reviewed:Glu 133, Cr 0.51, Alb 3.2, Hct 32.9, Hgb 9.9 Meds Noted: NovoLog Skin: WNL Additional Notes: Patient is tolerating DBCC diet. PO intake > 75% Of meals. Diet supplements are being provided of Glucerna Shakes BID (240 kcal and 10 gm protein). Monitoring intakes, weights, labs, output, plan of care Follow up in 7 days
[2025-06-13] MEDS: ACETAMINOPHEN 325 MG TABLET 650 MG PO ×2 (14:41→20:26)
[2025-06-14] VITALS (18 sets, daily range): BP systolic 109–176; BP diastolic 36–67; PULSE 57–107; RESP 18–20; TEMP 36.1–36.7; O2SAT 91–100
[2025-06-14] MEDS: IPRATROPIUM 0.5 MG/ALBUTEROL SULFATE 2.5 MG (BASE) AMPUL.NEB 3 ML INHALATION ×4 (02:05→21:04)
[2025-06-14 04:56] LABS: Hematocrit 33.5 % (37.0-47.0); Hemoglobin 10.1 g/dL (12.0-15.0); Mean Corpuscular HGB Conc 30.1 g/dl (32-36); Mean Corpuscular Hemoglobin 30.4 pg (26-34); Mean Corpuscular Volume 100.9 fl (80-100); Platelet Count Result 259 k/mm3 (150-375); Red Blood Count 3.32 M/mm3 (4.2-5.4); White Blood Count 7.0 K/mm3 (4.5-10.0)
[2025-06-14 05:06] LABS: Alanine Aminotransferase 109 U/L (6-35); Albumin Level 3.4 g/dL (3.5-5.1); Alkaline Phosphatase 210 U/L (38-126); Anion Gap 2 mmol/L (4-12); Aspartate Amino Transferase 96 U/L (14-36); Bilirubin,Total 0.5 mg/dL (0.2-1.3); Blood Urea Nitrogen 22 mg/dL (7-17); Calcium 9.1 mg/dL (8.4-10.2); Carbon Dioxide 36 mmol/L (22-30); Chloride 101 mmol/L (98-107); Estimated CRCL calculation 54 ml/min; Estimated Glomerular Filt Rate > 60; Glucose 126 mg/dL (65-110); Potassium 4.5 mmol/L (3.4-5.0); Sodium 139 mmol/L (137-145); Total Protein 6.9 g/dL (6.3-8.2)
[2025-06-14] MEDS: ACETAMINOPHEN 325 MG TABLET 650 MG PO ×3 (05:52→20:50)
[2025-06-14] MEDS: METOPROLOL SUCCINATE EXT REL 50 MG TABCR PO (08:47)
[2025-06-14] MEDS: MECLIZINE HCL 12.5 MG TABLET PO ×4 (08:47→20:50)
[2025-06-14] MEDS: OMEGA 3 POLYUNSAT FATTY ACIDS 1 GM CAP PO (08:47)
[2025-06-14] MEDS: ENOXAPARIN 40 MG/0.4 ML SYRINGE SUB-Q (08:48)
--- NOTE | 2025-06-14 15:05 | P.PNIM_ITS ---
Assessment and Plan Assessment and Plan (1) Dizziness: Code(s): R42 - Dizziness and giddiness Status: Acute Plan Vertigo Likely BPPV, worse with head movement Ct head and cervical spine no acute changes MRI brain no pathological changes Carotid Doppler with no significant stenosis PT/OT for vestibular therapy Neurology consulted DM2 on SSI with accucheks, adjust with clinical course HTN continue home meds COPD on chronic respiratory failure On 3 liters oxygen which is her baseline continue home bronchodilator Respiratory distress earlier today needing breathing treatment. Check chest x- ray. Resume breztri DVT prophylaxis on Sq lovenox Full code SDM: Jesus Bean Subjective Date/time seen: 06/14/25 15:05 Interval history: HPI: Mya Landry is a 80 year old female with complaints of dizziness and fall. She admits that she has had vertigo on and off in the past but it was never this severe or prolonged. She lives by herself. When she woke up in the morning when she sat on the edge of the bed she started to have vertigo and a despite her best attempts she fell to the floor. She has difficulty getting to her phone but after some time she was able to get courage to reach out for the phone and call her son who came and helped her. The patient still continues to be it symptomatic. I noted that a CT scan of brain and MRI of the brain were performed which did not show any significant abnormality. Patient's 2 sons. They are supportive. She also has history of diabetes mellitus and COPD. She has multiple bruises on her head due to the fall. At this time she denies any diplopia or difficulty speech or swallowing. No weakness in upper lower limbs. 06/12: Patient is getting better with the physical therapy but still feels nauseous. is helping with settings in Trilogy machine.Patient requested her family member to bring the machine. 06/13:Today is the first day reports she feeling better. Will continue physical therapy. Patient head CT, brain MRI, carotid Doppler negative for any abnormal findings. 06/14: Patient had an episode of panic attack earlier today with shortness of breath received breathing treatment which made it better. She is currently using AVAPS. Dizziness has improved however still has some on and off Review of Systems Review of Systems: All other systems were reviewed and negative except as noted in the HPI above Exam Narrative: General: alert and comfortable Eyes: EOMI, PERRLA, no nystagmus ENNT External ears normal, Neck is supple, no masses, Respiratory systems: Clear to auscultation no respiratory distress Cardiovascular S1, S2, normal rhythm, no murmur, rub, or gallop; no thrill or palpable murmurs on palpation. Gastrointestinal: soft, non-tender, and non-distended abdomen with no masses; BS present Skin: no rash, lesions, ulcerations, subcutaneous nodules or induration Musculoskeletal: left frontal bruise from fall Neurologic: Alert and oriented x3, non focal Mental Status Exam: normal affect Objective Data Vital Signs Vital Signs: Vital Signs - 24 hr 06/13/25 16:00 06/13/25 19:47 06/13/25 19:50 Temperature Pulse Rate 73 66 Respiratory Rate 18 Blood Pressure Pulse Oximetry 99 Oxygen Delivery Nasal Cannula Oxygen Flow Rate 3 06/13/25 19:50 06/13/25 19:53 06/13/25 21:54 Temperature Pulse Rate 67 69 Respiratory Rate 18 Blood Pressure Pulse Oximetry 99 Oxygen Delivery CPAP CPAP Oxygen Flow Rate 06/13/25 22:00 06/14/25 00:00 06/14/25 02:05 Temperature 97.6 F Pulse Rate 64 57 L 63 Respiratory Rate 20 18 Blood Pressure 122/53 L Pulse Oximetry 98 Oxygen Delivery Oxygen Flow Rate 06/14/25 02:05 06/14/25 02:14 06/14/25 04:00 Temperature Pulse Rate 63 64 76 Respiratory Rate 18 Blood Pressure Pulse Oximetry 96 Oxygen Delivery CPAP Oxygen Flow Rate 06/14/25 05:34 06/14/25 06:30 06/14/25 06:30 Temperature 97.1 F L Pulse Rate 100 67 64 Respiratory Rate 20 18 Blood Pressure 176/67 H Pulse Oximetry 100 99 Oxygen Delivery CPAP Oxygen Flow Rate 06/14/25 08:00 06/14/25 08:00 06/14/25 08:47 Temperature Pulse Rate 98 107 H Respiratory Rate Blood Pressure Pulse Oximetry 91 Oxygen Delivery CPAP Oxygen Flow Rate 06/14/25 12:00 06/14/25 13:41 06/14/25 13:45 Temperature Pulse Rate 101 H 93 90 Respiratory Rate 19 19 Blood Pressure Pulse Oximetry Oxygen Delivery Oxygen Flow Rate Intake/Output Intake/Output: Intake & Output 06/11/25 06/12/25 06/13/25 12/20/25 23:59 23:59 23:59 23:59 Intake Total 990 1110 1080 620 Balance 990 1110 1080 620 Meds/Results Medications: Active Medications Generic Name Dose Route Start Last Admin Trade Name Freq PRN Reason Stop Dose Admin Acetaminophen 650 mg 06/08/25 10:30 06/14/25 12:38 Acetaminophen 325 Mg Tablet PO 650 mg Q4H PRN Administration Mild Pain (1-3) or Fever Albuterol 0 puff 06/08/25 12:35 Albuterol Sulfate (*Sp) Aerosol 1 Puff INHALATION Q4-6H PRN SOB/WHEEZING Albuterol/Ipratropium 3 ml 06/08/25 14:00 06/14/25 13:41 Ipratropium 0.5 Mg/Albuterol Sulfate 2.5 Mg (Base) Ampul.Neb 3 Ml INHALATION 3 ml Q6HRT GEE Administration Alprazolam 0.5 mg 06/08/25 12:33 06/13/25 20:26 Alprazolam (*Crx) 0.5 Mg Tablet PO 0.5 mg BID PRN Administration Anxiety Dextrose 12.5 gm 06/08/25 12:12 Dextrose 50% 25 Gm/50 Ml Syringe IV PUSH PRN PRN Hypoglycemia Protocol Enoxaparin Sodium 40 mg 06/09/25 09:00 06/14/25 08:48 Enoxaparin 40 Mg/0.4 Ml Syringe SUB-Q 40 mg DAILY GEE Administration Fish Oil 1 gm 06/09/25 09:00 06/14/25 08:47 [place] 3 Polyunsat Fatty Acids 1 Gm Cap PO 1 gm DAILY GEE Administration Glucagon 1 mg 06/08/25 12:12 Glucagon For Inj 1 Mg Vial IM PRN PRN Hypoglycemia Protocol Glucose 15 gm 06/08/25 12:12 Glucose Oral Gel 15 Gm Of Glucse In 37.5 Gm Tube PO PRN PRN Hypoglycemia Protocol Hydralazine HCl 10 mg 06/08/25 12:32 06/14/25 05:48 Hydralazine Hcl 20 Mg/Ml Vial IV PUSH 10 mg Q8H PRN Administration SYSTOLIC BP >150 Dextrose 1,000 mls @ 100 mls/hr 06/08/25 12:12 Dextrose 5% 1,000 Ml IVPB PRN PRN Hypoglycemia Protocol Insulin Aspart 4 - 8 units 06/08/25 17:00 06/14/25 12:31 Insulin Aspart (*Bkc) 100 Units/Ml SUB-Q Not Given TIDWM [facility] Protocol Insulin Aspart 2 - 4 units 06/08/25 21:00 06/13/25 20:28 Insulin Aspart (*Bkc) 100 Units/Ml SUB-Q Not Given HS GEE Protocol Lisinopril 5 mg 06/08/25 12:40 06/14/25 08:47 Lisinopril 5 Mg Tablet PO 5 mg QAM GEE Administration Meclizine HCl 12.5 mg 06/08/25 13:00 06/14/25 12:38 Meclizine Hcl 12.5 Mg Tablet PO 12.5 mg QID GEE Administration Metoprolol Succinate 50 mg 06/09/25 09:00 06/14/25 08:47 Metoprolol Succinate Ext Rel 50 Mg Tabcr PO 50 mg QAM GEE Administration Ondansetron HCl 4 mg 06/08/25 10:30 06/09/25 11:54 Ondansetron Inj 4 Mg/2 Ml Vial IV PUSH 4 mg Q4H PRN Administration Nausea Radiology Results: ITS Impressions Cervical Spine CT 06/08/25 07:52 IMPRESSION: HEAD: 1. No acute intracranial findings. C-SPINE: 1. No acute fracture. Head CT 06/08/25 07:52 IMPRESSION: HEAD: 1. No acute intracranial findings. C-SPINE: 1. No acute fracture. Brain MRI 06/08/25 17:29 IMPRESSION: No etiology to explain the patient's symptoms. Carotid Doppler Study 06/10/25 08:50 IMPRESSION: 1. <50% stenosis from minimal plaque in the right internal carotid artery. 2. <50% stenosis from minimal plaque in the left internal carotid artery. Labs Labs: Laboratory Results - last 24 hr 06/13/25 06/13/25 06/14/25 17:02 20:24 04:43 WBC 7.0 RBC 3.32 L Hgb 10.1 L Hct 33.5 L MCV 100.9 H MCH 30.4 MCHC 30.1 L RDW 14.4 Plt Count 259 MPV 10.7 H Sodium 139 Potassium 4.5 Chloride 101 Carbon Dioxide 36 H Anion Gap 2 L BUN 22 H Creatinine 0.63 L Estim Creat Clear Calc 54 Estimated GFR > 60 Glucose 126 H POC Capillary Glucose 172 H 189 H Calcium 9.1 Total Bilirubin 0.5 AST 96 H ALT 109 H Alkaline Phosphatase 210 H Total Protein 6.9 Albumin 3.4 L 06/14/25 06/14/25 07:58 11:42 WBC RBC Hgb Hct MCV MCH MCHC RDW Plt Count MPV Sodium Potassium Chloride Carbon Dioxide Anion Gap BUN Creatinine Estim Creat Clear Calc Estimated GFR Glucose POC Capillary Glucose 123 H 157 H Calcium Total Bilirubin AST ALT Alkaline Phosphatase Total Protein Albumin Hospitalist MIPS Advance Care Plan I have confirmed that the patient's Advanced Care Plan is present, code status is documented, or surrogate decision maker is listed in patient medical record.: Yes Medication Reconciliation I have utilized all available resources to obtain, update and review the patients current medications (includes all prescriptions, OTC, herbals, cannabis, and nutritional supplements).: Yes
[2025-06-14] MEDS: ASPIRIN 81 MG ENTERIC TABLET PO (16:16)
[2025-06-14] MEDS: ATORVASTATIN 20 MG TABLET PO (16:17)
[2025-06-14] MEDS: ALPRAZolam (*CRX) 0.5 MG TABLET PO (20:50)
[2025-06-15] VITALS (19 sets, daily range): BP systolic 124–146; BP diastolic 52–76; PULSE 69–89; RESP 16–21; TEMP 36.1–36.4; O2SAT 92–100
[2025-06-15] MEDS: IPRATROPIUM 0.5 MG/ALBUTEROL SULFATE 2.5 MG (BASE) AMPUL.NEB 3 ML INHALATION ×4 (02:02→20:32)
[2025-06-15] MEDS: OMEGA 3 POLYUNSAT FATTY ACIDS 1 GM CAP PO (09:20)
[2025-06-15] MEDS: ATORVASTATIN 20 MG TABLET PO (09:21)
[2025-06-15] MEDS: METOPROLOL SUCCINATE EXT REL 50 MG TABCR PO (09:21)
[2025-06-15] MEDS: LORATADINE/PSEUDOEPHEDRINE (*CRX) 10/240 MG TABLET ER 24 HR 1 TAB PO (09:21)
[2025-06-15] MEDS: MECLIZINE HCL 12.5 MG TABLET PO ×4 (09:21→21:18)
[2025-06-15] MEDS: ENOXAPARIN 40 MG/0.4 ML SYRINGE SUB-Q (09:22)
[2025-06-15] MEDS: ASPIRIN 81 MG ENTERIC TABLET PO (09:22)
[2025-06-15] MEDS: ALPRAZolam (*CRX) 0.5 MG TABLET PO ×2 (09:35→21:18)
--- NOTE | 2025-06-15 12:32 | PM.IMPN2 ---
Assessment and Plan Assessment and Plan (1) Dizziness: Code(s): R42 - Dizziness and giddiness Status: Acute Plan Vertigo Likely BPPV, worse with head movement Ct head and cervical spine no acute changes MRI brain no pathological changes Carotid Doppler with no significant stenosis PT/OT for vestibular therapy Neurology consulted DM2 on SSI with accucheks, adjust with clinical course HTN continue home meds COPD on chronic respiratory failure On 3 liters oxygen which is her baseline continue home bronchodilator Respiratory distress earlier today needing breathing treatment. Check chest x-ray. Resume breztri Possible discharge in a.m.. DVT prophylaxis on Sq lovenox Full code SDM: Jesus Bean Subjective Date/time seen: 06/15/25 12:32 Interval history: HPI: Mya Landry is a 80 year old female with complaints of dizziness and fall. She admits that she has had vertigo on and off in the past but it was never this severe or prolonged. She lives by herself. When she woke up in the morning when she sat on the edge of the bed she started to have vertigo and a despite her best attempts she fell to the floor. She has difficulty getting to her phone but after some time she was able to get courage to reach out for the phone and call her son who came and helped her. The patient still continues to be it symptomatic. I noted that a CT scan of brain and MRI of the brain were performed which did not show any significant abnormality. Patient's 2 sons. They are supportive. She also has history of diabetes mellitus and COPD. She has multiple bruises on her head due to the fall. At this time she denies any diplopia or difficulty speech or swallowing. No weakness in upper lower limbs. 06/12: Patient is getting better with the physical therapy but still feels nauseous. is helping with settings in Trilogy machine.Patient requested her family member to bring the machine. 06/13:Today is the first day reports she feeling better. Will continue physical therapy. Patient head CT, brain MRI, carotid Doppler negative for any abnormal findings. 06/14: Patient had an episode of panic attack earlier today with shortness of breath received breathing treatment which made it better. She is currently using AVAPS. Dizziness has improved however still has some on and off 06/15: Patient was seen during the morning today. Patient is feeling slightly better. No shortness of breath or chest pain. Dizziness is also slightly better. Review of Systems Review of Systems: All other systems were reviewed and negative except as noted in the HPI above Exam Narrative: General: alert and comfortable Eyes: EOMI, PERRLA, no nystagmus ENNT External ears normal, Neck is supple, no masses, Respiratory systems: Clear to auscultation no respiratory distress Cardiovascular S1, S2, normal rhythm, no murmur, rub, or gallop; no thrill or palpable murmurs on palpation. Gastrointestinal: soft, non-tender, and non-distended abdomen with no masses; BS present Skin: no rash, lesions, ulcerations, subcutaneous nodules or induration Musculoskeletal: left frontal bruise from fall Neurologic: Alert and oriented x3, non focal Mental Status Exam: normal affect Objective Data Vital Signs Vital Signs: Vital Signs - 24 hr 06/14/25 13:41 06/14/25 13:45 06/14/25 15:33 Temperature 36.1 C L Pulse Rate 93 90 78 Respiratory Rate 19 19 20 Blood Pressure 109/39 L Pulse Oximetry 96 Oxygen Delivery Oxygen Flow Rate 06/14/25 16:00 06/14/25 19:56 06/14/25 19:56 Temperature Pulse Rate 76 82 Respiratory Rate Blood Pressure Pulse Oximetry Oxygen Delivery CPAP Oxygen Flow Rate 06/14/25 21:04 06/14/25 21:09 06/14/25 21:12 Temperature Pulse Rate 77 77 75 Respiratory Rate 18 18 Blood Pressure Pulse Oximetry 99 Oxygen Delivery CPAP Oxygen Flow Rate 06/14/25 21:20 06/15/25 00:00 06/15/25 02:02 Temperature 36.7 C Pulse Rate 74 69 70 Respiratory Rate 18 18 Blood Pressure 124/36 L Pulse Oximetry 99 Oxygen Delivery Oxygen Flow Rate 06/15/25 02:03 06/15/25 02:10 06/15/25 04:00 Temperature Pulse Rate 70 71 71 Respiratory Rate 21 H 18 Blood Pressure Pulse Oximetry 97 Oxygen Delivery CPAP Oxygen Flow Rate 06/15/25 06:00 06/15/25 08:09 06/15/25 08:11 Temperature 36.1 C L Pulse Rate 73 82 72 Respiratory Rate 18 19 19 Blood Pressure 146/57 H Pulse Oximetry 100 Oxygen Delivery Oxygen Flow Rate 06/15/25 09:21 06/15/25 09:21 06/15/25 09:21 Temperature Pulse Rate 86 86 89 Respiratory Rate 19 Blood Pressure Pulse Oximetry 100 Oxygen Delivery CPAP Oxygen Flow Rate 2 Intake/Output Intake/Output: Intake & Output 06/12/25 06/13/25 06/14/25 06/15/25 23:59 23:59 23:59 23:59 Intake Total 1110 1080 1200 440 Balance 1110 1080 1200 440 Meds/Results Medications: Active Medications Generic Name Dose Route Start Last Admin Trade Name Freq PRN Reason Stop Dose Admin Acetaminophen 650 mg 06/08/25 10:30 06/14/25 20:50 Acetaminophen 325 Mg Tablet PO 650 mg Q4H PRN Administration Mild Pain (1-3) or Fever Albuterol 0 puff 06/08/25 12:35 Albuterol Sulfate (*Sp) Aerosol 1 Puff INHALATION Q4-6H PRN SOB/WHEEZING Albuterol/Ipratropium 3 ml 06/08/25 14:00 06/15/25 08:04 Ipratropium 0.5 Mg/Albuterol Sulfate 2.5 Mg (Base) Ampul.Neb 3 Ml INHALATION 3 ml Q6HRT GEE Administration Alprazolam 0.5 mg 06/08/25 12:33 06/15/25 09:35 Alprazolam (*Crx) 0.5 Mg Tablet PO 0.5 mg BID PRN Administration Anxiety Aspirin 81 mg 06/14/25 15:15 06/15/25 09:22 Aspirin 81 Mg Enteric Tablet PO 81 mg DAILY GEE Administration Atorvastatin Calcium 20 mg 06/14/25 15:15 06/15/25 09:21 Atorvastatin 20 Mg Tablet PO 20 mg DAILY GEE Administration Dextrose 12.5 gm 06/08/25 12:12 Dextrose 50% 25 Gm/50 Ml Syringe IV PUSH PRN PRN Hypoglycemia Protocol Enoxaparin Sodium 40 mg 06/09/25 09:00 06/15/25 09:22 Enoxaparin 40 Mg/0.4 Ml Syringe SUB-Q 40 mg DAILY GEE Administration Fish Oil 1 gm 06/09/25 09:00 06/15/25 09:20 [place] 3 Polyunsat Fatty Acids 1 Gm Cap PO 1 gm DAILY GEE Administration Fluticasone/Umeclidinium/Vilanterol 1 puff 06/15/25 09:00 06/15/25 08:05 Fluticasone/Umeclidin/Vilanter 100-62.5-25 Mcg Ellipta INHALATION Not Given DAILY GEE Glucagon 1 mg 06/08/25 12:12 Glucagon For Inj 1 Mg Vial IM PRN PRN Hypoglycemia Protocol Glucose 15 gm 06/08/25 12:12 Glucose Oral Gel 15 Gm Of Glucse In 37.5 Gm Tube PO PRN PRN Hypoglycemia Protocol Hydralazine HCl 10 mg 06/08/25 12:32 06/14/25 05:48 Hydralazine Hcl 20 Mg/Ml Vial IV PUSH 10 mg Q8H PRN Administration SYSTOLIC BP >150 Dextrose 1,000 mls @ 100 mls/hr 06/08/25 12:12 Dextrose 5% 1,000 Ml IVPB PRN PRN Hypoglycemia Protocol Insulin Aspart 4 - 8 units 06/08/25 17:00 06/15/25 12:28 Insulin Aspart (*Bkc) 100 Units/Ml SUB-Q Not Given TIDWM GEE Protocol Insulin Aspart 2 - 4 units 06/08/25 21:00 06/14/25 20:53 Insulin Aspart (*Bkc) 100 Units/Ml SUB-Q Not Given HS GEE Protocol Lisinopril 5 mg 06/08/25 12:40 06/15/25 09:21 Lisinopril 5 Mg Tablet PO 5 mg QAM GEE Administration Loratadine/Pseudoephedrine Sulfate 1 tab 06/15/25 09:00 06/15/25 09:21 Loratadine/Pseudoephedrine (*Crx) 10/240 Mg Tablet Er 24 Hr PO 1 tab DAILY GEE Administration Meclizine HCl 12.5 mg 06/08/25 13:00 06/15/25 12:27 Meclizine Hcl 12.5 Mg Tablet PO 12.5 mg QID GEE Administration Meclizine HCl 25 mg 06/14/25 15:07 Meclizine Hcl 25 Mg Tablet PO PRN PRN Dizziness Metformin HCl 500 mg 06/14/25 17:00 06/15/25 09:23 Metformin Hcl 500 Mg Tablet PO 500 mg BID GEE Administration Metoprolol Succinate 50 mg 06/09/25 09:00 06/15/25 09:21 Metoprolol Succinate Ext Rel 50 Mg Tabcr PO 50 mg QAM GEE Administration Miscellaneous Information 1 each 06/15/25 00:01 Clarify Prn Meclizine--Need A Timed Frequency Can'T Have Prn For Frequency XX 07/15/25 00:00 CLARIFY GEE Ondansetron HCl 4 mg 06/08/25 10:30 06/09/25 11:54 Ondansetron Inj 4 Mg/2 Ml Vial IV PUSH 4 mg Q4H PRN Administration Nausea Radiology Results: ITS Impressions Cervical Spine CT 06/08/25 07:52 IMPRESSION: HEAD: 1. No acute intracranial findings. C-SPINE: 1. No acute fracture. Head CT 06/08/25 07:52 IMPRESSION: HEAD: 1. No acute intracranial findings. C-SPINE: 1. No acute fracture. Brain MRI 06/08/25 17:29 IMPRESSION: No etiology to explain the patient's symptoms. Carotid Doppler Study 06/10/25 08:50 IMPRESSION: 1. <50% stenosis from minimal plaque in the right internal carotid artery. 2. <50% stenosis from minimal plaque in the left internal carotid artery. Chest X-Ray 06/14/25 16:35 IMPRESSION: 1. No acute findings. Other findings as described above. Labs Labs: Laboratory Results - last 24 hr 06/14/25 06/14/25 06/15/25 16:48 20:02 07:49 POC Capillary Glucose 128 H 162 H 124 H 06/15/25 11:51 POC Capillary Glucose 154 H
[2025-06-16] VITALS (20 sets, daily range): BP systolic 124–167; BP diastolic 61–73; PULSE 69–96; RESP 16–22; TEMP 36.3–36.7; O2SAT 94–100
[2025-06-16] MEDS: IPRATROPIUM 0.5 MG/ALBUTEROL SULFATE 2.5 MG (BASE) AMPUL.NEB 3 ML INHALATION ×4 (02:09→20:51)
[2025-06-16] MEDS: ATORVASTATIN 20 MG TABLET PO (08:13)
[2025-06-16] MEDS: MECLIZINE HCL 12.5 MG TABLET PO ×4 (08:13→21:26)
[2025-06-16] MEDS: METOPROLOL SUCCINATE EXT REL 50 MG TABCR PO (08:14)
[2025-06-16] MEDS: OMEGA 3 POLYUNSAT FATTY ACIDS 1 GM CAP PO (08:14)
[2025-06-16] MEDS: LORATADINE/PSEUDOEPHEDRINE (*CRX) 10/240 MG TABLET ER 24 HR 1 TAB PO (08:14)
[2025-06-16] MEDS: ENOXAPARIN 40 MG/0.4 ML SYRINGE SUB-Q (08:14)
[2025-06-16] MEDS: ASPIRIN 81 MG ENTERIC TABLET PO (08:14)
[2025-06-16] MEDS: ALPRAZolam (*CRX) 0.5 MG TABLET PO ×2 (12:00→21:27)
--- NOTE | 2025-06-16 12:02 | P.DS_ITS ---
DS: Admitting Diagnosis Discharge Date 06/19/2025 Admitting Diagnosis Dizziness DS: Discharge Diagnosis Discharge Diagnosis (1) Dizziness: Code(s): R42 - Dizziness and giddiness Status: Acute Plan Vertigo Likely BPPV, worse with head movement Ct head and cervical spine no acute changes MRI brain no pathological changes Carotid Doppler with no significant stenosis PT/OT for vestibular therapy Neurology consulted DM2 on SSI with accucheks, adjust with clinical course HTN continue home meds COPD on chronic respiratory failure On 3 liters oxygen which is her baseline continue home bronchodilator Respiratory distress earlier today needing breathing treatment. Check chest x- ray. Resume breztri Possible discharge in a.m.. DVT prophylaxis on Sq lovenox Full code SDM: Jesus Bean DS: Summary Hospital Course Reason for hospitalization: Dizziness Hospital Course: 80 years old female was admitted for dizziness. Workup in the hospital was negative. Patient was given meclizine for treatment. Patient was also started physical therapy. Today patient is feeling better and discharged home in stable condition. Follow-up scheduled. Status at Discharge Cognitive/behavioral status at discharge: Stable Time Spent with Patient Time attestation: Total time spent providing and/or coordinating discharge services: 30 minutes Exam Narrative: General: alert and comfortable Eyes: EOMI, PERRLA, no nystagmus ENNT External ears normal, Neck is supple, no masses, Respiratory systems: Clear to auscultation no respiratory distress Cardiovascular S1, S2, normal rhythm, no murmur, rub, or gallop; no thrill or palpable murmurs on palpation. Gastrointestinal: soft, non-tender, and non-distended abdomen with no masses; BS present Skin: no rash, lesions, ulcerations, subcutaneous nodules or induration Musculoskeletal: left frontal bruise from fall Neurologic: Alert and oriented x3, non focal Mental Status Exam: normal affect DS: Data Data Completed and Pending Labs on day of discharge: Labs from last 24 hours 06/16/25 06/15/25 06/15/25 08:20 20:45 16:43 POC Capillary Glucose 130 H 133 H 109 H Discharge Plan Discharge Attending physician on discharge: Brodie Cuevas Consulting providers: Shilo Gaspar Discharging Clinician: Brodie Cuevas Patient Disposition: Home Activity: as tolerated Diet: as tolerated Patient Instructions: Antibiotic Form, Aspirin (By mouth), Heart Failure (GEN) Patient Language: Prydein[place] Stand Alone Forms: General Discharge Information Follow-up/Referrals: Shilo Gaspar MD [Physician, Neurology] Sidney Nesbitt DO [Primary Care Provider, Internal Medicine] Discharge Medications: New lisinopril 5 mg Tablet 5 mg PO QAM Qty: 30 0RF Continued aspirin 81 mg tablet,delayed release (DR/EC) 81 mg PO DAILY Breztri Aerosphere 160-9-4.8 mcg/actuation HFA aerosol inhaler 2 inh inhalation BID Qty: 10.7 11RF Rx Instructions: Rinse and spit omega-3 fatty acids-fish oil 300-1,000 mg Capsule 1 cap PO DAILY meclizine 25 mg tablet 25 mg PO PRN PRN (Reason: dizziness) Qty: 30 0RF amlodipine 5 mg tablet 5 mg PO DAILY Qty: 90 2RF atorvastatin [Lipitor] 20 mg tablet 20 mg PO DAILY Qty: 90 2RF albuterol sulfate 90 mcg/actuation HFA aerosol inhaler See Rx Instructions .ROUTE .COMPLEX Qty: 25.5 2RF Dose Instruction: INHALE 1 TO 2 PUFFS BY MOUTH EVERY 4 TO 6 HOURS NEEDED FOR SHORTNESS OF BREATH OR WHEEZING Rx Instructions: INHALE 1 TO 2 PUFFS BY MOUTH EVERY 4 TO 6 HOURS NEEDED FOR SHORTNESS OF BREATH OR WHEEZING metoprolol succinate 50 mg tablet extended release 24 hr 50 mg PO QAM Qty: 90 2RF metformin 500 mg tablet 500 mg PO BIDWMEAL Qty: 180 2RF Rx Instructions: Take with a meal. alprazolam 0.5 mg tablet 0.5 mg PO BID PRN (Reason: anxiety) Qty: 60 1RF Rx Instructions: must last 30 days- cetirizine-pseudoephedrine [Zyrtec-D] 5-120 mg tablet extended release 12 hr 1 tablet PO DAILY Qty: 30 0RF Date of admission: 06/09/25 11:34 Primary Care Provider: Sidney Nesbitt Admitting Provider: Giancarlo Doshi Attending physician on admission: Giancarlo Doshi Condition: Stable
[2025-06-16] MEDS: FLUTICASONE/UMECLIDIN/VILANTER 100-62.5-25 MCG ELLIPTA 1 PUFF INHALATION (14:45)
[2025-06-16] MEDS: ACETAMINOPHEN 325 MG TABLET 650 MG PO (21:26)
[2025-06-17] VITALS (10 sets, daily range): BP systolic 155; BP diastolic 51; PULSE 68–102; RESP 16–20; TEMP 36.8; O2SAT 97–100
[2025-06-17] MEDS: IPRATROPIUM 0.5 MG/ALBUTEROL SULFATE 2.5 MG (BASE) AMPUL.NEB 3 ML INHALATION ×2 (02:23→08:44)
[2025-06-17] MEDS: FLUTICASONE/UMECLIDIN/VILANTER 100-62.5-25 MCG ELLIPTA 1 PUFF INHALATION (08:56)
--- NOTE | 2025-06-17 09:07 | PM.IMPN2 ---
Assessment and Plan Assessment and Plan (1) Dizziness: Code(s): R42 - Dizziness and giddiness Status: Acute Plan Vertigo Likely BPPV, worse with head movement Ct head and cervical spine no acute changes MRI brain no pathological changes Carotid Doppler with no significant stenosis PT/OT for vestibular therapy Neurology consulted DM2 on SSI with accucheks, adjust with clinical course HTN continue home meds COPD on chronic respiratory failure On 3 liters oxygen which is her baseline continue home bronchodilator Respiratory distress earlier today needing breathing treatment. Check chest x-ray. Resume breztri Discharge home today. DVT prophylaxis on Sq lovenox Full code SDM: Jesus Bean Subjective Date/time seen: 06/17/25 09:07 Interval history: HPI: Mya Landry is a 80 year old female with complaints of dizziness and fall. She admits that she has had vertigo on and off in the past but it was never this severe or prolonged. She lives by herself. When she woke up in the morning when she sat on the edge of the bed she started to have vertigo and a despite her best attempts she fell to the floor. She has difficulty getting to her phone but after some time she was able to get courage to reach out for the phone and call her son who came and helped her. The patient still continues to be it symptomatic. I noted that a CT scan of brain and MRI of the brain were performed which did not show any significant abnormality. Patient's 2 sons. They are supportive. She also has history of diabetes mellitus and COPD. She has multiple bruises on her head due to the fall. At this time she denies any diplopia or difficulty speech or swallowing. No weakness in upper lower limbs. 06/12: Patient is getting better with the physical therapy but still feels nauseous. is helping with settings in Trilogy machine.Patient requested her family member to bring the machine. 06/13:Today is the first day reports she feeling better. Will continue physical therapy. Patient head CT, brain MRI, carotid Doppler negative for any abnormal findings. 06/14: Patient had an episode of panic attack earlier today with shortness of breath received breathing treatment which made it better. She is currently using AVAPS. Dizziness has improved however still has some on and off 06/15: Patient was seen during the morning today. Patient is feeling slightly better. No shortness of breath or chest pain. Dizziness is also slightly better. 06/17: Patient was seen during the morning rounds today. Patient feeling better. No complaints. Review of Systems Review of Systems: All other systems were reviewed and negative except as noted in the HPI above Exam Narrative: General: alert and comfortable Eyes: EOMI, PERRLA, no nystagmus ENNT External ears normal, Neck is supple, no masses, Respiratory systems: Clear to auscultation no respiratory distress Cardiovascular S1, S2, normal rhythm, no murmur, rub, or gallop; no thrill or palpable murmurs on palpation. Gastrointestinal: soft, non-tender, and non-distended abdomen with no masses; BS present Skin: no rash, lesions, ulcerations, subcutaneous nodules or induration Musculoskeletal: left frontal bruise from fall Neurologic: Alert and oriented x3, non focal Mental Status Exam: normal affect Objective Data Vital Signs Vital Signs: Vital Signs - 24 hr 06/16/25 11:57 06/16/25 12:00 06/16/25 14:00 Temperature 36.6 C 36.5 C Pulse Rate 83 75 80 Respiratory Rate 18 18 Blood Pressure 143/61 H 140/64 Pulse Oximetry 95 96 Oxygen Delivery Oxygen Flow Rate 06/16/25 14:33 06/16/25 16:00 06/16/25 19:52 Temperature 36.6 C Pulse Rate 80 79 72 Respiratory Rate 22 H 17 Blood Pressure 124/68 Pulse Oximetry 100 Oxygen Delivery Oxygen Flow Rate 06/16/25 20:00 06/16/25 20:00 06/16/25 20:51 Temperature Pulse Rate 79 74 Respiratory Rate 20 Blood Pressure Pulse Oximetry 94 Oxygen Delivery CPAP CPAP Oxygen Flow Rate 06/16/25 20:51 06/16/25 20:59 06/17/25 00:00 Temperature Pulse Rate 74 82 75 Respiratory Rate 20 20 Blood Pressure Pulse Oximetry Oxygen Delivery Oxygen Flow Rate 06/17/25 02:23 06/17/25 02:23 06/17/25 02:28 Temperature Pulse Rate 72 72 76 Respiratory Rate 20 19 19 Blood Pressure Pulse Oximetry 98 Oxygen Delivery CPAP Oxygen Flow Rate 06/17/25 04:00 06/17/25 04:34 06/17/25 08:44 Temperature 36.8 C Pulse Rate 73 74 88 Respiratory Rate 16 20 Blood Pressure 155/51 H Pulse Oximetry 100 98 Oxygen Delivery Nasal Cannula Oxygen Flow Rate 2 06/17/25 08:44 06/17/25 08:57 Temperature Pulse Rate 88 89 Respiratory Rate 20 20 Blood Pressure Pulse Oximetry Oxygen Delivery Oxygen Flow Rate Intake/Output Intake/Output: Intake & Output 06/14/25 06/15/25 06/16/25 06/17/25 23:59 23:59 23:59 23:59 Intake Total 9518 097 5243 250 Balance 1022 032 8751 250 Meds/Results Medications: Active Medications Generic Name Dose Route Start Last Admin Trade Name Freq PRN Reason Stop Dose Admin Acetaminophen 650 mg 06/08/25 10:30 06/16/25 21:26 Acetaminophen 325 Mg Tablet PO 650 mg Q4H PRN Administration Mild Pain (1-3) or Fever Albuterol 0 puff 06/08/25 12:35 Albuterol Sulfate (*Sp) Aerosol 1 Puff INHALATION Q4-6H PRN SOB/WHEEZING Albuterol/Ipratropium 3 ml 06/08/25 14:00 06/17/25 08:44 Ipratropium 0.5 Mg/Albuterol Sulfate 2.5 Mg (Base) Ampul.Neb 3 Ml INHALATION 3 ml Q6HRT GEE Administration Alprazolam 0.5 mg 06/08/25 12:33 06/16/25 21:27 Alprazolam (*Crx) 0.5 Mg Tablet PO 0.5 mg BID PRN Administration Anxiety Aspirin 81 mg 06/14/25 15:15 06/16/25 08:14 Aspirin 81 Mg Enteric Tablet PO 81 mg DAILY GEE Administration Atorvastatin Calcium 20 mg 06/14/25 15:15 06/16/25 08:13 Atorvastatin 20 Mg Tablet PO 20 mg DAILY GEE Administration Dextrose 12.5 gm 06/08/25 12:12 Dextrose 50% 25 Gm/50 Ml Syringe IV PUSH PRN PRN Hypoglycemia Protocol Enoxaparin Sodium 40 mg 06/09/25 09:00 06/16/25 08:14 Enoxaparin 40 Mg/0.4 Ml Syringe SUB-Q 40 mg DAILY GEE Administration Fish Oil 1 gm 06/09/25 09:00 06/16/25 08:14 [place] 3 Polyunsat Fatty Acids 1 Gm Cap PO 1 gm DAILY GEE Administration Fluticasone/Umeclidinium/Vilanterol 1 puff 06/15/25 09:00 06/17/25 08:56 Fluticasone/Umeclidin/Vilanter 100-62.5-25 Mcg Ellipta INHALATION 1 puff DAILY GEE Administration Glucagon 1 mg 06/08/25 12:12 Glucagon For Inj 1 Mg Vial IM PRN PRN Hypoglycemia Protocol Glucose 15 gm 06/08/25 12:12 Glucose Oral Gel 15 Gm Of Glucse In 37.5 Gm Tube PO PRN PRN Hypoglycemia Protocol Hydralazine HCl 10 mg 06/08/25 12:32 06/14/25 05:48 Hydralazine Hcl 20 Mg/Ml Vial IV PUSH 10 mg Q8H PRN Administration SYSTOLIC BP >150 Dextrose 1,000 mls @ 100 mls/hr 06/08/25 12:12 Dextrose 5% 1,000 Ml IVPB PRN PRN Hypoglycemia Protocol Insulin Aspart 4 - 8 units 06/08/25 17:00 06/16/25 18:22 Insulin Aspart (*Bkc) 100 Units/Ml SUB-Q Not Given TIDWM GEE Protocol Insulin Aspart 2 - 4 units 06/08/25 21:00 06/16/25 23:45 Insulin Aspart (*Bkc) 100 Units/Ml SUB-Q Not Given HS GEE Protocol Lisinopril 5 mg 06/08/25 12:40 06/16/25 08:13 Lisinopril 5 Mg Tablet PO 5 mg QAM GEE Administration Loratadine/Pseudoephedrine Sulfate 1 tab 06/15/25 09:00 06/16/25 08:14 Loratadine/Pseudoephedrine (*Crx) 10/240 Mg Tablet Er 24 Hr PO 1 tab DAILY GEE Administration Meclizine HCl 12.5 mg 06/08/25 13:00 06/16/25 21:26 Meclizine Hcl 12.5 Mg Tablet PO 12.5 mg QID GEE Administration Meclizine HCl 25 mg 06/14/25 15:07 Meclizine Hcl 25 Mg Tablet PO Q4H PRN Dizziness Metformin HCl 500 mg 06/14/25 17:00 06/16/25 16:32 Metformin Hcl 500 Mg Tablet PO 500 mg BID GEE Administration Metoprolol Succinate 50 mg 06/09/25 09:00 06/16/25 08:14 Metoprolol Succinate Ext Rel 50 Mg Tabcr PO 50 mg QAM GEE Administration Ondansetron HCl 4 mg 06/08/25 10:30 06/09/25 11:54 Ondansetron Inj 4 Mg/2 Ml Vial IV PUSH 4 mg Q4H PRN Administration Nausea Radiology Results: ITS Impressions Cervical Spine CT 06/08/25 07:52 IMPRESSION: HEAD: 1. No acute intracranial findings. C-SPINE: 1. No acute fracture. Head CT 06/08/25 07:52 IMPRESSION: HEAD: 1. No acute intracranial findings. C-SPINE: 1. No acute fracture. Brain MRI 06/08/25 17:29 IMPRESSION: No etiology to explain the patient's symptoms. Carotid Doppler Study 06/10/25 08:50 IMPRESSION: 1. <50% stenosis from minimal plaque in the right internal carotid artery. 2. <50% stenosis from minimal plaque in the left internal carotid artery. Chest X-Ray 06/14/25 16:35 IMPRESSION: 1. No acute findings. Other findings as described above. Labs Labs: Laboratory Results - last 24 hr 06/16/25 06/16/25 06/16/25 11:54 16:55 19:47 POC Capillary Glucose 95 128 H 129 H 06/17/25 08:10 POC Capillary Glucose 116 H
[2025-06-17] MEDS: MECLIZINE HCL 12.5 MG TABLET PO ×2 (09:45→12:36)
[2025-06-17] MEDS: LORATADINE/PSEUDOEPHEDRINE (*CRX) 10/240 MG TABLET ER 24 HR 1 TAB PO (09:45)
[2025-06-17] MEDS: ATORVASTATIN 20 MG TABLET PO (09:45)
[2025-06-17] MEDS: METOPROLOL SUCCINATE EXT REL 50 MG TABCR PO (09:45)
[2025-06-17] MEDS: OMEGA 3 POLYUNSAT FATTY ACIDS 1 GM CAP PO (09:45)
[2025-06-17] MEDS: ASPIRIN 81 MG ENTERIC TABLET PO (09:46)
[2025-06-17] MEDS: ENOXAPARIN 40 MG/0.4 ML SYRINGE SUB-Q (09:46)
[2025-06-17] MEDS: ALPRAZolam (*CRX) 0.5 MG TABLET PO (09:53)
== END 2025-06-17 12:50 | disposition home or self-care (01) | DRG 149 ==
LOC: ANHED 10:29 → ANH2MED 11:10
PROVIDERS: General Practice; Psychiatry & Neurology Neurology; Admitting Provider Internal Medicine; Emergency Provider Family Medicine; PCP Internal Medicine; Visit Provider Internal Medicine
DX: H81.10 Benign paroxysmal vertigo, unspecified ear (principal); J96.10 Chronic respiratory failure, unspecified whether with hypoxia or hypercapnia; E11.9 Type 2 diabetes mellitus without complications; I10 Essential (primary) hypertension; J44.9 Chronic obstructive pulmonary disease, unspecified; F41.0 Panic disorder [episodic paroxysmal anxiety]; M81.0 Age-related osteoporosis without current pathological fracture; S00.93XA Contusion of unspecified part of head, initial encounter; W19.XXXA Unspecified fall, initial encounter; Z99.81 Dependence on supplemental oxygen; Z90.49 Acquired absence of other specified parts of digestive tract; Z85.828 Personal history of other malignant neoplasm of skin; Z87.891 Personal history of nicotine dependence; Z86.79 Personal history of other diseases of the circulatory system
CPT/HCPCS: 36415; 36600; 70450; 70553; 71045; 72125; 80048; 80053; 82805; 82948; 83036; 85018; 85025; 85027; 85049; 93005; 93880; 94640; 96372; 96374; 97112; 97116; 97161; 97530; 99285; A9270; A9577; G0378; J0360; J1650; J1815; J2405; J7030